=== PATIENT | female | born 1975 | race Caucasian/White ===

== ENCOUNTER 2017-02-07 22:19 | Inpatient (IN) | payer MEDICAID ==
[2017-02-07] MEDS ORDERED: Ketorolac 30 MG/ML SDV IVPUSH ONE (22:39)
[2017-02-07] MEDS ORDERED: Tamsulosin 0.4 MG Cap.ER PO ONE (22:39)
[2017-02-07] MEDS ORDERED: Ondansetron 4 MG/2 ML SDV IVPUSH ONE (22:39)
[2017-02-07] MEDS ORDERED: HYDROmorphone 1 MG/ML Syringe IVPUSH ONE (22:39)
--- NOTE | 2017-02-07 22:44 | EDM.PDOC ---
ED HPI GENERAL MEDICAL PROBLEM - General Chief Complaint: Abdominal Pain Stated Complaint: ABDOMINAL PAIN/KIDNEY STONES Time Seen by Provider: 02/07/17 22:42 - History of Present Illness INITIAL COMMENTS - FREE TEXT/NARRATIVE: HISTORY AND PHYSICAL: History of present illness: Patient 41-year-old female with history of urolithiasis within many episodes prior ingestants or acute right flank pain worse over the last one week with associated nausea she denies fever chills or other concern and no trauma Review of systems: As per history of present illness and below otherwise all systems reviewed and negative. Past medical history: As per history of present illness and as reviewed below otherwise noncontributory. Surgical history: As per history of present illness and as reviewed below otherwise noncontributory. Social history: No reported history of drug or alcohol abuse. Family history: As per history of present illness and as reviewed below otherwise noncontributory. Physical exam: HEENT: Atraumatic, normocephalic, pupils reactive, negative for conjunctival pallor or scleral icterus, mucous membranes moist, throat clear, neck supple, nontender, trachea midline. Lungs: Clear to auscultation, breath sounds equal bilaterally, chest nontender. Heart: S1S2, regular, negative for clicks, rubs, or JVD. Abdomen: Soft, nondistended, nontender. Negative for masses or hepatosplenomegaly. Right-sided costovertebral tenderness. Pelvis: Stable nontender. Genitourinary: Deferred. Rectal: Deferred. Extremities: Atraumatic, negative for cords or calf pain. Neurovascular unremarkable. Neuro: Awake, alert, oriented. Cranial nerves II through XII unremarkable. Cerebellum unremarkable. Motor and sensory unremarkable throughout. Exam nonfocal. Diagnostics: CBC CMP UA hCG CT abdomen and pelvis Therapeutics: Normal saline 1 L bolus Zofran 4 mg IV Toradol 30 mg IV Flomax 0.4 mg by mouth Dilaudid 1 mg IV Impression: #1 acute right flank tenderness #2 history of urolithiasis Definitive disposition and diagnosis as appropriate pending reevaluation and review of above. Right Lower Back Pain Score (Numeric/FACES): 9 - Related Data Allergies Allergy/AdvReac Type Severity Reaction Status Date / Time lorazepam [From Ativan] Allergy Agitation Verified 02/07/17 22:29 Penicillins Allergy Anaphylactic Verified 02/07/17 22:29 Shock sumatriptan [From Imitrex] Allergy Anaphylactic Verified 02/07/17 22:29 Shock sumatriptan succinate Allergy Anaphylactic Verified 02/07/17 22:29 [From Imitrex] Shock venom-honey bee Allergy Anaphylactic Verified 02/07/17 22:29 [bee venom (honey bee)] Shock gnat - bug Allergy Anaphylactic Uncoded 02/07/17 22:29 Shock Home Meds: Home Meds Insulin Aspart [NovoLOG] 32 - 35 unit SQ TIDAC MDD 160 11/03/15 [History] Insulin Glarg,Human.Rec.Analog [LantUS] 64 units SQ BID 11/03/15 [History] Valsartan 320 mg PO DAILY 01/15/16 [History] Spironolactone [Aldactone] 1 tab PO DAILY 07/16/16 [History] Insulin Aspart [NovoLOG] 20 unit SQ WITHSNACKS 07/29/16 [History] cloNIDine [Catapres] 1 tab PO DAILY 07/29/16 [History] Chlorthalidone 25 mg PO DAILY 07/30/16 [History] Past Medical History HEENT History: Reports: Allergic rhinitis Cardiovascular History: Reports: Hypertension Respiratory History: Reports: None Gastrointestinal History: Reports: 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) Genitourinary History: Reports: Renal calculus 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: Musculoskeletal History: Reports: None Other Musculoskeletal History: knee pain Neurological History: Reports: Migraines, Seizure Other Neuro History: had a seizure on 11-01-15 and one 2 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, unknown cause Psychiatric History: Reports: None Endocrine/Metabolic History: Reports: Diabetes, type II, Obesity/BMI 30+ Hematologic History: Reports: None Immunologic History: Reports: None Oncologic (Cancer) History: Reports: None Dermatologic History: Reports: None - Infectious Disease History Infectious Disease History: Reports: Chicken pox, Measles - Past Surgical History Head Surgeries/Procedures: Reports: None HEENT Surgical History: Reports: Oral surgery, Tonsillectomy Cardiovascular Surgical History: Reports: None Respiratory Surgical History: Reports: None GI Surgical History: Reports: Appendectomy, Cholecystectomy Female Surgical History: Reports: section, Hysterectomy, Lithotripsy /ESWL, Tubal ligation - History Comment History Comment: ETOH " 1X A MONTH" Social & Family History - Family History Family Medical History: Noncontributory HEENT: Reports: None Cardiac: Reports: CAD, Hypertension Respiratory: Reports: None GI: Reports: None Psychiatric: Reports: None Endocrine/Metabolic: Reports: None Hematologic: Reports: None Immunologic: Reports: None Dermatologic: Reports: None Oncologic: Reports: Lung - Tobacco Use Smoking Status *Q: Former Smoker Used Tobacco, but Quit: Yes Month Tobacco Last Used: `0 Second Hand Smoke Exposure: Yes - Caffeine Use Caffeine Use: Reports: Tea - Alcohol Use Days Per Week of Alcohol Use: 0 - Recreational Drug Use Recreational Drug Use: No Drug Use in Last 12 Months: No ED ROS GENERAL - Review of Systems Review Of Systems: ROS reveals no pertinent complaints other than HPI. ED EXAM, GENERAL - Physical Exam Exam: See Below (See dictation) Course - Vital Signs Last Recorded V/S: Last Vital Signs Temp 37.2 C 02/07/17 23:33 Pulse 94 02/07/17 23:33 Resp 18 02/07/17 23:33 BP 168/97 H 02/07/17 23:33 Pulse Ox 98 02/07/17 23:33 - Orders/Labs/Meds Orders: Active Orders 24 hr Category Date Time Status EKG 12 Lead [EKG Documentation Completion] [RC] STAT Care 02/08/17 00:27 Active Abdomen Pelvis wo Cont [CT] Stat Exams 02/07/17 22:41 Taken Sodium Chloride 0.9% [Normal Saline] 1,000 ml Med 02/07/17 22:45 Active IV ASDIRECTED Medication Orders Sodium Chloride (Normal Saline) 1,000 mls @ 999 mls/hr IV ASDIRECTED CASSANDRA Last Admin: 02/07/17 22:51 Dose: 999 mls/hr Labs: Laboratory Tests 02/07/17 02/07/17 02/07/17 Range/Units 00:07 22:30 22:45 WBC 9.61 (4.0-11.0) K/uL RBC 4.38 (4.30-5.90) M/uL Hgb 14.0 (12.0-16.0) g/dL Hct 38.7 (36.0-46.0) % MCV 88.4 (80.0-98.0) fL MCH 32.0 (27.0-32.0) pg MCHC 36.2 (31.0-37.0) g/dL RDW Std Deviation 41.2 (28.0-62.0) fl RDW Coeff of Abdirizak 13 (11.0-15.0) % Plt Count 202 (150-400) K/uL MPV 10.20 (7.40-12.00) fL Nucleated RBC % 0.0 /100WBC Nucleated RBCs # 0 K/uL ABG pH 7.399 (7.35-7.45) ABG pCO2 32 L (35-45) mmHG ABG pO2 107 H (75-100) mmHG ABG HCO3 20 L (22-26) mEq/L ABG Total CO2 17.6 ABG Base Excess -4.4 L (-2.0-2.0) Sodium (136-146) mmol/L Potassium (3.5-5.1) mmol/L Chloride (98-110) mmol/L Carbon Dioxide (21-31) mmol/L BUN (6.0-23.0) mg/dL Creatinine (0.6-1.5) mg/dL Est Cr Clr Drug Dosing mL/min Estimated GFR (MDRD) ml/min Glucose (60-110) mg/dL Calcium (8.8-10.8) mg/dL Total Bilirubin (0.1-1.5) mg/dL AST (5-40) IU/L ALT (8-54) IU/L Alkaline Phosphatase (40-150) Total Protein (6.0-8.0) g/dL Albumin (3.5-5.0) g/dL Globulin (2.0-3.5) g/dL Albumin/Globulin Ratio (1.3-2.8) Urine Color YELLOW Urine Appearance CLEAR Urine pH 5.5 (5.0-8.0) Ur Specific Canones 1.010 (1.001-1.035) Urine Protein NEGATIVE (NEGATIVE) mg/dL Urine Glucose (UA) >=1000 (NEGATIVE) mg/dL Urine Ketones NEGATIVE (NEGATIVE) mg/dL Urine Occult Blood NEGATIVE (NEGATIVE) Urine Nitrite NEGATIVE (NEGATIVE) Urine Bilirubin NEGATIVE (NEGATIVE) Urine Urobilinogen 0.2 (<2.0) EU/dL Ur Leukocyte Esterase NEGATIVE (NEGATIVE) Urine RBC 0-1 (0-2/HPF) Urine WBC 1-4 (0-5/HPF) Ur Epithelial Cells FEW (NONE-FEW) Urine Bacteria FEW (NEGATIVE) Urine Opiates Screen (NEGATIVE) Ur Oxycodone Screen (NEGATIVE) Urine Methadone Screen (NEGATIVE) Ur Barbiturates Screen (NEGATIVE) Ur Phencyclidine Scrn (NEGATIVE) Ur Amphetamine Screen (NEGATIVE) U Methamphetamines Scrn (NEGATIVE) U Benzodiazepines Scrn (NEGATIVE) U Cocaine Metab Screen (NEGATIVE) U Marijuana (THC) Screen (NEGATIVE) 02/07/17 02/07/17 Range/Units 22:45 23:30 WBC (4.0-11.0) K/uL RBC (4.30-5.90) M/uL Hgb (12.0-16.0) g/dL Hct (36.0-46.0) % MCV (80.0-98.0) fL MCH (27.0-32.0) pg MCHC (31.0-37.0) g/dL RDW Std Deviation (28.0-62.0) fl RDW Coeff of Abdirizak (11.0-15.0) % Plt Count (150-400) K/uL MPV (7.40-12.00) fL Nucleated RBC % /100WBC Nucleated RBCs # K/uL ABG pH (7.35-7.45) ABG pCO2 (35-45) mmHG ABG pO2 (75-100) mmHG ABG HCO3 (22-26) mEq/L ABG Total CO2 ABG Base Excess (-2.0-2.0) Sodium 134 L (136-146) mmol/L Potassium 4.2 (3.5-5.1) mmol/L Chloride 105 (98-110) mmol/L Carbon Dioxide 18 L (21-31) mmol/L BUN 13 (6.0-23.0) mg/dL Creatinine 1.0 (0.6-1.5) mg/dL Est Cr Clr Drug Dosing 56.99 mL/min Estimated GFR (MDRD) > 60.0 ml/min Glucose 438 H (60-110) mg/dL Calcium 8.8 (8.8-10.8) mg/dL Total Bilirubin 0.7 (0.1-1.5) mg/dL AST 50 H (5-40) IU/L ALT 38 (8-54) IU/L Alkaline Phosphatase 66 (40-150) Total Protein 6.6 (6.0-8.0) g/dL Albumin 3.8 (3.5-5.0) g/dL Globulin 2.8 (2.0-3.5) g/dL Albumin/Globulin Ratio 1.4 (1.3-2.8) Urine Color Urine Appearance Urine pH (5.0-8.0) Ur Specific Canones (1.001-1.035) Urine Protein (NEGATIVE) mg/dL Urine Glucose (UA) (NEGATIVE) mg/dL Urine Ketones (NEGATIVE) mg/dL Urine Occult Blood (NEGATIVE) Urine Nitrite (NEGATIVE) Urine Bilirubin (NEGATIVE) Urine Urobilinogen (<2.0) EU/dL Ur Leukocyte Esterase (NEGATIVE) Urine RBC (0-2/HPF) Urine WBC (0-5/HPF) Ur Epithelial Cells (NONE-FEW) Urine Bacteria (NEGATIVE) Urine Opiates Screen NEGATIVE (NEGATIVE) Ur Oxycodone Screen NEGATIVE (NEGATIVE) Urine Methadone Screen NEGATIVE (NEGATIVE) Ur Barbiturates Screen NEGATIVE (NEGATIVE) Ur Phencyclidine Scrn NEGATIVE (NEGATIVE) Ur Amphetamine Screen NEGATIVE (NEGATIVE) U Methamphetamines Scrn NEGATIVE (NEGATIVE) U Benzodiazepines Scrn NEGATIVE (NEGATIVE) U Cocaine Metab Screen NEGATIVE (NEGATIVE) U Marijuana (THC) Screen NEGATIVE (NEGATIVE) Meds: Medications Generic Name Dose Route Start Last Admin Trade Name Freq PRN Reason Stop Dose Admin Sodium Chloride 1,000 mls @ 999 mls/hr 02/07/17 22:45 02/07/17 22:51 Normal Saline IV 999 mls/hr ASDIRECTED CASSANDRA Administration Discontinued Medications Generic Name Dose Route Start Last Admin Trade Name Freq PRN Reason Stop Dose Admin Hydromorphone HCl 1 mg 02/07/17 22:39 02/07/17 22:54 Dilaudid IVPUSH 02/07/17 22:40 1 mg ONETIME ONE Administration Hydromorphone HCl 1 mg 02/08/17 00:08 02/08/17 00:22 Dilaudid IVPUSH 02/08/17 00:09 1 mg ONETIME ONE Administration Sodium Chloride 1,000 mls @ 999 mls/hr 02/07/17 23:19 02/08/17 00:09 Normal Saline IV 02/08/17 00:19 999 mls/hr .Bolus ONE Administration Insulin Human Regular 15 unit 02/08/17 00:38 Novolin R SUBCUT 02/08/17 00:39 NOW STA Protocol Ketorolac Tromethamine 30 mg 02/07/17 22:39 02/07/17 22:52 Toradol IVPUSH 02/07/17 22:40 30 mg ONETIME ONE Administration Ondansetron HCl 4 mg 02/07/17 22:39 02/07/17 22:52 Zofran IVPUSH 02/07/17 22:40 4 mg ONETIME ONE Administration Tamsulosin HCl 0.4 mg 02/07/17 22:39 02/07/17 22:53 Flomax PO 02/07/17 22:40 0.4 mg ONETIME ONE Administration Departure - Departure Time of Disposition: 00:45 Disposition: Refer to Observation Condition: good Clinical Impression: Uncontrolled diabetes mellitus, Flank pain Forms: ED Department Discharge - My Orders Last 24 Hours: My Active Orders 02/07/17 22:41 Abdomen Pelvis wo Cont [CT] Stat 02/07/17 22:45 Sodium Chloride 0.9% [Normal Saline] 1,000 ml IV ASDIRECTED 02/08/17 00:27 EKG 12 Lead [EKG Documentation Completion] [RC] STAT - Assessment/Plan Last 24 Hours: My Active Orders 02/07/17 22:41 Abdomen Pelvis wo Cont [CT] Stat 02/07/17 22:45 Sodium Chloride 0.9% [Normal Saline] 1,000 ml IV ASDIRECTED 02/08/17 00:27 EKG 12 Lead [EKG Documentation Completion] [RC] STAT
[2017-02-07] MEDS ORDERED: Sodium Chloride 0.9% 1,000 ML IV SCH (22:45)
[2017-02-07 23:11] LABS: CHLORIDE,CL 105 mmol/L (98-110); SODIUM,NA 134 mmol/L (136-146)
[2017-02-07] MEDS ORDERED: Sodium Chloride 0.9% 1,000 ML IV ONE (23:19)
[2017-02-08] MEDS ORDERED: HYDROmorphone 1 MG/ML Syringe IVPUSH ONE (00:08)
[2017-02-08] MEDS ORDERED: Insulin Regular, Human 100 Units/ML 10 ML Vial SUBCUT STA (00:38)
[2017-02-08] MEDS ORDERED: Ondansetron 4 MG/2 ML SDV IVPUSH PRN (02:09)
[2017-02-08] MEDS: HYDROmorphone 1 MG/ML Syringe IVPUSH SCH ×3 (02:34→10:34)
[2017-02-08] MEDS ORDERED: Insulin Aspart 100 Units/ML 3 ML Pen SUBCUT SCH (07:30)
[2017-02-08] MEDS ORDERED: Promethazine 25 MG/ML SDV IM PRN (08:12)
[2017-02-08] MEDS ORDERED: HYDROmorphone 2 MG/ML Syringe IVPUSH SCH (08:15)
--- NOTE | 2017-02-08 08:27 | PCM.HP ---
H&P History of Present Illness - General Date of Service: 02/08/17 Admit Problem/Dx: Admission Diagnosis/Problem Admission Diagnosis/Problem Flank pain Source of Information: Patient History Limitations: Reports: No limitations - History of Present Illness Onset of Symptoms: Reports: gradual Symptom Onset Date: 02/02/17 (began as dysuria and R flank pain, then fever N&V) Duration of Symptoms: Reports: Week(s): Location: Reports: abdomen Quality: Reports: Same as previous episode Severity: severe Improves with: Reports: None Worsens with: Reports: None Associated Symptoms: Reports: fever/chills, nausea/vomiting Right Lower Back Pain Score (Numeric/FACES): 7 - Related Data Allergies/Adverse Reactions: Allergies Allergy/AdvReac Type Severity Reaction Status Date / Time lorazepam [From Ativan] Allergy Agitation Verified 02/07/17 22:29 Penicillins Allergy Anaphylactic Verified 02/07/17 22:29 Shock sumatriptan [From Imitrex] Allergy Anaphylactic Verified 02/07/17 22:29 Shock sumatriptan succinate Allergy Anaphylactic Verified 02/07/17 22:29 [From Imitrex] Shock venom-honey bee Allergy Anaphylactic Verified 02/07/17 22:29 [bee venom (honey bee)] Shock gnat - bug Allergy Anaphylactic Uncoded 02/07/17 22:29 Shock Home Medications: Home Meds Insulin Aspart [NovoLOG] 32 - 35 unit SQ TIDAC MDD 160 11/03/15 [History] Insulin Glarg,Human.Rec.Analog [LantUS] 64 units SQ BID 11/03/15 [History] Valsartan 320 mg PO DAILY 01/15/16 [History] Spironolactone [Aldactone] 1 tab PO DAILY 07/16/16 [History] Insulin Aspart [NovoLOG] 20 unit SQ WITHSNACKS 07/29/16 [History] cloNIDine [Catapres] 2 tab PO DAILY 07/29/16 [History] Chlorthalidone 25 mg PO DAILY 07/30/16 [History] Magnesium Oxide 400 mg PO DAILY 02/08/17 [History] Past Medical History HEENT History: Reports: Allergic rhinitis Cardiovascular History: Reports: Hypertension Respiratory History: Reports: None Gastrointestinal History: Reports: Gastritis Genitourinary History: Reports: Renal calculus (reports started in childhood, family reyna) 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: , 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) (hysterectomy for abnormal pap smear) Musculoskeletal History: Reports: None Other Musculoskeletal History: knee pain Neurological History: Reports: Migraines, Seizure Other Neuro History: had a seizure on 11-01-15 and one 2 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, unknown cause Psychiatric History: Reports: None Endocrine/Metabolic History: Reports: Diabetes, type II, Obesity/BMI 30+ Hematologic History: Reports: None Immunologic History: Reports: None Oncologic (Cancer) History: Reports: None, Cervix Dermatologic History: Reports: None - Infectious Disease History Infectious Disease History: Reports: Chicken pox, Measles - Past Surgical History Head Surgeries/Procedures: Reports: None HEENT Surgical History: Reports: Oral surgery, Tonsillectomy Cardiovascular Surgical History: Reports: None Respiratory Surgical History: Reports: None GI Surgical History: Reports: Appendectomy, Cholecystectomy Female Surgical History: Reports: section, Hysterectomy, Lithotripsy /ESWL, Tubal ligation - History Comment History Comment: ETOH " 1X A MONTH" Social & Family History - Family History Family Medical History: Noncontributory HEENT: Reports: None Cardiac: Reports: CAD, Hypertension Respiratory: Reports: None GI: Reports: None : Reports: Renal calculus Psychiatric: Reports: None Endocrine/Metabolic: Reports: None Hematologic: Reports: None Immunologic: Reports: None Dermatologic: Reports: None Oncologic: Reports: Lung (father 60ies) - Tobacco Use Smoking Status *Q: Never Smoker Used Tobacco, but Quit: Yes Month Tobacco Last Used: `0 Second Hand Smoke Exposure: No - Caffeine Use Caffeine Use: Reports: Tea - Alcohol Use Days Per Week of Alcohol Use: 0 - Recreational Drug Use Recreational Drug Use: No Drug Use in Last 12 Months: No H&P Review of Systems - Review of Systems: Review Of Systems: See Below General: Reports: fever, decreased appetite HEENT: Reports: no symptoms Pulmonary: Reports: No Symptoms Cardiovascular: Reports: no symptoms Gastrointestinal: Reports: Nausea, Vomiting Genitourinary: Reports: dysuria, frequency, pain Musculoskeletal: Reports: no symptoms Skin: Reports: no symptoms Psychiatric: Reports: no symptoms Neurological: Reports: No Symptoms Hematologic/Lymphatic: Reports: no symptoms Immunologic: Reports: no symptoms, anaphylaxis (pcn) Exam - Exam Exam: See Below - Vital Signs Vital Signs: Last Vital Signs Temp 36.4 C 02/08/17 04:00 Pulse 92 02/08/17 04:00 Resp 18 02/08/17 04:00 BP 124/78 02/08/17 04:00 Pulse Ox 97 02/08/17 04:00 Weight: 85.02 kg - Exam General: severe distress, other (obese, mildly cushingoid appearance) HEENT: Conjunctiva clear Neck: trachea midline Lungs: Clear to auscultation Cardiovascular: regular rate Abdomen: hypoactive bowel sounds (Female) Exam: Deferred Rectal (Female) Exam: Deferred Back Exam: CVA tenderness (L), CVA tenderness (R) (more than L) Extremities: 3, normal inspection, 10 Skin: warm, dry, intact Neurological: strength equal bilateral, normal speech Neuro Extensive - Mental Status: alert, normal mood/affect Neuro Extensive - Motor, Sensory, Reflexes: normal gait Psychiatric: normal mood (for being sick as a dog) - Patient Data Lab Results last 24 hrs: Laboratory Results - last 24 hr 02/08/17 Range/Units 01:39 POC Glucose 272 H (60-110) mg/dL Result Diagrams: 02/07/17 22:45 02/07/17 22:45 *Q Meaningful Use (ADM) - VTE *Q VTE Criteria *Q: - Stroke *Q Stroke Criteria *Q: - AMI *Q AMI Criteria *Q: Problem List Initiated/Reviewed/Updated: Yes Orders Last 24hrs: Active Orders 24 hr Category Date Time Status Blood Glucose Check, Bedside [RC] QIDACANDBED Care 02/08/17 07:30 Active Communication Order [RC] PER UNIT ROUTINE Care 02/08/17 02:09 Active Strain Urine [RC] ASDIRECTED Care 02/08/17 02:15 Active [employer] Diet [DIET] Diet 02/08/17 Breakfast Active Chlorthalidone Med 02/08/17 09:00 Active 25 mg PO DAILY HYDROmorphone [Dilaudid] Med 02/08/17 02:15 Active 2 mg IVPUSH Q3H Insulin Aspart [NovoLOG] Med 02/08/17 07:30 Active See Protocol SUBCUT ACBED Insulin Glarg,Human.Rec.Analog [LantUS Solostar] Med 02/08/17 09:00 Active 50 units SUBCUT BID Magnesium Oxide Med 02/08/17 09:00 Active 400 mg PO DAILY Ondansetron [Zofran] Med 02/08/17 02:09 Active 8 mg IVPUSH Q8H PRN Spironolactone [Aldactone] Med 02/08/17 09:00 Active 25 mg PO DAILY Valsartan [Diovan] Med 02/08/17 09:00 Active 320 mg PO DAILY cloNIDine [Catapres] Med 02/08/17 09:00 Active 0.2 mg PO DAILY Resuscitation Status Routine Resus Stat 02/08/17 02:09 Ordered Medication Orders Chlorthalidone (Chlorthalidone) 25 mg PO DAILY [facility] Clonidine HCl (Catapres) 0.2 mg PO DAILY [facility] Hydromorphone HCl (Dilaudid) 2 mg IVPUSH Q3H [facility] Last Admin: 02/08/17 05:35 Dose: 2 mg Admin: 02/08/17 02:34 Dose: Not Given Sodium Chloride (Normal Saline) 1,000 mls @ 999 mls/hr IV ASDIRECTED [facility] Last Admin: 02/07/17 22:51 Dose: 999 mls/hr Insulin Aspart (Novolog) 0 unit SUBCUT ACBED [facility] PRN Reason: Protocol Insulin Glargine (Lantus Solostar) 50 units SUBCUT BID [facility] Magnesium Oxide (Magnesium Oxide) 400 mg PO DAILY [facility] Ondansetron HCl (Zofran) 8 mg IVPUSH Q8H PRN PRN Reason: Nausea/Vomiting Last Admin: 02/08/17 05:34 Dose: 8 mg Spironolactone (Aldactone) 25 mg PO DAILY [facility] Valsartan (Diovan) 320 mg PO DAILY [facility] Assessment/Plan Comment:: more likely pyelonephritis than non obstructing lucent stone. Strong family and personal history does suggest metabolic derangement, hypercalcemia etc DM out of control due to illness, Large insulin dose indicates insulin resistance, perhaps cortisol excess hypertension ok at present penicillin allergy will maintain usual medication so far as pt able to keep down, continue IV fluids and begin iv antibiotic, [id number] in view of serious allergy
[2017-02-08] MEDS ORDERED: Pantoprazole 40 MG Vial IV SCH (09:00)
[2017-02-08] MEDS: Insulin Glargine,Human Rec. Analog 100 Units/ML 3 ML Pen SUBCUT SCH ×2 (09:06→20:52)
[2017-02-08] MEDS: Pantoprazole 40 MG in Sodium Chloride 0.9% 10 ML IV SCH ×2 (10:09→20:45)
[2017-02-08] MEDS: Sulfamethoxazole/Trimethoprim 20 ML in Dextrose 5% in Water 500 ML IV SCH ×6 (10:09→23:57)
[2017-02-08] MEDS: Spironolactone 25 MG Tab PO SCH (10:13)
[2017-02-08] MEDS: Chlorthalidone 25 MG Tab PO SCH (10:14)
[2017-02-08] MEDS: cloNIDine 0.1 MG Tab PO SCH (10:14)
[2017-02-08] MEDS: Magnesium Oxide 400 MG Tab PO SCH (10:15)
[2017-02-08] MEDS ORDERED: HYDROmorphone 2 MG/ML Syringe IVPUSH PRN (10:42)
--- NOTE | 2017-02-08 11:39 | PCM.PN ---
- General Info Date of Service: 02/08/17 Functional Status: Reports: pain controlled (partially, down to 6) - Review of Systems General: Reports: No Symptoms, Appetite HEENT: Reports: no symptoms Pulmonary: Reports: no symptoms Cardiovascular: Reports: No Symptoms Gastrointestinal: Reports: Diarrhea Genitourinary: Reports: no symptoms Musculoskeletal: Reports: no symptoms Skin: Reports: no symptoms Neurological: Reports: No Symptoms Psychiatric: Reports: no symptoms - Patient Data Vitals - most recent: Last Vital Signs Temp 36.6 C 02/08/17 08:12 Pulse 92 02/08/17 08:12 Resp 14 02/08/17 08:12 BP 176/117 H 02/08/17 10:14 Pulse Ox 97 02/08/17 08:12 Weight - most recent: 85.02 kg I&O - last 24 hours: Intake & Output 02/07/17 02/08/17 02/08/17 22:59 06:59 14:59 Intake Total 510 Balance 510 Lab Results last 24 hrs: Laboratory Results - last 24 hr 02/08/17 Range/Units 11:16 POC Glucose 326 H (60-110) mg/dL Med Orders - Current: Current Medications Chlorthalidone (Chlorthalidone) 25 mg PO DAILY [facility] Last Admin: 02/08/17 10:14 Dose: 25 mg Clonidine HCl (Catapres) 0.2 mg PO DAILY [facility] Last Admin: 02/08/17 10:14 Dose: 0.2 mg Hydromorphone HCl (Dilaudid) 2 mg IVPUSH Q3H PRN PRN Reason: Pain Sodium Chloride (Normal Saline) 1,000 mls @ 150 mls/hr IV ASDIRECTED [facility] Last Admin: 02/07/17 22:51 Dose: 999 mls/hr Trimethoprim/Sulfamethoxazole (20 ml/ Dextrose/Water) 520 mls @ 260 mls/hr IV Q8H [facility] Last Admin: 02/08/17 10:09 Dose: 260 mls/hr Pantoprazole Sodium 40 mg/ (Sodium Chloride) 10 mls @ 120 mls/hr IV Q12H [facility] Last Admin: 02/08/17 10:09 Dose: 120 mls/hr Insulin Aspart (Novolog) 0 unit SUBCUT ACBED [facility] PRN Reason: Protocol Insulin Glargine (Lantus Solostar) 50 units SUBCUT BID [facility] Last Admin: 02/08/17 09:06 Dose: 50 units Magnesium Oxide (Magnesium Oxide) 400 mg PO DAILY [facility] Last Admin: 02/08/17 10:15 Dose: 400 mg Ondansetron HCl (Zofran) 8 mg IVPUSH Q8H PRN PRN Reason: Nausea/Vomiting Last Admin: 02/08/17 05:34 Dose: 8 mg Promethazine HCl (Phenergan) 25 mg IM Q6H PRN PRN Reason: Nausea Last Admin: 02/08/17 09:05 Dose: 25 mg Spironolactone (Aldactone) 25 mg PO DAILY [facility] Last Admin: 02/08/17 10:13 Dose: 25 mg Valsartan (Diovan) 320 mg PO DAILY [facility] Last Admin: 02/08/17 10:14 Dose: 320 mg Discontinued Medications Hydromorphone HCl (Dilaudid) 1 mg IVPUSH ONETIME ONE Stop: 02/07/17 22:40 Last Admin: 02/07/17 22:54 Dose: 1 mg Hydromorphone HCl (Dilaudid) 1 mg IVPUSH ONETIME ONE Stop: 02/08/17 00:09 Last Admin: 02/08/17 00:22 Dose: 1 mg Hydromorphone HCl (Dilaudid) 2 mg IVPUSH Q3H [facility] Last Admin: 02/08/17 10:34 Dose: Not Given Hydromorphone HCl (Dilaudid) 2 mg IVPUSH Q3H [facility] Last Admin: 02/08/17 10:18 Dose: Not Given Sodium Chloride (Normal Saline) 1,000 mls @ 999 mls/hr IV .Bolus ONE Stop: 02/08/17 00:19 Last Admin: 02/08/17 00:09 Dose: 999 mls/hr Insulin Aspart (Novolog) 0 unit SUBCUT ACBED [facility] PRN Reason: Protocol Last Admin: 02/08/17 09:04 Dose: 4 units Insulin Human Regular (Novolin R) 15 unit SUBCUT NOW STA PRN Reason: Protocol Stop: 02/08/17 00:39 Last Admin: 02/08/17 00:50 Dose: 15 units Ketorolac Tromethamine (Toradol) 30 mg IVPUSH ONETIME ONE Stop: 02/07/17 22:40 Last Admin: 02/07/17 22:52 Dose: 30 mg Ondansetron HCl (Zofran) 4 mg IVPUSH ONETIME ONE Stop: 02/07/17 22:40 Last Admin: 02/07/17 22:52 Dose: 4 mg Pantoprazole Sodium (Protonix Iv) 40 mg IV Q12HR [facility] Tamsulosin HCl (Flomax) 0.4 mg PO ONETIME ONE Stop: 02/07/17 22:40 Last Admin: 02/07/17 22:53 Dose: 0.4 mg - Exam General: alert HEENT: Pupils equal Neck: trachea midline Lungs: Clear to auscultation Cardiovascular: Regular Rate (Female) Exam: Deferred Back Exam: normal inspection Extremities: no edema Skin: warm Wound/Incisions: no drainage Neurological: no new focal deficit Psy/Mental Status: alert, normal affect - Problem List Review Problem List Initiated/Reviewed/Updated: Yes - My Orders Last 24 Hours: My Active Orders 02/08/17 08:30 Sulfamethoxazole/Trimethoprim [Septra IV] 20 ml Dextrose 5% in Water 500 ml IV Q8H 02/08/17 08:45 Pantoprazole [ProTONIX IV] 40 mg Sodium Chloride 0.9% [Normal Saline] 10 ml IV Q12H 02/08/17 10:42 HYDROmorphone [Dilaudid] 2 mg IVPUSH Q3H PRN 02/08/17 11:25 Insulin Aspart [NovoLOG] See Protocol SUBCUT ACBED - Assessment Assessment:: pain improving diabetes still poorly controlled - Plan Plan:: continue iv antibiotic empirically (It appears u/A and culture were not done, only toxicology) give additional iv fluids as pt having GI losses increase insulin dose more likely pyelonephritis than non obstructing lucent stone. Strong family and personal history does suggest metabolic derangement, hypercalcemia etc DM out of control due to illness, Large insulin dose indicates insulin resistance, perhaps cortisol excess hypertension ok at present penicillin allergy will maintain usual medication so far as pt able to keep down, continue IV fluids and begin iv antibiotic, [id number] in view of serious allergy
[2017-02-08] MEDS: Sodium Chloride 0.9% 1,000 ML IV SCH (11:50)
[2017-02-08] MEDS: Insulin Aspart 100 Units/ML 3 ML Pen SUBCUT SCH ×3 (12:14→20:50)
[2017-02-08 12:38] LABS: CHLORIDE,CL 107 mmol/L (98-110); SODIUM,NA 134 mmol/L (136-146)
[2017-02-09 05:14] LABS: CHLORIDE,CL 107 mmol/L (98-110); SODIUM,NA 137 mmol/L (136-146)
[2017-02-09] MEDS: Insulin Aspart 100 Units/ML 3 ML Pen SUBCUT SCH ×2 (07:26→12:05)
[2017-02-09] MEDS: Sodium Chloride 0.9% 1,000 ML IV SCH (07:28)
[2017-02-09] MEDS: Sulfamethoxazole/Trimethoprim 20 ML in Dextrose 5% in Water 500 ML IV SCH ×2 (07:47)
[2017-02-09] MEDS: Pantoprazole 40 MG in Sodium Chloride 0.9% 10 ML IV SCH (07:47)
[2017-02-09] MEDS: Magnesium Oxide 400 MG Tab PO SCH (09:03)
[2017-02-09] MEDS: Chlorthalidone 25 MG Tab PO SCH (09:04)
[2017-02-09] MEDS: Insulin Glargine,Human Rec. Analog 100 Units/ML 3 ML Pen SUBCUT SCH (09:04)
[2017-02-09] MEDS: Spironolactone 25 MG Tab PO SCH (09:04)
[2017-02-09] MEDS: cloNIDine 0.1 MG Tab PO SCH (09:05)
[2017-02-09] MEDS ORDERED: Acetaminophen/HYDROcodone 325-5 MG Tab PO PRN (10:04)
--- NOTE | 2017-02-09 10:14 | PCM.PN ---
- General Info Date of Service: 02/09/17 Admission Dx/Problem (Free Text): Admission Diagnosis/Problem Admission Diagnosis/Problem Flank pain Subjective Update: Feeling a little better today. Still having some CVA tenderness, more on R side today. Tolerating liquids better after Phenergan last evening. Denies chest pain or SOB. Functional Status: Reports: pain controlled, tolerating diet, ambulating, urinating - Review of Systems General: Reports: No Symptoms. Denies: Fever HEENT: Reports: no symptoms. Denies: sinus congestion, sore throat, rhinitis Pulmonary: Reports: no symptoms. Denies: shortness of breath Cardiovascular: Reports: No Symptoms. Denies: Chest Pain, Palpitations Gastrointestinal: Reports: Abdominal pain, Flatus. Denies: Nausea, Vomiting Genitourinary: Reports: dysuria, frequency, flank pain (R>L) Musculoskeletal: Denies: neck pain Skin: Reports: no symptoms Neurological: Reports: No Symptoms Psychiatric: Reports: no symptoms - Patient Data Vitals - most recent: Last Vital Signs Temp 97.9 F 02/09/17 07:52 Pulse 66 02/09/17 07:52 Resp 20 02/09/17 07:52 BP 136/82 02/09/17 09:05 Pulse Ox 98 02/09/17 08:12 Weight - most recent: 85.02 kg I&O - last 24 hours: Intake & Output 02/08/17 02/09/17 02/09/17 22:59 06:59 14:59 Intake Total 427 709 5950 Output Total 2300 1900 Balance -1500 -980 1000 Lab Results last 24 hrs: Laboratory Results - last 24 hr 02/08/17 02/08/17 02/08/17 Range/Units 11:16 12:03 16:49 WBC (4.0-11.0) K/uL RBC (4.30-5.90) M/uL Hgb (12.0-16.0) g/dL Hct (36.0-46.0) % MCV (80.0-98.0) fL MCH (27.0-32.0) pg MCHC (31.0-37.0) g/dL RDW Std Deviation (28.0-62.0) fl RDW Coeff of Abdirizak (11.0-15.0) % Plt Count (150-400) K/uL MPV (7.40-12.00) fL Neut % (Auto) (48.0-80.0) % Lymph % (Auto) (16.0-40.0) % [place] % (Auto) (0.0-15.0) % Eos % (Auto) (0.0-7.0) % Baso % (Auto) (0.0-1.5) % Neut # (Auto) (1.4-5.7) K/uL Lymph # (Auto) (0.6-2.4) K/uL [place] # (Auto) (0.0-0.8) K/uL Eos # (Auto) (0.0-0.7) K/uL Baso # (Auto) (0.0-0.1) K/uL Nucleated RBC % /100WBC Nucleated RBCs # K/uL Sodium 134 L (136-146) mmol/L Potassium 4.2 (3.5-5.1) mmol/L Chloride 107 (98-110) mmol/L Carbon Dioxide 17 L (21-31) mmol/L BUN 12 (6.0-23.0) mg/dL Creatinine 0.8 (0.6-1.5) mg/dL Est Cr Clr Drug Dosing 71.24 mL/min Estimated GFR (MDRD) > 60.0 ml/min Glucose 375 H (60-110) mg/dL POC Glucose 326 H 275 H (60-110) mg/dL Calcium 7.9 L (8.8-10.8) mg/dL 02/08/17 02/09/17 02/09/17 Range/Units 20:49 04:30 04:30 WBC 7.84 (4.0-11.0) K/uL RBC 3.85 L (4.30-5.90) M/uL Hgb 12.3 (12.0-16.0) g/dL Hct 34.6 L (36.0-46.0) % MCV 89.9 (80.0-98.0) fL MCH 31.9 (27.0-32.0) pg MCHC 35.5 (31.0-37.0) g/dL RDW Std Deviation 42.1 (28.0-62.0) fl RDW Coeff of Abdirizak 13 (11.0-15.0) % Plt Count 164 (150-400) K/uL MPV 10.10 (7.40-12.00) fL Neut % (Auto) 49.7 (48.0-80.0) % Lymph % (Auto) 40.3 H (16.0-40.0) % [place] % (Auto) 7.7 (0.0-15.0) % Eos % (Auto) 1.9 (0.0-7.0) % Baso % (Auto) 0.4 (0.0-1.5) % Neut # (Auto) 3.9 (1.4-5.7) K/uL Lymph # (Auto) 3.2 H (0.6-2.4) K/uL [place] # (Auto) 0.6 (0.0-0.8) K/uL Eos # (Auto) 0.2 (0.0-0.7) K/uL Baso # (Auto) 0.0 (0.0-0.1) K/uL Nucleated RBC % 0.0 /100WBC Nucleated RBCs # 0 K/uL Sodium 137 (136-146) mmol/L Potassium 3.7 (3.5-5.1) mmol/L Chloride 107 (98-110) mmol/L Carbon Dioxide 21 (21-31) mmol/L BUN 10 (6.0-23.0) mg/dL Creatinine 0.8 (0.6-1.5) mg/dL Est Cr Clr Drug Dosing 71.24 mL/min Estimated GFR (MDRD) > 60.0 ml/min Glucose 185 H (60-110) mg/dL POC Glucose 239 H (60-110) mg/dL Calcium 8.6 L (8.8-10.8) mg/dL 02/09/17 02/09/17 Range/Units 06:19 09:02 WBC (4.0-11.0) K/uL RBC (4.30-5.90) M/uL Hgb (12.0-16.0) g/dL Hct (36.0-46.0) % MCV (80.0-98.0) fL MCH (27.0-32.0) pg MCHC (31.0-37.0) g/dL RDW Std Deviation (28.0-62.0) fl RDW Coeff of Abdirizak (11.0-15.0) % Plt Count (150-400) K/uL MPV (7.40-12.00) fL Neut % (Auto) (48.0-80.0) % Lymph % (Auto) (16.0-40.0) % [place] % (Auto) (0.0-15.0) % Eos % (Auto) (0.0-7.0) % Baso % (Auto) (0.0-1.5) % Neut # (Auto) (1.4-5.7) K/uL Lymph # (Auto) (0.6-2.4) K/uL [place] # (Auto) (0.0-0.8) K/uL Eos # (Auto) (0.0-0.7) K/uL Baso # (Auto) (0.0-0.1) K/uL Nucleated RBC % /100WBC Nucleated RBCs # K/uL Sodium (136-146) mmol/L Potassium (3.5-5.1) mmol/L Chloride (98-110) mmol/L Carbon Dioxide (21-31) mmol/L BUN (6.0-23.0) mg/dL Creatinine (0.6-1.5) mg/dL Est Cr Clr Drug Dosing mL/min Estimated GFR (MDRD) ml/min Glucose (60-110) mg/dL POC Glucose 135 H 241 H (60-110) mg/dL Calcium (8.8-10.8) mg/dL Med Orders - Current: Current Medications Hydrocodone Bitart/Acetaminophen ([place] 325-5 Mg) 1 - 2 tab PO Q4H PRN PRN Reason: Pain Chlorthalidone (Chlorthalidone) 25 mg PO DAILY [facility] Last Admin: 02/09/17 09:04 Dose: 25 mg Clonidine HCl (Catapres) 0.2 mg PO DAILY [facility] Last Admin: 02/09/17 09:05 Dose: 0.2 mg Hydromorphone HCl (Dilaudid) 2 mg IVPUSH Q3H PRN PRN Reason: Pain Last Admin: 02/09/17 07:48 Dose: 2 mg Trimethoprim/Sulfamethoxazole (20 ml/ Dextrose/Water) 520 mls @ 260 mls/hr IV Q8H [facility] Last Admin: 02/09/17 07:47 Dose: 260 mls/hr Pantoprazole Sodium 40 mg/ (Sodium Chloride) 10 mls @ 120 mls/hr IV Q12H [facility] Last Admin: 02/09/17 07:47 Dose: 120 mls/hr Sodium Chloride (Normal Saline) 1,000 mls @ 75 mls/hr IV ASDIRECTED [facility] Last Admin: 02/09/17 07:28 Dose: 75 mls/hr Insulin Aspart (Novolog) 0 unit SUBCUT ACBED [facility] PRN Reason: Protocol Last Admin: 02/09/17 07:26 Dose: Not Given Insulin Glargine (Lantus Solostar) 50 units SUBCUT BID [facility] Last Admin: 02/09/17 09:04 Dose: 50 units Magnesium Oxide (Magnesium Oxide) 400 mg PO DAILY [facility] Last Admin: 02/09/17 09:03 Dose: 400 mg Ondansetron HCl (Zofran) 8 mg IVPUSH Q8H PRN PRN Reason: Nausea/Vomiting Last Admin: 02/08/17 05:34 Dose: 8 mg Promethazine HCl (Phenergan) 25 mg IM Q6H PRN PRN Reason: Nausea Last Admin: 02/08/17 09:05 Dose: 25 mg Spironolactone (Aldactone) 25 mg PO DAILY [facility] Last Admin: 02/09/17 09:04 Dose: 25 mg Valsartan (Diovan) 320 mg PO DAILY [facility] Last Admin: 02/09/17 09:05 Dose: 320 mg Discontinued Medications Hydromorphone HCl (Dilaudid) 1 mg IVPUSH ONETIME ONE Stop: 02/07/17 22:40 Last Admin: 02/07/17 22:54 Dose: 1 mg Hydromorphone HCl (Dilaudid) 1 mg IVPUSH ONETIME ONE Stop: 02/08/17 00:09 Last Admin: 02/08/17 00:22 Dose: 1 mg Hydromorphone HCl (Dilaudid) 2 mg IVPUSH Q3H [facility] Last Admin: 02/08/17 10:34 Dose: Not Given Hydromorphone HCl (Dilaudid) 2 mg IVPUSH Q3H [facility] Last Admin: 02/08/17 10:18 Dose: Not Given Sodium Chloride (Normal Saline) 1,000 mls @ 150 mls/hr IV ASDIRECTED [facility] Last Admin: 02/07/17 22:51 Dose: 999 mls/hr Sodium Chloride (Normal Saline) 1,000 mls @ 999 mls/hr IV .Bolus ONE Stop: 02/08/17 00:19 Last Admin: 02/08/17 00:09 Dose: 999 mls/hr Insulin Aspart (Novolog) 0 unit SUBCUT ACBED [facility] PRN Reason: Protocol Last Admin: 02/08/17 09:04 Dose: 4 units Insulin Human Regular (Novolin R) 15 unit SUBCUT NOW [facility] PRN Reason: Protocol Stop: 02/08/17 00:39 Last Admin: 02/08/17 00:50 Dose: 15 units Ketorolac Tromethamine (Toradol) 30 mg IVPUSH ONETIME ONE Stop: 02/07/17 22:40 Last Admin: 02/07/17 22:52 Dose: 30 mg Ondansetron HCl (Zofran) 4 mg IVPUSH ONETIME ONE Stop: 02/07/17 22:40 Last Admin: 02/07/17 22:52 Dose: 4 mg Pantoprazole Sodium (Protonix Iv) 40 mg IV Q12HR [facility] Tamsulosin HCl (Flomax) 0.4 mg PO ONETIME ONE Stop: 02/07/17 22:40 Last Admin: 02/07/17 22:53 Dose: 0.4 mg - Exam General: alert, oriented, cooperative Lungs: Clear to auscultation, Normal respiratory effort Cardiovascular: Regular Rate, Regular Rhythm Abdomen: bowel sounds present, soft, no distension, tenderness (R mid abdomen ) , CVA tenderness Extremities: no edema, normal pulses Psy/Mental Status: alert, normal affect, normal mood - Problem List & Annotations (1) Pyelonephritis SNOMED Code(s): 78859977 Code(s): N12 - TUBULO-INTERSTITIAL NEPHRITIS, NOT SPCF ACUTE OR CHRONIC Status: Acute Current Visit: Yes (2) Flank pain SNOMED Code(s): 264892665 Code(s): R10.9 - UNSPECIFIED ABDOMINAL PAIN Status: Acute Current Visit: Yes (3) Uncontrolled diabetes mellitus SNOMED Code(s): 025767032 Code(s): E11.65 - TYPE 2 DIABETES MELLITUS WITH HYPERGLYCEMIA Status: Chronic Current Visit: Yes Qualifiers: Diabetes mellitus type: type 2 Diabetes mellitus complication status: with hyperglycemia 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 insulin use: with halfway use Qualified Code(s): E11.65 - Type 2 diabetes mellitus with hyperglycemia; Z79.4 - FDC (current) use of insulin (4) 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 Strong family and personal history does suggest metabolic derangement, hypercalcemia etc DM out of control due to illness, Large insulin dose indicates insulin resistance, perhaps cortisol excess hypertension ok at present penicillin allergy will maintain usual medication so far as pt able to keep down, continue IV fluids and begin iv antibiotic, [id number] in view of serious allergy 4. 1. Pyelonephritis: Suspected clinically. No UC was obtained. Treating with Bactrim IV, No leukocytosis today. Flank pain continues, but slowly improving. Will start PO pain meds since nausea is better. Requesting discharge home today , will see how pain is managed this afternoon. Afebrile. 2. HTN: Stable. Continue home medications 3. DM type 2: Continue with home regimen, blood sugars better controlled now than on admission. Will monitor. VTE: SCDs Dispo: Possible DC later today if pain controlled. Charmaine Ortiz NP-C
[2017-02-09 11:14] VITALS: BP 98/45
--- NOTE | 2017-02-09 14:42 | PCM.DCSUM1 ---
Discharge Summary - Hospital Course Brief History: This 41 year old female with DM, renal artery stenosis, HTN, and obesity presented to the ED on 02/08/2017 with a week long complaints of R flank pain and dysuria, along with fever and nausea and vomiting. In [facility] ED no leukocytosis noted, UA negative and negative tox screen. CT of abd/pelvix obtained which was negative, no renal stones or pyelonephritis noted. She was admitted with clinical suspicion for pyelonephritis. - Discharge Data Discharge Date: 02/09/17 Discharge Disposition: Home, Self-Care 01 Condition: Good - Discharge Diagnosis/Problem(s) (1) Pyelonephritis SNOMED Code(s): 22628837 ICD Code: N12 - TUBULO-INTERSTITIAL NEPHRITIS, NOT SPCF ACUTE OR CHRONIC Status: Acute Current Visit: Yes (2) Flank pain SNOMED Code(s): 213986693 ICD Code: R10.9 - UNSPECIFIED ABDOMINAL PAIN Status: Acute Current Visit : Yes (3) Uncontrolled diabetes mellitus SNOMED Code(s): 959364336 ICD Code: E11.65 - TYPE 2 DIABETES MELLITUS WITH HYPERGLYCEMIA Status: Chronic Current Visit: Yes Qualifiers: Diabetes mellitus type: type 2 Diabetes mellitus complication status: with hyperglycemia 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 Qualified Code(s): E11.65 - Type 2 diabetes mellitus with hyperglycemia; Z79.4 - correction (current) use of insulin (4) 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 SNOMED Code(s): 828660352 ICD Code: I70.1 - ATHEROSCLEROSIS OF RENAL ARTERY Status: Chronic Current Visit: Yes - Patient Summary/Data Operative Procedure(s) Performed: L knee scope with PMM, open excision knee cyst - Patient Instructions Diet: Heart Healthy Diet, Low Sodium, Diabetic Diet Activity: As Tolerated Driving: Do Not Drive (No driving) Showering/Bathing: May Shower Notify Provider of: Fever, Increased Pain, Swelling and Redness, Drainage, Nausea and/or Vomiting - Discharge Plan Prescriptions/Med Rec: Acetaminophen/HYDROcodone [[place] 325-5 MG] 1 - 2 tab PO Q6H PRN #10 tablet PRN Reason: Pain Sulfamethoxazole/Trimethoprim [Bactrim Ds Tablet] 1 each PO BID #20 tablet Home Medications: Home Meds Insulin Aspart [NovoLOG] 32 - 35 unit SQ TIDAC MDD 160 11/03/15 [History] Insulin Glarg,Human.Rec.Analog [LantUS] 64 units SQ BID 11/03/15 [History] Valsartan 320 mg PO DAILY 01/15/16 [History] Spironolactone [Aldactone] 1 tab PO DAILY 07/16/16 [History] Insulin Aspart [NovoLOG] 20 unit SQ WITHSNACKS 07/29/16 [History] cloNIDine [Catapres] 2 tab PO DAILY 07/29/16 [History] Chlorthalidone 25 mg PO DAILY 07/30/16 [History] Magnesium Oxide 400 mg PO DAILY 02/08/17 [History] Acetaminophen/HYDROcodone [[place] 325-5 MG] 1 - 2 tab PO Q6H PRN #10 tablet 02/09 [Rx] Sulfamethoxazole/Trimethoprim [Bactrim Ds Tablet] 1 each PO BID #20 tablet 02/09 [Rx] Referrals: PCP,None [Primary Care Provider] - (follow up with PCP 1 week) - Discharge Summary/Plan Comment DC Time >30 min.: No Discharge Summary/Plan Comment: Discharge Diagnoses Pyelonephritis HTN-controlled. DM uncontrolled renal artery stenosis Ursula was admitted and treated with Bactrim IV, she remained afebrile, with no leukocytosis. UC was not obtained. Her flank pain improved and is well controlled with [place]. She is requesting discharge today. She is no longer nauseated and is tolerating oral intake. She will be discharged home with bactrim DS 1 tab BID for 10 more days for pyelonephritis. I will also give her [place] 5/325 mg 1-2 tabs Q6hrs PO PRN pain #10 0 RF. She is to see her PCP in 1 week for follow up. - Patient Data Vitals - Most Recent: Last Vital Signs Temp 97.8 F 02/09/17 11:00 Pulse 81 02/09/17 11:00 Resp 20 02/09/17 11:00 BP 98/45 L 02/09/17 11:00 Pulse Ox 96 02/09/17 11:00 Weight - Most Recent: 85.02 kg I&O - Last 24 hours: Intake & Output 02/08/17 02/09/17 02/09/17 22:59 06:59 14:59 Intake Total 692 510 6550 Output Total 2300 1900 Balance -1500 -980 1000 Lab Results - Last 24 hrs: Laboratory Results - last 24 hr 02/08/17 02/08/17 02/09/17 Range/Units 16:49 20:49 04:30 WBC 7.84 (4.0-11.0) K/uL RBC 3.85 L (4.30-5.90) M/uL Hgb 12.3 (12.0-16.0) g/dL Hct 34.6 L (36.0-46.0) % MCV 89.9 (80.0-98.0) fL MCH 31.9 (27.0-32.0) pg MCHC 35.5 (31.0-37.0) g/dL RDW Std Deviation 42.1 (28.0-62.0) fl RDW Coeff of Abdirizak 13 (11.0-15.0) % Plt Count 164 (150-400) K/uL MPV 10.10 (7.40-12.00) fL Neut % (Auto) 49.7 (48.0-80.0) % Lymph % (Auto) 40.3 H (16.0-40.0) % Potter % (Auto) 7.7 (0.0-15.0) % Eos % (Auto) 1.9 (0.0-7.0) % Baso % (Auto) 0.4 (0.0-1.5) % Neut # (Auto) 3.9 (1.4-5.7) K/uL Lymph # (Auto) 3.2 H (0.6-2.4) K/uL Potter # (Auto) 0.6 (0.0-0.8) K/uL Eos # (Auto) 0.2 (0.0-0.7) K/uL Baso # (Auto) 0.0 (0.0-0.1) K/uL Nucleated RBC % 0.0 /100WBC Nucleated RBCs # 0 K/uL Sodium (136-146) mmol/L Potassium (3.5-5.1) mmol/L Chloride (98-110) mmol/L Carbon Dioxide (21-31) mmol/L BUN (6.0-23.0) mg/dL Creatinine (0.6-1.5) mg/dL Est Cr Clr Drug Dosing mL/min Estimated GFR (MDRD) ml/min Glucose (60-110) mg/dL POC Glucose 275 H 239 H (60-110) mg/dL Calcium (8.8-10.8) mg/dL 02/09/17 02/09/17 02/09/17 Range/Units 04:30 06:19 09:02 WBC (4.0-11.0) K/uL RBC (4.30-5.90) M/uL Hgb (12.0-16.0) g/dL Hct (36.0-46.0) % MCV (80.0-98.0) fL MCH (27.0-32.0) pg MCHC (31.0-37.0) g/dL RDW Std Deviation (28.0-62.0) fl RDW Coeff of Abdirizak (11.0-15.0) % Plt Count (150-400) K/uL MPV (7.40-12.00) fL Neut % (Auto) (48.0-80.0) % Lymph % (Auto) (16.0-40.0) % Potter % (Auto) (0.0-15.0) % Eos % (Auto) (0.0-7.0) % Baso % (Auto) (0.0-1.5) % Neut # (Auto) (1.4-5.7) K/uL Lymph # (Auto) (0.6-2.4) K/uL Potter # (Auto) (0.0-0.8) K/uL Eos # (Auto) (0.0-0.7) K/uL Baso # (Auto) (0.0-0.1) K/uL Nucleated RBC % /100WBC Nucleated RBCs # K/uL Sodium 137 (136-146) mmol/L Potassium 3.7 (3.5-5.1) mmol/L Chloride 107 (98-110) mmol/L Carbon Dioxide 21 (21-31) mmol/L BUN 10 (6.0-23.0) mg/dL Creatinine 0.8 (0.6-1.5) mg/dL Est Cr Clr Drug Dosing 71.24 mL/min Estimated GFR (MDRD) > 60.0 ml/min Glucose 185 H (60-110) mg/dL POC Glucose 135 H 241 H (60-110) mg/dL Calcium 8.6 L (8.8-10.8) mg/dL 02/09/17 Range/Units 11:28 WBC (4.0-11.0) K/uL RBC (4.30-5.90) M/uL Hgb (12.0-16.0) g/dL Hct (36.0-46.0) % MCV (80.0-98.0) fL MCH (27.0-32.0) pg MCHC (31.0-37.0) g/dL RDW Std Deviation (28.0-62.0) fl RDW Coeff of Abdirizak (11.0-15.0) % Plt Count (150-400) K/uL MPV (7.40-12.00) fL Neut % (Auto) (48.0-80.0) % Lymph % (Auto) (16.0-40.0) % Potter % (Auto) (0.0-15.0) % Eos % (Auto) (0.0-7.0) % Baso % (Auto) (0.0-1.5) % Neut # (Auto) (1.4-5.7) K/uL Lymph # (Auto) (0.6-2.4) K/uL Potter # (Auto) (0.0-0.8) K/uL Eos # (Auto) (0.0-0.7) K/uL Baso # (Auto) (0.0-0.1) K/uL Nucleated RBC % /100WBC Nucleated RBCs # K/uL Sodium (136-146) mmol/L Potassium (3.5-5.1) mmol/L Chloride (98-110) mmol/L Carbon Dioxide (21-31) mmol/L BUN (6.0-23.0) mg/dL Creatinine (0.6-1.5) mg/dL Est Cr Clr Drug Dosing mL/min Estimated GFR (MDRD) ml/min Glucose (60-110) mg/dL POC Glucose 256 H (60-110) mg/dL Calcium (8.8-10.8) mg/dL Med Orders - Current: Current Medications Hydrocodone Bitart/Acetaminophen ([place] 325-5 Mg) 1 - 2 tab PO Q4H PRN PRN Reason: Pain Last Admin: 02/09/17 13:30 Dose: 2 tab Chlorthalidone (Chlorthalidone) 25 mg PO DAILY [facility] Last Admin: 02/09/17 09:04 Dose: 25 mg Clonidine HCl (Catapres) 0.2 mg PO DAILY [facility] Last Admin: 02/09/17 09:05 Dose: 0.2 mg Hydromorphone HCl (Dilaudid) 2 mg IVPUSH Q3H PRN PRN Reason: Pain Last Admin: 02/09/17 07:48 Dose: 2 mg Trimethoprim/Sulfamethoxazole (20 ml/ Dextrose/Water) 520 mls @ 260 mls/hr IV Q8H [facility] Last Admin: 02/09/17 07:47 Dose: 260 mls/hr Pantoprazole Sodium 40 mg/ (Sodium Chloride) 10 mls @ 120 mls/hr IV Q12H [facility] Last Admin: 02/09/17 07:47 Dose: 120 mls/hr Sodium Chloride (Normal Saline) 1,000 mls @ 75 mls/hr IV ASDIRECTED [facility] Last Admin: 02/09/17 07:28 Dose: 75 mls/hr Insulin Aspart (Novolog) 0 unit SUBCUT ACBED [facility] PRN Reason: Protocol Last Admin: 02/09/17 12:05 Dose: 9 units Insulin Glargine (Lantus Solostar) 50 units SUBCUT BID [facility] Last Admin: 02/09/17 09:04 Dose: 50 units Magnesium Oxide (Magnesium Oxide) 400 mg PO DAILY [facility] Last Admin: 02/09/17 09:03 Dose: 400 mg Ondansetron HCl (Zofran) 8 mg IVPUSH Q8H PRN PRN Reason: Nausea/Vomiting Last Admin: 02/08/17 05:34 Dose: 8 mg Promethazine HCl (Phenergan) 25 mg IM Q6H PRN PRN Reason: Nausea Last Admin: 02/08/17 09:05 Dose: 25 mg Spironolactone (Aldactone) 25 mg PO DAILY [facility] Last Admin: 02/09/17 09:04 Dose: 25 mg Valsartan (Diovan) 320 mg PO DAILY [facility] Last Admin: 02/09/17 09:05 Dose: 320 mg Discontinued Medications Hydromorphone HCl (Dilaudid) 1 mg IVPUSH ONETIME ONE Stop: 02/07/17 22:40 Last Admin: 02/07/17 22:54 Dose: 1 mg Hydromorphone HCl (Dilaudid) 1 mg IVPUSH ONETIME ONE Stop: 02/08/17 00:09 Last Admin: 02/08/17 00:22 Dose: 1 mg Hydromorphone HCl (Dilaudid) 2 mg IVPUSH Q3H [facility] Last Admin: 02/08/17 10:34 Dose: Not Given Hydromorphone HCl (Dilaudid) 2 mg IVPUSH Q3H [facility] Last Admin: 02/08/17 10:18 Dose: Not Given Sodium Chloride (Normal Saline) 1,000 mls @ 150 mls/hr IV ASDIRECTED [facility] Last Admin: 02/07/17 22:51 Dose: 999 mls/hr Sodium Chloride (Normal Saline) 1,000 mls @ 999 mls/hr IV .Bolus ONE Stop: 02/08/17 00:19 Last Admin: 02/08/17 00:09 Dose: 999 mls/hr Insulin Aspart (Novolog) 0 unit SUBCUT ACBED [facility] PRN Reason: Protocol Last Admin: 02/08/17 09:04 Dose: 4 units Insulin Human Regular (Novolin R) 15 unit SUBCUT NOW [facility] PRN Reason: Protocol Stop: 02/08/17 00:39 Last Admin: 02/08/17 00:50 Dose: 15 units Ketorolac Tromethamine (Toradol) 30 mg IVPUSH ONETIME ONE Stop: 02/07/17 22:40 Last Admin: 02/07/17 22:52 Dose: 30 mg Ondansetron HCl (Zofran) 4 mg IVPUSH ONETIME ONE Stop: 02/07/17 22:40 Last Admin: 02/07/17 22:52 Dose: 4 mg Pantoprazole Sodium (Protonix Iv) 40 mg IV Q12HR [facility] Tamsulosin HCl (Flomax) 0.4 mg PO ONETIME ONE Stop: 02/07/17 22:40 Last Admin: 02/07/17 22:53 Dose: 0.4 mg *Q Meaningful Use (DIS) - VTE *Q VTE Criteria *Q: - Stroke *Q Stroke Criteria *Q: - AMI *Q AMI Criteria *Q:
--- NOTE | 2017-02-09 18:07 | CT ---
EXAM DATE: 02/08/17 PATIENT'S AGE: 41 Patient: CHETNA FONTANA Facility: [place], [place] Site . Site : 1975 Study: CT Abdomen/Pelvis wo cont [id number] 11:11:25 PM Ordering Physician: Justine De Leon Final Report: INDICATION: pt states abdominal pain/back pain on right lower for 1 week. pt states hx of kidney stones. HISTORY: Abdominal pain. Nephrolithiasis. COMPARISON: CT of the abdomen and pelvis 07/16/2016. TECHNIQUE: CT of the abdomen and pelvis. No intravenous contrast. Coronal/sagittal reconstruction images. FINDINGS: Lung bases: There is no pleural or pericardial effusion. The heart size is normal. The lung bases demonstrate no acute airspace disease. Minimal scarring or atelectasis in the right lower lobe, medial basilar segment. No basilar pneumothorax. Abdomen/pelvis: No solid hepatic mass. Hepatic morphology is normal. Spleen size is normal. No adrenal mass. No hydronephrosis. No perinephric edema. No pancreatic mass or pancreatic duct dilation. There are pelvic phleboliths present. No adnexal mass. Stable right lower quadrant calcifications. Uterus appears surgically absent. Urinary bladder is normal. There is no wall thickening within the small bowel or colon. There is no perienteric edema. No transition point to indicate a mechanical obstruction. No abdominal aortic aneurysm. No abdominal or pelvic lymphadenopathy by size criteria. Bone windows demonstrate no lytic or blastic bone lesions. The alignment is preserved. There is osteophytic spurring at the endplates of the thoracolumbar spine. IMPRESSION: 1. There is no obstructive urolith, hydronephrosis, or perinephric edema. 2. No acute findings are seen to explain the patient`s symptoms. 3. The examination is similar to a CT performed 07/16/2016. Dictated by Eduardo Cannon MD @ 02/07/2017 11:24:24 PM Dictated by: Eduardo Cannon MD @ 02/07/2017 23:25:11 (Electronic Signature) Report Signed by Proxy and Original Signed Document filed in the Medical Record. [facility]
== END 2017-02-09 14:50 | disposition home or self-care (01) | DRG 690 ==
LOC: MW.ED 22:19 → MW.MS 02-08 00:46 → OBSVTOIN 02-08 08:12 → MW.MS 02-08 20:03 → MW.OB 02-09 14:45 → UNDODISIN 02-09 14:50
PROVIDERS: ADMIT Internal Medicine; ATTEND Internal Medicine
DX: N12 Tubulo-interstitial nephritis, not specified as acute or chronic (principal); E11.65 Type 2 diabetes mellitus with hyperglycemia; R10.9 Unspecified abdominal pain; G40.909 Epilepsy, unspecified, not intractable, without status epilepticus; Z88.8 Allergy status to other drugs, medicaments and biological substances; Z88.0 Allergy status to penicillin; Z79.4 Long term (current) use of insulin; Z79.899 Other long term (current) drug therapy; Z87.891 Personal history of nicotine dependence; I10 Essential (primary) hypertension; E66.9 Obesity, unspecified; Z68.35 Body mass index [BMI] 35.0-35.9, adult; I70.1 Atherosclerosis of renal artery
CPT/HCPCS: 36415; 36600; 74176; 74176-26; 80048; 80053; 80305; 81001; 82803; 82962; 85025; 85027; 93005; 96361; 96372; 96374; 96375; 96376; 99284; 99285-25; A9270-GY; C9113; J1170; J1815-GY ×2; J1885; J2405; J2550; J7040; J7060; S0039

== ENCOUNTER → 2017-02-27 | Outpatient (CLI) | payer MEDICAID ==
[2017-02-27 10:57] LABS: CHLORIDE,CL 101 mmol/L (98-110); SODIUM,NA 135 mmol/L (136-146)
--- NOTE | 2017-02-27 12:20 | CT ---
CT of the abdomen and pelvis without contrast. HISTORY: Hematuria TECHNIQUE: Axial CT images were obtained of the abdomen and pelvis without contrast. Coronal and sag ittal reconstructions obtained. FINDINGS: The lung bases are clear, no pleural effusion. The liver, adrenal glands, and pancreas appear unremarkable for noncontrast examination. The spleen is mildly enlarged. Cholecystectomy. There is no bulky retroperitoneal lymphadenopathy. No abdomina l ascites. There are no calcifications noted within the kidneys or along the courses of the ureters bilaterally . The large and small bowel are normal in caliber without evidence of obstruction. Appendectomy. There is no bulky pelvic lymphadenopathy. No free fluid. No free air. The urinary bladder is mostly decom pressed. The visualized osseous structures appear normal. IMPRESSION: 1. No acute findings within the abdomen or pelvis. 2. Mild splenomegaly.
== END ==
LOC: MW.CHFP 10:16
PROVIDERS: ATTEND Nurse Practitioner Family
DX: R39.9 Unspecified symptoms and signs involving the genitourinary system (principal); R31.9 Hematuria, unspecified; R10.9 Unspecified abdominal pain; R16.1 Splenomegaly, not elsewhere classified
CPT/HCPCS: 36415; 74176; 74176-26; 80048; 81001; 85025; 87086

== ENCOUNTER → 2017-03-11 | Outpatient (CLI) | payer MEDICAID | LOC: MW.CHUR 13:01 | PROVIDERS: ATTEND Urology | DX: R39.9 Unspecified symptoms and signs involving the genitourinary system (principal); R31.9 Hematuria, unspecified; R10.9 Unspecified abdominal pain | CPT/HCPCS: 81001 ==

== ENCOUNTER 2017-03-13 07:27 | Day surgery (SDC) | payer MEDICAID ==
[~2017-03-13 07:27] MED LIST: Lactated Ringers 1,000 ML IV SCH
--- NOTE | 2017-03-13 08:06 | PCM.PREANE ---
Preanesthetic Assessment - Anesthesia/Transfusion/Family Hx Anesthesia History: Prior Anesthesia Without Reaction Type of Anesthesia Reaction: Excessive Nausea/Vomiting Other Type of Anesthesia Reaction Comment: pt states she has problems with nausea post anesthesia Family History of Anesthesia Reaction: No Transfusion History: No Prior Transfusion(s) Intubation History: Unknown - Review of Systems General: No Symptoms Pulmonary: No Symptoms Cardiovascular: No Symptoms Gastrointestinal: Abdominal pain Neurological: No Symptoms Other: Reports: None - Physical Assessment NPO Status Date: 03/12/17 NPO Status Time: 20:00 O2 Sat by Pulse Oximetry: 100 Respiratory Rate: 14 Vital Signs: Last Vital Signs Temp 36.7 C 03/13/17 07:45 Pulse 82 03/13/17 07:45 Resp 14 03/13/17 07:45 BP 122/93 H 03/13/17 07:45 Pulse Ox 100 03/13/17 07:45 Height: 1.55 m Weight: 85.02 kg ASA Class: 3 Mental Status: Alert & Oriented x3 Airway Class: Mallampati = 2 Dentition: Reports: Normal Dentition Thyro-Mental Finger Breadths: 3 Mouth Opening Finger Breadths: 3 ROM/Head Extension: Full Lungs: Clear to auscultation, Normal respiratory effort Cardiovascular: Regular Rate, Regular Rhythm - Allergies Allergies/Adverse Reactions: Allergies Allergy/AdvReac Type Severity Reaction Status Date / Time lorazepam [From Ativan] Allergy Agitation Verified 02/07/17 22:29 Penicillins Allergy Anaphylactic Verified 02/07/17 22:29 Shock sumatriptan [From Imitrex] Allergy Anaphylactic Verified 02/07/17 22:29 Shock sumatriptan succinate Allergy Anaphylactic Verified 02/07/17 22:29 [From Imitrex] Shock venom-honey bee Allergy Anaphylactic Verified 02/07/17 22:29 [bee venom (honey bee)] Shock gnat - bug Allergy Anaphylactic Uncoded 02/07/17 22:29 Shock - Blood Blood Available: No - Anesthesia Plan Pre-Op Medication Ordered: None - Acknowledgements Anesthesia Type Planned: MAC Pt an Appropriate Candidate for the Planned Anesthesia: Yes Alternatives and Risks of Anesthesia Discussed w Pt/Guardian: Yes Pt/Guardian Understands and Agrees with Anesthesia Plan: Yes PreAnesthesia Questionnaire HEENT History: Reports: Allergic rhinitis Other HEENT History: wears glasses Cardiovascular History: Reports: High cholesterol, Hypertension (uncontrolled) Respiratory History: Reports: None Gastrointestinal History: Reports: Gastritis, 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) (acute pancreatitis with elevated liver enzyme before this year) Genitourinary History: Reports: Renal calculus (multiple), 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) (h/ o nephrotic syndrome) 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: , 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) Musculoskeletal History: Reports: None Other Musculoskeletal History: knee pain Neurological History: Reports: Migraines, Seizure Other Neuro History: 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 2 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, unknown cause Psychiatric History: Reports: Depression Endocrine/Metabolic History: Reports: Diabetes, type II, Obesity/BMI 30+ Hematologic History: Reports: None Immunologic History: Reports: None Oncologic (Cancer) History: Reports: None, Cervix Dermatologic History: Reports: None - Infectious Disease History Infectious Disease History: Reports: Chicken pox, Measles - Past Surgical History Head Surgeries/Procedures: Reports: None HEENT Surgical History: Reports: Oral surgery, Tonsillectomy Cardiovascular Surgical History: Reports: None Respiratory Surgical History: Reports: None GI Surgical History: Reports: Appendectomy, Cholecystectomy Female Surgical History: Reports: section ( x4), Hysterectomy, Lithotripsy/ESWL, Tubal ligation Neurological Surgical History: Reports: None Musculoskeletal Surgical History: Reports: Knee replacement Oncologic Surgical History: Reports: None - History Comment History Comment: ETOH " 1X A MONTH" - SUBSTANCE USE Smoking Status *Q: Never Smoker Tobacco Use Within Last Twelve Months: No Second Hand Smoke Exposure: No Days Per Week of Alcohol Use: 0 Recreational Drug Use History: No - HOME MEDS Home Medications: Home Meds Insulin Aspart [NovoLOG] 32 - 35 unit SQ TIDAC MDD 160 11/03/15 [History] Insulin Glarg,Human.Rec.Analog [LantUS] 64 units SQ BID 11/03/15 [History] Valsartan 320 mg PO QAM 01/15/16 [History] Spironolactone [Aldactone] 25 mg PO QAM 07/16/16 [History] Insulin Aspart [NovoLOG] 20 unit SQ WITHSNACKS 07/29/16 [History] cloNIDine [Catapres] 0.1 mg PO BID 07/29/16 [History] Chlorthalidone 25 mg PO DAILY 07/30/16 [History] Magnesium Oxide 400 mg PO DAILY 02/08/17 [History] Acetaminophen with Codeine [Acetaminophen-Cod #3] 1 tab PO TID PRN 03/10/17 [ History] Dicyclomine HCl [Bentyl] 10 mg PO TID PRN 03/10/17 [History] Multivitamin [Daily Multiple Vitamin] 1 tab PO DAILY 03/10/17 [History] Ondansetron HCl [Zofran] 8 mg PO TID PRN 03/10/17 [History] - CURRENT (IN HOUSE) MEDS Current Meds: Current Medications Lactated Ringer's (Ringers, Lactated) 1,000 mls @ 125 mls/hr IV ASDIRECTED [facility] Last Admin: 03/13/17 07:47 Dose: 125 mls/hr
[2017-03-13] MEDS ORDERED: Propofol 200 MG/20 ML SDV ONE (10:11)
[2017-03-13] MEDS ORDERED: fentaNYL 100 MCG/2 ML SDV ONE (10:11)
[2017-03-13] MEDS ORDERED: Midazolam 1 MG/ML 2 ML SDV ONE (10:11)
--- NOTE | 2017-03-13 10:53 | PCM.OPNOTE ---
- General Post-Op/Procedure Note Date of Surgery/Procedure: 03/13/17 Operative Procedure(s): Colonoscopy with cecal, biopsy Pre Op Diagnosis: Abdominal pain. Change in bowel habits. Post-Op Diagnosis: Same Anesthesia Technique: MAC (ASA III) Primary Surgeon: Valentin Stanford Condition: Good Free Text/Narrative:: Dictation [id number] CPTCODE: [id number]
[2017-03-13] MEDS ORDERED: Lactated Ringers 1,000 ML IV SCH (11:00)
[2017-03-13 11:10] VITALS: BP 137/87
--- NOTE | 2017-03-13 11:11 | PCM.POSTAN ---
POST ANESTHESIA ASSESSMENT - MENTAL STATUS Mental Status: alert, oriented - RESPIRATORY Respiratory Status: respiratory rate WNL, airway patent, O2 saturation stable - CARDIOVASCULAR CV Status: pulse rate WNL, blood pressure stable - GASTROINTESTINAL GI Status: no symptoms - POST OP HYDRATION Hydration Status: adequate & stable - OBSERVATIONS Free Text/Narrative:: no anesthesia problems
--- NOTE | 2017-03-13 14:19 | OR ---
SURGEON: Valentin Stanford M.D. DATE OF PROCEDURE: 03/13/2017 OPERATION PERFORMED: Colonoscopy with cecal biopsy. ANESTHESIA: MAC. ASA CLASSIFICATION: III. PREOPERATIVE DIAGNOSIS: Abdominal pain, change in bowel habits. POSTOPERATIVE DIAGNOSIS: No evidence of inflammatory bowel disease. DESCRIPTION OF PROCEDURE: The patient was taken to the endoscopy room and positioned on the endoscopy table in the left lateral decubitus position. A time-out was called for appropriate identification of the patient and procedure. Monitored anesthesia care was provided. The colonoscope was inserted into the rectum and advanced without difficulty to the cecum. Since the patient had been complaining of some right lower quadrant pain, random biopsies of the cecum were obtained. The appendiceal orifice was visualized from the inside and external pressure was supplied confirming the presence of the colon in the cecum. The colonoscope was then retroflexed to visualize the ascending colon from below and straightened and slowly withdrawn. The cecum, ascending colon, hepatic flexure, transverse colon, splenic flexure, descending colon, sigmoid colon, and rectum showed no tumors, polyps, diverticula, or angiodysplastic changes. Once the colonoscope was withdrawn to the rectum, it was retroflexed to visualize the anal orifice from above. No tumors or polyps were seen and there were no acute hemorrhoidal changes. The colonoscope was then straightened, the rectum aspirated, and the colonoscope removed. The patient tolerated the procedure well and was taken to recovery room in stable condition. BRIDGETT BUI /[id number]
== END 2017-03-13 11:15 | disposition home or self-care (01) ==
LOC: MW.SDS 07:27
PROVIDERS: ATTEND Surgery
PROC: 0DBH8ZX Excision of Cecum, Via Natural or Artificial Opening Endoscopic, Diagnostic (ICD-10-PCS; principal; 2017-03-13)
DX: R10.31 Right lower quadrant pain (principal); R19.4 Change in bowel habit; I10 Essential (primary) hypertension; E11.9 Type 2 diabetes mellitus without complications; E66.9 Obesity, unspecified; E78.1 Pure hyperglyceridemia; G40.309 Generalized idiopathic epilepsy and epileptic syndromes, not intractable, without status epilepticus; F32.9 Major depressive disorder, single episode, unspecified; Z87.19 Personal history of other diseases of the digestive system; Z79.899 Other long term (current) drug therapy; Z79.82 Long term (current) use of aspirin; Z79.4 Long term (current) use of insulin; Z87.442 Personal history of urinary calculi
CPT/HCPCS: 45380; 88305; J3010; J7120; J2250; J2704

== ENCOUNTER 2017-04-05 20:20 | Emergency (ER) | payer MEDICAID ==
[2017-04-05] MEDS ORDERED: Ketorolac 60 MG/2 ML SDV IM ONE (20:42)
--- NOTE | 2017-04-05 20:42 | EDM.PDOC ---
ED HPI GENERAL MEDICAL PROBLEM - General Chief Complaint: Back Pain or Injury Stated Complaint: BACK PAIN Time Seen by Provider: 04/05/17 20:39 Source of Information: Reports: Patient - History of Present Illness INITIAL COMMENTS - FREE TEXT/NARRATIVE: HISTORY AND PHYSICAL: History of present illness: [] Patient presents with low back pain since Thursday, pain is 8/10 worsened by movement, she is low on and off the exam table with multiple positioning required She does describe some radiation to the level of her foot intermittently on the right Trade leg raise to 30 does reproduce radiculopathy but I can raise foot to 30 No saddle anesthesia bowel or urine symptoms no footdrop Patient does have history of previous back pain 12 years prior described as paraspinous muscle spasm by patient Surgical history of hysterectomy Review of systems: As per history of present illness and below otherwise all systems reviewed and negative. Past medical history: As per history of present illness and as reviewed below otherwise noncontributory. Surgical history: As per history of present illness and as reviewed below otherwise noncontributory. Social history: No reported history of drug or alcohol abuse. Family history: As per history of present illness and as reviewed below otherwise noncontributory. Physical exam: HEENT: Atraumatic, normocephalic, pupils reactive, negative for conjunctival pallor or scleral icterus, mucous membranes moist, throat clear, neck supple, nontender, trachea midline. Lungs: Clear to auscultation, breath sounds equal bilaterally, chest nontender. Heart: S1S2, regular, negative for clicks, rubs, or JVD. Abdomen: Soft, nondistended, nontender. Negative for masses or hepatosplenomegaly. Negative for costovertebral tenderness. Pelvis: Stable nontender. Genitourinary: Deferred. Rectal: Deferred. Extremities: Atraumatic, negative for cords or calf pain. Neurovascular unremarkable. Neuro: Awake, alert, oriented. Cranial nerves II through XII unremarkable. Cerebellum unremarkable. Motor and sensory unremarkable throughout. Exam nonfocal. No footdrop or saddle anesthesia Diagnostics: [] Lumbar spine 3 views Therapeutics: [] Toradol 60 IM [place] 7.5 mg by mouth now [place] 5 per 325 one by mouth every 6 when necessary #20 no refill for severe pain Flexeril 10 mg by mouth 3 times a day when necessary Ibuprofen 400 mg 3 times daily 7-10 days medrol dose sana Followup with primary care in 2 weeks sooner as needed Impression: [] Low back pain in the right sciatic distribution Definitive disposition and diagnosis as appropriate pending reevaluation and review of above. lower right back Pain Score (Numeric/FACES): 10 - Related Data Allergies Allergy/AdvReac Type Severity Reaction Status Date / Time lorazepam [From Ativan] Allergy Agitation Verified 02/07/17 22:29 Penicillins Allergy Anaphylactic Verified 02/07/17 22:29 Shock sumatriptan [From Imitrex] Allergy Anaphylactic Verified 02/07/17 22:29 Shock sumatriptan succinate Allergy Anaphylactic Verified 02/07/17 22:29 [From Imitrex] Shock venom-honey bee Allergy Anaphylactic Verified 02/07/17 22:29 [bee venom (honey bee)] Shock gnat - bug Allergy Anaphylactic Uncoded 02/07/17 22:29 Shock Home Meds: Home Meds Insulin Aspart [NovoLOG] 32 - 35 unit SQ TIDAC MDD 160 11/03/15 [History] Insulin Glarg,Human.Rec.Analog [LantUS] 64 units SQ ASDIRECTED 11/03/15 [History ] Valsartan 320 mg PO QAM 01/15/16 [History] Spironolactone [Aldactone] 25 mg PO QAM 07/16/16 [History] Insulin Aspart [NovoLOG] 20 unit SQ WITHSNACKS 07/29/16 [History] cloNIDine [Catapres] 0.1 mg PO BID 07/29/16 [History] Chlorthalidone 25 mg PO DAILY 07/30/16 [History] Magnesium Oxide 400 mg PO DAILY 02/08/17 [History] Dicyclomine HCl [Bentyl] 10 mg PO TID PRN 03/10/17 [History] Multivitamin [Daily Multiple Vitamin] 1 tab PO DAILY 03/10/17 [History] Ondansetron HCl [Zofran] 8 mg PO TID PRN 03/10/17 [History] Venlafaxine HCl [Venlafaxine ER] 75 mg PO DAILY 04/05/17 [History] Past Medical History HEENT History: Reports: Allergic Rhinitis Other HEENT History: wears glasses Cardiovascular History: Reports: High Cholesterol, Hypertension Respiratory History: Reports: None Gastrointestinal History: Reports: Gastritis, Other (See Below) Genitourinary History: Reports: Renal Calculus, Other (See Below) 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 History: Reports: , Other (See Below) Musculoskeletal History: Reports: None Other Musculoskeletal History: knee pain Neurological History: Reports: Migraines, Seizure Other Neuro History: 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 2 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, unknown cause Psychiatric History: Reports: Depression Endocrine/Metabolic History: Reports: Diabetes, Type II, Obesity/BMI 30+ Hematologic History: Reports: None Immunologic History: Reports: None Oncologic (Cancer) History: Reports: None, Cervix Dermatologic History: Reports: None - Infectious Disease History Infectious Disease History: Reports: Chicken Pox - Past Surgical History Head Surgeries/Procedures: Reports: None HEENT Surgical History: Reports: Oral Surgery, Tonsillectomy Respiratory Surgical History: Reports: None Female Surgical History: Reports: Section, Hysterectomy, Lithotripsy /ESWL, Tubal Ligation Neurological Surgical History: Reports: None Musculoskeletal Surgical History: Reports: Knee Replacement Oncologic Surgical History: Reports: None - History Comment History Comment: ETOH " 1X A MONTH" Social & Family History - Family History Family Medical History: Noncontributory HEENT: Reports: None Cardiac: Reports: CAD, Hypertension Respiratory: Reports: None GI: Reports: None : Reports: Renal Calculus Psychiatric: Reports: None Endocrine/Metabolic: Reports: None Hematologic: Reports: None Immunologic: Reports: None Dermatologic: Reports: None Oncologic: Reports: Lung (father 60ies) - Tobacco Use Smoking Status *Q: Never Smoker Used Tobacco, but Quit: Yes Month Tobacco Last Used: `0 Second Hand Smoke Exposure: No - Caffeine Use Caffeine Use: Reports: Tea - Alcohol Use Days Per Week of Alcohol Use: 0 - Recreational Drug Use Recreational Drug Use: No Drug Use in Last 12 Months: No ED ROS GENERAL - Review of Systems Review Of Systems: ROS reveals no pertinent complaints other than HPI. ED EXAM, GENERAL - Physical Exam Exam: See Below Course - Vital Signs Last Recorded V/S: Last Vital Signs Temp 36.7 C 04/05/17 20:33 Pulse 99 04/05/17 20:33 Resp 18 04/05/17 20:33 BP 169/110 H 04/05/17 20:33 Pulse Ox 99 04/05/17 20:33 - Orders/Labs/Meds Orders: Active Orders 24 hr Category Date Time Status Lumbar Spine 2 or 3V [CR] Stat Exams 04/05/17 20:39 Taken Meds: Medications Discontinued Medications Generic Name Dose Route Start Last Admin Trade Name Laura PRN Reason Stop Dose Admin Hydrocodone Bitart/Acetaminophen 1 tab 04/05/17 21:18 04/05/17 21:23 [place] 325-7.5 Mg PO 04/05/17 21:19 1 tab NOW STA Administration Ketorolac Tromethamine 60 mg 04/05/17 20:42 04/05/17 20:49 Toradol IM 04/05/17 20:43 60 mg ONETIME ONE Administration Departure - Departure Time of Disposition: 21:43 Disposition: Home, Self-Care 01 Condition: good Clinical Impression: Sciatica - Discharge Information Forms: ED Department Discharge Additional Instructions: Medication as prescribed Is may benefit 20 minute intervals 3 times daily however several days out from incident heat may benefit also on 20 minute intervals Return if symptoms persist or worsen Followup with primary care in 2 weeks [facility] [address] [place] [address] The following information is given to patients seen in the emergency department who are being discharged to home. This information is to outline your options for follow-up care. We provide all patients seen in our emergency department with a follow-up referral. The need for follow-up, as well as the timing and circumstances, are variable depending upon the specifics of your emergency department visit. If you don't have a primary care physician on staff, we will provide you with a referral. We always advise you to contact your personal physician following an emergency department visit to inform them of the circumstance of the visit and for follow-up with them and/or the need for any referrals to a consulting specialist. The emergency department will also refer you to a specialist when appropriate. This referral assures that you have the opportunity for follow-up care with a specialist. All of these measure are taken in an effort to provide you with optimal care, which includes your follow-up. Under all circumstances we always encourage you to contact your private physician who remains a resource for coordinating your care. When calling for follow-up care, please make the office aware that this follow-up is from your recent emergency room visit. If for any reason you are refused follow-up, please contact the [facility] emergency department at and asked to speak to the emergency department charge nurse. - My Orders Last 24 Hours: My Active Orders 04/05/17 20:39 Lumbar Spine 2 or 3V [CR] Stat - Assessment/Plan Last 24 Hours: My Active Orders 04/05/17 20:39 Lumbar Spine 2 or 3V [CR] Stat
[2017-04-05] MEDS ORDERED: Acetaminophen/HYDROcodone 325-7.5 MG Tab PO STA (21:18)
[2017-04-05 22:02] VITALS: BP 178/106
--- NOTE | 2017-04-07 13:36 | CR ---
EXAM DATE: 04/05/17 PATIENT'S AGE: 41 Patient: CHETNA FONTANA Facility: [place], [place] Site . Site : 1975 Study: XRay Spine Lumbar [id number]/28/2017 9:10:37 PM Ordering Physician: Edgardo Pantoja Final Report: 3V LUMBAR SPINE: INDICATION: BACK PAIN Injury. IMPRESSION: Anatomic alignment. No compression fracture, spondylolysis or spondylolisthesis. Vertebral bodies and disc spaces unremarkable. Sacroiliac joints are unremarkable. Surgical clips in the pelvis. Dictated by Palmer Magaña MD @ Apr 05 2017 9:28PM (Electronic Signature) Report Signed by Proxy. SK[facility]
== END 2017-04-05 21:59 | disposition home or self-care (01) ==
LOC: MW.ED 20:20
DX: M54.41 Lumbago with sciatica, right side (principal); I10 Essential (primary) hypertension; E78.00 Pure hypercholesterolemia, unspecified; F32.9 Major depressive disorder, single episode, unspecified; E11.9 Type 2 diabetes mellitus without complications; E66.9 Obesity, unspecified; Z68.35 Body mass index [BMI] 35.0-35.9, adult; Z85.41 Personal history of malignant neoplasm of cervix uteri; Z90.710 Acquired absence of both cervix and uterus; Z98.51 Tubal ligation status; Z96.659 Presence of unspecified artificial knee joint; Z98.890 Other specified postprocedural states; Z79.4 Long term (current) use of insulin; Z79.899 Other long term (current) drug therapy; Z88.0 Allergy status to penicillin; Z88.8 Allergy status to other drugs, medicaments and biological substances; Z91.030 Bee allergy status
CPT/HCPCS: 72100; 96372; 99283; A9270; J1885

== ENCOUNTER 2017-05-20 23:43 | Emergency (ER) | payer MEDICAID ==
[2017-05-21] MEDS ORDERED: diphenhydrAMINE 50 MG/ML SDV IVPUSH ONE (00:02)
[2017-05-21] MEDS ORDERED: Sodium Chloride 0.9% 10 ML Syringe FLUSH PRN (00:02)
[2017-05-21] MEDS ORDERED: hydrALAZINE 20 MG/ML SDV IVPUSH ONE ×2 (00:02→02:00)
[2017-05-21] MEDS ORDERED: Sodium Chloride 0.9% 2.5 ML Syringe FLUSH PRN (00:02)
[2017-05-21] MEDS ORDERED: Ketorolac 30 MG/ML SDV IVPUSH ONE (00:02)
[2017-05-21] MEDS ORDERED: Sodium Chloride 0.9% 1,000 ML IV ONE (00:02)
[2017-05-21] MEDS ORDERED: Metoclopramide 10 MG/2 ML SDV IV ONE (00:02)
[2017-05-21] MEDS ORDERED: Ondansetron 4 MG/2 ML SDV IVPUSH ONE (00:02)
--- NOTE | 2017-05-21 00:07 | EDM.PDOC ---
ED HPI GENERAL MEDICAL PROBLEM - General Chief Complaint: Headache Stated Complaint: HEADACHE, BLOOD PRESSURE, CHEST PAIN Time Seen by Provider: 05/20/17 23:59 - History of Present Illness INITIAL COMMENTS - FREE TEXT/NARRATIVE: HISTORY AND PHYSICAL: History of present illness: Patient 41-year-old female with history of migraine headache and hypertension who presents with a concern of chest pain headache nausea photophobia hypertension. There's no associated palpitations shortness of breath or diaphoresis Review of systems: As per history of present illness and below otherwise all systems reviewed and negative. Past medical history: As per history of present illness and as reviewed below otherwise noncontributory. Surgical history: As per history of present illness and as reviewed below otherwise noncontributory. Social history: No reported history of drug or alcohol abuse. Family history: As per history of present illness and as reviewed below otherwise noncontributory. Physical exam: HEENT: Atraumatic, normocephalic, pupils reactive, negative for conjunctival pallor or scleral icterus, mucous membranes moist, throat clear, neck supple, nontender, trachea midline. Lungs: Clear to auscultation, breath sounds equal bilaterally, chest nontender. Heart: S1S2, regular, negative for clicks, rubs, or JVD. Abdomen: Soft, nondistended, nontender. Negative for masses or hepatosplenomegaly. Negative for costovertebral tenderness. Pelvis: Stable nontender. Genitourinary: Deferred. Rectal: Deferred. Extremities: Atraumatic, negative for cords or calf pain. Neurovascular unremarkable. Neuro: Awake, alert, oriented. Cranial nerves II through XII unremarkable. Cerebellum unremarkable. Motor and sensory unremarkable throughout. Exam nonfocal. Diagnostics: CBC CMP PT/INR troponin urine drug screen HEG chest x-ray CT brain Therapeutics: Normal saline 1 L bolus Toradol 30 mg IV Zofran for millirems IV Benadryl 50 mg IV Reglan 10 mg IV hydralazine 10 mg Impression: #1 migraine headache #2 atypical chest pain #3 hypertension Definitive disposition and diagnosis as appropriate pending reevaluation and review of above. Headache Pain Score (Numeric/FACES): 8 Left Chest Pain Score (Numeric/FACES): 7 - Related Data Allergies Allergy/AdvReac Type Severity Reaction Status Date / Time lorazepam [From Ativan] Allergy Agitation Verified 05/20/17 23:47 Penicillins Allergy Anaphylactic Verified 05/20/17 23:47 Shock sumatriptan [From Imitrex] Allergy Anaphylactic Verified 05/20/17 23:47 Shock sumatriptan succinate Allergy Anaphylactic Verified 05/20/17 23:47 [From Imitrex] Shock venom-honey bee Allergy Anaphylactic Verified 05/20/17 23:47 [bee venom (honey bee)] Shock gnat - bug Allergy Anaphylactic Uncoded 05/20/17 23:47 Shock Home Meds: Home Meds Insulin Aspart [NovoLOG] 32 - 35 unit SQ TIDAC MDD 160 11/03/15 [History] Insulin Glarg,Human.Rec.Analog [LantUS] 64 units SQ ASDIRECTED 11/03/15 [History ] Valsartan 320 mg PO QAM 01/15/16 [History] Spironolactone [Aldactone] 25 mg PO QAM 07/16/16 [History] Insulin Aspart [NovoLOG] 20 unit SQ WITHSNACKS 07/29/16 [History] cloNIDine [Catapres] 0.1 mg PO BID 07/29/16 [History] Chlorthalidone 25 mg PO DAILY 07/30/16 [History] Magnesium Oxide 400 mg PO DAILY 02/08/17 [History] Dicyclomine HCl [Bentyl] 10 mg PO TID PRN 03/10/17 [History] Multivitamin [Daily Multiple Vitamin] 1 tab PO DAILY 03/10/17 [History] Ondansetron HCl [Zofran] 8 mg PO TID PRN 03/10/17 [History] Venlafaxine HCl [Venlafaxine ER] 75 mg PO DAILY 04/05/17 [History] Past Medical History HEENT History: Reports: Allergic Rhinitis Other HEENT History: wears glasses Cardiovascular History: Reports: High Cholesterol, Hypertension Respiratory History: Reports: None Gastrointestinal History: Reports: Gastritis, Other (See Below) Genitourinary History: Reports: Renal Calculus, Other (See Below) [employer] History: Reports: , Other (See Below) Musculoskeletal History: Reports: None Other Musculoskeletal History: knee pain Neurological History: Reports: Migraines, Seizure Other Neuro History: 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 2 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, unknown cause Psychiatric History: Reports: Depression Endocrine/Metabolic History: Reports: Diabetes, Type II, Obesity/BMI 30+ Hematologic History: Reports: None Immunologic History: Reports: None Oncologic (Cancer) History: Reports: None, Cervix Dermatologic History: Reports: None - Infectious Disease History Infectious Disease History: Reports: Chicken Pox - Past Surgical History Head Surgeries/Procedures: Reports: None HEENT Surgical History: Reports: Oral Surgery, Tonsillectomy Respiratory Surgical History: Reports: None Female Surgical History: Reports: Section, Hysterectomy, Lithotripsy /ESWL, Tubal Ligation Neurological Surgical History: Reports: None Musculoskeletal Surgical History: Reports: Knee Replacement Oncologic Surgical History: Reports: None - History Comment History Comment: ETOH " 1X A MONTH" Social & Family History - Family History Family Medical History: Noncontributory HEENT: Reports: None Cardiac: Reports: CAD, Hypertension Respiratory: Reports: None GI: Reports: None : Reports: Renal Calculus Psychiatric: Reports: None Endocrine/Metabolic: Reports: None Hematologic: Reports: None Immunologic: Reports: None Dermatologic: Reports: None Oncologic: Reports: Lung - Tobacco Use Smoking Status *Q: Never Smoker Used Tobacco, but Quit: Yes Month Tobacco Last Used: `0 Second Hand Smoke Exposure: No - Caffeine Use Caffeine Use: Reports: Tea - Alcohol Use Days Per Week of Alcohol Use: 0 - Recreational Drug Use Recreational Drug Use: No Drug Use in Last 12 Months: No ED ROS GENERAL - Review of Systems Review Of Systems: ROS reveals no pertinent complaints other than HPI. ED EXAM, GENERAL - Physical Exam Exam: See Below (See dictation) Course - Vital Signs Last Recorded V/S: Last Vital Signs Temp 36.4 C 05/20/17 23:47 Pulse 116 H 05/21/17 01:35 Resp 18 05/21/17 01:35 BP 176/115 H 05/21/17 01:35 Pulse Ox 99 05/21/17 01:35 - Orders/Labs/Meds Orders: Active Orders 24 hr Category Date Time Status Cardiac Monitoring [RC] . DIRECTED Care 05/21/17 00:01 Active EKG 12 Lead [EKG Documentation Completion] [RC] STAT Care 05/20/17 23:51 Active EKG Documentation Completion [RC] STAT Care 05/21/17 00:01 Inactive Oxygen Therapy, ED [RC] ASDIRECTED Care 05/21/17 00:01 Active Pulse Oximetry [RC] ASDIRECTED Care 05/21/17 00:01 Active Chest 1V Frontal [CR] Stat Exams 05/21/17 00:02 Taken Head wo Cont [CT] Stat Exams 05/21/17 00:01 Taken Sodium Chloride 0.9% [Saline Flush] Med 05/21/17 00:02 Active 10 ml FLUSH ASDIRECTED PRN Sodium Chloride 0.9% [Saline Flush] Med 05/21/17 00:02 Active 2.5 ml FLUSH ASDIRECTED PRN Saline Lock Insert [OM.PC] Stat Oth 05/21/17 00:01 Ordered Medication Orders Sodium Chloride (Saline Flush) 10 ml FLUSH ASDIRECTED PRN PRN Reason: Keep Vein Open Last Admin: 05/21/17 00:21 Dose: 10 ml Sodium Chloride (Saline Flush) 2.5 ml FLUSH ASDIRECTED PRN PRN Reason: Keep Vein Open Last Admin: 05/21/17 00:21 Dose: 2.5 ml Labs: Laboratory Tests 05/20/17 05/20/17 05/20/17 Range/Units 23:55 23:55 23:55 WBC 7.44 (4.0-11.0) K/uL RBC 4.48 (4.30-5.90) M/uL Hgb 14.4 (12.0-16.0) g/dL Hct 40.6 (36.0-46.0) % MCV 90.6 (80.0-98.0) fL MCH 32.1 H (27.0-32.0) pg MCHC 35.5 (31.0-37.0) g/dL RDW Std Deviation 42.0 (28.0-62.0) fl RDW Coeff of Abdirizak 13 (11.0-15.0) % Plt Count 197 (150-400) K/uL MPV 10.10 (7.40-12.00) fL Neut % (Auto) 50.3 (48.0-80.0) % Lymph % (Auto) 39.4 (16.0-40.0) % [place] % (Auto) 6.6 (0.0-15.0) % Eos % (Auto) 3.2 (0.0-7.0) % Baso % (Auto) 0.5 (0.0-1.5) % Neut # (Auto) 3.7 (1.4-5.7) K/uL Lymph # (Auto) 2.9 H (0.6-2.4) K/uL [place] # (Auto) 0.5 (0.0-0.8) K/uL Eos # (Auto) 0.2 (0.0-0.7) K/uL Baso # (Auto) 0.0 (0.0-0.1) K/uL Nucleated RBC % 0.0 /100WBC Nucleated RBCs # 0 K/uL INR (0.86-1.11) ABG pH (7.35-7.45) ABG pCO2 (35-45) mmHG ABG pO2 (75-100) mmHG ABG HCO3 (22-26) mEq/L ABG Total CO2 ABG Base Excess (-2.0-2.0) Sodium 131 L (136-146) mmol/L Potassium 4.2 (3.5-5.1) mmol/L Chloride 99 (98-110) mmol/L Carbon Dioxide 24 (21-31) mmol/L BUN 16 (6.0-23.0) mg/dL Creatinine 1.1 (0.6-1.5) mg/dL Est Cr Clr Drug Dosing 51.30 mL/min Estimated GFR (MDRD) 55.3 ml/min Glucose 612 H* (60-110) mg/dL POC Glucose (60-110) mg/dL Calcium 8.9 (8.8-10.8) mg/dL Total Bilirubin 1.0 (0.1-1.5) mg/dL AST 48 H (5-40) IU/L ALT 54 (8-54) IU/L Alkaline Phosphatase 79 (40-150) Troponin I < 0.10 (0.0-0.29) NG/ML Total Protein 7.2 (6.0-8.0) g/dL Albumin 4.0 (3.5-5.0) g/dL Globulin 3.2 (2.0-3.5) g/dL Albumin/Globulin Ratio 1.3 (1.3-2.8) HCG, Qual (NEG) Urine Color Urine Appearance Urine pH (5.0-8.0) Ur Specific [place] (1.001-1.035) Urine Protein (NEGATIVE) mg/dL Urine Glucose (UA) (NEGATIVE) mg/dL Urine Ketones (NEGATIVE) mg/dL Urine Occult Blood (NEGATIVE) Urine Nitrite (NEGATIVE) Urine Bilirubin (NEGATIVE) Urine Urobilinogen (<2.0) EU/dL Ur Leukocyte Esterase (NEGATIVE) Urine RBC (0-2/HPF) Urine WBC (0-5/HPF) Ur Epithelial Cells (NONE-FEW) Urine Bacteria (NEGATIVE) Urine Opiates Screen (NEGATIVE) Ur Oxycodone Screen (NEGATIVE) Urine Methadone Screen (NEGATIVE) Ur Barbiturates Screen (NEGATIVE) Ur Phencyclidine Scrn (NEGATIVE) Ur Amphetamine Screen (NEGATIVE) U Methamphetamines Scrn (NEGATIVE) U Benzodiazepines Scrn (NEGATIVE) U Cocaine Metab Screen (NEGATIVE) U Marijuana (THC) Screen (NEGATIVE) Ketones (NEG) 05/20/17 05/20/17 05/21/17 Range/Units 23:55 23:55 00:22 WBC (4.0-11.0) K/uL RBC (4.30-5.90) M/uL Hgb (12.0-16.0) g/dL Hct (36.0-46.0) % MCV (80.0-98.0) fL MCH (27.0-32.0) pg MCHC (31.0-37.0) g/dL RDW Std Deviation (28.0-62.0) fl RDW Coeff of Abdirizak (11.0-15.0) % Plt Count (150-400) K/uL MPV (7.40-12.00) fL Neut % (Auto) (48.0-80.0) % Lymph % (Auto) (16.0-40.0) % [place] % (Auto) (0.0-15.0) % Eos % (Auto) (0.0-7.0) % Baso % (Auto) (0.0-1.5) % Neut # (Auto) (1.4-5.7) K/uL Lymph # (Auto) (0.6-2.4) K/uL [place] # (Auto) (0.0-0.8) K/uL Eos # (Auto) (0.0-0.7) K/uL Baso # (Auto) (0.0-0.1) K/uL Nucleated RBC % /100WBC Nucleated RBCs # K/uL INR 0.96 (0.86-1.11) ABG pH (7.35-7.45) ABG pCO2 (35-45) mmHG ABG pO2 (75-100) mmHG ABG HCO3 (22-26) mEq/L ABG Total CO2 ABG Base Excess (-2.0-2.0) Sodium (136-146) mmol/L Potassium (3.5-5.1) mmol/L Chloride (98-110) mmol/L Carbon Dioxide (21-31) mmol/L BUN (6.0-23.0) mg/dL Creatinine (0.6-1.5) mg/dL Est Cr Clr Drug Dosing mL/min Estimated GFR (MDRD) ml/min Glucose (60-110) mg/dL POC Glucose (60-110) mg/dL Calcium (8.8-10.8) mg/dL Total Bilirubin (0.1-1.5) mg/dL AST (5-40) IU/L ALT (8-54) IU/L Alkaline Phosphatase (40-150) Troponin I (0.0-0.29) NG/ML Total Protein (6.0-8.0) g/dL Albumin (3.5-5.0) g/dL Globulin (2.0-3.5) g/dL Albumin/Globulin Ratio (1.3-2.8) HCG, Qual NEGATIVE (NEG) Urine Color Urine Appearance Urine pH (5.0-8.0) Ur Specific [place] (1.001-1.035) Urine Protein (NEGATIVE) mg/dL Urine Glucose (UA) (NEGATIVE) mg/dL Urine Ketones (NEGATIVE) mg/dL Urine Occult Blood (NEGATIVE) Urine Nitrite (NEGATIVE) Urine Bilirubin (NEGATIVE) Urine Urobilinogen (<2.0) EU/dL Ur Leukocyte Esterase (NEGATIVE) Urine RBC (0-2/HPF) Urine WBC (0-5/HPF) Ur Epithelial Cells (NONE-FEW) Urine Bacteria (NEGATIVE) Urine Opiates Screen (NEGATIVE) Ur Oxycodone Screen (NEGATIVE) Urine Methadone Screen (NEGATIVE) Ur Barbiturates Screen (NEGATIVE) Ur Phencyclidine Scrn (NEGATIVE) Ur Amphetamine Screen (NEGATIVE) U Methamphetamines Scrn (NEGATIVE) U Benzodiazepines Scrn (NEGATIVE) U Cocaine Metab Screen (NEGATIVE) U Marijuana (THC) Screen (NEGATIVE) Ketones NEGATIVE (NEG) 05/21/17 05/21/17 05/21/17 Range/Units 00:30 00:30 01:30 WBC (4.0-11.0) K/uL RBC (4.30-5.90) M/uL Hgb (12.0-16.0) g/dL Hct (36.0-46.0) % MCV (80.0-98.0) fL MCH (27.0-32.0) pg MCHC (31.0-37.0) g/dL RDW Std Deviation (28.0-62.0) fl RDW Coeff of Abdirizak (11.0-15.0) % Plt Count (150-400) K/uL MPV (7.40-12.00) fL Neut % (Auto) (48.0-80.0) % Lymph % (Auto) (16.0-40.0) % [place] % (Auto) (0.0-15.0) % Eos % (Auto) (0.0-7.0) % Baso % (Auto) (0.0-1.5) % Neut # (Auto) (1.4-5.7) K/uL Lymph # (Auto) (0.6-2.4) K/uL [place] # (Auto) (0.0-0.8) K/uL Eos # (Auto) (0.0-0.7) K/uL Baso # (Auto) (0.0-0.1) K/uL Nucleated RBC % /100WBC Nucleated RBCs # K/uL INR (0.86-1.11) ABG pH 7.432 (7.35-7.45) ABG pCO2 31 L (35-45) mmHG ABG pO2 126 H (75-100) mmHG ABG HCO3 21 L (22-26) mEq/L ABG Total CO2 18.2 ABG Base Excess -2.9 L (-2.0-2.0) Sodium (136-146) mmol/L Potassium (3.5-5.1) mmol/L Chloride (98-110) mmol/L Carbon Dioxide (21-31) mmol/L BUN (6.0-23.0) mg/dL Creatinine (0.6-1.5) mg/dL Est Cr Clr Drug Dosing mL/min Estimated GFR (MDRD) ml/min Glucose (60-110) mg/dL POC Glucose (60-110) mg/dL Calcium (8.8-10.8) mg/dL Total Bilirubin (0.1-1.5) mg/dL AST (5-40) IU/L ALT (8-54) IU/L Alkaline Phosphatase (40-150) Troponin I (0.0-0.29) NG/ML Total Protein (6.0-8.0) g/dL Albumin (3.5-5.0) g/dL Globulin (2.0-3.5) g/dL Albumin/Globulin Ratio (1.3-2.8) HCG, Qual (NEG) Urine Color YELLOW Urine Appearance CLEAR Urine pH 6.5 (5.0-8.0) Ur Specific [place] <= 1.005 (1.001-1.035) Urine Protein NEGATIVE (NEGATIVE) mg/dL Urine Glucose (UA) >=1000 (NEGATIVE) mg/dL Urine Ketones NEGATIVE (NEGATIVE) mg/dL Urine Occult Blood NEGATIVE (NEGATIVE) Urine Nitrite NEGATIVE (NEGATIVE) Urine Bilirubin NEGATIVE (NEGATIVE) Urine Urobilinogen 0.2 (<2.0) EU/dL Ur Leukocyte Esterase NEGATIVE (NEGATIVE) Urine RBC 0-1 (0-2/HPF) Urine WBC 0-2 (0-5/HPF) Ur Epithelial Cells FEW (NONE-FEW) Urine Bacteria RARE (NEGATIVE) Urine Opiates Screen NEGATIVE (NEGATIVE) Ur Oxycodone Screen NEGATIVE (NEGATIVE) Urine Methadone Screen NEGATIVE (NEGATIVE) Ur Barbiturates Screen NEGATIVE (NEGATIVE) Ur Phencyclidine Scrn NEGATIVE (NEGATIVE) Ur Amphetamine Screen NEGATIVE (NEGATIVE) U Methamphetamines Scrn NEGATIVE (NEGATIVE) U Benzodiazepines Scrn NEGATIVE (NEGATIVE) U Cocaine Metab Screen NEGATIVE (NEGATIVE) U Marijuana (THC) Screen NEGATIVE (NEGATIVE) Ketones (NEG) 05/21/17 Range/Units 01:38 WBC (4.0-11.0) K/uL RBC (4.30-5.90) M/uL Hgb (12.0-16.0) g/dL Hct (36.0-46.0) % MCV (80.0-98.0) fL MCH (27.0-32.0) pg MCHC (31.0-37.0) g/dL RDW Std Deviation (28.0-62.0) fl RDW Coeff of Abdirizak (11.0-15.0) % Plt Count (150-400) K/uL MPV (7.40-12.00) fL Neut % (Auto) (48.0-80.0) % Lymph % (Auto) (16.0-40.0) % [place] % (Auto) (0.0-15.0) % Eos % (Auto) (0.0-7.0) % Baso % (Auto) (0.0-1.5) % Neut # (Auto) (1.4-5.7) K/uL Lymph # (Auto) (0.6-2.4) K/uL [place] # (Auto) (0.0-0.8) K/uL Eos # (Auto) (0.0-0.7) K/uL Baso # (Auto) (0.0-0.1) K/uL Nucleated RBC % /100WBC Nucleated RBCs # K/uL INR (0.86-1.11) ABG pH (7.35-7.45) ABG pCO2 (35-45) mmHG ABG pO2 (75-100) mmHG ABG HCO3 (22-26) mEq/L ABG Total CO2 ABG Base Excess (-2.0-2.0) Sodium (136-146) mmol/L Potassium (3.5-5.1) mmol/L Chloride (98-110) mmol/L Carbon Dioxide (21-31) mmol/L BUN (6.0-23.0) mg/dL Creatinine (0.6-1.5) mg/dL Est Cr Clr Drug Dosing mL/min Estimated GFR (MDRD) ml/min Glucose (60-110) mg/dL POC Glucose 384 H (60-110) mg/dL Calcium (8.8-10.8) mg/dL Total Bilirubin (0.1-1.5) mg/dL AST (5-40) IU/L ALT (8-54) IU/L Alkaline Phosphatase (40-150) Troponin I (0.0-0.29) NG/ML Total Protein (6.0-8.0) g/dL Albumin (3.5-5.0) g/dL Globulin (2.0-3.5) g/dL Albumin/Globulin Ratio (1.3-2.8) HCG, Qual (NEG) Urine Color Urine Appearance Urine pH (5.0-8.0) Ur Specific [place] (1.001-1.035) Urine Protein (NEGATIVE) mg/dL Urine Glucose (UA) (NEGATIVE) mg/dL Urine Ketones (NEGATIVE) mg/dL Urine Occult Blood (NEGATIVE) Urine Nitrite (NEGATIVE) Urine Bilirubin (NEGATIVE) Urine Urobilinogen (<2.0) EU/dL Ur Leukocyte Esterase (NEGATIVE) Urine RBC (0-2/HPF) Urine WBC (0-5/HPF) Ur Epithelial Cells (NONE-FEW) Urine Bacteria (NEGATIVE) Urine Opiates Screen (NEGATIVE) Ur Oxycodone Screen (NEGATIVE) Urine Methadone Screen (NEGATIVE) Ur Barbiturates Screen (NEGATIVE) Ur Phencyclidine Scrn (NEGATIVE) Ur Amphetamine Screen (NEGATIVE) U Methamphetamines Scrn (NEGATIVE) U Benzodiazepines Scrn (NEGATIVE) U Cocaine Metab Screen (NEGATIVE) U Marijuana (THC) Screen (NEGATIVE) Ketones (NEG) Meds: Medications Generic Name Dose Route Start Last Admin Trade Name Freq PRN Reason Stop Dose Admin Sodium Chloride 10 ml 05/21/17 00:02 05/21/17 00:21 Saline Flush FLUSH 10 ml ASDIRECTED PRN Administration Keep Vein Open Sodium Chloride 2.5 ml 05/21/17 00:02 05/21/17 00:21 Saline Flush FLUSH 2.5 ml ASDIRECTED PRN Administration Keep Vein Open Discontinued Medications Generic Name Dose Route Start Last Admin Trade Name Freq PRN Reason Stop Dose Admin Diphenhydramine HCl 50 mg 05/21/17 00:02 05/21/17 00:18 Benadryl IVPUSH 05/21/17 00:03 50 mg ONETIME ONE Administration Hydralazine HCl 10 mg 05/21/17 00:02 05/21/17 00:25 Apresoline IVPUSH 05/21/17 00:03 10 mg ONETIME ONE Administration Sodium Chloride 1,000 mls @ 999 mls/hr 05/21/17 00:02 05/21/17 00:15 Normal Saline IV 05/21/17 01:02 999 mls/hr STAT ONE Administration Insulin Human Regular 10 unit 05/21/17 00:36 05/21/17 00:41 Novolin R IVPUSH 05/21/17 00:37 10 units ONETIME ONE Administration Protocol Insulin Human Regular 20 unit 05/21/17 00:38 05/21/17 00:44 Novolin R SUBCUT 05/21/17 00:39 20 units ONETIME ONE Administration Protocol Ketorolac Tromethamine 30 mg 05/21/17 00:02 05/21/17 00:13 Toradol IVPUSH 05/21/17 00:03 30 mg ONETIME ONE Administration Metoclopramide HCl 10 mg 05/21/17 00:02 05/21/17 00:21 Reglan IV 05/21/17 00:03 10 mg ONETIME ONE Administration Ondansetron HCl 4 mg 05/21/17 00:02 05/21/17 00:16 Zofran IVPUSH 05/21/17 00:03 4 mg ONETIME ONE Administration Departure - Departure Time of Disposition: 01:50 Disposition: Home, Self-Care 01 Condition: Good Clinical Impression: Chest pain, Type 2 diabetes mellitus Migraine headache Qualifiers: Migraine type: without aura Status migrainosus presence: without status migrainosus Intractability: not intractable Qualified Code(s): G43.009 - Migraine without aura, not intractable, without status migrainosus - Discharge Information Forms: ED Department Discharge Additional Instructions: The following information is given to patients seen in the emergency department who are being discharged to home. This information is to outline your options for follow-up care. We provide all patients seen in our emergency department with a follow-up referral. The need for follow-up, as well as the timing and circumstances, are variable depending upon the specifics of your emergency department visit. If you don't have a primary care physician on staff, we will provide you with a referral. We always advise you to contact your personal physician following an emergency department visit to inform them of the circumstance of the visit and for follow-up with them and/or the need for any referrals to a consulting specialist. The emergency department will also refer you to a specialist when appropriate. This referral assures that you have the opportunity for followup care with a specialist. All of these measure are taken in an effort to provide you with optimal care, which includes your followup. Under all circumstances we always encourage you to contact your private physician who remains a resource for coordinating your care. When calling for followup care, please make the office aware that this follow-up is from your recent emergency room visit. If for any reason you are refused follow-up, please contact the [facility] emergency department at and asked to speak to the emergency department charge nurse. The current medications follow-up primary medical doctor in 24 hours return as needed as discussed] - My Orders Last 24 Hours: My Active Orders 05/20/17 23:51 EKG 12 Lead [EKG Documentation Completion] [RC] STAT 05/21/17 00:01 Cardiac Monitoring [RC] . DIRECTED EKG Documentation Completion [RC] STAT Oxygen Therapy, ED [RC] ASDIRECTED Pulse Oximetry [RC] ASDIRECTED Head wo Cont [CT] Stat Saline Lock Insert [OM.PC] Stat 05/21/17 00:02 Chest 1V Frontal [CR] Stat Sodium Chloride 0.9% [Saline Flush] 10 ml FLUSH ASDIRECTED PRN Sodium Chloride 0.9% [Saline Flush] 2.5 ml FLUSH ASDIRECTED PRN - Assessment/Plan Last 24 Hours: My Active Orders 05/20/17 23:51 EKG 12 Lead [EKG Documentation Completion] [RC] STAT 05/21/17 00:01 Cardiac Monitoring [RC] . DIRECTED EKG Documentation Completion [RC] STAT Oxygen Therapy, ED [RC] ASDIRECTED Pulse Oximetry [RC] ASDIRECTED Head wo Cont [CT] Stat Saline Lock Insert [OM.PC] Stat 05/21/17 00:02 Chest 1V Frontal [CR] Stat Sodium Chloride 0.9% [Saline Flush] 10 ml FLUSH ASDIRECTED PRN Sodium Chloride 0.9% [Saline Flush] 2.5 ml FLUSH ASDIRECTED PRN
[2017-05-21] MEDS ORDERED: Insulin Regular, Human 100 Units/ML 10 ML Vial IVPUSH ONE (00:36)
[2017-05-21] MEDS ORDERED: Insulin Regular, Human 100 Units/ML 10 ML Vial SUBCUT ONE (00:38)
[2017-05-21] MEDS ORDERED: HYDROmorphone 1 MG/ML Syringe IVPUSH ONE (02:02)
[2017-05-21 02:36] VITALS: BP 143/93
--- NOTE | 2017-05-21 13:26 | CR ---
EXAM DATE: 05/20/17 PATIENT'S AGE: 41 Patient: CHETNA FONTANA Facility: [place], [place] Site . Site : 1975 Study: XRay Chest [id number]/13/2017 1:26:54 AM Ordering Physician: Justine De Leon Final Report: INDICATIONS: Hypertension. Glucose 600+. TECHNIQUE: Chest 1 view. COMPARISON: None FINDINGS: No pneumothorax, pleural effusion or airspace consolidation. Cardiac and mediastinal contours are within normal limits. Upper abdomen and osseous structures show no acute abnormality. IMPRESSION: No evidence of acute cardiopulmonary disease. Dictated by Corky Jenkins MD @ 05/21/2017 1:36:45 AM Dictated by: Corky Jenkins MD @ 05/21/2017 01:36:51 (Electronic Signature) Report Signed by Proxy. [facility]
--- NOTE | 2017-05-21 13:26 | CT ---
EXAM DATE: 05/20/17 PATIENT'S AGE: 41 Patient: CHETNA FONTANA Facility: [place], [place] Site . Site : 1975 Study: CT Head [id number]/13/2017 1:26:07 AM Ordering Physician: Justine De Leon Final Report: INDICATIONS: Migraine. Hypertension. Glucose of 600+. TECHNIQUE: CT head without contrast. COMPARISON: CT head without contrast August 26, 2016. FINDINGS: No mass effect or midline shift. No hydrocephalus. No CT evidence of acute hemorrhage or infarction. No abnormal extra-axial fluid collection. Bone windows show no acute abnormality. Visualized paranasal sinuses and orbits are unremarkable. IMPRESSION: No acute intracranial abnormality. Dictated by Corky Jenkins MD @ 05/21/2017 1:33:27 AM Dictated by: Corky Jenkins MD @ 05/21/2017 01:33:38 (Electronic Signature) Report S[facility] Proxy. [facility]
== END 2017-05-21 02:25 | disposition home or self-care (01) ==
LOC: MW.ED 23:43
DX: G43.009 Migraine without aura, not intractable, without status migrainosus (principal); R07.89 Other chest pain; E11.9 Type 2 diabetes mellitus without complications; I10 Essential (primary) hypertension; E78.00 Pure hypercholesterolemia, unspecified; E66.9 Obesity, unspecified; F32.9 Major depressive disorder, single episode, unspecified; Z85.41 Personal history of malignant neoplasm of cervix uteri; Z90.710 Acquired absence of both cervix and uterus; Z98.890 Other specified postprocedural states; Z96.659 Presence of unspecified artificial knee joint; Z79.4 Long term (current) use of insulin; Z79.899 Other long term (current) drug therapy; Z88.0 Allergy status to penicillin; Z88.8 Allergy status to other drugs, medicaments and biological substances; Z91.030 Bee allergy status
CPT/HCPCS: 36415; 36600; 70450; 71010; 80053; 80305; 81001; 82009; 82803; 82962; 84484; 84703; 85025; 85610; 93005; 96361; 96374; 96375; 96376; 99285; J0360; J1170; J1200; J1815; J1885; J2405; J2765; J7040; 99283

== ENCOUNTER 2017-06-15 06:30 | Day surgery (SDC) | payer BC, MEDICAID ==
[2017-06-15] MEDS ORDERED: Lidocaine 2% 5 ML SDV ONE (07:09)
[2017-06-15] MEDS ORDERED: Ondansetron 4 MG/2 ML SDV ONE (07:09)
[2017-06-15] MEDS ORDERED: Midazolam 1 MG/ML 2 ML SDV ONE (07:10)
[2017-06-15] MEDS ORDERED: fentaNYL 100 MCG/2 ML SDV ONE (07:10)
[2017-06-15] MEDS ORDERED: Propofol 200 MG/20 ML SDV ONE (07:10)
[2017-06-15] MEDS ORDERED: Insulin Regular, Human 100 Units/ML 10 ML Vial SUBCUT ONE (07:31)
[2017-06-15] MEDS ORDERED: Bupivacaine 0.25% 10 ML SDV ONE (07:33)
[2017-06-15] MEDS ORDERED: Lidocaine 1% 20 ML MDV ONE (07:33)
[2017-06-15] MEDS ORDERED: Clindamycin Phosphate in D5W 900 MG in Premix Bag 1 BAG IV SCH ×2 (08:00)
--- NOTE | 2017-06-15 08:09 | PCM.PREANE ---
Preanesthetic Assessment - Procedure Proposed Procedure: carpal tunnel release - left - Anesthesia/Transfusion/Family Hx Anesthesia History: Prior Anesthesia Reaction Other Type of Anesthesia Reaction Comment: pt states she has problems with nausea post anesthesia Family History of Anesthesia Reaction: No Transfusion History: No Prior Transfusion(s) Intubation History: Unknown - Review of Systems General: Other (known elevated blood sugar; hx kidney stones and interstitial cystitis) Cardiovascular: Other (hypertension) Gastrointestinal: Other (GERD) Neurological: Numbness (due to CTunnel) Other: Reports: Diabetes (uncontrolled with HgbA1C - 9.0), Anxiety - Physical Assessment NPO Status Date: 06/14/17 NPO Status Time: 22:00 O2 Sat by Pulse Oximetry: 100 Respiratory Rate: 16 Vital Signs: Last Vital Signs Temp 96.8 F 06/15/17 06:52 Pulse 116 H 06/15/17 06:52 Resp 16 06/15/17 06:52 BP 124/96 H 06/15/17 06:52 Pulse Ox 100 06/15/17 06:52 Height: 5 ft 1 in Weight: 188 lb ASA Class: 3 Mental Status: Alert & Oriented x3 Airway Class: Mallampati = 2 Dentition: Reports: Normal Dentition Thyro-Mental Finger Breadths: 3 Mouth Opening Finger Breadths: 3 ROM/Head Extension: Full Lungs: Clear to Auscultation, Normal Respiratory Effort Cardiovascular: Regular Rate, Regular Rhythm - Lab Values: Laboratory Last Values POC Glucose 312 mg/dL (60-110) H 06/15/17 07:59 - Allergies Allergies/Adverse Reactions: Allergies Allergy/AdvReac Type Severity Reaction Status Date / Time lorazepam [From Ativan] Allergy Agitation Verified 06/10/17 16:49 Penicillins Allergy Anaphylactic Verified 06/10/17 16:49 Shock sumatriptan [From Imitrex] Allergy Anaphylactic Verified 06/10/17 16:49 Shock sumatriptan succinate Allergy Anaphylactic Verified 06/10/17 16:49 [From Imitrex] Shock venom-honey bee Allergy Anaphylactic Verified 06/10/17 16:49 [bee venom (honey bee)] Shock gnat - bug Allergy Anaphylactic Uncoded 05/20/17 23:47 Shock - Blood Blood Available: No Product(s) Available: None - Anesthesia Plan Free Text/Narrative:: Glucose elevation treated with regular here in SDS, will recheck post op and before discharge. Pre-Op Medication Ordered: Other (insulin - lantus 1/2 dose this AM) - Acknowledgements Anesthesia Type Planned: General Anesthesia (probable OET) Pt an Appropriate Candidate for the Planned Anesthesia: Yes Alternatives and Risks of Anesthesia Discussed w Pt/Guardian: Yes Pt/Guardian Understands and Agrees with Anesthesia Plan: Yes PreAnesthesia Questionnaire HEENT History: Reports: Allergic Rhinitis Other HEENT History: wears glasses Cardiovascular History: Reports: Hypertension Respiratory History: Reports: None Gastrointestinal History: Reports: None Genitourinary History: Reports: Renal Calculus, UTI, Recurrent Other Genitourinary History: has interstitial cystitis [employer] History: Reports: Musculoskeletal History: Reports: Fracture Other Musculoskeletal History: hx of fx fingers and toes Neurological History: Reports: Migraines, Seizure Other Neuro History: last seizure was 1 year ago, does not take meds Psychiatric History: Reports: Depression Endocrine/Metabolic History: Reports: Diabetes, Type II, Obesity/BMI 30+ Hematologic History: Reports: None Immunologic History: Reports: None Oncologic (Cancer) History: Reports: None Dermatologic History: Reports: None - Infectious Disease History Infectious Disease History: Reports: Chicken Pox - Past Surgical History Head Surgeries/Procedures: Reports: None HEENT Surgical History: Reports: Adenoidectomy, Tonsillectomy Cardiovascular Surgical History: Reports: None Respiratory Surgical History: Reports: None GI Surgical History: Reports: Appendectomy, Cholecystectomy Female Surgical History: Reports: Section, Hysterectomy, Tubal Ligation Neurological Surgical History: Reports: None Musculoskeletal Surgical History: Reports: Arthroscopic Knee Oncologic Surgical History: Reports: None - History Comment History Comment: ETOH " 1X A MONTH" - SUBSTANCE USE Smoking Status *Q: Never Smoker Tobacco Use Within Last Twelve Months: No Second Hand Smoke Exposure: No Days Per Week of Alcohol Use: 0 Recreational Drug Use History: No - HOME MEDS Home Medications: Home Meds Insulin Aspart [NovoLOG] 35 - 42 unit SQ TIDAC MDD 160 11/03/15 [History] Insulin Glarg,Human.Rec.Analog [LantUS] 62 units SQ BID 11/03/15 [History] Valsartan 320 mg PO BEDTIME 01/15/16 [History] Spironolactone [Aldactone] 25 mg PO BEDTIME 07/16/16 [History] Insulin Aspart [NovoLOG] 20 unit SQ WITHSNACKS 07/29/16 [History] cloNIDine [Catapres] 0.1 mg PO BID 07/29/16 [History] Chlorthalidone 25 mg PO BEDTIME 07/30/16 [History] Multivitamin [Daily Multiple Vitamin] 1 tab PO DAILY 03/10/17 [History] Ondansetron HCl [Zofran] 8 mg PO TID PRN 03/10/17 [History] Venlafaxine HCl [Venlafaxine ER] 75 mg PO BEDTIME 04/05/17 [History] Amitriptyline [Elavil] 10 mg PO BEDTIME 06/10/17 [History] Aspirin [Adult Low Dose Aspirin EC] 81 mg PO BEDTIME 06/10/17 [History] Tolterodine Tartrate [Detrol LA] 4 mg PO BEDTIME 06/10/17 [History] - CURRENT (IN HOUSE) MEDS Current Meds: Current Medications Hydrocodone Bitart/Acetaminophen ([place] 325-5 Mg) 1 - 2 tab PO Q4H PRN PRN Reason: Pain Clindamycin Phosphate 900 mg/ (Premix) 50 mls @ 100 mls/hr IV ONCALL [facility] Last Admin: 06/15/17 07:21 Dose: 100 mls/hr Lactated Ringer's (Ringers, Lactated) 1,000 mls @ 100 mls/hr IV ASDIRECTED [facility] Last Admin: 06/15/17 07:20 Dose: 100 mls/hr Discontinued Medications Bupivacaine HCl (Sensorcaine-Mpf 0.25%) Confirm Administered Dose 10 ml .ROUTE .STK-MED ONE Stop: 06/15/17 07:34 Fentanyl (Sublimaze) Confirm Administered Dose 300 mcg .ROUTE .STK-MED ONE Stop: 06/15/17 07:11 Insulin Human Regular (Novolin R) 4 unit SUBCUT ONETIME ONE PRN Reason: Protocol Stop: 06/15/17 07:32 Last Admin: 06/15/17 07:41 Dose: 4 bottle Lidocaine (Xylocaine-Mpf 2%) Confirm Administered Dose 5 ml .ROUTE .STK-MED ONE Stop: 06/15/17 07:10 Lidocaine HCl (Xylocaine 1%) Confirm Administered Dose 20 ml .ROUTE .STK-MED ONE Stop: 06/15/17 07:34 Midazolam HCl (Versed 1 Mg/Ml) Confirm Administered Dose 2 mg .ROUTE .STK-MED ONE Stop: 06/15/17 07:11 Ondansetron HCl (Zofran) Confirm Administered Dose 4 mg .ROUTE .STK-MED ONE Stop: 06/15/17 07:10 Propofol (Diprivan 20 Ml) Confirm Administered Dose 200 mg .ROUTE .STK-MED ONE Stop: 06/15/17 07:11
[2017-06-15] MEDS ORDERED: Succinylcholine/Normal Saline 200 MG/10 ML Syringe ONE (08:10)
[2017-06-15] MEDS ORDERED: Rocuronium 10 MG/ML 10 ML Syringe ONE (08:10)
[2017-06-15] MEDS ORDERED: Phenylephrine/Normal Saline 100 MCG/ML 10 ML Syringe ONE (08:16)
[2017-06-15] MEDS ORDERED: fentaNYL 100 MCG/2 ML SDV IVPUSH PRN (08:34)
--- NOTE | 2017-06-15 08:42 | PCM.OPNOTE ---
- General Post-Op/Procedure Note Date of Surgery/Procedure: 06/15/17 Operative Procedure(s): Excision left wrist dorsal ganglion Post-Op Diagnosis: L wrist dorsal ganglion Anesthesia Technique: General ET Tube Primary Surgeon: Donna Huang Room Service Waiter/Waitress: Clark Aguirre in mLs: 5 Condition: Good Free Text/Narrative:: tt=8 min #[id number]
[2017-06-15] MEDS ORDERED: Insulin Regular, Human 100 Units/ML 10 ML Vial SUBCUT PRN (08:43)
--- NOTE | 2017-06-15 09:15 | PCM.POSTAN ---
POST ANESTHESIA ASSESSMENT - MENTAL STATUS Mental Status: Alert - VITAL SIGNS Pulse Rate: 103 SaO2: 99 Resp Rate: 20 Blood Pressure: 92/70 - RESPIRATORY Respiratory Status: Respiratory Rate WNL, Airway Patent, O2 Saturation Stable - CARDIOVASCULAR CV Status: Pulse Rate WNL, Blood Pressure Stable - GASTROINTESTINAL GI Status: No Symptoms Free Text/Narrative:: FBS 226 in PAR. Repeat in SDS before discharge. - PAIN Pain Score: 0 - POST OP HYDRATION Hydration Status: Adequate & Stable (see GI section note.)
--- NOTE | 2017-06-15 09:41 | OR ---
SURGEON: Donna Huang MD DATE OF PROCEDURE: 06/15/2017 PREOPERATIVE DIAGNOSIS: Left wrist dorsal ganglion. POSTOPERATIVE DIAGNOSIS: Left wrist dorsal ganglion. PROCEDURE: Excision of left wrist dorsal ganglion. AMBULATORY SERVICES REPRESENTATIVE: Clark Aguirre PA-C. ANESTHESIA: General. ESTIMATED BLOOD LOSS: 5 mL. TOURNIQUET TIME: 8 minutes. COMPLICATIONS: None. DVT PROPHYLAXIS: Not indicated. IMPLANTS USED: None. BRIEF HISTORY: Ursula is a 42-year-old female, who has had complaint of persistent mass over the dorsum of the left wrist. It continued to cause her some pain and irritation with activity. I did discuss both conservative and surgical treatment options. The patient elected to proceed with surgical treatment. The risks and goals of procedure were discussed with the patient and were documented preoperatively. She agreed to proceed. DESCRIPTION OF PROCEDURE: The patient was properly identified and brought to the operating room. She was transferred from the OR cart and placed on the operating room table in supine position. General anesthesia was administered. After adequate anesthesia was obtained, a well-padded tourniquet was applied to the left upper extremity. The left upper extremity was then prepped in standard fashion using ChloraPrep solution. It was then sterilely draped. A time-out was performed to ensure correct site and procedure. Preoperative antibiotics were given. The surgical site had been marked preoperatively. An Esmarch was used to exsanguinate the left upper extremity and the tourniquet was inflated to 200 mmHg. A transverse incision was made centered over the ganglion. The subcutaneous tissues were incised. The ganglion was easily identified. It was dissected from the surrounding tissue. There was a small portion that appeared to extend into the radiocarpal joint. The stalk was amputated. The cyst appeared consistent with a ganglion cyst. The base of the stalk was treated with electrocautery. The wound was then copiously irrigated with saline solution. The subcutaneous tissues were closed with 3-0 Vicryl. The skin was closed with a running 4-0 Monocryl suture. Steri-Strips and Benzoin were placed. The tourniquet was deflated prior to wound closure and no significant bleeding was noted. A mixture of 0.5% Marcaine, and 1% lidocaine was injected around the incision site following closure. Xeroform gauze was placed over the wound and a bulky dressing was applied. She was awakened from her anesthetic and transferred back to the operating room cart. She was brought to recovery room in stable condition. All needle and sponge counts were correct. BAN / HAO /[id number]
[2017-06-15] MEDS ORDERED: Acetaminophen/HYDROcodone 325-5 MG Tab PO PRN (10:00)
[2017-06-15 10:55] VITALS: BP 99/64
== END 2017-06-15 11:25 | disposition home or self-care (01) ==
LOC: MW.SDS 06:30
PROVIDERS: ATTEND Orthopaedic Surgery
PROC: 0JBH0ZZ Excision of Left Lower Arm Subcutaneous Tissue and Fascia, Open Approach (ICD-10-PCS; principal; 2017-06-15)
DX: M67.432 Ganglion, left wrist (principal); I10 Essential (primary) hypertension; G43.009 Migraine without aura, not intractable, without status migrainosus; G40.309 Generalized idiopathic epilepsy and epileptic syndromes, not intractable, without status epilepticus; F32.9 Major depressive disorder, single episode, unspecified; E78.1 Pure hyperglyceridemia; E11.9 Type 2 diabetes mellitus without complications; E66.9 Obesity, unspecified; N30.20 Other chronic cystitis without hematuria; Z87.441 Personal history of nephrotic syndrome; Z87.442 Personal history of urinary calculi; Z87.440 Personal history of urinary (tract) infections; Z88.0 Allergy status to penicillin; Z88.8 Allergy status to other drugs, medicaments and biological substances; Z91.030 Bee allergy status; Z91.09 Other allergy status, other than to drugs and biological substances; Z79.4 Long term (current) use of insulin; Z79.82 Long term (current) use of aspirin; Z79.899 Other long term (current) drug therapy; Z98.51 Tubal ligation status; Z90.49 Acquired absence of other specified parts of digestive tract; Z90.710 Acquired absence of both cervix and uterus; Z90.89 Acquired absence of other organs; Z98.890 Other specified postprocedural states; Z68.35 Body mass index [BMI] 35.0-35.9, adult
CPT/HCPCS: 25111; 82962; J1815; J2250; J2405; J3010; J7120; 01810; 88304; J2704

== ENCOUNTER 2017-11-09 13:36 | Emergency (ER) | payer MEDICAID, SELFPAY ==
[2017-11-09 14:29] VITALS: BP 181/129
[2017-11-09] MEDS ORDERED: Ondansetron 4 MG/2 ML SDV IVPUSH ONE ×2 (14:32→16:40)
[2017-11-09] MEDS ORDERED: Ketorolac 30 MG/ML SDV IVPUSH ONE (14:32)
[2017-11-09] MEDS ORDERED: Sodium Chloride 0.9% 1,000 ML IV ONE ×2 (14:32→16:03)
[2017-11-09] MEDS ORDERED: Morphine 2 MG/ML Syringe IVPUSH ONE (14:33)
[2017-11-09 15:58] LABS: CHLORIDE,CL 102 mmol/L (98-110); SODIUM,NA 134 mmol/L (136-146)
[2017-11-09] MEDS ORDERED: HYDROmorphone 2 MG/ML Syringe IVPUSH ONE (16:40)
[2017-11-09] MEDS ORDERED: Prochlorperazine 10 MG/2 ML SDV IVPUSH ONE (17:26)
[2017-11-09] MEDS ORDERED: diphenhydrAMINE 50 MG/ML SDV ONE (17:37)
[2017-11-09] MEDS ORDERED: diphenhydrAMINE 50 MG/ML SDV IVPUSH STA (17:37)
[2017-11-09] MEDS ORDERED: Iopamidol 755 MG/ML 200 ML Multipack Bottle IVPUSH STA (17:41)
--- NOTE | 2017-11-09 18:30 | EDM.PDOC ---
<Enio Lucas - Last Filed: 11/09/17 18:25> ED HPI GENERAL MEDICAL PROBLEM - General Chief Complaint: Headache Stated Complaint: HEADACHE, SIDE PAIN, BP HIGH Time Seen by Provider: 11/09/17 14:25 Source of Information: Reports: Patient History Limitations: Reports: No Limitations - History of Present Illness INITIAL COMMENTS - FREE TEXT/NARRATIVE: History of present illness: [42-year-old female comes in with complaints of flank pain, headache, hypertension, nausea and vomiting. Patient is a known poorly controlled diabetic that has been caring for loved ones with viral syndrome and has subsequently become overly fatigued. Per her significant other she often decompensate physically when she overdoes it.] Review of systems: As per history of present illness and below otherwise all systems reviewed and negative. Past medical history: As per history of present illness and as reviewed below otherwise noncontributory. Surgical history: As per history of present illness and as reviewed below otherwise noncontributory. Social history: No reported history of drug or alcohol abuse. Family history: As per history of present illness and as reviewed below otherwise noncontributory. Physical exam: HEENT: Atraumatic, normocephalic, pupils reactive, negative for conjunctival pallor or scleral icterus, mucous membranes moist, throat clear, neck supple, nontender, trachea midline. Lungs: Clear to auscultation, breath sounds equal bilaterally, chest nontender. Heart: S1S2, regular, negative for clicks, rubs, or JVD. Abdomen: Soft, nondistended, nontender. Negative for masses or hepatosplenomegaly. Negative for costovertebral tenderness. Pelvis: Stable nontender. Genitourinary: Deferred. Rectal: Deferred. Extremities: Atraumatic, negative for cords or calf pain. Neurovascular unremarkable. Neuro: Awake, alert, oriented. Cranial nerves II through XII unremarkable. Cerebellum unremarkable. Motor and sensory unremarkable throughout. Exam nonfocal. Global assessment is benign save the subjective complaint as noted in history of present illness patient is hypertensive on presentation and has some nausea but indicates that she has flank pain and is afraid she has a kidney stone. CT of head negative for acute findings /CT of abdomen and pelvis negative for acute findings Patient with some amount of vomiting controlled by Compazine IV Diagnostics: CBC, CMP, CT of head and abdomen and pelvis Therapeutics: [] Impression: [#1 Viral syndrome #2 hypertension #3 hyperglycemia #4 nausea with vomiting #5 flank pain] Plan: [Take medication at home follow-up with primary care] Definitive disposition and diagnosis as appropriate pending reevaluation and review of above. Bilateral Frontal Headache Pain Score (Numeric/FACES): 10 - Related Data Allergies Allergy/AdvReac Type Severity Reaction Status Date / Time lorazepam [From Ativan] Allergy Agitation Verified 06/10/17 16:49 Penicillins Allergy Anaphylactic Verified 06/10/17 16:49 Shock sumatriptan [From Imitrex] Allergy Anaphylactic Verified 06/10/17 16:49 Shock sumatriptan succinate Allergy Anaphylactic Verified 06/10/17 16:49 [From Imitrex] Shock venom-honey bee Allergy Anaphylactic Verified 06/10/17 16:49 [bee venom (honey bee)] Shock gnat - bug Allergy Anaphylactic Uncoded 05/20/17 23:47 Shock Home Meds: Home Meds Insulin Aspart [NovoLOG] 35 - 42 unit SQ TIDAC MDD 160 11/03/15 [History] Insulin Glarg,Human.Rec.Analog [LantUS] 62 units SQ BID 11/03/15 [History] Valsartan 320 mg PO BEDTIME 01/15/16 [History] Spironolactone [Aldactone] 25 mg PO BEDTIME 07/16/16 [History] Insulin Aspart [NovoLOG] 20 unit SQ WITHSNACKS 07/29/16 [History] cloNIDine [Catapres] 0.1 mg PO BID 07/29/16 [History] Chlorthalidone 25 mg PO BEDTIME 07/30/16 [History] Multivitamin [Daily Multiple Vitamin] 1 tab PO DAILY 03/10/17 [History] Ondansetron HCl [Zofran] 8 mg PO TID PRN 03/10/17 [History] Venlafaxine HCl [Venlafaxine ER] 75 mg PO BEDTIME 04/05/17 [History] Amitriptyline [Elavil] 10 mg PO BEDTIME 06/10/17 [History] Aspirin [Adult Low Dose Aspirin EC] 81 mg PO BEDTIME 06/10/17 [History] Tolterodine Tartrate [Detrol LA] 4 mg PO BEDTIME 06/10/17 [History] Acetaminophen/HYDROcodone [[place] 325-5 MG] 1 - 2 tab PO Q4H PRN #80 tablet 06/15 [Rx] Past Medical History HEENT History: Reports: Allergic Rhinitis Other HEENT History: wears glasses Cardiovascular History: Reports: High Cholesterol, Hypertension Respiratory History: Reports: None Gastrointestinal History: Reports: Gastritis, Other (See Below) Genitourinary History: Reports: Renal Calculus, Other (See Below) Other Genitourinary History: has interstitial cystitis CREDIT PROFESSIONAL History: Reports: , Other (See Below) Musculoskeletal History: Reports: None Other Musculoskeletal History: knee pain Neurological History: Reports: Migraines, Seizure Other Neuro History: 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 2 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, unknown cause Psychiatric History: Reports: Depression Endocrine/Metabolic History: Reports: Diabetes, Type II, Obesity/BMI 30+ Hematologic History: Reports: None Immunologic History: Reports: None Oncologic (Cancer) History: Reports: None, Cervix Dermatologic History: Reports: None - Infectious Disease History Infectious Disease History: Reports: Chicken Pox - Past Surgical History Head Surgeries/Procedures: Reports: None HEENT Surgical History: Reports: Oral Surgery, Tonsillectomy Respiratory Surgical History: Reports: None Female Surgical History: Reports: Section, Hysterectomy, Lithotripsy /ESWL, Tubal Ligation Musculoskeletal Surgical History: Reports: Knee Replacement - History Comment History Comment: ETOH " 1X A MONTH" Social & Family History - Family History Family Medical History: Noncontributory HEENT: Reports: None Cardiac: Reports: CAD, Hypertension Respiratory: Reports: None GI: Reports: None : Reports: Renal Calculus Psychiatric: Reports: None Endocrine/Metabolic: Reports: None Hematologic: Reports: None Immunologic: Reports: None Dermatologic: Reports: None Oncologic: Reports: Lung - Tobacco Use Smoking Status *Q: Never Smoker Used Tobacco, but Quit: Yes Month Tobacco Last Used: `0 Second Hand Smoke Exposure: No - Caffeine Use Caffeine Use: Reports: Soda, Tea - Alcohol Use Days Per Week of Alcohol Use: 0 - Recreational Drug Use Recreational Drug Use: No Drug Use in Last 12 Months: No ED ROS GENERAL - Review of Systems Review Of Systems: See Below (See history of present illness) ED EXAM, GENERAL - Physical Exam Exam: See Below (See history of present illness) Course - Vital Signs Last Recorded V/S: Last Vital Signs Temp 37.6 C 11/09/17 14:26 Pulse 136 H 11/09/17 14:26 Resp 22 H 11/09/17 14:26 BP 181/129 H 11/09/17 14:26 Pulse Ox 96 11/09/17 14:26 - Orders/Labs/Meds Orders: Active Orders 24 hr Category Date Time Status Abdomen Pelvis w Cont [CT] Stat Exams 11/09/17 16:40 Taken Head wo Cont [CT] Stat Exams 11/09/17 16:46 Taken CULTURE STREP A CONFIRMATION [RM] Stat Lab 11/09/17 15:50 Results STREP SCRN A RAPID W CULT CONF [RM] Stat Lab 11/09/17 15:50 Results Labs: Laboratory Tests 11/09/17 11/09/17 11/09/17 Range/Units 15:10 15:15 15:34 WBC 8.63 (4.0-11.0) K/uL RBC 4.78 (4.30-5.90) M/uL Hgb 15.2 (12.0-16.0) g/dL Hct 42.2 (36.0-46.0) % MCV 88.3 (80.0-98.0) fL MCH 31.8 (27.0-32.0) pg MCHC 36.0 (31.0-37.0) g/dL RDW Std Deviation 40.4 (28.0-62.0) fl RDW Coeff of Abdirizak 13 (11.0-15.0) % Plt Count 179 (150-400) K/uL MPV 9.90 (7.40-12.00) fL Neut % (Auto) 89.1 H (48.0-80.0) % Lymph % (Auto) 6.1 L (16.0-40.0) % Bonner % (Auto) 4.2 (0.0-15.0) % Eos % (Auto) 0.5 (0.0-7.0) % Baso % (Auto) 0.1 (0.0-1.5) % Neut # (Auto) 7.7 H (1.4-5.7) K/uL Lymph # (Auto) 0.5 L (0.6-2.4) K/uL Bonner # (Auto) 0.4 (0.0-0.8) K/uL Eos # (Auto) 0.0 (0.0-0.7) K/uL Baso # (Auto) 0.0 (0.0-0.1) K/uL Nucleated RBC % 0.0 /100WBC Nucleated RBCs # 0 K/uL Sodium (136-146) mmol/L Potassium (3.5-5.1) mmol/L Chloride (98-110) mmol/L Carbon Dioxide (21-31) mmol/L BUN (6.0-23.0) mg/dL Creatinine (0.6-1.5) mg/dL Est Cr Clr Drug Dosing mL/min Estimated GFR (MDRD) ml/min Glucose (60-110) mg/dL POC Glucose 322 H (60-110) mg/dL Calcium (8.8-10.8) mg/dL Total Bilirubin (0.1-1.5) mg/dL AST (5-40) IU/L ALT (8-54) IU/L Alkaline Phosphatase (40-150) Total Protein (6.0-8.0) g/dL Albumin (3.5-5.0) g/dL Globulin (2.0-3.5) g/dL Albumin/Globulin Ratio (1.3-2.8) Urine Color YELLOW Urine Appearance CLEAR Urine pH 6.0 (5.0-8.0) Ur Specific Merna 1.010 (1.001-1.035) Urine Protein 30 (NEGATIVE) mg/dL Urine Glucose (UA) 500 H (NEGATIVE) mg/dL Urine Ketones 40 H (NEGATIVE) mg/dL Urine Occult Blood NEGATIVE (NEGATIVE) Urine Nitrite NEGATIVE (NEGATIVE) Urine Bilirubin NEGATIVE (NEGATIVE) Urine Urobilinogen 0.2 (<2.0) EU/dL Ur Leukocyte Esterase NEGATIVE (NEGATIVE) Urine RBC 0-1 (0-2/HPF) Urine WBC 20-25 (0-5/HPF) Ur Epithelial Cells MANY (NONE-FEW) Urine Bacteria FEW (NEGATIVE) 11/09/17 Range/Units 15:34 WBC (4.0-11.0) K/uL RBC (4.30-5.90) M/uL Hgb (12.0-16.0) g/dL Hct (36.0-46.0) % MCV (80.0-98.0) fL MCH (27.0-32.0) pg MCHC (31.0-37.0) g/dL RDW Std Deviation (28.0-62.0) fl RDW Coeff of Abdirizak (11.0-15.0) % Plt Count (150-400) K/uL MPV (7.40-12.00) fL Neut % (Auto) (48.0-80.0) % Lymph % (Auto) (16.0-40.0) % Bonner % (Auto) (0.0-15.0) % Eos % (Auto) (0.0-7.0) % Baso % (Auto) (0.0-1.5) % Neut # (Auto) (1.4-5.7) K/uL Lymph # (Auto) (0.6-2.4) K/uL Bonner # (Auto) (0.0-0.8) K/uL Eos # (Auto) (0.0-0.7) K/uL Baso # (Auto) (0.0-0.1) K/uL Nucleated RBC % /100WBC Nucleated RBCs # K/uL Sodium 134 L (136-146) mmol/L Potassium 4.3 (3.5-5.1) mmol/L Chloride 102 (98-110) mmol/L Carbon Dioxide 20 L (21-31) mmol/L BUN 11 (6.0-23.0) mg/dL Creatinine 0.8 (0.6-1.5) mg/dL Est Cr Clr Drug Dosing 70.54 mL/min Estimated GFR (MDRD) > 60.0 ml/min Glucose 405 H (60-110) mg/dL POC Glucose (60-110) mg/dL Calcium 8.8 (8.8-10.8) mg/dL Total Bilirubin 2.0 H (0.1-1.5) mg/dL AST 63 H (5-40) IU/L ALT 48 (8-54) IU/L Alkaline Phosphatase 75 (40-150) Total Protein 6.9 (6.0-8.0) g/dL Albumin 3.9 (3.5-5.0) g/dL Globulin 3.0 (2.0-3.5) g/dL Albumin/Globulin Ratio 1.3 (1.3-2.8) Urine Color Urine Appearance Urine pH (5.0-8.0) Ur Specific Merna (1.001-1.035) Urine Protein (NEGATIVE) mg/dL Urine Glucose (UA) (NEGATIVE) mg/dL Urine Ketones (NEGATIVE) mg/dL Urine Occult Blood (NEGATIVE) Urine Nitrite (NEGATIVE) Urine Bilirubin (NEGATIVE) Urine Urobilinogen (<2.0) EU/dL Ur Leukocyte Esterase (NEGATIVE) Urine RBC (0-2/HPF) Urine WBC (0-5/HPF) Ur Epithelial Cells (NONE-FEW) Urine Bacteria (NEGATIVE) Meds: Medications Discontinued Medications Generic Name Dose Route Start Last Admin Trade Name Freq PRN Reason Stop Dose Admin Diphenhydramine HCl 50 mg 11/09/17 17:37 11/09/17 17:42 Benadryl IVPUSH 11/09/17 17:38 50 mg NOW STA Administration Diphenhydramine HCl Confirm 11/09/17 17:37 11/09/17 17:42 Benadryl Administered 11/09/17 17:38 Not Given Dose 50 mg .ROUTE .STK-MED ONE Hydromorphone HCl 2 mg 11/09/17 16:40 11/09/17 16:49 Dilaudid IVPUSH 11/09/17 16:41 2 mg ONETIME ONE Administration Sodium Chloride 1,000 mls @ 999 mls/hr 11/09/17 14:32 11/09/17 15:10 Normal Saline IV 11/09/17 15:32 999 mls/hr STAT ONE Administration Sodium Chloride 1,000 mls @ 999 mls/hr 11/09/17 16:03 11/09/17 18:36 Normal Saline IV 11/09/17 17:03 Not Given STAT ONE Iopamidol 100 ml 11/09/17 17:41 11/09/17 17:41 Isovue Multipack-370 (76%) IVPUSH 11/09/17 17:42 100 ml ONETIME STA Administration Ketorolac Tromethamine 30 mg 11/09/17 14:32 11/09/17 15:11 Toradol IVPUSH 11/09/17 14:33 30 mg ONETIME ONE Administration Morphine Sulfate 2 mg 11/09/17 14:33 11/09/17 15:11 Morphine IVPUSH 11/09/17 14:34 2 mg ONETIME ONE Administration Ondansetron HCl 4 mg 11/09/17 14:32 11/09/17 15:11 Zofran IVPUSH 11/09/17 14:33 4 mg ONETIME ONE Administration Ondansetron HCl 4 mg 11/09/17 16:40 11/09/17 16:50 Zofran IVPUSH 11/09/17 16:41 4 mg ONETIME ONE Administration Prochlorperazine Edisylate 10 mg 11/09/17 17:26 11/09/17 17:42 Compazine IVPUSH 11/09/17 17:27 10 mg ONETIME ONE Administration Departure - Departure Time of Disposition: 18:28 Disposition: Home, Self-Care 01 Condition: Good Clinical Impression: Diabetes, Tension-type headache Hypertension Qualifiers: Hypertension type: essential hypertension Qualified Code(s): I10 - Essential ( primary) hypertension - Discharge Information Instructions: Migraine Headache, [id number], Hypertension, [id number] Referrals: Meghan Nazario [employer] CHANGER [Primary Care Provider] - Forms: ED Department Discharge Additional Instructions: The following information is given to patients seen in the emergency department who are being discharged to home. This information is to outline your options for follow-up care. We provide all patients seen in our emergency department with a follow-up referral. The need for follow-up, as well as the timing and circumstances, are variable depending upon the specifics of your emergency department visit. If you don't have a primary care physician on staff, we will provide you with a referral. We always advise you to contact your personal physician following an emergency department visit to inform them of the circumstance of the visit and for follow-up with them and/or the need for any referrals to a consulting specialist. The emergency department will also refer you to a specialist when appropriate. This referral assures that you have the opportunity for follow-up care with a specialist. All of these measure are taken in an effort to provide you with optimal care, which includes your follow-up. Under all circumstances we always encourage you to contact your private physician who remains a resource for coordinating your care. When calling for follow-up care, please make the office aware that this follow-up is from your recent emergency room visit. If for any reason you are refused follow-up, please contact the [facility] at and asked to speak to the emergency department charge nurse. Go home and try to get rest take it easy the next 24-72 hours Chelle take your medicine as discussed Follow-up with primary care to address your diabetes as discussed Return to ED as needed as discussed <Damaris Weber - Last Filed: 11/10/17 07:26> ED HPI GENERAL MEDICAL PROBLEM - History of Present Illness INITIAL COMMENTS - FREE TEXT/NARRATIVE: Please add to diagnostics a rapid strep and please add to therapeutics IV fluids Benadryl Toradol Zofran Dilaudid Compazine
--- NOTE | 2017-11-10 20:40 | CT ---
EXAM DATE: 11/09/17 PATIENT'S AGE: 42 Patient: CHETNA FONTANA Facility: [place], [place] Site . Site : 1975 Study: CT Head [id number] 5:23:56 PM Ordering Physician: Doctor Weeks Final Report: INDICATION: Headache. TECHNIQUE: CT Head without contrast. COMPARISON: CT head 05/21/2017 FINDINGS: CSF spaces: Within normal limits for age. Brain parenchyma: The flores-white differentiation is normal. No sign of mass, hemorrhage, or midline shift. Skull base and calvarium: The visualized paranasal sinuses and mastoid air cells are clear. The visualized orbits are grossly unremarkable. No skull fractures. Unerupted wisdom tooth on the left. IMPRESSION: No acute intracranial abnormality. Dictated by Delfino Wallace MD @ 11/09/2017 5:58:59 PM Dictated by: Delfino Wallace MD @ 11/09/2017 17:59:06 (Electronic Signature) Report Signed by Proxy. SKY
--- NOTE | 2017-11-10 20:41 | CT ---
EXAM DATE: 11/09/17 PATIENT'S AGE: 42 Patient: CHETNA FONTANA Facility: [place], [place] Site . Site : 1975 Study: CT Abdomen/Pelvis [id number] 5:25:22 PM Ordering Physician: Doctor Weeks Final Report: INDICATION: Nausea TECHNIQUE: CT abdomen and pelvis with 100 mL Isovue 370 IV contrast. COMPARISON: CT abdomen and pelvis 27 February 2017. FINDINGS: Lower chest: Unremarkable. Liver: Splenomegaly with craniocaudal length of 27 cm. Low-attenuation steatosis diffusely. No mass or cyst. Spleen: Moderate splenomegaly 16.5 cm in greatest length. Uniform enhancement. Pancreas: Unremarkable. Gallbladder and bile ducts: Absent gallbladder, presumably surgically. No ductal dilatation. Kidneys: Small benign cortical parenchymal cyst left kidney. Adrenal glands: Unremarkable. GI tract: Unremarkable. Appendix is not apparent. No pericecal inflammation. Vascular structures: Unremarkable. Lymph nodes: Unremarkable. Miscellaneous: Unremarkable. No free air or significant free fluid. Pelvic Organs: Unremarkable. Bones: Unremarkable for age. IMPRESSION: Redemonstrated and stable nonspecific hepatosplenomegaly. Hepatic steatosis. Presumed cholecystectomy. Please note that all CT scans at this facility use dose modulation, iterative reconstruction, and/or weight-based dosing when appropriate to reduce radiation dose to as low as reasonably achievable. Dictated by Jann Trevino MD @ Nov 09 2017 5:57PM (Electronic Signature) Report Signed by Proxy. [facility]
== END 2017-11-09 18:47 | disposition home or self-care (01) ==
LOC: MW.ED 13:36
DX: G44.209 Tension-type headache, unspecified, not intractable (principal); B34.9 Viral infection, unspecified; E78.00 Pure hypercholesterolemia, unspecified; E11.9 Type 2 diabetes mellitus without complications; I10 Essential (primary) hypertension; Z88.8 Allergy status to other drugs, medicaments and biological substances; Z88.0 Allergy status to penicillin; Z91.030 Bee allergy status; Z79.4 Long term (current) use of insulin; Z79.82 Long term (current) use of aspirin; Z79.899 Other long term (current) drug therapy
CPT/HCPCS: 36415; 70450; 74177; 80053; 81001; 82962; 85025; 87081; 87804; 87880; 96361; 96374; 96375; 96376; 99284; J0780; J1170; J1200; J1885; J2270; J2405; J7040; Q9967

== ENCOUNTER 2017-11-26 14:59 | Emergency (ER) | payer MEDICAID, SELFPAY ==
--- NOTE | 2017-11-26 15:20 | EDM.PDOC ---
ED HPI GENERAL MEDICAL PROBLEM - General Chief Complaint: Headache Stated Complaint: HEADACHES Time Seen by Provider: 11/26/17 15:18 Source of Information: Reports: Patient History Limitations: Reports: No Limitations - History of Present Illness INITIAL COMMENTS - FREE TEXT/NARRATIVE: HISTORY AND PHYSICAL: History of present illness: 11/09/[address] was done at that time and was negative. Review of systems: As per history of present illness and below otherwise all systems reviewed and negative. Past medical history: As per history of present illness and as reviewed below otherwise noncontributory. Surgical history: As per history of present illness and as reviewed below otherwise noncontributory. Social history: No reported history of drug or alcohol abuse. Family history: As per history of present illness and as reviewed below otherwise noncontributory. Physical exam: HEENT: Atraumatic, normocephalic, pupils reactive, negative for conjunctival pallor or scleral icterus, mucous membranes moist, throat clear, neck supple, nontender, trachea midline. Lungs: Clear to auscultation, breath sounds equal bilaterally, chest nontender. Heart: S1S2, regular, negative for clicks, rubs, or JVD. Abdomen: Soft, nondistended, nontender. Negative for masses or hepatosplenomegaly. Negative for costovertebral tenderness. Pelvis: Stable nontender. Genitourinary: Deferred. Rectal: Deferred. Extremities: Atraumatic, negative for cords or calf pain. Neurovascular unremarkable. Neuro: Awake, alert, oriented. Cranial nerves II through XII unremarkable. Cerebellum unremarkable. Motor and sensory unremarkable throughout. Exam nonfocal. Diagnostics: [] Therapeutics: [] Impression: [] Plan: [] Definitive disposition and diagnosis as appropriate pending reevaluation and review of above. - Related Data Allergies Allergy/AdvReac Type Severity Reaction Status Date / Time lorazepam [From Ativan] Allergy Agitation Verified 06/10/17 16:49 Penicillins Allergy Anaphylactic Verified 06/10/17 16:49 Shock sumatriptan [From Imitrex] Allergy Anaphylactic Verified 06/10/17 16:49 Shock sumatriptan succinate Allergy Anaphylactic Verified 06/10/17 16:49 [From Imitrex] Shock venom-honey bee Allergy Anaphylactic Verified 06/10/17 16:49 [bee venom (honey bee)] Shock gnat - bug Allergy Anaphylactic Uncoded 05/20/17 23:47 Shock Home Meds: Home Meds Insulin Aspart [NovoLOG] 35 - 42 unit SQ TIDAC MDD 160 11/03/15 [History] Insulin Glarg,Human.Rec.Analog [LantUS] 62 units SQ BID 11/03/15 [History] Valsartan 320 mg PO BEDTIME 01/15/16 [History] Spironolactone [Aldactone] 25 mg PO BEDTIME 07/16/16 [History] Insulin Aspart [NovoLOG] 20 unit SQ WITHSNACKS 07/29/16 [History] cloNIDine [Catapres] 0.1 mg PO BID 07/29/16 [History] Chlorthalidone 25 mg PO BEDTIME 07/30/16 [History] Multivitamin [Daily Multiple Vitamin] 1 tab PO DAILY 03/10/17 [History] Ondansetron HCl [Zofran] 8 mg PO TID PRN 03/10/17 [History] Venlafaxine HCl [Venlafaxine ER] 75 mg PO BEDTIME 04/05/17 [History] Amitriptyline [Elavil] 10 mg PO BEDTIME 06/10/17 [History] Aspirin [Adult Low Dose Aspirin EC] 81 mg PO BEDTIME 06/10/17 [History] Tolterodine Tartrate [Detrol LA] 4 mg PO BEDTIME 06/10/17 [History] Acetaminophen/HYDROcodone [[place] 325-5 MG] 1 - 2 tab PO Q4H PRN #80 tablet 06/15 [Rx] Past Medical History HEENT History: Reports: Allergic Rhinitis Other HEENT History: wears glasses Cardiovascular History: Reports: High Cholesterol, Hypertension Respiratory History: Reports: None Gastrointestinal History: Reports: Gastritis, Other (See Below) Genitourinary History: Reports: Renal Calculus, Other (See Below) Other Genitourinary History: has interstitial cystitis 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 MANAGER History: Reports: , Other (See Below) Musculoskeletal History: Reports: None Other Musculoskeletal History: knee pain Neurological History: Reports: Migraines, Seizure Other Neuro History: 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 2 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, unknown cause Psychiatric History: Reports: Depression Endocrine/Metabolic History: Reports: Diabetes, Type II, Obesity/BMI 30+ Hematologic History: Reports: None Immunologic History: Reports: None Oncologic (Cancer) History: Reports: None, Cervix Dermatologic History: Reports: None - Infectious Disease History Infectious Disease History: Reports: Chicken Pox - Past Surgical History Head Surgeries/Procedures: Reports: None HEENT Surgical History: Reports: Oral Surgery, Tonsillectomy Respiratory Surgical History: Reports: None Female Surgical History: Reports: Section, Hysterectomy, Lithotripsy /ESWL, Tubal Ligation Musculoskeletal Surgical History: Reports: Knee Replacement - History Comment History Comment: ETOH " 1X A MONTH" Social & Family History - Family History Family Medical History: Noncontributory HEENT: Reports: None Cardiac: Reports: CAD, Hypertension Respiratory: Reports: None GI: Reports: None : Reports: Renal Calculus Psychiatric: Reports: None Endocrine/Metabolic: Reports: None Hematologic: Reports: None Immunologic: Reports: None Dermatologic: Reports: None Oncologic: Reports: Lung - Tobacco Use Smoking Status *Q: Never Smoker Used Tobacco, but Quit: Yes Month Tobacco Last Used: `0 Second Hand Smoke Exposure: No - Caffeine Use Caffeine Use: Reports: Soda, Tea - Alcohol Use Days Per Week of Alcohol Use: 0 - Recreational Drug Use Recreational Drug Use: No Drug Use in Last 12 Months: No Departure - Discharge Information Referrals: PCP,None [Primary Care Provider] -
[2017-11-26] MEDS ORDERED: diphenhydrAMINE 50 MG/ML SDV IVPUSH ONE (15:27)
[2017-11-26] MEDS ORDERED: Ondansetron 4 MG/2 ML SDV IVPUSH ONE (15:27)
[2017-11-26] MEDS ORDERED: Sodium Chloride 0.9% 1,000 ML IV ONE (15:27)
[2017-11-26] MEDS ORDERED: Metoclopramide 10 MG/2 ML SDV IV ONE (15:27)
[2017-11-26] MEDS ORDERED: Ketorolac 30 MG/ML SDV IVPUSH ONE (15:27)
[2017-11-26] MEDS ORDERED: Sodium Chloride 0.9% 10 ML Syringe FLUSH PRN (15:27)
[2017-11-26] MEDS ORDERED: Sodium Chloride 0.9% 2.5 ML Syringe FLUSH PRN (15:27)
--- NOTE | 2017-11-26 15:31 | EDM.PDOC ---
ED HPI GENERAL MEDICAL PROBLEM - General Chief Complaint: Headache Stated Complaint: HEADACHES Time Seen by Provider: 11/26/17 15:18 - History of Present Illness INITIAL COMMENTS - FREE TEXT/NARRATIVE: HISTORY AND PHYSICAL: History of present illness: Patient's 42-year-old female past sensory concern of migraine headache vomiting elevated blood pressure was a past medical history significant for hypertension diabetes and migraine she denies having had a flu immunization this year denies chest or abdominal pain or trauma or other concern Review of systems: As per history of present illness and below otherwise all systems reviewed and negative. Past medical history: As per history of present illness and as reviewed below otherwise noncontributory. Surgical history: As per history of present illness and as reviewed below otherwise noncontributory. Social history: No reported history of drug or alcohol abuse. Family history: As per history of present illness and as reviewed below otherwise noncontributory. Physical exam: HEENT: Atraumatic, normocephalic, pupils reactive, negative for conjunctival pallor or scleral icterus, mucous membranes dry, throat clear, neck supple, nontender, trachea midline. Lungs: Clear to auscultation, breath sounds equal bilaterally, chest nontender. Heart: S1S2, regular, negative for clicks, rubs, or JVD. Abdomen: Soft, nondistended, nontender. Negative for masses or hepatosplenomegaly. Negative for costovertebral tenderness. Pelvis: Stable nontender. Genitourinary: Deferred. Rectal: Deferred. Extremities: Atraumatic, negative for cords or calf pain. Neurovascular unremarkable. Neuro: Awake, alert, oriented. Cranial nerves II through XII unremarkable. Cerebellum unremarkable. Motor and sensory unremarkable throughout. Exam nonfocal. Diagnostics: CBC CMP troponin PT/INR chest x-ray EKG CT brain Therapeutics: Saline 1 L bolus Toradol 30 mg IV Zofran 4 mg IV Reglan 10 mg IV Benadryl 50 mg IV Impression: #1 migraine headache #2 hyperemesis #3 hypertension #4 history diabetes Definitive disposition and diagnosis as appropriate pending reevaluation and review of above. Headache Pain Score (Numeric/FACES): 10 - Related Data Allergies Allergy/AdvReac Type Severity Reaction Status Date / Time lorazepam [From Ativan] Allergy Agitation Verified 11/26/17 15:19 Penicillins Allergy Anaphylactic Verified 11/26/17 15:19 Shock sumatriptan [From Imitrex] Allergy Anaphylactic Verified 11/26/17 15:19 Shock sumatriptan succinate Allergy Anaphylactic Verified 11/26/17 15:19 [From Imitrex] Shock venom-honey bee Allergy Anaphylactic Verified 11/26/17 15:19 [bee venom (honey bee)] Shock gnat - bug Allergy Anaphylactic Uncoded 05/20/17 23:47 Shock Home Meds: Home Meds Insulin Aspart [NovoLOG] 35 - 42 unit SQ TIDAC MDD 160 11/03/15 [History] Insulin Glarg,Human.Rec.Analog [LantUS] 62 units SQ BID 11/03/15 [History] Valsartan 320 mg PO BEDTIME 01/15/16 [History] Spironolactone [Aldactone] 25 mg PO BEDTIME 07/16/16 [History] Insulin Aspart [NovoLOG] 20 unit SQ WITHSNACKS 07/29/16 [History] cloNIDine [Catapres] 0.1 mg PO BID 07/29/16 [History] Chlorthalidone 25 mg PO BEDTIME 07/30/16 [History] Multivitamin [Daily Multiple Vitamin] 1 tab PO DAILY 03/10/17 [History] Ondansetron HCl [Zofran] 8 mg PO TID PRN 03/10/17 [History] Venlafaxine HCl [Venlafaxine ER] 75 mg PO BEDTIME 04/05/17 [History] Amitriptyline [Elavil] 10 mg PO BEDTIME 06/10/17 [History] Aspirin [Adult Low Dose Aspirin EC] 81 mg PO BEDTIME 06/10/17 [History] Tolterodine Tartrate [Detrol LA] 4 mg PO BEDTIME 06/10/17 [History] Past Medical History HEENT History: Reports: Allergic Rhinitis Other HEENT History: wears glasses Cardiovascular History: Reports: High Cholesterol, Hypertension Respiratory History: Reports: None Gastrointestinal History: Reports: Gastritis Genitourinary History: Reports: Renal Calculus, Other (See Below) Other Genitourinary History: has interstitial cystitis 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: , Other (See Below) Musculoskeletal History: Reports: None Other Musculoskeletal History: knee pain Neurological History: Reports: Migraines, Seizure Other Neuro History: generalized convulsive seizure on 12-24-15 and one 2 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, unknown cause Psychiatric History: Reports: Depression Endocrine/Metabolic History: Reports: Diabetes, Type II, Obesity/BMI 30+ Hematologic History: Reports: None Immunologic History: Reports: None Oncologic (Cancer) History: Reports: None, Cervix Dermatologic History: Reports: None - Infectious Disease History Infectious Disease History: Reports: Chicken Pox - Past Surgical History Head Surgeries/Procedures: Reports: None HEENT Surgical History: Reports: Oral Surgery, Tonsillectomy Respiratory Surgical History: Reports: None Female Surgical History: Reports: Section, Hysterectomy, Lithotripsy /ESWL, Tubal Ligation Musculoskeletal Surgical History: Reports: Knee Replacement - History Comment History Comment: ETOH " 1X A MONTH" Social & Family History - Family History Family Medical History: Noncontributory HEENT: Reports: None Cardiac: Reports: CAD, Hypertension Respiratory: Reports: None GI: Reports: None : Reports: Renal Calculus Psychiatric: Reports: None Endocrine/Metabolic: Reports: None Hematologic: Reports: None Immunologic: Reports: None Dermatologic: Reports: None Oncologic: Reports: Lung - Tobacco Use Smoking Status *Q: Never Smoker Used Tobacco, but Quit: Yes Month Tobacco Last Used: `0 Second Hand Smoke Exposure: No - Caffeine Use Caffeine Use: Reports: Soda, Tea - Alcohol Use Days Per Week of Alcohol Use: 0 - Recreational Drug Use Recreational Drug Use: No Drug Use in Last 12 Months: No ED ROS GENERAL - Review of Systems Review Of Systems: ROS reveals no pertinent complaints other than HPI. ED EXAM, GENERAL - Physical Exam Exam: See Below (See dictation) Course - Vital Signs Last Recorded V/S: Last Vital Signs Temp 37.7 C 11/26/17 15:17 Pulse 127 H 11/26/17 15:17 Resp 18 11/26/17 15:17 BP 210/136 H 11/26/17 15:17 Pulse Ox 97 11/26/17 15:17 - Orders/Labs/Meds Orders: Active Orders 24 hr Category Date Time Status Cardiac Monitoring [RC] . DIRECTED Care 11/26/17 15:26 Active EKG Documentation Completion [RC] STAT Care 11/26/17 15:26 Active Pulse Oximetry [RC] ASDIRECTED Care 11/26/17 15:26 Active Sodium Chloride 0.9% [Saline Flush] Med 11/26/17 15:27 Active 10 ml FLUSH ASDIRECTED PRN Sodium Chloride 0.9% [Saline Flush] Med 11/26/17 15:27 Active 2.5 ml FLUSH ASDIRECTED PRN Saline Lock Insert [OM.PC] Stat Oth 11/26/17 15:26 Ordered Medication Orders Sodium Chloride (Saline Flush) 10 ml FLUSH ASDIRECTED PRN PRN Reason: Keep Vein Open Sodium Chloride (Saline Flush) 2.5 ml FLUSH ASDIRECTED PRN PRN Reason: Keep Vein Open Labs: Laboratory Tests 11/26/17 11/26/17 11/26/17 Range/Units 15:26 15:44 15:44 WBC 5.11 (4.0-11.0) K/uL RBC 4.67 (4.30-5.90) M/uL Hgb 15.1 (12.0-16.0) g/dL Hct 40.8 (36.0-46.0) % MCV 87.4 (80.0-98.0) fL MCH 32.3 H (27.0-32.0) pg MCHC 37.0 (31.0-37.0) g/dL RDW Std Deviation 41.7 (28.0-62.0) fl RDW Coeff of Abdirizak 13 (11.0-15.0) % Plt Count 178 (150-400) K/uL MPV 10.40 (7.40-12.00) fL Neut % (Auto) 58.9 (48.0-80.0) % Lymph % (Auto) 25.2 (16.0-40.0) % [place] % (Auto) 13.3 (0.0-15.0) % Eos % (Auto) 1.4 (0.0-7.0) % Baso % (Auto) 1.2 (0.0-1.5) % Neut # (Auto) 3.0 (1.4-5.7) K/uL Lymph # (Auto) 1.3 (0.6-2.4) K/uL [place] # (Auto) 0.7 (0.0-0.8) K/uL Eos # (Auto) 0.1 (0.0-0.7) K/uL Baso # (Auto) 0.1 (0.0-0.1) K/uL Nucleated RBC % 0.0 /100WBC Nucleated RBCs # 0 K/uL INR 1.03 (0.86-1.11) Sodium (136-146) mmol/L Potassium (3.5-5.1) mmol/L Chloride (98-110) mmol/L Carbon Dioxide (21-31) mmol/L BUN (6.0-23.0) mg/dL Creatinine (0.6-1.5) mg/dL Est Cr Clr Drug Dosing mL/min Estimated GFR (MDRD) ml/min Glucose (60-110) mg/dL POC Glucose 338 H (60-110) mg/dL Calcium (8.8-10.8) mg/dL Total Bilirubin (0.1-1.5) mg/dL AST (5-40) IU/L ALT (8-54) IU/L Alkaline Phosphatase (40-150) Troponin I (0.0-0.29) NG/ML Total Protein (6.0-8.0) g/dL Albumin (3.5-5.0) g/dL Globulin (2.0-3.5) g/dL Albumin/Globulin Ratio (1.3-2.8) Urine Color Urine Appearance Urine pH (5.0-8.0) Ur Specific [place] (1.001-1.035) Urine Protein (NEGATIVE) mg/dL Urine Glucose (UA) (NEGATIVE) mg/dL Urine Ketones (NEGATIVE) mg/dL Urine Occult Blood (NEGATIVE) Urine Nitrite (NEGATIVE) Urine Bilirubin (NEGATIVE) Urine Urobilinogen (<2.0) EU/dL Ur Leukocyte Esterase (NEGATIVE) Urine RBC (0-2/HPF) Urine WBC (0-5/HPF) Ur Epithelial Cells (NONE-FEW) Urine Bacteria (NEGATIVE) Urine Opiates Screen (NEGATIVE) Ur Oxycodone Screen (NEGATIVE) Urine Methadone Screen (NEGATIVE) Ur Barbiturates Screen (NEGATIVE) Ur Phencyclidine Scrn (NEGATIVE) Ur Amphetamine Screen (NEGATIVE) U Methamphetamines Scrn (NEGATIVE) U Benzodiazepines Scrn (NEGATIVE) U Cocaine Metab Screen (NEGATIVE) U Marijuana (THC) Screen (NEGATIVE) 11/26/17 11/26/17 11/26/17 Range/Units 15:44 17:20 17:20 WBC (4.0-11.0) K/uL RBC (4.30-5.90) M/uL Hgb (12.0-16.0) g/dL Hct (36.0-46.0) % MCV (80.0-98.0) fL MCH (27.0-32.0) pg MCHC (31.0-37.0) g/dL RDW Std Deviation (28.0-62.0) fl RDW Coeff of Abdirizak (11.0-15.0) % Plt Count (150-400) K/uL MPV (7.40-12.00) fL Neut % (Auto) (48.0-80.0) % Lymph % (Auto) (16.0-40.0) % [place] % (Auto) (0.0-15.0) % Eos % (Auto) (0.0-7.0) % Baso % (Auto) (0.0-1.5) % Neut # (Auto) (1.4-5.7) K/uL Lymph # (Auto) (0.6-2.4) K/uL [place] # (Auto) (0.0-0.8) K/uL Eos # (Auto) (0.0-0.7) K/uL Baso # (Auto) (0.0-0.1) K/uL Nucleated RBC % /100WBC Nucleated RBCs # K/uL INR (0.86-1.11) Sodium 131 L (136-146) mmol/L Potassium 4.2 (3.5-5.1) mmol/L Chloride 98 (98-110) mmol/L Carbon Dioxide 19 L (21-31) mmol/L BUN 9 (6.0-23.0) mg/dL Creatinine 0.9 (0.6-1.5) mg/dL Est Cr Clr Drug Dosing 62.70 mL/min Estimated GFR (MDRD) > 60.0 ml/min Glucose 377 H (60-110) mg/dL POC Glucose (60-110) mg/dL Calcium 9.3 (8.8-10.8) mg/dL Total Bilirubin 1.4 (0.1-1.5) mg/dL AST 375 H (5-40) IU/L ALT 166 H (8-54) IU/L Alkaline Phosphatase 77 (40-150) Troponin I < 0.10 (0.0-0.29) NG/ML Total Protein 8.1 H (6.0-8.0) g/dL Albumin 4.2 (3.5-5.0) g/dL Globulin 3.9 H (2.0-3.5) g/dL Albumin/Globulin Ratio 1.1 L (1.3-2.8) Urine Color YELLOW Urine Appearance CLEAR Urine pH 5.5 (5.0-8.0) Ur Specific [place] >= 1.030 (1.001-1.035) Urine Protein 100 (NEGATIVE) mg/dL Urine Glucose (UA) >=1000 (NEGATIVE) mg/dL Urine Ketones >=80 (NEGATIVE) mg/dL Urine Occult Blood TRACE-INTACT (NEGATIVE) Urine Nitrite NEGATIVE (NEGATIVE) Urine Bilirubin SMALL H (NEGATIVE) Urine Urobilinogen 0.2 (<2.0) EU/dL Ur Leukocyte Esterase NEGATIVE (NEGATIVE) Urine RBC 1-3 (0-2/HPF) Urine WBC 10-15 (0-5/HPF) Ur Epithelial Cells OCCASIONAL (NONE-FEW) Urine Bacteria 1+ H (NEGATIVE) Urine Opiates Screen NEGATIVE (NEGATIVE) Ur Oxycodone Screen NEGATIVE (NEGATIVE) Urine Methadone Screen NEGATIVE (NEGATIVE) Ur Barbiturates Screen NEGATIVE (NEGATIVE) Ur Phencyclidine Scrn NEGATIVE (NEGATIVE) Ur Amphetamine Screen NEGATIVE (NEGATIVE) U Methamphetamines Scrn NEGATIVE (NEGATIVE) U Benzodiazepines Scrn NEGATIVE (NEGATIVE) U Cocaine Metab Screen NEGATIVE (NEGATIVE) U Marijuana (THC) Screen NEGATIVE (NEGATIVE) Meds: Medications Generic Name Dose Route Start Last Admin Trade Name Freq PRN Reason Stop Dose Admin Sodium Chloride 10 ml 11/26/17 15:27 Saline Flush FLUSH ASDIRECTED PRN Keep Vein Open Sodium Chloride 2.5 ml 11/26/17 15:27 Saline Flush FLUSH ASDIRECTED PRN Keep Vein Open Discontinued Medications Generic Name Dose Route Start Last Admin Trade Name Freq PRN Reason Stop Dose Admin Diphenhydramine HCl 50 mg 11/26/17 15:27 11/26/17 16:20 Benadryl IVPUSH 11/26/17 15:28 50 mg ONETIME ONE Administration Sodium Chloride 1,000 mls @ 999 mls/hr 11/26/17 15:27 11/26/17 16:21 Normal Saline IV 11/26/17 16:27 999 mls/hr STAT ONE Administration Ketorolac Tromethamine 30 mg 11/26/17 15:27 11/26/17 16:17 Toradol IVPUSH 11/26/17 15:28 30 mg ONETIME ONE Administration Metoclopramide HCl 10 mg 11/26/17 15:27 11/26/17 16:15 Reglan IV 11/26/17 15:28 10 mg ONETIME ONE Administration Ondansetron HCl 4 mg 11/26/17 15:27 11/26/17 16:13 Zofran IVPUSH 11/26/17 15:28 4 mg ONETIME ONE Administration Departure - Departure Time of Disposition: 17:58 Disposition: Home, Self-Care 01 Condition: Good Clinical Impression: Influenza, Migraine Hypertension Qualifiers: Hypertension type: essential hypertension Qualified Code(s): I10 - Essential ( primary) hypertension - Discharge Information Referrals: PCP,None [Primary Care Provider] - Forms: ED Department Discharge Additional Instructions: The following information is given to patients seen in the emergency department who are being discharged to home. This information is to outline your options for follow-up care. We provide all patients seen in our emergency department with a follow-up referral. The need for follow-up, as well as the timing and circumstances, are variable depending upon the specifics of your emergency department visit. If you don't have a primary care physician on staff, we will provide you with a referral. We always advise you to contact your personal physician following an emergency department visit to inform them of the circumstance of the visit and for follow-up with them and/or the need for any referrals to a consulting specialist. The emergency department will also refer you to a specialist when appropriate. This referral assures that you have the opportunity for followup care with a specialist. All of these measure are taken in an effort to provide you with optimal care, which includes your followup. Under all circumstances we always encourage you to contact your private physician who remains a resource for coordinating your care. When calling for followup care, please make the office aware that this follow-up is from your recent emergency room visit. If for any reason you are refused follow-up, please contact the [facility] emergency department at and asked to speak to the emergency department charge nurse. Tamiflu as prescribed push fluids continue current medications follow-up private medical doctor as needed as discussed and return as needed as discussed - My Orders Last 24 Hours: My Active Orders 11/26/17 15:26 Cardiac Monitoring [RC] . DIRECTED EKG Documentation Completion [RC] STAT Pulse Oximetry [RC] ASDIRECTED Saline Lock Insert [OM.PC] Stat 11/26/17 15:27 Sodium Chloride 0.9% [Saline Flush] 10 ml FLUSH ASDIRECTED PRN Sodium Chloride 0.9% [Saline Flush] 2.5 ml FLUSH ASDIRECTED PRN - Assessment/Plan Last 24 Hours: My Active Orders 11/26/17 15:26 Cardiac Monitoring [RC] . DIRECTED EKG Documentation Completion [RC] STAT Pulse Oximetry [RC] ASDIRECTED Saline Lock Insert [OM.PC] Stat 11/26/17 15:27 Sodium Chloride 0.9% [Saline Flush] 10 ml FLUSH ASDIRECTED PRN Sodium Chloride 0.9% [Saline Flush] 2.5 ml FLUSH ASDIRECTED PRN
[2017-11-26 16:21] LABS: CHLORIDE,CL 98 mmol/L (98-110); SODIUM,NA 131 mmol/L (136-146)
--- NOTE | 2017-11-26 17:39 | CT ---
EXAM DATE: 11/26/17 PATIENT'S AGE: 42 Patient: CHETNA FONTANA Facility: [place], [place] Site . Site : 1975 Study: CT Head [id number]/18/2018 4:34:45 PM Ordering Physician: Justine De Leon Final Report: INDICATION: Migraine for 2 days. TECHNIQUE: CT head without i.v. contrast. COMPARISON: 11/09/[address] FINDINGS: CSF spaces: Within normal limits for age. Brain parenchyma: The brain parenchyma is normal in appearance with preservation of the flores-white differentiation. No sign of mass, hemorrhage, or midline shift seen. Skull base and calvarium: The visualized paranasal sinuses are well aerated. The mastoid air cells are clear. The visualized orbits are grossly unremarkable. No skull fractures are seen. IMPRESSION: 1. No acute abnormality. No mass effect or hemorrhage. Dictated by Ar Butts MD @ 11/26/2017 5:11:54 PM Dictated by: Ar Butts MD @ 11/26/2017 17:12:24 (Electronic Signature) Report Signed by Proxy. [facility]
--- NOTE | 2017-11-26 17:41 | CR ---
EXAM DATE: 11/26/17 PATIENT'S AGE: 42 Patient: CHETNA FONTANA Facility: [place], [place] Site . Site : 1975 Study: XRay Chest [id number]/18/2018 4:36:27 PM Ordering Physician: Justine De Leon Final Report: INDICATION: cough x 2 days TECHNIQUE: Chest 1 view. COMPARISON: 09/10/17 FINDINGS: Cardiovascular and mediastinum: Heart size and vasculature are normal in caliber and appearance. Mediastinum is within normal limits. Lungs and pleural space: Lungs are clear. No sign of infiltrate or mass. No sign of pleural effusion. No pneumothorax. Bones and soft tissues: No significant findings. IMPRESSION: Unremarkable chest. Dictated by: Sher Martinez MD @ 11/26/2017 17:23:18 (Electronic Signature) Report Signed by Proxy. [facility]
[2017-11-26 18:46] VITALS: BP 176/109
== END 2017-11-26 18:26 | disposition home or self-care (01) ==
LOC: MW.ED 14:59
DX: G43.909 Migraine, unspecified, not intractable, without status migrainosus (principal); J11.1 Influenza due to unidentified influenza virus with other respiratory manifestations; I10 Essential (primary) hypertension; E78.00 Pure hypercholesterolemia, unspecified; F32.9 Major depressive disorder, single episode, unspecified; E11.9 Type 2 diabetes mellitus without complications; Z79.82 Long term (current) use of aspirin; Z87.891 Personal history of nicotine dependence; Z79.899 Other long term (current) drug therapy; Z79.4 Long term (current) use of insulin; Z88.0 Allergy status to penicillin; Z88.8 Allergy status to other drugs, medicaments and biological substances; Z91.030 Bee allergy status; Z91.048 Other nonmedicinal substance allergy status
CPT/HCPCS: 36415; 70450; 71045; 80053; 80305; 81001; 82962; 84484; 85025; 85610; 87804; 93005; 96361; 96374; 96375; 99285; J1200; J1885; J2405; J2765; J7040; 99284

== ENCOUNTER 2018-05-16 20:30 | Observation (INO) | payer MEDICAID ==
[2018-05-16] MEDS ORDERED: Sodium Chloride 0.9% 10 ML Syringe FLUSH PRN (20:34)
[2018-05-16] MEDS ORDERED: Aspirin 81 MG Tab.Chew PO ONE (20:34)
[2018-05-16] MEDS ORDERED: Sodium Chloride 0.9% 2.5 ML Syringe FLUSH PRN (20:34)
--- NOTE | 2018-05-16 20:40 | EDM.PDOC ---
ED HPI GENERAL MEDICAL PROBLEM - General Chief Complaint: Chest Pain Stated Complaint: CHEST PAIN Time Seen by Provider: 05/16/18 20:35 Source of Information: Reports: Patient History Limitations: Reports: No Limitations - History of Present Illness INITIAL COMMENTS - FREE TEXT/NARRATIVE: HISTORY AND PHYSICAL: History of present illness: Patient is a 42-year-old female who presents to the emergency room today with complaints of elevated blood pressure, mild headache and chest pain which started today. Patient states she has a long-standing history of uncontrolled hypertension and has been adjusting her medications with her primary care provider provider. She states her blood pressure had been improving, so they took her off her Clonidine about 6 months ago. She states her blood pressure normally runs 150s over 90s (her "normal") but over the past 24 hours has been 210's/110's. She also reports that her blood sugars have been elevated in the 200-300 range and has had to give herself additional insulin. 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 She did have some shortness of breath, nausea and vomiting during this time and proceeded to rest which did not alleviate her symptoms. She denies any fever, chills or cough. Denies any abdominal pain, vomiting, diarrhea, constipation or dysuria. No syncope, change in vision or dizziness. Past medical history of uncontrolled HTN, DM (insulin use), migraine, depression , and medical noncompliance. Primary care provider is Meghan Nazario nurse practitioner. Review of systems: As per history of present illness and below otherwise all systems reviewed and negative. Past medical history: As per history of present illness and as reviewed below otherwise noncontributory. Surgical history: As per history of present illness and as reviewed below otherwise noncontributory. Social history: No reported history of drug or alcohol abuse. Family history: As per history of present illness and as reviewed below otherwise noncontributory. Physical exam: General: Well developed and well-nourished 42-year-old female. Alert and oriented. Nontoxic appearing and in no acute distress. HEENT: Atraumatic, normocephalic, pupils equal and reactive bilaterally, negative for conjunctival pallor or scleral icterus, mucous membranes moist, throat clear, neck supple, nontender, trachea midline. No drooling or trismus noted. No meningeal signs Lungs: Clear to auscultation, breath sounds equal bilaterally, chest nontender. Heart: S1S2, regular rate and rhythm without overt murmur Abdomen: Soft, nondistended, nontender. Negative for masses or hepatosplenomegaly. Negative for costovertebral tenderness. Pelvis: Stable nontender. Genitourinary: Deferred. Rectal: Deferred. Skin: Intact, warm, dry. No lesions or rashes noted. Extremities: Atraumatic, negative for cords or calf pain. Neurovascular unremarkable. Neuro: Awake, alert, oriented. Cranial nerves II through XII unremarkable. Cerebellum unremarkable. Motor and sensory unremarkable throughout. Exam nonfocal. Notes: Cardiac workup along with DKA workup will be done. Patient appears anxious and tearful during the physical assessment/interview. Pain 7/10. CBC is normal, sodium is low at 132, glucose is 286. PH 7.5, CO2 25, O2 125, and HCO3 21. Anion gap is 12. 2150: Blood pressure has improved although not in therapeutic range. Pain is currently a 0/10. This patient was discussed with Dr. Mac for observation admission with telemetry. Diagnostics: CBC, CMP, troponin, EKG, one view chest, ABG, UA Therapeutics: 324 mg chewable aspirin, nitroglycerin sublingual 3, normal saline, clonidine, Nitro paste Impression: Chest Pain r/o OK Hypertension History of DM II Plan: Observation admission to Med/Surg with Telemetry Definitive disposition and diagnosis as appropriate pending reevaluation and review of above. Onset: Today Duration: Hour(s): Location: Reports: Chest Left Chest Pain Score (Numeric/FACES): 9 - Related Data Allergies Allergy/AdvReac Type Severity Reaction Status Date / Time lorazepam [From Ativan] Allergy Agitation Verified 05/16/18 21:54 Penicillins Allergy Anaphylactic Verified 05/16/18 21:54 Shock sumatriptan [From Imitrex] Allergy Anaphylactic Verified 05/16/18 21:54 Shock sumatriptan succinate Allergy Anaphylactic Verified 05/16/18 21:54 [From Imitrex] Shock venom-honey bee Allergy Anaphylactic Verified 05/16/18 21:54 [bee venom (honey bee)] Shock gnat - bug Allergy Anaphylactic Uncoded 05/16/18 21:54 Shock Home Meds: Home Meds Insulin Aspart [NovoLOG] 35 - 42 unit SQ TIDAC MDD 160 11/03/15 [History] Insulin Glarg,Human.Rec.Analog [LantUS] 62 units SQ BID 11/03/15 [History] Valsartan 320 mg PO BEDTIME 01/15/16 [History] Insulin Aspart [NovoLOG] 20 unit SQ WITHSNACKS 07/29/16 [History] Chlorthalidone 25 mg PO BEDTIME 07/30/16 [History] Venlafaxine HCl [Venlafaxine ER] 75 mg PO BEDTIME 04/05/17 [History] Amitriptyline [Elavil] 10 mg PO BEDTIME 06/10/17 [History] Past Medical History HEENT History: Reports: Allergic Rhinitis Other HEENT History: wears glasses Cardiovascular History: Reports: High Cholesterol, Hypertension Respiratory History: Reports: None Gastrointestinal History: Reports: Gastritis Genitourinary History: Reports: Renal Calculus, Other (See Below) Other Genitourinary History: has interstitial cystitis 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: Reports: , Other (See Below) Musculoskeletal History: Reports: None Other Musculoskeletal History: knee pain Neurological History: Reports: Migraines, Seizure Other Neuro History: 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 2 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, unknown cause Psychiatric History: Reports: Depression Endocrine/Metabolic History: Reports: Diabetes, Type II, Obesity/BMI 30+ Hematologic History: Reports: None Immunologic History: Reports: None Oncologic (Cancer) History: Reports: None, Cervix Dermatologic History: Reports: None - Infectious Disease History Infectious Disease History: Reports: Chicken Pox - Past Surgical History Head Surgeries/Procedures: Reports: None HEENT Surgical History: Reports: Oral Surgery, Tonsillectomy Respiratory Surgical History: Reports: None Female Surgical History: Reports: Section, Hysterectomy, Lithotripsy /ESWL, Tubal Ligation Musculoskeletal Surgical History: Reports: Knee Replacement - History Comment History Comment: ETOH " 1X A MONTH" Social & Family History - Family History Family Medical History: Noncontributory HEENT: Reports: None Cardiac: Reports: CAD, Hypertension Respiratory: Reports: None GI: Reports: None : Reports: Renal Calculus Psychiatric: Reports: None Endocrine/Metabolic: Reports: None Hematologic: Reports: None Immunologic: Reports: None Dermatologic: Reports: None Oncologic: Reports: Lung - Caffeine Use Caffeine Use: Reports: Soda, Tea ED ROS GENERAL - Review of Systems Review Of Systems: ROS reveals no pertinent complaints other than HPI. ED EXAM, GENERAL - Physical Exam Exam: See Below (See dictation) Course - Vital Signs Last Recorded V/S: Last Vital Signs Temp 98.2 F 05/16/18 21:57 Pulse 93 05/16/18 21:57 Resp 18 05/16/18 21:57 BP 175/117 H 05/16/18 21:57 Pulse Ox 100 05/16/18 21:57 - Orders/Labs/Meds Orders: Active Orders 24 hr Category Date Time Status Patient Status [ADT] Stat ADT 05/16/18 22:01 Active EKG Documentation Completion [RC] STAT Care 05/16/18 20:34 Active Chest 1V Frontal [CR] Stat Exams 05/16/18 20:34 Taken UA W/MICROSCOPIC [URIN] Stat Lab 05/16/18 20:51 Ordered Sodium Chloride 0.9% [Saline Flush] Med 05/16/18 20:34 Active 10 ml FLUSH ASDIRECTED PRN Sodium Chloride 0.9% [Saline Flush] Med 05/16/18 20:34 Active 2.5 ml FLUSH ASDIRECTED PRN Saline Lock Insert [OM.PC] Stat Oth 05/16/18 20:34 Ordered Medication Orders Sodium Chloride (Saline Flush) 10 ml FLUSH ASDIRECTED PRN PRN Reason: Keep Vein Open Sodium Chloride (Saline Flush) 2.5 ml FLUSH ASDIRECTED PRN PRN Reason: Keep Vein Open Labs: Laboratory Tests 05/16/18 05/16/18 05/16/18 Range/Units 20:44 20:44 21:05 WBC 9.46 (4.0-11.0) K/uL RBC 4.66 (4.30-5.90) M/uL Hgb 15.1 (12.0-16.0) g/dL Hct 41.2 (36.0-46.0) % MCV 88.4 (80.0-98.0) fL MCH 32.4 H (27.0-32.0) pg MCHC 36.7 (31.0-37.0) g/dL RDW Std Deviation 39.4 (28.0-62.0) fl RDW Coeff of Abdirizak 12 (11.0-15.0) % Plt Count 203 (150-400) K/uL MPV 10.00 (7.40-12.00) fL Neut % (Auto) 50.3 (48.0-80.0) % Lymph % (Auto) 40.7 H (16.0-40.0) % [place] % (Auto) 5.7 (0.0-15.0) % Eos % (Auto) 2.7 (0.0-7.0) % Baso % (Auto) 0.6 (0.0-1.5) % Neut # (Auto) 4.8 (1.4-5.7) K/uL Lymph # (Auto) 3.9 H (0.6-2.4) K/uL [place] # (Auto) 0.5 (0.0-0.8) K/uL Eos # (Auto) 0.3 (0.0-0.7) K/uL Baso # (Auto) 0.1 (0.0-0.1) K/uL Nucleated RBC % 0.0 /100WBC Nucleated RBCs # 0 K/uL ABG pH 7.528 H (7.35-7.45) ABG pCO2 25 L (35-45) mmHG ABG pO2 125 H (75-100) mmHG ABG HCO3 21 L (22-26) mEq/L ABG Total CO2 17.9 ABG Base Excess -0.5 (-2.0-2.0) Sodium 132 L (136-145) mmol/L Potassium 3.7 (3.5-5.1) mmol/L Chloride 99 (98-107) mmol/L Carbon Dioxide 24.3 (21.0-32.0) mmol/L BUN 13 (7.0-18.0) mg/dL Creatinine 1.0 (0.6-1.0) mg/dL Est Cr Clr Drug Dosing 56.43 mL/min Estimated GFR (MDRD) > 60.0 ml/min Glucose 286 H (74-106) mg/dL Calcium 8.7 (8.5-10.1) mg/dL Total Bilirubin 0.9 (0.2-1.0) mg/dL AST 49 H (15-37) IU/L ALT 47 (14-63) IU/L Alkaline Phosphatase 69 (46-116) U/L Troponin I < 0.050 (0.000-0.056) ng/mL Total Protein 7.2 (6.4-8.2) g/dL Albumin 3.8 (3.4-5.0) g/dL Globulin 3.4 (2.0-3.5) g/dL Albumin/Globulin Ratio 1.1 L (1.3-2.8) Meds: Medications Generic Name Dose Route Start Last Admin Trade Name Laura PRN Reason Stop Dose Admin Sodium Chloride 10 ml 05/16/18 20:34 Saline Flush FLUSH ASDIRECTED PRN Keep Vein Open Sodium Chloride 2.5 ml 05/16/18 20:34 Saline Flush FLUSH ASDIRECTED PRN Keep Vein Open Discontinued Medications Generic Name Dose Route Start Last Admin Trade Name Laura PRN Reason Stop Dose Admin Aspirin 324 mg 05/16/18 20:34 05/16/18 20:46 Aspirin PO 05/16/18 20:35 324 mg ONETIME ONE Administration Clonidine HCl 0.1 mg 05/16/18 21:14 05/16/18 21:20 Catapres PO 05/16/18 21:15 0.1 mg ONETIME ONE Administration Nitroglycerin 0.4 mg 05/16/18 20:34 05/16/18 21:03 Nitrostat SL 0.4 mg Q5M PRN Administration Chest Pain Nitroglycerin 1 gm 05/16/18 22:01 Nitro-Bid 2% TOP 05/16/18 22:02 ONETIME ONE Departure - Departure Time of Disposition: 22:03 Disposition: Refer to Observation Clinical Impression: Chest pain, rule out acute myocardial infarction, History of diabetes mellitus , type II Hypertension Qualifiers: Hypertension type: essential hypertension Qualified Code(s): I10 - Essential ( primary) hypertension Referrals: PCP,None [Primary Care Provider] - Forms: ED Department Discharge - My Orders Last 24 Hours: My Active Orders 05/16/18 20:34 EKG Documentation Completion [RC] STAT Chest 1V Frontal [CR] Stat Sodium Chloride 0.9% [Saline Flush] 10 ml FLUSH ASDIRECTED PRN Sodium Chloride 0.9% [Saline Flush] 2.5 ml FLUSH ASDIRECTED PRN Saline Lock Insert [OM.PC] Stat 05/16/18 20:51 UA W/MICROSCOPIC [URIN] Stat 05/16/18 22:01 Patient Status [ADT] Stat - Assessment/Plan Last 24 Hours: My Active Orders 05/16/18 20:34 EKG Documentation Completion [RC] STAT Chest 1V Frontal [CR] Stat Sodium Chloride 0.9% [Saline Flush] 10 ml FLUSH ASDIRECTED PRN Sodium Chloride 0.9% [Saline Flush] 2.5 ml FLUSH ASDIRECTED PRN Saline Lock Insert [OM.PC] Stat 05/16/18 20:51 UA W/MICROSCOPIC [URIN] Stat 05/16/18 22:01 Patient Status [ADT] Stat
[2018-05-16] MEDS: Nitroglycerin 0.4 MG Tab.SL SL PRN ×3 (20:48→21:03)
[2018-05-16 21:14] LABS: CHLORIDE,CL 99 mmol/L (98-107); SODIUM,NA 132 mmol/L (136-145)
[2018-05-16] MEDS ORDERED: cloNIDine 0.1 MG Tab PO ONE (21:14)
[2018-05-16] MEDS ORDERED: Nitroglycerin 2% Oint 1 GM UD Packet TOP ONE (22:01)
[2018-05-16] MEDS ORDERED: Insulin Aspart 100 Units/ML 3 ML Pen SUBCUT SCH (23:30)
[2018-05-16] MEDS ORDERED: Chlorthalidone 25 MG Tab PO SCH (23:50)
[2018-05-16] MEDS ORDERED: Amitriptyline 10 MG Tab PO SCH (23:50)
--- NOTE | 2018-05-17 00:06 | PCM.HP ---
H&P History of Present Illness - General Date of Service: 05/17/18 Admit Problem/Dx: Admission Diagnosis/Problem Admission Diagnosis/Problem Chest pain, rule out acute myocardial infarction - History of Present Illness Initial Comments - Free Text/Narative: 42 yo female with pmh of DM, hypertension and migraines who presented with three hour history of chest pain. She desribes as a dull ache that radiates to both arms. IN the ED she was noted to have blood pressure in the 221/126. She was given nitro and clonidine with improvement of her blood pressure and chest pain. Left Chest Pain Score (Numeric/FACES): 9 - Related Data Allergies/Adverse Reactions: Allergies Allergy/AdvReac Type Severity Reaction Status Date / Time lorazepam [From Ativan] Allergy Agitation Verified 05/16/18 21:54 Penicillins Allergy Anaphylactic Verified 05/16/18 21:54 Shock sumatriptan [From Imitrex] Allergy Anaphylactic Verified 05/16/18 21:54 Shock sumatriptan succinate Allergy Anaphylactic Verified 05/16/18 21:54 [From Imitrex] Shock venom-honey bee Allergy Anaphylactic Verified 05/16/18 21:54 [bee venom (honey bee)] Shock gnat - bug Allergy Anaphylactic Uncoded 05/16/18 21:54 Shock Home Medications: Home Meds Insulin Glarg,Human.Rec.Analog [LantUS] 62 units SQ BID 11/03/15 [History] Valsartan 320 mg PO BEDTIME 01/15/16 [History] Insulin Aspart [NovoLOG] 0 unit SQ ASDIRECTED 07/29/16 [History] Chlorthalidone 25 mg PO BEDTIME 07/30/16 [History] Venlafaxine HCl [Venlafaxine ER] 75 mg PO BEDTIME 04/05/17 [History] Amitriptyline [Elavil] 10 mg PO BEDTIME 06/10/17 [History] Insulin Aspart [NovoLOG] 35 - 42 unit SUBCUT TIDAC vial 05/17/18 [Rx] Past Medical History HEENT History: Reports: Allergic Rhinitis Other HEENT History: wears glasses Cardiovascular History: Reports: High Cholesterol, Hypertension Respiratory History: Reports: None Gastrointestinal History: Reports: Gastritis Genitourinary History: Reports: Renal Calculus, Other (See Below) Other Genitourinary History: has interstitial 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: , Other (See Below) Musculoskeletal History: Reports: None Other Musculoskeletal History: knee pain Neurological History: Reports: Migraines, Seizure Other Neuro History: 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 2 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, unknown cause Psychiatric History: Reports: Depression Endocrine/Metabolic History: Reports: Diabetes, Type II, Obesity/BMI 30+ Hematologic History: Reports: None Immunologic History: Reports: None Oncologic (Cancer) History: Reports: None, Cervix Dermatologic History: Reports: None - Infectious Disease History Infectious Disease History: Reports: Chicken Pox - Past Surgical History Head Surgeries/Procedures: Reports: None HEENT Surgical History: Reports: Oral Surgery, Tonsillectomy Respiratory Surgical History: Reports: None Female Surgical History: Reports: Section, Hysterectomy, Lithotripsy /ESWL, Tubal Ligation Musculoskeletal Surgical History: Reports: Knee Replacement - History Comment History Comment: ETOH " 1X A MONTH" Social & Family History - Family History Family Medical History: Noncontributory HEENT: Reports: None Cardiac: Reports: CAD, Hypertension Respiratory: Reports: None GI: Reports: None : Reports: Renal Calculus Psychiatric: Reports: None Endocrine/Metabolic: Reports: None Hematologic: Reports: None Immunologic: Reports: None Dermatologic: Reports: None Oncologic: Reports: Lung - Tobacco Use Smoking Status *Q: Never Smoker - Caffeine Use Caffeine Use: Reports: Soda, Tea - Recreational Drug Use Recreational Drug Use: No H&P Review of Systems - Review of Systems: Review Of Systems: ROS reveals no pertinent complaints other than HPI. Exam - Exam Exam: See Below - Vital Signs Vital Signs: Last Vital Signs Temp 36.8 C 05/16/18 21:57 Pulse 93 05/16/18 21:57 Resp 18 05/16/18 21:57 BP 175/117 H 05/16/18 21:57 Pulse Ox 100 05/16/18 21:57 Weight: 78.5 kg - Exam General: Alert, Oriented HEENT: Mucosa Moist & [place] Lungs: Clear to Auscultation, Normal Respiratory Effort Cardiovascular: Regular Rate, Regular Rhythm GI/Abdominal Exam: Normal Bowel Sounds, Soft, Non-Tender Extremities: Normal Range of Motion, Non-Tender Skin: Warm, Dry, Intact - Patient Data Lab Results Last 24 hrs: Laboratory Results - last 24 hr 05/16/18 05/16/18 05/16/18 Range/Units 20:44 20:44 21:05 WBC 9.46 (4.0-11.0) K/uL RBC 4.66 (4.30-5.90) M/uL Hgb 15.1 (12.0-16.0) g/dL Hct 41.2 (36.0-46.0) % MCV 88.4 (80.0-98.0) fL MCH 32.4 H (27.0-32.0) pg MCHC 36.7 (31.0-37.0) g/dL RDW Std Deviation 39.4 (28.0-62.0) fl RDW Coeff of Abdirizak 12 (11.0-15.0) % Plt Count 203 (150-400) K/uL MPV 10.00 (7.40-12.00) fL Neut % (Auto) 50.3 (48.0-80.0) % Lymph % (Auto) 40.7 H (16.0-40.0) % [place] % (Auto) 5.7 (0.0-15.0) % Eos % (Auto) 2.7 (0.0-7.0) % Baso % (Auto) 0.6 (0.0-1.5) % Neut # (Auto) 4.8 (1.4-5.7) K/uL Lymph # (Auto) 3.9 H (0.6-2.4) K/uL [place] # (Auto) 0.5 (0.0-0.8) K/uL Eos # (Auto) 0.3 (0.0-0.7) K/uL Baso # (Auto) 0.1 (0.0-0.1) K/uL Nucleated RBC % 0.0 /100WBC Nucleated RBCs # 0 K/uL ABG pH 7.528 H (7.35-7.45) ABG pCO2 25 L (35-45) mmHG ABG pO2 125 H (75-100) mmHG ABG HCO3 21 L (22-26) mEq/L ABG Total CO2 17.9 ABG Base Excess -0.5 (-2.0-2.0) Sodium 132 L (136-145) mmol/L Potassium 3.7 (3.5-5.1) mmol/L Chloride 99 (98-107) mmol/L Carbon Dioxide 24.3 (21.0-32.0) mmol/L BUN 13 (7.0-18.0) mg/dL Creatinine 1.0 (0.6-1.0) mg/dL Est Cr Clr Drug Dosing 56.43 mL/min Estimated GFR (MDRD) > 60.0 ml/min Glucose 286 H (74-106) mg/dL POC Glucose (60-110) mg/dL Calcium 8.7 (8.5-10.1) mg/dL Total Bilirubin 0.9 (0.2-1.0) mg/dL AST 49 H (15-37) IU/L ALT 47 (14-63) IU/L Alkaline Phosphatase 69 (46-116) U/L Troponin I < 0.050 (0.000-0.056) ng/mL Total Protein 7.2 (6.4-8.2) g/dL Albumin 3.8 (3.4-5.0) g/dL Globulin 3.4 (2.0-3.5) g/dL Albumin/Globulin Ratio 1.1 L (1.3-2.8) 05/16/18 Range/Units 23:04 WBC (4.0-11.0) K/uL RBC (4.30-5.90) M/uL Hgb (12.0-16.0) g/dL Hct (36.0-46.0) % MCV (80.0-98.0) fL MCH (27.0-32.0) pg MCHC (31.0-37.0) g/dL RDW Std Deviation (28.0-62.0) fl RDW Coeff of Abdirizak (11.0-15.0) % Plt Count (150-400) K/uL MPV (7.40-12.00) fL Neut % (Auto) (48.0-80.0) % Lymph % (Auto) (16.0-40.0) % [place] % (Auto) (0.0-15.0) % Eos % (Auto) (0.0-7.0) % Baso % (Auto) (0.0-1.5) % Neut # (Auto) (1.4-5.7) K/uL Lymph # (Auto) (0.6-2.4) K/uL [place] # (Auto) (0.0-0.8) K/uL Eos # (Auto) (0.0-0.7) K/uL Baso # (Auto) (0.0-0.1) K/uL Nucleated RBC % /100WBC Nucleated RBCs # K/uL ABG pH (7.35-7.45) ABG pCO2 (35-45) mmHG ABG pO2 (75-100) mmHG ABG HCO3 (22-26) mEq/L ABG Total CO2 ABG Base Excess (-2.0-2.0) Sodium (136-145) mmol/L Potassium (3.5-5.1) mmol/L Chloride (98-107) mmol/L Carbon Dioxide (21.0-32.0) mmol/L BUN (7.0-18.0) mg/dL Creatinine (0.6-1.0) mg/dL Est Cr Clr Drug Dosing mL/min Estimated GFR (MDRD) ml/min Glucose (74-106) mg/dL POC Glucose 352 H (60-110) mg/dL Calcium (8.5-10.1) mg/dL Total Bilirubin (0.2-1.0) mg/dL AST (15-37) IU/L ALT (14-63) IU/L Alkaline Phosphatase (46-116) U/L Troponin I (0.000-0.056) ng/mL Total Protein (6.4-8.2) g/dL Albumin (3.4-5.0) g/dL Globulin (2.0-3.5) g/dL Albumin/Globulin Ratio (1.3-2.8) Result Diagrams: 05/16/18 20:44 05/16/18 20:44 Problem List Initiated/Reviewed/Updated: Yes Orders Last 24hrs: Active Orders 24 hr Category Date Time Status Patient Status [ADT] Stat ADT 05/16/18 22:01 Active EKG Documentation Completion [RC] STAT Care 05/16/18 20:34 Active Telemetry Monitoring [Cardiac Monitoring] [RC] Q8H Care 05/16/18 22:34 Active Chest 1V Frontal [CR] Stat Exams 05/16/18 20:34 Taken TROPONIN I [CHEM] Q6H Lab 05/17/18 03:00 Ordered TROPONIN I [CHEM] Q6H Lab 05/17/18 09:00 Ordered UA W/MICROSCOPIC [URIN] Stat Lab 05/16/18 20:51 Ordered Acetaminophen [Tylenol] Med 05/16/18 23:54 Active 650 mg PO Q4H PRN Amitriptyline [Elavil] Med 05/16/18 23:50 Active 10 mg PO BEDTIME Chlorthalidone Med 05/16/18 23:50 Active 25 mg PO BEDTIME Insulin Aspart [NovoLOG] Med 05/16/18 23:30 Active 0 unit SUBCUT WITHSNACKS Insulin Aspart [NovoLOG] Med 05/17/18 07:30 Ordered 35 - 42 unit SUBCUT TIDAC Insulin Glarg,Human.Rec.Analog [LantUS Solostar] Med 05/16/18 23:45 Active 62 units SUBCUT BID Sodium Chloride 0.9% [Saline Flush] Med 05/16/18 20:34 Active 10 ml FLUSH ASDIRECTED PRN Sodium Chloride 0.9% [Saline Flush] Med 05/16/18 20:34 Active 2.5 ml FLUSH ASDIRECTED PRN Valsartan [Diovan] Med 05/16/18 23:51 Active 320 mg PO BEDTIME Saline Lock Insert [OM.PC] Stat Oth 05/16/18 20:34 Ordered Medication Orders Acetaminophen (Tylenol) 650 mg PO Q4H PRN PRN Reason: Pain Amitriptyline HCl (Elavil) 10 mg PO BEDTIME CASSANDRA Chlorthalidone (Chlorthalidone) 25 mg PO BEDTIME CASSANDRA Insulin Aspart (Novolog) 0 unit SUBCUT WITHSNACKS CASSANDRA Insulin Aspart (Novolog) 35 - 42 unit SUBCUT TIDAC CASSANDRA Insulin Glargine (Lantus Solostar) 62 units SUBCUT BID CASSANDRA Sodium Chloride (Saline Flush) 10 ml FLUSH ASDIRECTED PRN PRN Reason: Keep Vein Open Sodium Chloride (Saline Flush) 2.5 ml FLUSH ASDIRECTED PRN PRN Reason: Keep Vein Open Valsartan (Diovan) 320 mg PO BEDTIME [facility] Assessment/Plan Comment:: 42 yo female who presents with chest pain with poorly controlled hypertension.
[2018-05-17] MEDS: Acetaminophen 325 MG Tab PO PRN ×2 (00:20→08:16)
[2018-05-17] MEDS: Insulin Glargine,Human Rec. Analog 100 Units/ML 3 ML Pen SUBCUT SCH ×2 (00:21→08:10)
[2018-05-17] MEDS ORDERED: Insulin Aspart 100 Units/ML 3 ML Pen SUBCUT SCH (07:30)
[2018-05-17] MEDS ORDERED: Insulin Glargine,Human Rec. Analog 100 Units/ML 3 ML Pen SUBCUT SCH (09:00)
--- NOTE | 2018-05-17 10:16 | PCM.DCSUM1 ---
Discharge Summary - Hospital Course Brief History: 42 yo female with pmh of DM, hypertension and migraines who presented with three hour history of chest pain. She desribes as a dull ache that radiates to both arms. In the ED she was noted to have blood pressure in the 221/126. She was given nitro and clonidine with improvement of her blood pressure and chest pain. - Discharge Data Discharge Date: 05/17/18 Discharge Disposition: Home, Self-Care 01 Condition: Stable - Discharge Diagnosis/Problem(s) (1) Chest pain, rule out acute myocardial infarction SNOMED Code(s): 73493275 ICD Code: R07.9 - CHEST PAIN, UNSPECIFIED Status: Acute Current Visit: Yes (2) History of diabetes mellitus, type II SNOMED Code(s): 005294210 ICD Code: Z86.39 - PERSONAL HISTORY OF ENDO, NUTRITIONAL AND METABOLIC DISEASE Status: Acute Current Visit: Yes (3) Hypertension SNOMED Code(s): 76180747 ICD Code: I10 - ESSENTIAL (PRIMARY) HYPERTENSION Status: Chronic Current Visit: Yes Qualifiers: Hypertension type: essential hypertension Qualified Code(s): I10 - Essential (primary) hypertension - Patient Instructions Diet: Heart Healthy Diet, Diabetic Diet Activity: No Strenuous Activities Showering/Bathing: May Shower Notify Provider of: Increased Pain, Nausea and/or Vomiting - Discharge Plan Home Medications: Home Meds Insulin Glarg,Human.Rec.Analog [LantUS] 62 units SQ BID 11/03/15 [History] Valsartan 320 mg PO BEDTIME 01/15/16 [History] Insulin Aspart [NovoLOG] 0 unit SQ ASDIRECTED 07/29/16 [History] Chlorthalidone 25 mg PO BEDTIME 07/30/16 [History] Venlafaxine HCl [Venlafaxine ER] 75 mg PO BEDTIME 04/05/17 [History] Amitriptyline [Elavil] 10 mg PO BEDTIME 06/10/17 [History] Insulin Aspart [NovoLOG] 35 - 42 unit SUBCUT TIDAC vial 05/17/18 [Rx] Patient Handouts: Chest Wall Pain, [id number] Referrals: Yuriy Jimenes MD [Physician] - Meghan Nazario NP [Nurse Practitioner] - - Discharge Summary/Plan Comment DC Time >30 min.: No Discharge Summary/Plan Comment: Discharge Diagnoses: Chest pain- ACS ruled out Uncontrolled hypertension Dm type 2 Ursula was admitted and monitored overnight on telemetry and troponins trended. No ischemic changes noted on telemetry and troponins returned negative. BP remained controlled with home medications. Chest pain resolved once blood pressure was controlled. She will be discharged home today. Continue home medications and to have follow up with PCP in [address] Jimenes and to be set up with a stress test as an outpatient. She is to return to the ED or clinic if concerns should arise. Continue heart healthy, low sodium diet along with ADA diet. - General Info Date of Service: 05/17/18 Admission Dx/Problem (Free Text: Admission Diagnosis/Problem Admission Diagnosis/Problem Chest pain, rule out acute myocardial infarction Subjective Update: Feeling tired this morning, didn't sleep well. No further chest pain. No shortness of breath. No concerns this morning. Does not recall if she has ever had a stress test in the past. Functional Status: Reports: Pain Controlled, Tolerating Diet, Ambulating, Urinating - Review of Systems General: Reports: No Symptoms. Denies: Fever, Weakness HEENT: Reports: No Symptoms. Denies: Ear Pain, Headaches, Sore Throat Pulmonary: Reports: No Symptoms. Denies: Shortness of Breath, Cough, Sputum Cardiovascular: Reports: No Symptoms. Denies: Chest Pain, Dyspnea on Exertion, Edema Gastrointestinal: Reports: No Symptoms. Denies: Abdominal Pain, Decreased Appetite Neurological: Reports: No Symptoms Psychiatric: Reports: No Symptoms - Patient Data Vitals - Most Recent: Last Vital Signs Temp 97.8 F 05/17/18 03:54 Pulse 87 05/17/18 03:54 Resp 18 05/17/18 03:54 BP 129/77 05/17/18 03:54 Pulse Ox 99 05/17/18 03:54 Weight - Most Recent: 78.5 kg Lab Results - Last 24 hrs: Laboratory Results - last 24 hr 05/16/18 05/16/18 05/16/18 Range/Units 20:44 20:44 21:05 WBC 9.46 (4.0-11.0) K/uL RBC 4.66 (4.30-5.90) M/uL Hgb 15.1 (12.0-16.0) g/dL Hct 41.2 (36.0-46.0) % MCV 88.4 (80.0-98.0) fL MCH 32.4 H (27.0-32.0) pg MCHC 36.7 (31.0-37.0) g/dL RDW Std Deviation 39.4 (28.0-62.0) fl RDW Coeff of Abdirizak 12 (11.0-15.0) % Plt Count 203 (150-400) K/uL MPV 10.00 (7.40-12.00) fL Neut % (Auto) 50.3 (48.0-80.0) % Lymph % (Auto) 40.7 H (16.0-40.0) % Johnson % (Auto) 5.7 (0.0-15.0) % Eos % (Auto) 2.7 (0.0-7.0) % Baso % (Auto) 0.6 (0.0-1.5) % Neut # (Auto) 4.8 (1.4-5.7) K/uL Lymph # (Auto) 3.9 H (0.6-2.4) K/uL Johnson # (Auto) 0.5 (0.0-0.8) K/uL Eos # (Auto) 0.3 (0.0-0.7) K/uL Baso # (Auto) 0.1 (0.0-0.1) K/uL Nucleated RBC % 0.0 /100WBC Nucleated RBCs # 0 K/uL ABG pH 7.528 H (7.35-7.45) ABG pCO2 25 L (35-45) mmHG ABG pO2 125 H (75-100) mmHG ABG HCO3 21 L (22-26) mEq/L ABG Total CO2 17.9 ABG Base Excess -0.5 (-2.0-2.0) Sodium 132 L (136-145) mmol/L Potassium 3.7 (3.5-5.1) mmol/L Chloride 99 (98-107) mmol/L Carbon Dioxide 24.3 (21.0-32.0) mmol/L BUN 13 (7.0-18.0) mg/dL Creatinine 1.0 (0.6-1.0) mg/dL Est Cr Clr Drug Dosing 56.43 mL/min Estimated GFR (MDRD) > 60.0 ml/min Glucose 286 H (74-106) mg/dL POC Glucose (60-110) mg/dL Calcium 8.7 (8.5-10.1) mg/dL Total Bilirubin 0.9 (0.2-1.0) mg/dL AST 49 H (15-37) IU/L ALT 47 (14-63) IU/L Alkaline Phosphatase 69 (46-116) U/L Troponin I < 0.050 (0.000-0.056) ng/mL Total Protein 7.2 (6.4-8.2) g/dL Albumin 3.8 (3.4-5.0) g/dL Globulin 3.4 (2.0-3.5) g/dL Albumin/Globulin Ratio 1.1 L (1.3-2.8) Urine Color Urine Appearance Urine pH (5.0-8.0) Ur Specific [place] (1.001-1.035) Urine Protein (NEGATIVE) mg/dL Urine Glucose (UA) (NEGATIVE) mg/dL Urine Ketones (NEGATIVE) mg/dL Urine Occult Blood (NEGATIVE) Urine Nitrite (NEGATIVE) Urine Bilirubin (NEGATIVE) Urine Urobilinogen (<2.0) EU/dL Ur Leukocyte Esterase (NEGATIVE) Urine RBC (0-2/HPF) Urine WBC (0-5/HPF) Ur Epithelial Cells (NONE-FEW) Urine Bacteria (NEGATIVE) 05/16/18 05/16/18 05/17/18 Range/Units 23:04 23:55 03:00 WBC (4.0-11.0) K/uL RBC (4.30-5.90) M/uL Hgb (12.0-16.0) g/dL Hct (36.0-46.0) % MCV (80.0-98.0) fL MCH (27.0-32.0) pg MCHC (31.0-37.0) g/dL RDW Std Deviation (28.0-62.0) fl RDW Coeff of Abdirizak (11.0-15.0) % Plt Count (150-400) K/uL MPV (7.40-12.00) fL Neut % (Auto) (48.0-80.0) % Lymph % (Auto) (16.0-40.0) % Johnson % (Auto) (0.0-15.0) % Eos % (Auto) (0.0-7.0) % Baso % (Auto) (0.0-1.5) % Neut # (Auto) (1.4-5.7) K/uL Lymph # (Auto) (0.6-2.4) K/uL Johnson # (Auto) (0.0-0.8) K/uL Eos # (Auto) (0.0-0.7) K/uL Baso # (Auto) (0.0-0.1) K/uL Nucleated RBC % /100WBC Nucleated RBCs # K/uL ABG pH (7.35-7.45) ABG pCO2 (35-45) mmHG ABG pO2 (75-100) mmHG ABG HCO3 (22-26) mEq/L ABG Total CO2 ABG Base Excess (-2.0-2.0) Sodium (136-145) mmol/L Potassium (3.5-5.1) mmol/L Chloride (98-107) mmol/L Carbon Dioxide (21.0-32.0) mmol/L BUN (7.0-18.0) mg/dL Creatinine (0.6-1.0) mg/dL Est Cr Clr Drug Dosing mL/min Estimated GFR (MDRD) ml/min Glucose (74-106) mg/dL POC Glucose 352 H (60-110) mg/dL Calcium (8.5-10.1) mg/dL Total Bilirubin (0.2-1.0) mg/dL AST (15-37) IU/L ALT (14-63) IU/L Alkaline Phosphatase (46-116) U/L Troponin I < 0.050 (0.000-0.056) ng/mL Total Protein (6.4-8.2) g/dL Albumin (3.4-5.0) g/dL Globulin (2.0-3.5) g/dL Albumin/Globulin Ratio (1.3-2.8) Urine Color YELLOW Urine Appearance HAZY Urine pH 6.0 (5.0-8.0) Ur Specific [place] 1.020 (1.001-1.035) Urine Protein NEGATIVE (NEGATIVE) mg/dL Urine Glucose (UA) >=1000 (NEGATIVE) mg/dL Urine Ketones NEGATIVE (NEGATIVE) mg/dL Urine Occult Blood NEGATIVE (NEGATIVE) Urine Nitrite NEGATIVE (NEGATIVE) Urine Bilirubin NEGATIVE (NEGATIVE) Urine Urobilinogen 0.2 (<2.0) EU/dL Ur Leukocyte Esterase NEGATIVE (NEGATIVE) Urine RBC 0-1 (0-2/HPF) Urine WBC 0-4 (0-5/HPF) Ur Epithelial Cells OCCASIONAL (NONE-FEW) Urine Bacteria FEW (NEGATIVE) 05/17/18 Range/Units 08:54 WBC (4.0-11.0) K/uL RBC (4.30-5.90) M/uL Hgb (12.0-16.0) g/dL Hct (36.0-46.0) % MCV (80.0-98.0) fL MCH (27.0-32.0) pg MCHC (31.0-37.0) g/dL RDW Std Deviation (28.0-62.0) fl RDW Coeff of Abdirizak (11.0-15.0) % Plt Count (150-400) K/uL MPV (7.40-12.00) fL Neut % (Auto) (48.0-80.0) % Lymph % (Auto) (16.0-40.0) % Johnson % (Auto) (0.0-15.0) % Eos % (Auto) (0.0-7.0) % Baso % (Auto) (0.0-1.5) % Neut # (Auto) (1.4-5.7) K/uL Lymph # (Auto) (0.6-2.4) K/uL Johnson # (Auto) (0.0-0.8) K/uL Eos # (Auto) (0.0-0.7) K/uL Baso # (Auto) (0.0-0.1) K/uL Nucleated RBC % /100WBC Nucleated RBCs # K/uL ABG pH (7.35-7.45) ABG pCO2 (35-45) mmHG ABG pO2 (75-100) mmHG ABG HCO3 (22-26) mEq/L ABG Total CO2 ABG Base Excess (-2.0-2.0) Sodium (136-145) mmol/L Potassium (3.5-5.1) mmol/L Chloride (98-107) mmol/L Carbon Dioxide (21.0-32.0) mmol/L BUN (7.0-18.0) mg/dL Creatinine (0.6-1.0) mg/dL Est Cr Clr Drug Dosing mL/min Estimated GFR (MDRD) ml/min Glucose (74-106) mg/dL POC Glucose (60-110) mg/dL Calcium (8.5-10.1) mg/dL Total Bilirubin (0.2-1.0) mg/dL AST (15-37) IU/L ALT (14-63) IU/L Alkaline Phosphatase (46-116) U/L Troponin I < 0.050 (0.000-0.056) ng/mL Total Protein (6.4-8.2) g/dL Albumin (3.4-5.0) g/dL Globulin (2.0-3.5) g/dL Albumin/Globulin Ratio (1.3-2.8) Urine Color Urine Appearance Urine pH (5.0-8.0) Ur Specific [place] (1.001-1.035) Urine Protein (NEGATIVE) mg/dL Urine Glucose (UA) (NEGATIVE) mg/dL Urine Ketones (NEGATIVE) mg/dL Urine Occult Blood (NEGATIVE) Urine Nitrite (NEGATIVE) Urine Bilirubin (NEGATIVE) Urine Urobilinogen (<2.0) EU/dL Ur Leukocyte Esterase (NEGATIVE) Urine RBC (0-2/HPF) Urine WBC (0-5/HPF) Ur Epithelial Cells (NONE-FEW) Urine Bacteria (NEGATIVE) Med Orders - Current: Current Medications Acetaminophen (Tylenol) 650 mg PO Q4H PRN PRN Reason: Pain Last Admin: 05/17/18 08:16 Dose: 650 mg Amitriptyline HCl (Elavil) 10 mg PO BEDTIME [facility] Last Admin: 05/17/18 00:18 Dose: 10 mg Chlorthalidone (Chlorthalidone) 25 mg PO BEDTIME [facility] Last Admin: 05/17/18 00:20 Dose: 25 mg Insulin Aspart (Novolog) 0 unit SUBCUT WITHSNACKS [facility] Insulin Aspart (Novolog) 35 - 42 unit SUBCUT TIDAC [facility] Insulin Aspart (Novolog) 0 unit SUBCUT TIDAC [facility]; Protocol Last Admin: 05/17/18 07:42 Dose: 12 units Insulin Glargine (Lantus Solostar) 62 units SUBCUT BID [facility] Last Admin: 05/17/18 08:10 Dose: 62 units Sodium Chloride (Saline Flush) 10 ml FLUSH ASDIRECTED PRN PRN Reason: Keep Vein Open Sodium Chloride (Saline Flush) 2.5 ml FLUSH ASDIRECTED PRN PRN Reason: Keep Vein Open Valsartan (Diovan) 320 mg PO BEDTIME [facility] Last Admin: 05/17/18 00:18 Dose: 320 mg Discontinued Medications Amitriptyline HCl (Elavil) 10 mg PO BEDTIME [facility] Aspirin (Aspirin) 324 mg PO ONETIME ONE Stop: 05/16/18 20:35 Last Admin: 05/16/18 20:46 Dose: 324 mg Chlorthalidone (Chlorthalidone) 25 mg PO BEDTIME CASSANDRA Clonidine HCl (Catapres) 0.1 mg PO ONETIME ONE Stop: 05/16/18 21:15 Last Admin: 05/16/18 21:20 Dose: 0.1 mg Insulin Glargine (Lantus Solostar) 0 units SUBCUT BID [facility] Nitroglycerin (Nitrostat) 0.4 mg SL Q5M PRN PRN Reason: Chest Pain Last Admin: 05/16/18 21:03 Dose: 0.4 mg Nitroglycerin (Nitro-Bid 2%) 1 gm TOP ONETIME ONE Stop: 05/16/18 22:02 Last Admin: 05/16/18 22:33 Dose: 1 gm Valsartan (Diovan) 320 mg PO BEDTIME CASSANDRA - Exam General: Reports: Alert, Oriented, Cooperative, No Acute Distress Neck: Reports: Supple Lungs: Reports: Clear to Auscultation, Normal Respiratory Effort Cardiovascular: Reports: Regular Rate, Regular Rhythm GI/Abdominal Exam: Normal Bowel Sounds, Soft, Non-Tender Extremities: Normal Inspection Skin: Reports: Warm, Dry Neurological: Reports: No New Focal Deficit Psy/Mental Status: Reports: Alert, Normal Affect, Normal Mood
[2018-05-17 10:19] VITALS: BP 138/93
[2018-05-17] MEDS ORDERED: Amitriptyline 10 MG Tab PO SCH (21:00)
[2018-05-17] MEDS ORDERED: Chlorthalidone 25 MG Tab PO SCH (21:00)
--- NOTE | 2018-05-17 21:07 | CR ---
EXAM DATE: 05/16/18 PATIENT'S AGE: 42 Patient: CHETNA FONTANA Facility: [place], [place] Site . Site : [id number] Study: XRay Chest [id number]/8/2018 9:20:46 PM Ordering Physician: Doctor Weeks Final Report: INDICATION: pain/sob INDICATION: Shortness of breath. TECHNIQUE: Chest 1 view. COMPARISON: None FINDINGS: Cardiovascular and mediastinum: Heart size and vasculature are normal in caliber and appearance. Mediastinum is within normal limits. Lungs and pleural space: Lungs are clear. No sign of infiltrate or mass. No sign of pleural effusion. No pneumothorax. Bones and soft tissues: No significant findings. IMPRESSION: Lungs are clear. Dictated by Eduardo Cannon MD @ 05/16/2018 9:37:36 PM Dictated by: Eduardo Cannon MD @ 05/16/2018 21:37:42 (Electronic Signature) Report Signed by Proxy. [facility]
== END 2018-05-17 11:15 | disposition home or self-care (01) ==
LOC: MW.ED 20:30 → MW.MS 22:01
PROVIDERS: ADMIT Internal Medicine; ATTEND Internal Medicine
DX: R07.9 Chest pain, unspecified (principal); I10 Essential (primary) hypertension; E11.9 Type 2 diabetes mellitus without complications; E66.9 Obesity, unspecified; E78.00 Pure hypercholesterolemia, unspecified; F32.9 Major depressive disorder, single episode, unspecified; Z79.4 Long term (current) use of insulin; Z79.899 Other long term (current) drug therapy; Z88.8 Allergy status to other drugs, medicaments and biological substances; Z88.0 Allergy status to penicillin; Z91.030 Bee allergy status; Z91.048 Other nonmedicinal substance allergy status
CPT/HCPCS: 36415; 36600; 71045; 80053; 81001; 82803; 82962; 84484; 85025; 99285; A9270; J1815; 99283

== ENCOUNTER 2019-02-05 09:07 | Emergency (ER) | payer MEDICAID ==
[2019-02-05] MEDS ORDERED: Acetaminophen/HYDROcodone 325-7.5 MG Tab PO STA (09:44)
--- NOTE | 2019-02-05 09:46 | EDM.PDOC ---
ED HPI GENERAL MEDICAL PROBLEM - General Chief Complaint: Lower Extremity Injury/Pain Stated Complaint: LT KNEE PAIN Time Seen by Provider: 02/05/19 09:45 Source of Information: Reports: Patient - History of Present Illness INITIAL COMMENTS - FREE TEXT/NARRATIVE: HISTORY AND PHYSICAL: History of present illness: []Patient presents with left knee pain she's had previous knee arthroscopically as well as meniscus repair she is having increased pain over the last week denies injury or trauma no fever nausea vomiting chills sweats Review of systems: As per history of present illness and below otherwise all systems reviewed and negative. Past medical history: As per history of present illness and as reviewed below otherwise noncontributory. Surgical history: As per history of present illness and as reviewed below otherwise noncontributory. Social history: No reported history of drug or alcohol abuse. Family history: As per history of present illness and as reviewed below otherwise noncontributory. Physical exam: HEENT: Atraumatic, normocephalic, pupils reactive, negative for conjunctival pallor or scleral icterus, mucous membranes moist, throat clear, neck supple, nontender, trachea midline. Lungs: Clear to auscultation, breath sounds equal bilaterally, chest nontender. Heart: S1S2, regular, negative for clicks, rubs, or JVD. Abdomen: Soft, nondistended, nontender. Negative for masses or hepatosplenomegaly. Negative for costovertebral tenderness. Pelvis: Stable nontender. Genitourinary: Deferred. Rectal: Deferred. Extremities: Atraumatic, negative for cords or calf pain. Neurovascular unremarkable. Left knee hip and ankle and affected knee is tender along medial joint line no redness warmth or ballooning of the patella no bruising or open lesion entirely limb is neurovascularly intact Neuro: Awake, alert, oriented. Cranial nerves II through XII unremarkable. Cerebellum unremarkable. Motor and sensory unremarkable throughout. Exam nonfocal. Diagnostics: [X-ray ] Therapeutics: [Berino ] Berino No. 30 no refill Impression: [Left knee pain Chronic knee pain ] Definitive disposition and diagnosis as appropriate pending reevaluation and review of above. left knee Pain Score (Numeric/FACES): 10 - Related Data Allergies Allergy/AdvReac Type Severity Reaction Status Date / Time lorazepam [From Ativan] Allergy Agitation Verified 02/05/19 09:17 Penicillins Allergy Anaphylactic Verified 02/05/19 09:17 Shock sumatriptan [From Imitrex] Allergy Anaphylactic Verified 02/05/19 09:17 Shock sumatriptan succinate Allergy Anaphylactic Verified 02/05/19 09:17 [From Imitrex] Shock venom-honey bee Allergy Anaphylactic Verified 02/05/19 09:17 [bee venom (honey bee)] Shock gnat - bug Allergy Anaphylactic Uncoded 05/16/18 21:54 Shock Home Meds: Home Meds Insulin Glarg,Human.Rec.Analog [LantUS] 62 units SQ BID 11/03/15 [History] Valsartan 320 mg PO BEDTIME 01/15/16 [History] Insulin Aspart [NovoLOG] 0 unit SQ ASDIRECTED 07/29/16 [History] Chlorthalidone 25 mg PO BEDTIME 07/30/16 [History] Venlafaxine HCl [Venlafaxine ER] 75 mg PO BEDTIME 04/05/17 [History] Amitriptyline [Elavil] 10 mg PO BEDTIME 06/10/17 [History] Insulin Aspart [NovoLOG] 35 - 42 unit SUBCUT TIDAC vial 05/17/18 [Rx] Past Medical History HEENT History: Reports: Allergic Rhinitis Other HEENT History: wears glasses Cardiovascular History: Reports: High Cholesterol, Hypertension Respiratory History: Reports: None Gastrointestinal History: Reports: Gastritis Genitourinary History: Reports: Renal Calculus, Other (See Below) Other Genitourinary History: has interstitial cystitis [employer]IE[employer] History: Reports: , Other (See Below) Musculoskeletal History: Reports: None Other Musculoskeletal History: knee pain Neurological History: Reports: Migraines, Seizure Other Neuro History: 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 2 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, unknown cause Psychiatric History: Reports: Depression Endocrine/Metabolic History: Reports: Diabetes, Type II, Obesity/BMI 30+ Hematologic History: Reports: None Immunologic History: Reports: None Oncologic (Cancer) History: Reports: None, Cervix Dermatologic History: Reports: None - Infectious Disease History Infectious Disease History: Reports: Chicken Pox - Past Surgical History Head Surgeries/Procedures: Reports: None HEENT Surgical History: Reports: Oral Surgery, Tonsillectomy Cardiovascular Surgical History: Reports: None Respiratory Surgical History: Reports: None GI Surgical History: Reports: None Female Surgical History: Reports: Section, Hysterectomy, Lithotripsy /ESWL, Tubal Ligation Musculoskeletal Surgical History: Reports: Knee Replacement - History Comment History Comment: ETOH " 1X A MONTH" Social & Family History - Family History Family Medical History: Noncontributory HEENT: Reports: None Cardiac: Reports: CAD, Hypertension Respiratory: Reports: None GI: Reports: None : Reports: Renal Calculus Psychiatric: Reports: None Endocrine/Metabolic: Reports: None Hematologic: Reports: None Immunologic: Reports: None Dermatologic: Reports: None Oncologic: Reports: Lung - Tobacco Use Smoking Status *Q: Never Smoker Second Hand Smoke Exposure: No - Caffeine Use Caffeine Use: Reports: None - Recreational Drug Use Recreational Drug Use: No Review of Systems - Review of Systems Review Of Systems: See Below ED EXAM, GENERAL - Physical Exam Exam: See Below Course - Vital Signs Last Recorded V/S: Last Vital Signs Temp 97.6 F 02/05/19 09:16 Pulse 103 H 02/05/19 09:16 Resp 18 02/05/19 09:16 BP 133/105 H 02/05/19 09:16 Pulse Ox 95 02/05/19 09:16 - Orders/Labs/Meds Meds: Medications Discontinued Medications Generic Name Dose Route Start Last Admin Trade Name Freq PRN Reason Stop Dose Admin Hydrocodone Bitart/Acetaminophen 1 tab 02/05/19 09:44 Berino 325-7.5 Mg PO 02/05/19 09:45 NOW STA Departure - Departure Time of Disposition: 10:01 Disposition: Home, Self-Care 01 Condition: Good Clinical Impression: Left knee pain - Discharge Information Referrals: Levy Singh MD [Primary Care Provider] - Forms: ED Department Discharge Additional Instructions: The following information is given to patients seen in the emergency department who are being discharged to home. This information is to outline your options for follow-up care. We provide all patients seen in our emergency department with a follow-up referral. The need for follow-up, as well as the timing and circumstances, are variable depending upon the specifics of your emergency department visit. If you don't have a primary care physician on staff, we will provide you with a referral. We always advise you to contact your personal physician following an emergency department visit to inform them of the circumstance of the visit and for follow-up with them and/or the need for any referrals to a consulting specialist. The emergency department will also refer you to a specialist when appropriate. This referral assures that you have the opportunity for follow-up care with a specialist. All of these measure are taken in an effort to provide you with optimal care, which includes your follow-up. Under all circumstances we always encourage you to contact your private physician who remains a resource for coordinating your care. When calling for follow-up care, please make the office aware that this follow-up is from your recent emergency room visit. If for any reason you are refused follow-up, please contact the emergency department at and asked to speak to the emergency department charge nurse.
--- NOTE | 2019-02-05 09:55 | CR ---
Indication: Knee pain Technique: Left knee 3 views Comparison: None Findings: Bones: Alignment is normal. No fractures or bone lesions. Joint spaces: Joint spaces are well maintained. No degenerative changes. No sign of joint effusion. Soft tissues: Unremarkable. Impression: No findings to explain pain. Dictated by Tulio Casey MD @ Feb 05 2019 9:51AM Signed by Dr. Tulio Casey @ Feb 05 2019 9:53AM
[2019-02-05 13:57] VITALS: BP 137/95
== END 2019-02-05 10:12 | disposition home or self-care (01) ==
LOC: MW.ED 09:07
DX: M25.562 Pain in left knee (principal); G89.29 Other chronic pain; I10 Essential (primary) hypertension; E78.00 Pure hypercholesterolemia, unspecified; E11.9 Type 2 diabetes mellitus without complications; Z79.4 Long term (current) use of insulin; Z79.899 Other long term (current) drug therapy; Z88.0 Allergy status to penicillin; Z88.8 Allergy status to other drugs, medicaments and biological substances; Z91.030 Bee allergy status; Z91.09 Other allergy status, other than to drugs and biological substances
CPT/HCPCS: 73562; 99283; A9270

== ENCOUNTER 2019-05-23 15:59 | Emergency (ER) | payer MEDICAID ==
--- NOTE | 2019-05-23 16:25 | EDM.PDOC ---
ED HPI GENERAL MEDICAL PROBLEM - General Chief Complaint: Genitourinary Problem Stated Complaint: VOMITING Time Seen by Provider: 05/23/19 16:21 Source of Information: Reports: Patient History Limitations: Reports: No Limitations - History of Present Illness INITIAL COMMENTS - FREE TEXT/NARRATIVE: History of present illness: []Patient's had 4 days of fevers, vomiting, pain with urination she is a diabetic and frequently has elevated glucose. Kidney stones in the past and she states it feels the same. Review of systems: As per history of present illness and below otherwise all systems reviewed and negative. Past medical history: As per history of present illness and as reviewed below otherwise noncontributory. Surgical history: As per history of present illness and as reviewed below otherwise noncontributory. Social history: No reported history of drug or alcohol abuse. Family history: As per history of present illness and as reviewed below otherwise noncontributory. Physical exam: General: Well developed, well nourished in NAD HEENT: Atraumatic, normocephalic, pupils reactive, negative for conjunctival pallor or scleral icterus, mucous membranes moist, throat clear, neck supple, nontender, trachea midline. Lungs: Clear to auscultation, breath sounds equal bilaterally, chest nontender. Heart: S1S2, regular, negative for clicks, rubs, or JVD. Abdomen: NABS, Soft, nondistended, nontender. Negative for masses or hepatosplenomegaly. Negative for costovertebral tenderness. Pelvis: Stable nontender. Genitourinary: Deferred. Rectal: Deferred. Extremities: Atraumatic, negative for cords or calf pain. Neurovascular unremarkable. Neuro: Awake, alert, oriented. Cranial nerves II through XII unremarkable. Cerebellum unremarkable. Motor and sensory unremarkable throughout. Exam nonfocal. Skin:warm and dry Diagnostics: CBC-normal, chemistry-elevated bilirubin lights LFTs normal, UA-normal Therapeutics: IV hydration, morphine, Toradol ED Course: Improved Impression: Acute anemia, uncontrolled diabetes, Abdominal pain Prescriptions: Potassium, Zofran Plan: Follow-up with Dr. Singh this week. Definitive disposition and diagnosis as appropriate pending reevaluation and review of above. Bilateral Back Pain Score (Numeric/FACES): 10 - Related Data Allergies Allergy/AdvReac Type Severity Reaction Status Date / Time lorazepam [From Ativan] Allergy Agitation Verified 05/23/19 16:19 metoclopramide [From Reglan] Allergy Irritabilit Verified 05/23/19 16:19 y Penicillins Allergy Anaphylactic Verified 05/23/19 16:19 Shock sumatriptan [From Imitrex] Allergy Anaphylactic Verified 05/23/19 16:19 Shock sumatriptan succinate Allergy Anaphylactic Verified 05/23/19 16:19 [From Imitrex] Shock venom-honey bee Allergy Anaphylactic Verified 05/23/19 16:19 [bee venom (honey bee)] Shock gnat - bug Allergy Anaphylactic Uncoded 05/23/19 16:19 Shock Home Meds: Home Meds Insulin Glarg,Human.Rec.Analog [LantUS] 62 units SQ BID 11/03/15 [History] Valsartan 320 mg PO BEDTIME 01/15/16 [History] Insulin Aspart [NovoLOG] 0 unit SQ ASDIRECTED 07/29/16 [History] Chlorthalidone 25 mg PO BEDTIME 07/30/16 [History] Venlafaxine HCl [Venlafaxine ER] 75 mg PO BEDTIME 04/05/17 [History] Amitriptyline [Elavil] 10 mg PO BEDTIME 06/10/17 [History] Insulin Aspart [NovoLOG] 35 - 42 unit SUBCUT TIDAC vial 05/17/18 [Rx] Potassium Chloride 10 meq PO DAILY #5 capsule.er 05/23/19 [Rx] Past Medical History HEENT History: Reports: Allergic Rhinitis Other HEENT History: wears glasses Cardiovascular History: Reports: High Cholesterol, Hypertension Respiratory History: Reports: None Gastrointestinal History: Reports: Gastritis Genitourinary History: Reports: Renal Calculus, Other (See Below) Other Genitourinary History: has interstitial cystitis 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: , Other (See Below) Musculoskeletal History: Reports: None Other Musculoskeletal History: knee pain Neurological History: Reports: Migraines, Seizure Other Neuro History: 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 2 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, unknown cause Psychiatric History: Reports: Depression Endocrine/Metabolic History: Reports: Diabetes, Type II, Obesity/BMI 30+ Hematologic History: Reports: None Immunologic History: Reports: None Oncologic (Cancer) History: Reports: None, Cervix Dermatologic History: Reports: None - Infectious Disease History Infectious Disease History: Reports: Chicken Pox - Past Surgical History Head Surgeries/Procedures: Reports: None HEENT Surgical History: Reports: Oral Surgery, Tonsillectomy Cardiovascular Surgical History: Reports: None Respiratory Surgical History: Reports: None GI Surgical History: Reports: None Female Surgical History: Reports: Section, Hysterectomy, Lithotripsy /ESWL, Tubal Ligation Musculoskeletal Surgical History: Reports: Knee Replacement - History Comment History Comment: ETOH " 1X A MONTH" Social & Family History - Family History Family Medical History: Noncontributory HEENT: Reports: None Cardiac: Reports: CAD, Hypertension Respiratory: Reports: None GI: Reports: None : Reports: Renal Calculus Psychiatric: Reports: None Endocrine/Metabolic: Reports: None Hematologic: Reports: None Immunologic: Reports: None Dermatologic: Reports: None Oncologic: Reports: Lung - Caffeine Use Caffeine Use: Reports: None ED ROS GENERAL - Review of Systems Review Of Systems: See Below ED EXAM, RENAL/ - Physical Exam Exam: See Below Course - Vital Signs Last Recorded V/S: Last Vital Signs Temp 98.9 F 05/23/19 16:20 Pulse 95 05/23/19 17:34 Resp 20 05/23/19 17:34 BP 129/83 05/23/19 17:34 Pulse Ox 95 05/23/19 17:34 - Orders/Labs/Meds Orders: Active Orders 24 hr Category Date Time Status Blood Glucose Check, Bedside [RC] ONETIME Care 05/23/19 17:31 Active Sodium Chloride 0.9% [Saline Flush] Med 05/23/19 16:43 Active 10 ml FLUSH ASDIRECTED PRN Sodium Chloride 0.9% [Saline Flush] Med 05/23/19 16:43 Active 2.5 ml FLUSH ASDIRECTED PRN Saline Lock Insert [OM.PC] Stat Oth 05/23/19 16:43 Ordered Medication Orders Sodium Chloride (Saline Flush) 10 ml FLUSH ASDIRECTED PRN PRN Reason: Keep Vein Open Last Admin: 05/23/19 17:07 Dose: 10 ml Sodium Chloride (Saline Flush) 2.5 ml FLUSH ASDIRECTED PRN PRN Reason: Keep Vein Open Last Admin: 05/23/19 17:07 Dose: 2.5 ml Labs: Laboratory Tests 05/23/19 05/23/19 05/23/19 Range/Units 16:58 16:58 16:58 WBC 6.31 (4.0-11.0) K/uL RBC 4.73 (4.30-5.90) M/uL Hgb 15.3 (12.0-16.0) g/dL Hct 42.1 (36.0-46.0) % MCV 89.0 (80.0-98.0) fL MCH 32.3 H (27.0-32.0) pg MCHC 36.3 (31.0-37.0) g/dL RDW Std Deviation 40.7 (28.0-62.0) fl RDW Coeff of Abdirizak 13 (11.0-15.0) % Plt Count 169 (150-400) K/uL MPV 10.20 (7.40-12.00) fL Neut % (Auto) 65.1 (48.0-80.0) % Lymph % (Auto) 23.8 (16.0-40.0) % [place] % (Auto) 10.0 (0.0-15.0) % Eos % (Auto) 0.5 (0.0-7.0) % Baso % (Auto) 0.6 (0.0-1.5) % Neut # (Auto) 4.1 (1.4-5.7) K/uL Lymph # (Auto) 1.5 (0.6-2.4) K/uL Tyler # (Auto) 0.6 (0.0-0.8) K/uL Eos # (Auto) 0.0 (0.0-0.7) K/uL Baso # (Auto) 0.0 (0.0-0.1) K/uL Nucleated RBC % 0.0 /100WBC Nucleated RBCs # 0 K/uL Sodium 134 L (136-145) mmol/L Potassium 3.0 L (3.5-5.1) mmol/L Chloride 95 L (98-107) mmol/L Carbon Dioxide 28.6 (21.0-32.0) mmol/L BUN 15 (7.0-18.0) mg/dL Creatinine 1.0 (0.6-1.0) mg/dL Est Cr Clr Drug Dosing 55.30 mL/min Estimated GFR (MDRD) > 60.0 ml/min Glucose 307 H (74-106) mg/dL POC Glucose (60-110) mg/dL Calcium 8.9 (8.5-10.1) mg/dL Total Bilirubin 2.0 H (0.2-1.0) mg/dL AST 72 H (15-37) IU/L ALT 58 (14-63) IU/L Alkaline Phosphatase 89 (46-116) U/L Total Protein 8.1 (6.4-8.2) g/dL Albumin 3.8 (3.4-5.0) g/dL Globulin 4.3 H (2.6-4.0) g/dL Albumin/Globulin Ratio 0.9 (0.9-1.6) Urine Color YELLOW Urine Appearance SLT CLOUDY Urine pH 6.0 (5.0-8.0) Ur Specific [place] 1.025 (1.001-1.035) Urine Protein TRACE H (NEGATIVE) mg/dL Urine Glucose (UA) >=1000 (NEGATIVE) mg/dL Urine Ketones NEGATIVE (NEGATIVE) mg/dL Urine Occult Blood NEGATIVE (NEGATIVE) Urine Nitrite NEGATIVE (NEGATIVE) Urine Bilirubin NEGATIVE (NEGATIVE) Urine Urobilinogen 0.2 (<2.0) EU/dL Ur Leukocyte Esterase NEGATIVE (NEGATIVE) Urine RBC NONE SEEN (0-2/HPF) Urine WBC NONE SEEN (0-5/HPF) Ur Epithelial Cells OCCASIONAL (NONE-FEW) Urine Bacteria RARE (NEGATIVE) Hyaline Casts 0-1 (0-2/LPF) 05/23/19 Range/Units 17:34 WBC (4.0-11.0) K/uL RBC (4.30-5.90) M/uL Hgb (12.0-16.0) g/dL Hct (36.0-46.0) % MCV (80.0-98.0) fL MCH (27.0-32.0) pg MCHC (31.0-37.0) g/dL RDW Std Deviation (28.0-62.0) fl RDW Coeff of Abdirizak (11.0-15.0) % Plt Count (150-400) K/uL MPV (7.40-12.00) fL Neut % (Auto) (48.0-80.0) % Lymph % (Auto) (16.0-40.0) % Tyler % (Auto) (0.0-15.0) % Eos % (Auto) (0.0-7.0) % Baso % (Auto) (0.0-1.5) % Neut # (Auto) (1.4-5.7) K/uL Lymph # (Auto) (0.6-2.4) K/uL Tyler # (Auto) (0.0-0.8) K/uL Eos # (Auto) (0.0-0.7) K/uL Baso # (Auto) (0.0-0.1) K/uL Nucleated RBC % /100WBC Nucleated RBCs # K/uL Sodium (136-145) mmol/L Potassium (3.5-5.1) mmol/L Chloride (98-107) mmol/L Carbon Dioxide (21.0-32.0) mmol/L BUN (7.0-18.0) mg/dL Creatinine (0.6-1.0) mg/dL Est Cr Clr Drug Dosing mL/min Estimated GFR (MDRD) ml/min Glucose (74-106) mg/dL POC Glucose 273 H (60-110) mg/dL Calcium (8.5-10.1) mg/dL Total Bilirubin (0.2-1.0) mg/dL AST (15-37) IU/L ALT (14-63) IU/L Alkaline Phosphatase (46-116) U/L Total Protein (6.4-8.2) g/dL Albumin (3.4-5.0) g/dL Globulin (2.6-4.0) g/dL Albumin/Globulin Ratio (0.9-1.6) Urine Color Urine Appearance Urine pH (5.0-8.0) Ur Specific [place] (1.001-1.035) Urine Protein (NEGATIVE) mg/dL Urine Glucose (UA) (NEGATIVE) mg/dL Urine Ketones (NEGATIVE) mg/dL Urine Occult Blood (NEGATIVE) Urine Nitrite (NEGATIVE) Urine Bilirubin (NEGATIVE) Urine Urobilinogen (<2.0) EU/dL Ur Leukocyte Esterase (NEGATIVE) Urine RBC (0-2/HPF) Urine WBC (0-5/HPF) Ur Epithelial Cells (NONE-FEW) Urine Bacteria (NEGATIVE) Hyaline Casts (0-2/LPF) Meds: Medications Generic Name Dose Route Start Last Admin Trade Name Laura PRN Reason Stop Dose Admin Sodium Chloride 10 ml 05/23/19 16:43 05/23/19 17:07 Saline Flush FLUSH 10 ml ASDIRECTED PRN Administration Keep Vein Open Sodium Chloride 2.5 ml 05/23/19 16:43 05/23/19 17:07 Saline Flush FLUSH 2.5 ml ASDIRECTED PRN Administration Keep Vein Open Discontinued Medications Generic Name Dose Route Start Last Admin Trade Name Laura PRN Reason Stop Dose Admin Sodium Chloride 1,000 mls @ 999 mls/hr 05/23/19 16:43 05/23/19 17:02 Normal Saline IV 05/23/19 17:43 999 mls/hr .Bolus ONE Administration Ketorolac Tromethamine 30 mg 05/23/19 16:43 05/23/19 17:04 Toradol IVPUSH 05/23/19 16:44 30 mg ONETIME ONE Administration Morphine Sulfate 2 mg 05/23/19 16:43 05/23/19 17:05 Morphine IVPUSH 05/23/19 16:44 2 mg ONETIME ONE Administration Ondansetron HCl 4 mg 05/23/19 16:43 05/23/19 17:03 Zofran IVPUSH 05/23/19 16:44 4 mg ONETIME ONE Administration Potassium Chloride 40 meq 05/23/19 17:48 Klor-Con M20 PO 05/23/19 17:49 ONETIME ONE Departure - Departure Time of Disposition: 17:54 Disposition: Home, Self-Care 01 Condition: Good Clinical Impression: Hypokalemia Abdominal pain Qualifiers: Abdominal location: right upper quadrant Qualified Code(s): R10.11 - Right upper quadrant pain - Discharge Information *PRESCRIPTION DRUG MONITORING PROGRAM REVIEWED*: No *COPY OF PRESCRIPTION DRUG MONITORING REPORT IN PATIENT ANA MARÍA: No Prescriptions: Potassium Chloride 10 meq PO DAILY #5 capsule.er Referrals: PCP,Unknown [Primary Care Provider] - Forms: ED Department Discharge Additional Instructions: The following information is given to patients seen in the emergency department who are being discharged to home. This information is to outline your options for follow-up care. We provide all patients seen in our emergency department with a follow-up referral. The need for follow-up, as well as the timing and circumstances, are variable depending upon the specifics of your emergency department visit. If you don't have a primary care physician on staff, we will provide you with a referral. We always advise you to contact your personal physician following an emergency department visit to inform them of the circumstance of the visit and for follow-up with them and/or the need for any referrals to a consulting specialist. The emergency department will also refer you to a specialist when appropriate. This referral assures that you have the opportunity for follow-up care with a specialist. All of these measure are taken in an effort to provide you with optimal care, which includes your follow-up. Under all circumstances we always encourage you to contact your private physician who remains a resource for coordinating your care. When calling for follow-up care, please make the office aware that this follow-up is from your recent emergency room visit. If for any reason you are refused follow-up, please contact the [facility] Emergency Department at and asked to speak to the emergency department charge nurse. Take meds as directed, follow up with your primary care physician, return to ER if symptoms worsen or change. Follow up with Francisco this week. Return if symptoms worsen or change. - My Orders Last 24 Hours: My Active Orders 05/23/19 16:43 Sodium Chloride 0.9% [Saline Flush] 10 ml FLUSH ASDIRECTED PRN Sodium Chloride 0.9% [Saline Flush] 2.5 ml FLUSH ASDIRECTED PRN Saline Lock Insert [OM.PC] Stat 05/23/19 17:31 Blood Glucose Check, Bedside [RC] ONETIME - Assessment/Plan Last 24 Hours: My Active Orders 05/23/19 16:43 Sodium Chloride 0.9% [Saline Flush] 10 ml FLUSH ASDIRECTED PRN Sodium Chloride 0.9% [Saline Flush] 2.5 ml FLUSH ASDIRECTED PRN Saline Lock Insert [OM.PC] Stat 05/23/19 17:31 Blood Glucose Check, Bedside [RC] ONETIME
[2019-05-23] MEDS ORDERED: Sodium Chloride 0.9% 1,000 ML IV ONE (16:43)
[2019-05-23] MEDS ORDERED: Sodium Chloride 0.9% 2.5 ML Syringe FLUSH PRN (16:43)
[2019-05-23] MEDS ORDERED: Ketorolac 30 MG/ML SDV IVPUSH ONE (16:43)
[2019-05-23] MEDS ORDERED: Sodium Chloride 0.9% 10 ML Syringe FLUSH PRN (16:43)
[2019-05-23] MEDS ORDERED: Morphine 2 MG/ML Syringe IVPUSH ONE (16:43)
[2019-05-23] MEDS ORDERED: Ondansetron 4 MG/2 ML SDV IVPUSH ONE (16:43)
[2019-05-23 17:36] LABS: CHLORIDE,CL 95 mmol/L (98-107); SODIUM,NA 134 mmol/L (136-145)
[2019-05-23] MEDS ORDERED: Potassium Chloride 20 MEQ Tab.ER PO ONE (17:48)
[2019-05-23 17:58] VITALS: BP 138/88
== END 2019-05-23 18:12 | disposition home or self-care (01) ==
LOC: MW.ED 15:59
DX: E87.6 Hypokalemia (principal); R10.11 Right upper quadrant pain; D64.9 Anemia, unspecified; E11.65 Type 2 diabetes mellitus with hyperglycemia; E78.00 Pure hypercholesterolemia, unspecified; I10 Essential (primary) hypertension; F32.9 Major depressive disorder, single episode, unspecified; E66.9 Obesity, unspecified; Z88.8 Allergy status to other drugs, medicaments and biological substances; Z91.030 Bee allergy status; Z79.4 Long term (current) use of insulin; Z79.899 Other long term (current) drug therapy; Z68.32 Body mass index [BMI] 32.0-32.9, adult
CPT/HCPCS: 36415; 80053; 81001; 82962; 85025; 87086; 96361; 96374; 96375; 99283; A9270; J1885; J2270; J2405; J7040; 87088; 87186

== ENCOUNTER 2019-09-28 16:22 | Emergency (ER) | payer MEDICAID, OTHER ==
--- NOTE | 2019-09-28 18:02 | CR ---
Indication: Hyperextended knee Technique: Three views of the left knee Comparison: February 07, 2019 Findings: Mild narrowing of the medial compartment is identified. No joint effusion is identified. No fracture or subluxation is identified. Impression: Mild degenerative change. Dictated by Bryanna Smith MD @ Sep 28 2019 6:00PM Signed by Dr. Bryanna Smith @ Sep 28 2019 6:01PM
[2019-09-28] MEDS ORDERED: Acetaminophen/HYDROcodone 325-5 MG Tab PO ONE (18:08)
--- NOTE | 2019-09-28 18:12 | EDM.PDOC ---
ED HPI GENERAL MEDICAL PROBLEM - General Chief Complaint: Lower Extremity Injury/Pain Stated Complaint: RT LEG PAIN Time Seen by Provider: 09/28/19 17:43 Source of Information: Reports: Patient History Limitations: Reports: No Limitations - History of Present Illness INITIAL COMMENTS - FREE TEXT/NARRATIVE: HISTORY AND PHYSICAL: History of present illness: Patient is a 44-year-old female who presents to the emergency room today with complaints of right knee pain. She states she was walking when she slipped on ice and fell like she hyperextended her knee. She is able to bear weight although states it's extremely painful. Denies any numbness, tingling or saddle paresthesias. She denies hitting her head or having any loss of consciousness. No other extremity involvement. Offers no systemic complaints. Review of systems: As per history of present illness and below otherwise all systems reviewed and negative. Past medical history: As per history of present illness and as reviewed below otherwise noncontributory. Surgical history: As per history of present illness and as reviewed below otherwise noncontributory. Social history: See social history for further information Family history: As per history of present illness and as reviewed below otherwise noncontributory. Physical exam: General: Alert and oriented. Nontoxic appearing and in no acute distress. HEENT: Atraumatic, normocephalic, pupils equal and reactive bilaterally, negative for conjunctival pallor or scleral icterus, mucous membranes moist, trachea midline. No drooling or trismus noted. No meningeal signs. No hot potato voice noted. Lungs: Clear to auscultation, breath sounds equal bilaterally, chest nontender. Heart: S1S2, regular rate and rhythm without overt murmur Abdomen: Soft, nondistended, nontender. Skin: Intact, warm, dry. No lesions or rashes noted. Extremities: Pain with palpation of the right medial knee. Negative drawer test. No knee instability. She bears weight and moves all extremities per self without difficulty or deficits, negative for cords or calf pain. Strong pedal pulses. Neurovascular unremarkable. Neuro: Awake, alert, oriented. Cranial nerves II through XII unremarkable. Cerebellum unremarkable. Motor and sensory unremarkable throughout. Exam nonfocal. Notes: Patient is requesting for pain medication at this time. Knee immobilizer and crutches were given with thorough education on the need for follow-up. Patient's blood pressure is elevated. She states she typically takes her medications at night. She does not want this further evaluated were assessed at this time. Supportive care measures were reviewed and discussed. Voices understanding and is agreeable to plan of care. Denies any further questions or concerns at this time. Diagnostics: X-ray Therapeutics: Crutch/immobilizer, [place] Prescription: None Impression: Right knee injury Plan: 1. Rest, ice, elevate the affected extremity. Please wear the splint as directed. 2. Tylenol and/or Ibuprofen as needed for pain management. 3. Follow up with the Orthopedic provider as we discussed. Return to the ED as needed and as discussed. Definitive disposition and diagnosis as appropriate pending reevaluation and review of above. leftknee Pain Score (Numeric/FACES): 10 - Related Data Allergies Allergy/AdvReac Type Severity Reaction Status Date / Time lorazepam [From Ativan] Allergy Agitation Verified 05/23/19 16:19 metoclopramide [From Reglan] Allergy Irritabilit Verified 05/23/19 16:19 y Penicillins Allergy Anaphylactic Verified 05/23/19 16:19 Shock sumatriptan [From Imitrex] Allergy Anaphylactic Verified 05/23/19 16:19 Shock sumatriptan succinate Allergy Anaphylactic Verified 05/23/19 16:19 [From Imitrex] Shock venom-honey bee Allergy Anaphylactic Verified 05/23/19 16:19 [bee venom (honey bee)] Shock gnat - bug Allergy Anaphylactic Uncoded 05/23/19 16:19 Shock Home Meds: Home Meds Insulin Glarg,Human.Rec.Analog [LantUS] 62 units SQ BID 11/03/15 [History] Valsartan 320 mg PO BEDTIME 01/15/16 [History] Insulin Aspart [NovoLOG] 0 unit SQ ASDIRECTED 07/29/16 [History] Chlorthalidone 25 mg PO BEDTIME 07/30/16 [History] Venlafaxine HCl [Venlafaxine ER] 75 mg PO BEDTIME 04/05/17 [History] Amitriptyline [Elavil] 10 mg PO BEDTIME 06/10/17 [History] Insulin Aspart [NovoLOG] 35 - 42 unit SUBCUT TIDAC vial 05/17/18 [Rx] Potassium Chloride 10 meq PO DAILY #5 capsule.er 05/23/19 [Rx] Past Medical History HEENT History: Reports: Allergic Rhinitis Other HEENT History: wears glasses Cardiovascular History: Reports: High Cholesterol, Hypertension Respiratory History: Reports: None Gastrointestinal History: Reports: Gastritis Genitourinary History: Reports: Renal Calculus, Other (See Below) Other Genitourinary History: has interstitial cystitis [employer]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: , 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 (See Below) Musculoskeletal History: Reports: None Other Musculoskeletal History: knee pain Neurological History: Reports: Migraines, Seizure Other Neuro History: 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 2 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, unknown cause Psychiatric History: Reports: Depression Endocrine/Metabolic History: Reports: Diabetes, Type II, Obesity/BMI 30+ Hematologic History: Reports: None Immunologic History: Reports: None Oncologic (Cancer) History: Reports: None, Cervix Dermatologic History: Reports: None - Infectious Disease History Infectious Disease History: Reports: Chicken Pox - Past Surgical History Head Surgeries/Procedures: Reports: None HEENT Surgical History: Reports: Oral Surgery, Tonsillectomy Cardiovascular Surgical History: Reports: None Respiratory Surgical History: Reports: None GI Surgical History: Reports: None Female Surgical History: Reports: Section, Hysterectomy, Lithotripsy /ESWL, Tubal Ligation Musculoskeletal Surgical History: Reports: Knee Replacement - History Comment History Comment: ETOH " 1X A MONTH" Social & Family History - Family History Family Medical History: Noncontributory HEENT: Reports: None Cardiac: Reports: CAD, Hypertension Respiratory: Reports: None GI: Reports: None : Reports: Renal Calculus Psychiatric: Reports: None Endocrine/Metabolic: Reports: None Hematologic: Reports: None Immunologic: Reports: None Dermatologic: Reports: None Oncologic: Reports: Lung - Tobacco Use Smoking Status *Q: Never Smoker - Caffeine Use Caffeine Use: Reports: None - Recreational Drug Use Recreational Drug Use: No Review of Systems - Review of Systems Review Of Systems: Comprehensive ROS is negative, except as noted in HPI. ED EXAM, GENERAL - Physical Exam Exam: See Below (See dictation) Course - Vital Signs Last Recorded V/S: Last Vital Signs Temp 97.1 F 09/28/19 17:23 Pulse 102 H 09/28/19 17:23 Resp 20 09/28/19 17:23 BP 172/125 H 09/28/19 18:15 Pulse Ox 98 09/28/19 17:23 - Orders/Labs/Meds Orders: Active Orders 24 hr Category Date Time Status DME for Discharge [COMM] Stat Oth 09/28/19 17:42 Ordered Meds: Medications Discontinued Medications Generic Name Dose Route Start Last Admin Trade Name Laura PRN Reason Stop Dose Admin Hydrocodone Bitart/Acetaminophen 1 tab 09/28/19 18:08 09/28/19 18:17 [place] 325-5 Mg PO 09/28/19 18:09 1 tab ONETIME ONE Administration Departure - Departure Time of Disposition: 18:11 Disposition: Home, Self-Care 01 Clinical Impression: Right knee injury Qualifiers: Encounter type: initial encounter Qualified Code(s): S89.91XA - Unspecified injury of right lower leg, initial encounter - Discharge Information Instructions: Knee Sprain, Adult, [id number] Referrals: Levy Singh MD [Primary Care Provider] - Forms: ED Department Discharge Additional Instructions: The following information is given to patients seen in the emergency department who are being discharged to home. This information is to outline your options for follow-up care. We provide all patients seen in our emergency department with a follow-up referral. The need for follow-up, as well as the timing and circumstances, are variable depending upon the specifics of your emergency department visit. If you don't have a primary care physician on staff, we will provide you with a referral. We always advise you to contact your personal physician following an emergency department visit to inform them of the circumstance of the visit and for follow-up with them and/or the need for any referrals to a consulting specialist. The emergency department will also refer you to a specialist when appropriate. This referral assures that you have the opportunity for follow-up care with a specialist. All of these measure are taken in an effort to provide you with optimal care, which includes your follow-up. Under all circumstances we always encourage you to contact your private physician who remains a resource for coordinating your care. When calling for follow-up care, please make the office aware that this follow-up is from your recent emergency room visit. If for any reason you are refused follow-up, please contact the [facility] Emergency Department at and asked to speak to the emergency department charge nurse. [facility] [address] [place] [address] [facility] [address] [place] [id number] 1. Rest, ice, elevate the affected extremity. Please wear the splint as directed. 2. Tylenol and/or Ibuprofen as needed for pain management. 3. Follow up with the Orthopedic provider as we discussed. Return to the ED as needed and as discussed. - My Orders Last 24 Hours: My Active Orders 09/28/19 17:42 DME for Discharge [COMM] Stat - Assessment/Plan Last 24 Hours: My Active Orders 09/28/19 17:42 DME for Discharge [COMM] Stat
[2019-09-28 19:22] VITALS: BP 165/126; PULSE 78
== END 2019-09-28 18:45 | disposition home or self-care (01) ==
LOC: MW.ED 16:22
DX: S89.91XA Unspecified injury of right lower leg, initial encounter (principal); I10 Essential (primary) hypertension; E11.9 Type 2 diabetes mellitus without complications; F32.9 Major depressive disorder, single episode, unspecified; E66.9 Obesity, unspecified; Z68.30 Body mass index [BMI] 30.0-30.9, adult; Z88.0 Allergy status to penicillin; Z88.8 Allergy status to other drugs, medicaments and biological substances; Z91.030 Bee allergy status; Z91.048 Other nonmedicinal substance allergy status; Z79.4 Long term (current) use of insulin; Z79.899 Other long term (current) drug therapy; W00.0XXA Fall on same level due to ice and snow, initial encounter
CPT/HCPCS: 73562; 99283; A9270

== ENCOUNTER 2019-12-20 13:46 | Emergency (ER) | payer OTHER ==
--- NOTE | 2019-12-20 14:10 | EDM.PDOC ---
ED HPI GENERAL MEDICAL PROBLEM - General Chief Complaint: Genitourinary Problem Stated Complaint: KIDNEY STONE Time Seen by Provider: 12/20/19 14:10 Source of Information: Reports: Patient History Limitations: Reports: No Limitations - History of Present Illness INITIAL COMMENTS - FREE TEXT/NARRATIVE: Patient is a 44-year-old female is complaining of having right flank pain and dysuria for the past several days which is worse since this morning. She rates the pain is currently 10 out of 10. Patient does have a history of both kidney stones and kidney infections previously. She denies any vaginal discharge. She denies any hematuria . She is not having any fever or chills. Patient is feeling nauseous though has had no vomiting or diarrhea. She has taken nothing for current pain symptoms and feels pain is worse when she moves. Duration: Day(s): (4), Getting Worse Location: Reports: Abdomen, Back Quality: Reports: Ache, Pressure Severity: Severe Improves with: Reports: None Worsens with: Reports: Movement Associated Symptoms: Reports: No Other Symptoms R lower back, lower abdomen Pain Score (Numeric/FACES): 10 - Related Data Allergies Allergy/AdvReac Type Severity Reaction Status Date / Time lorazepam [From Ativan] Allergy Agitation Verified 12/20/19 14:05 metoclopramide [From Reglan] Allergy Irritabilit Verified 12/20/19 14:05 y Penicillins Allergy Anaphylactic Verified 12/20/19 14:05 Shock sumatriptan [From Imitrex] Allergy Anaphylactic Verified 12/20/19 14:05 Shock sumatriptan succinate Allergy Anaphylactic Verified 12/20/19 14:05 [From Imitrex] Shock venom-honey bee Allergy Anaphylactic Verified 12/20/19 14:05 [bee venom (honey bee)] Shock gnat - bug Allergy Anaphylactic Uncoded 12/20/19 14:05 Shock Home Meds: Home Meds Insulin Glarg,Human.Rec.Analog [LantUS] 62 units SQ BID 11/03/15 [History] Valsartan 320 mg PO BEDTIME 01/15/16 [History] Insulin Aspart [NovoLOG] 0 unit SQ ASDIRECTED 07/29/16 [History] Chlorthalidone 25 mg PO BEDTIME 07/30/16 [History] Venlafaxine HCl [Venlafaxine ER] 75 mg PO BEDTIME 04/05/17 [History] Amitriptyline [Elavil] 10 mg PO BEDTIME 06/10/17 [History] Insulin Aspart [NovoLOG] 35 - 42 unit SUBCUT TIDAC vial 05/17/18 [Rx] Past Medical History HEENT History: Reports: Allergic Rhinitis Other HEENT History: wears glasses Cardiovascular History: Reports: High Cholesterol, Hypertension Respiratory History: Reports: None Gastrointestinal History: Reports: Gastritis Genitourinary History: Reports: Renal Calculus, Other (See Below) Other Genitourinary History: has interstitial cystitis [employer] History: Reports: , Other (See Below) Musculoskeletal History: Reports: None Other Musculoskeletal History: knee pain Neurological History: Reports: Migraines, Seizure Other Neuro History: 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 2 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, unknown cause Psychiatric History: Reports: Depression Endocrine/Metabolic History: Reports: Diabetes, Type II, Obesity/BMI 30+ Hematologic History: Reports: None Immunologic History: Reports: None Oncologic (Cancer) History: Reports: None, Cervix Dermatologic History: Reports: None - Infectious Disease History Infectious Disease History: Reports: Chicken Pox, Measles - Past Surgical History Head Surgeries/Procedures: Reports: None HEENT Surgical History: Reports: Oral Surgery, Tonsillectomy Cardiovascular Surgical History: Reports: None Respiratory Surgical History: Reports: None GI Surgical History: Reports: Appendectomy, Cholecystectomy Female Surgical History: Reports: Section, Hysterectomy, Lithotripsy /ESWL, Tubal Ligation Musculoskeletal Surgical History: Reports: Knee Replacement - History Comment History Comment: ETOH " 1X A MONTH" Social & Family History - Family History Family Medical History: Noncontributory HEENT: Reports: None Cardiac: Reports: CAD, Hypertension Respiratory: Reports: None GI: Reports: None : Reports: Renal Calculus Psychiatric: Reports: None Endocrine/Metabolic: Reports: None Hematologic: Reports: None Immunologic: Reports: None Dermatologic: Reports: None Oncologic: Reports: Lung - Tobacco Use Smoking Status *Q: Never Smoker - Caffeine Use Caffeine Use: Reports: None - Recreational Drug Use Recreational Drug Use: No ED ROS GENERAL - Review of Systems Review Of Systems: Comprehensive ROS is negative, except as noted in HPI. ED EXAM, GI/ABD - Physical Exam Exam: See Below Exam Limited By: No Limitations General Appearance: Alert, Mild Distress Head: Atraumatic, Normocephalic Neck: Normal Inspection, Supple, Non-Tender Respiratory/Chest: No Respiratory Distress, Lungs Clear, Normal Breath Sounds Cardiovascular: Regular Rate, Rhythm, No Edema, No JVD GI/Abdominal Exam: Normal Bowel Sounds, Soft, No Organomegaly, Tender. No: Distended, Guarding, Hepatomegaly, Splenomegaly Back Exam: CVA Tenderness (R) Extremities: Normal Inspection Neurological: Alert Psychiatric: Normal Affect Skin Exam: Warm, Dry Course - Vital Signs Last Recorded V/S: Last Vital Signs Temp 36.8 C 12/20/19 16:52 Pulse 92 12/20/19 19:09 Resp 20 12/20/19 19:09 BP 209/119 H 12/20/19 19:09 Pulse Ox 98 12/20/19 19:09 Patient's lab work including urine showed no abnormalities. Patient's CAT scan shows no acute disease either. I am uncertain what is causing her abdominal pain. - Orders/Labs/Meds Labs: Laboratory Tests 12/20/19 12/20/19 12/20/19 Range/Units 14:43 15:08 15:08 WBC 7.65 (4.0-11.0) K/uL RBC 4.18 L (4.30-5.90) M/uL Hgb 13.7 (12.0-16.0) g/dL Hct 37.9 (36.0-46.0) % MCV 90.7 (80.0-98.0) fL MCH 32.8 H (27.0-32.0) pg MCHC 36.1 (31.0-37.0) g/dL RDW Std Deviation 43.4 (28.0-62.0) fl RDW Coeff of Abdirizak 13 (11.0-15.0) % Plt Count 167 (150-400) K/uL MPV 10.10 (7.40-12.00) fL Add Manual Diff YES Neutrophils % (Manual) 68 (48.0-80.0) % Band Neutrophils % 2 % Lymphocytes % (Manual) 21 (16.0-40.0) % Monocytes % (Manual) 9 (0.0-15.0) % Nucleated RBC % 0.0 /100WBC Absolute Seg Neuts 5.2 (1.4-5.7) Band Neutrophils # 0.2 Lymphocytes # (Manual) 1.6 (0.6-2.4) Monocytes # (Manual) 0.7 (0.0-0.8) Nucleated RBCs # 0 K/uL Lactate 1.5 (0.20-2.00) mmol/L Sodium 138 (136-145) mmol/L Potassium 3.9 (3.5-5.1) mmol/L Chloride 104 (98-107) mmol/L Carbon Dioxide 23.2 (21.0-32.0) mmol/L BUN 15 (7.0-18.0) mg/dL Creatinine 0.8 (0.6-1.0) mg/dL Est Cr Clr Drug Dosing 69.13 mL/min Estimated GFR (MDRD) > 60.0 ml/min Glucose 275 H (74-106) mg/dL Calcium 8.3 L (8.5-10.1) mg/dL Total Bilirubin 1.2 H (0.2-1.0) mg/dL AST 31 (15-37) IU/L ALT 24 (14-63) IU/L Alkaline Phosphatase 66 (46-116) U/L Total Protein 6.3 L (6.4-8.2) g/dL Albumin 3.2 L (3.4-5.0) g/dL Globulin 3.1 (2.6-4.0) g/dL Albumin/Globulin Ratio 1.0 (0.9-1.6) Urine Color Urine Appearance Urine pH (5.0-8.0) Ur Specific [place] (1.001-1.035) Urine Protein (NEGATIVE) mg/dL Urine Glucose (UA) (NEGATIVE) mg/dL Urine Ketones (NEGATIVE) mg/dL Urine Occult Blood (NEGATIVE) Urine Nitrite (NEGATIVE) Urine Bilirubin (NEGATIVE) Urine Ictotest Urine Urobilinogen (<2.0) EU/dL Ur Leukocyte Esterase (NEGATIVE) Urine RBC (0-2/HPF) Urine WBC (0-5/HPF) Ur Epithelial Cells (NONE-FEW) Urine Bacteria (NEGATIVE) Urine HCG, Qual (NEGATIVE) 12/20/19 12/20/19 Range/Units 16:15 16:15 WBC (4.0-11.0) K/uL RBC (4.30-5.90) M/uL Hgb (12.0-16.0) g/dL Hct (36.0-46.0) % MCV (80.0-98.0) fL MCH (27.0-32.0) pg MCHC (31.0-37.0) g/dL RDW Std Deviation (28.0-62.0) fl RDW Coeff of Abdirizak (11.0-15.0) % Plt Count (150-400) K/uL MPV (7.40-12.00) fL Add Manual Diff Neutrophils % (Manual) (48.0-80.0) % Band Neutrophils % % Lymphocytes % (Manual) (16.0-40.0) % Monocytes % (Manual) (0.0-15.0) % Nucleated RBC % /100WBC Absolute Seg Neuts (1.4-5.7) Band Neutrophils # Lymphocytes # (Manual) (0.6-2.4) Monocytes # (Manual) (0.0-0.8) Nucleated RBCs # K/uL Lactate (0.20-2.00) mmol/L Sodium (136-145) mmol/L Potassium (3.5-5.1) mmol/L Chloride (98-107) mmol/L Carbon Dioxide (21.0-32.0) mmol/L BUN (7.0-18.0) mg/dL Creatinine (0.6-1.0) mg/dL Est Cr Clr Drug Dosing mL/min Estimated GFR (MDRD) ml/min Glucose (74-106) mg/dL Calcium (8.5-10.1) mg/dL Total Bilirubin (0.2-1.0) mg/dL AST (15-37) IU/L ALT (14-63) IU/L Alkaline Phosphatase (46-116) U/L Total Protein (6.4-8.2) g/dL Albumin (3.4-5.0) g/dL Globulin (2.6-4.0) g/dL Albumin/Globulin Ratio (0.9-1.6) Urine Color DARK YELLOW Urine Appearance SLT CLOUDY Urine pH 5.5 (5.0-8.0) Ur Specific [place] >= 1.030 (1.001-1.035) Urine Protein 100 H (NEGATIVE) mg/dL Urine Glucose (UA) 500 H (NEGATIVE) mg/dL Urine Ketones 15 H (NEGATIVE) mg/dL Urine Occult Blood NEGATIVE (NEGATIVE) Urine Nitrite NEGATIVE (NEGATIVE) Urine Bilirubin SMALL H (NEGATIVE) Urine Ictotest NEGATIVE Urine Urobilinogen 1.0 (<2.0) EU/dL Ur Leukocyte Esterase NEGATIVE (NEGATIVE) Urine RBC 0-3 (0-2/HPF) Urine WBC 2-5 (0-5/HPF) Ur Epithelial Cells MANY (NONE-FEW) Urine Bacteria FEW (NEGATIVE) Urine HCG, Qual NEGATIVE (NEGATIVE) Meds: Medications Discontinued Medications Generic Name Dose Route Start Last Admin Trade Name Freq PRN Reason Stop Dose Admin Fentanyl 50 mcg 12/20/19 14:16 12/20/19 14:41 Fentanyl IVPUSH 12/20/19 14:17 Not Given ONETIME ONE Fentanyl 50 mcg 12/20/19 14:30 12/20/19 14:37 Fentanyl IVPUSH 12/20/19 14:31 Not Given ONETIME ONE Fentanyl 50 mcg 12/20/19 14:45 12/20/19 14:37 Sublimaze IVPUSH 12/20/19 14:46 50 mcg ONETIME ONE Administration Hydromorphone HCl 1 mg 12/20/19 16:13 12/20/19 16:48 Dilaudid IVPUSH 12/20/19 16:14 1 mg ONETIME ONE Administration Sodium Chloride 1,000 mls @ 999 mls/hr 12/20/19 14:15 12/20/19 14:38 Normal Saline IV 12/20/19 15:15 999 mls/hr .BOLUS ONE Administration Sodium Chloride 1,000 mls @ 999 mls/hr 12/20/19 16:13 12/20/19 16:49 Normal Saline IV 12/20/19 17:13 999 mls/hr .BOLUS ONE Administration Iopamidol 100 ml 12/20/19 18:17 12/20/19 18:18 Isovue Multipack-370 (76%) IVPUSH 12/20/19 18:18 100 ml ONETIME ONE Administration Ketorolac Tromethamine 30 mg 12/20/19 14:16 12/20/19 14:37 Toradol IVPUSH 12/20/19 14:17 30 mg ONETIME ONE Administration Metoclopramide HCl 10 mg 12/20/19 18:56 12/20/19 19:14 Reglan IVPUSH 12/20/19 18:57 Not Given ONETIME ONE Ondansetron HCl 4 mg 12/20/19 17:52 12/20/19 17:57 Zofran IVPUSH 12/20/19 17:53 4 mg ONETIME ONE Administration Departure - Departure Time of Disposition: 19:53 Disposition: Home, Self-Care 01 Condition: Good Clinical Impression: Vomiting Abdominal pain Qualifiers: Abdominal location: right upper quadrant Qualified Code(s): R10.11 - Right upper quadrant pain - Discharge Information Instructions: Abdominal Pain, Adult Referrals: Levy Singh MD [Primary Care Provider] - Forms: ED Department Discharge Additional Instructions: Clear liquid diet advance as tolerated. Phenergan as needed. Return to ER if worse or not improving. Follow-up with PCP this Thursday as scheduled. Care Plan Goals: The following information is given to patients seen in the emergency department who are being discharged to home. This information is to outline your options for follow-up care. We provide all patients seen in our emergency department with a follow-up referral. The need for follow-up, as well as the timing and circumstances, are variable depending upon the specifics of your emergency department visit. If you don't have a primary care physician on staff, we will provide you with a referral. We always advise you to contact your personal physician following an emergency department visit to inform them of the circumstance of the visit and for follow-up with them and/or the need for any referrals to a consulting specialist. The emergency department will also refer you to a specialist when appropriate. This referral assures that you have the opportunity for follow-up care with a specialist. All of these measure are taken in an effort to provide you with optimal care, which includes your follow-up. Under all circumstances we always encourage you to contact your private physician who remains a resource for coordinating your care. When calling for follow-up care, please make the office aware that this follow-up is from your recent emergency room visit. If for any reason you are refused follow-up, please contact the [facility] Emergency Department at and asked to speak to the emergency department charge nurse. Sepsis Event Note - Evaluation Sepsis Screening Result: No Definite Risk - Focused Exam Vital Signs: Vital Signs Temp Pulse Resp BP Pulse Ox 12/20/19 19:09 92 20 209/119 H 98 12/20/19 16:52 36.8 C 90 16 172/109 H 98 12/20/19 14:02 36.3 C 108 H 18 153/112 H 99 12/20/19 14:00 103 H 16 153/112 H 100 Date Exam was Performed: 12/20/19 Time Exam was Performed: 19:20
[2019-12-20] MEDS ORDERED: Sodium Chloride 0.9% 1,000 ML IV ONE ×2 (14:15→16:13)
[2019-12-20] MEDS ORDERED: Ketorolac 30 MG/ML SDV IVPUSH ONE (14:16)
[2019-12-20] MEDS ORDERED: fentaNYL 50 MCG/ML SDV IVPUSH ONE ×2 (14:16→14:30)
[2019-12-20] MEDS ORDERED: fentaNYL 100 MCG/2 ML SDV IVPUSH ONE (14:45)
[2019-12-20 15:43] LABS: BLOOD UREA NITROGEN,BUN 15 mg/dL (7.0-18.0); CARBON DIOXIDE,CO2 23.2 mmol/L (21.0-32.0); CHLORIDE,CL 104 mmol/L (98-107); GLUCOSE RANDOM 275 mg/dL (74-106); POTASSIUM,K 3.9 mmol/L (3.5-5.1); SODIUM,NA 138 mmol/L (136-145)
[2019-12-20] MEDS ORDERED: HYDROmorphone 2 MG/ML Syringe IVPUSH ONE (16:13)
[2019-12-20] MEDS ORDERED: Ondansetron 4 MG/2 ML SDV IVPUSH ONE (17:52)
[2019-12-20] MEDS ORDERED: Iopamidol 755 MG/ML 200 ML Multipack Bottle IVPUSH ONE (18:17)
--- NOTE | 2019-12-20 18:44 | CT ---
CT abdomen and pelvis Technique: Multiple axial sections were obtained from above the dome of the diaphragm inferiorly through the pubic symphysis. Intravenous contrast was utilized. No oral contrast has been given. Comparison: Prior CT abdomen and pelvis exam of 03/31/19. Findings: Visualized lung bases show nothing acute. Liver contains no focal parenchymal abnormality. Spleen appears mildly enlarged with length of around 14-15 cm which is a stable finding from previous exam. Adrenal glands show no nodule. Pancreas is within normal limits. Kidneys show symmetric contrast enhancement. No hydronephrosis is seen. Several minimal cortical lesions are seen within the left kidney measuring less than 5 mm. No abnormality is seen within the right kidney. Left kidney lesions are likely incidental. Aorta shows no aneurysm. No retroperitoneal adenopathy or mesenteric abnormalities are seen. No pelvic mass or adenopathy is identified. No free fluid or inflammatory change is appreciated. Appendix is not visualized with certainty. Bone window settings were reviewed which shows mild endplate spurring within the spine. No acute osseous finding is appreciated. Impression: 1. Mild splenomegaly. Findings are felt to be fairly stable from previous exam. 2. Other findings as noted above believed to be nonacute and incidental. 3. Nothing acute is appreciated on CT study of the abdomen and pelvis. No abnormality is seen to explain and etiology for the patient's right lower quadrant symptoms. Diagnostic code #3 Study was dictated in [place] Standard Time
[2019-12-20] MEDS ORDERED: Metoclopramide 10 MG/2 ML SDV IVPUSH ONE (18:56)
[2019-12-20 19:10] VITALS: PULSE 92
[2019-12-20] MEDS ORDERED: Promethazine 25 MG/ML SDV IM ONE (19:22)
[2019-12-20 21:56] VITALS: BP 190/100
== END 2019-12-20 20:00 | disposition home or self-care (01) ==
LOC: MW.ED 13:46
DX: R10.11 Right upper quadrant pain (principal); R11.10 Vomiting, unspecified; I10 Essential (primary) hypertension; E11.9 Type 2 diabetes mellitus without complications; F32.9 Major depressive disorder, single episode, unspecified; E66.9 Obesity, unspecified; Z68.30 Body mass index [BMI] 30.0-30.9, adult; Z90.49 Acquired absence of other specified parts of digestive tract; Z88.8 Allergy status to other drugs, medicaments and biological substances; Z88.0 Allergy status to penicillin; Z91.030 Bee allergy status; Z91.048 Other nonmedicinal substance allergy status; Z79.4 Long term (current) use of insulin; Z79.899 Other long term (current) drug therapy
CPT/HCPCS: 36415; 74177; 80053; 81001; 81025; 83605; 85025; 96361; 96372; 96374; 96375; 99284; J1170; J1885; J2405; J2550; J3010; J7030; Q9967

== ENCOUNTER 2019-12-22 03:44 | Inpatient (IN) | payer OTHER ==
[2019-12-22] MEDS ORDERED: Sodium Chloride 0.9% 1,000 ML IV ONE (04:06)
[2019-12-22] MEDS ORDERED: Ondansetron 4 MG/2 ML SDV IVPUSH ONE (04:23)
[2019-12-22] MEDS ORDERED: HYDROmorphone 1 MG/ML Syringe IVPUSH ONE (04:24)
[2019-12-22] MEDS ORDERED: valACYclovir 500 MG Tab PO SCH (04:30)
[2019-12-22 04:36] LABS: BLOOD UREA NITROGEN,BUN 11 mg/dL (7.0-18.0); CARBON DIOXIDE,CO2 23.4 mmol/L (21.0-32.0); CHLORIDE,CL 101 mmol/L (98-107); GLUCOSE RANDOM 345 mg/dL (74-106); LIPASE 123 U/L (73-393); SODIUM,NA 136 mmol/L (136-145)
--- NOTE | 2019-12-22 04:51 | EDM.PDOC ---
ED HPI GENERAL MEDICAL PROBLEM - General Chief Complaint: Genitourinary Problem Stated Complaint: PER PT. SHE HAS SORES IN PRIVATE AREA Time Seen by Provider: 12/22/19 03:48 Source of Information: Reports: Patient - History of Present Illness INITIAL COMMENTS - FREE TEXT/NARRATIVE: CC vaginal pain HPI: This is a 44-year-old female who last had sex with her about 10 days ago presents with body aches fever vomiting and painful ulcerations on her vaginal area. Patient was seen here 2 days ago for right flank pain and had a negative CBC comprehensive metabolic profile CT scan of the abdomen and urine. Etiology for flank pain was unclear at this time. Since then she is noticed that she is developed painful lesions in her vaginal area. PMHX/PSHX: Negative Social History: Negative for tobacco, negative for alcohol, negative for street drugs or marijuana Family history: Hypertension ROS: see chart PE: VS afebrile vital signs stable General: No apparent distress Head: Atraumatic normocephalic no lumps bumps or bruises Eyes: EOMI PERRLA Ears: TMs intact no hemotympanum no signs of infection no mastoid tenderness Nose: No epistaxis nares patent no septal wall hematoma Throat: No pharyngeal erythema or exudate no tonsillar enlargement Neck: Supple, no cervical lymphadenopathy Chest wall: No point tenderness Heart: Regular rate and rhythm without murmur gallop or rub Lungs: Clear to auscultation and percussion without rales rhonchi or wheeze Abdomen: Soft nontender nondistended without guarding rigidity or rebound Neck: No spinal point tenderness full range of motion in all 6 directions Back: No spinal paraspinal or CVA tenderness Extremities: full rom through out. no effusions skin: Warm dry intact no rashes neurologic: cranial nerves II through XII intact. No focal motor or sensory deficits noted ANIMAL COP: Patient has tender yellow and crusted ulcerations throughout her vulva. MDM: Differential diagnosis: Herpes vaginalis dehydration intractable vomiting ED course: Patient given pain medications and IV fluids and antiemetics. She is failed a outpatient trial of antiemetics and is vomited 9 times since she was here 2 days ago. Patient has severe pain. Her case was discussed with the button spindler on-call who will follow her as an inpatient patient will be admitted to the hospitalist service for IV fluid pain medications. We have started her on Valtrex here. Diagnosis: Herpes vaginalis dehydration intractable vomiting Disposition: Admitted vaginal Pain Score (Numeric/FACES): 10 - Related Data Allergies Allergy/AdvReac Type Severity Reaction Status Date / Time lorazepam [From Ativan] Allergy Agitation Verified 12/22/19 03:49 metoclopramide [From Reglan] Allergy Irritabilit Verified 12/22/19 03:49 y Penicillins Allergy Anaphylactic Verified 12/22/19 03:49 Shock sumatriptan [From Imitrex] Allergy Anaphylactic Verified 12/22/19 03:49 Shock sumatriptan succinate Allergy Anaphylactic Verified 12/22/19 03:49 [From Imitrex] Shock venom-honey bee Allergy Anaphylactic Verified 12/22/19 03:49 [bee venom (honey bee)] Shock gnat - bug Allergy Anaphylactic Uncoded 12/22/19 03:49 Shock Home Meds: Home Meds Insulin Glarg,Human.Rec.Analog [LantUS] 62 units SQ BID 11/03/15 [History] Valsartan 320 mg PO BEDTIME 01/15/16 [History] Insulin Aspart [NovoLOG] 0 unit SQ ASDIRECTED 07/29/16 [History] Chlorthalidone 25 mg PO BEDTIME 07/30/16 [History] Venlafaxine HCl [Venlafaxine ER] 75 mg PO BEDTIME 04/05/17 [History] Amitriptyline [Elavil] 10 mg PO BEDTIME 06/10/17 [History] Insulin Aspart [NovoLOG] 35 - 42 unit SUBCUT TIDAC vial 05/17/18 [Rx] Dicyclomine [Bentyl] 20 mg PO TID PRN #20 tab 12/20/19 [Rx] Promethazine [Phenergan] 25 mg PO Q6H PRN #14 tab 12/20/19 [Rx] Ondansetron [Zofran ODT] 4 mg PO Q6H PRN 12/22/19 [History] Past Medical History HEENT History: Reports: Allergic Rhinitis Other HEENT History: wears glasses Cardiovascular History: Reports: High Cholesterol, Hypertension Respiratory History: Reports: None Gastrointestinal History: Reports: Gastritis Genitourinary History: Reports: Renal Calculus, Other (See Below) Other Genitourinary History: has interstitial cystitis 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: , Other (See Below) Musculoskeletal History: Reports: None Other Musculoskeletal History: knee pain Neurological History: Reports: Migraines, Seizure Other Neuro History: 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 2 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, unknown cause Psychiatric History: Reports: Depression Endocrine/Metabolic History: Reports: Diabetes, Type II, Obesity/BMI 30+ Hematologic History: Reports: None Immunologic History: Reports: None Oncologic (Cancer) History: Reports: None, Cervix Dermatologic History: Reports: None - Infectious Disease History Infectious Disease History: Reports: Chicken Pox - Past Surgical History Head Surgeries/Procedures: Reports: None HEENT Surgical History: Reports: Oral Surgery, Tonsillectomy Cardiovascular Surgical History: Reports: None Respiratory Surgical History: Reports: None GI Surgical History: Reports: Appendectomy, Cholecystectomy Female Surgical History: Reports: Section, Hysterectomy, Lithotripsy /ESWL, Tubal Ligation Musculoskeletal Surgical History: Reports: Knee Replacement - History Comment History Comment: ETOH " 1X A MONTH" Social & Family History - Family History Family Medical History: Noncontributory HEENT: Reports: None Cardiac: Reports: CAD, Hypertension Respiratory: Reports: None GI: Reports: None : Reports: Renal Calculus Psychiatric: Reports: None Endocrine/Metabolic: Reports: None Hematologic: Reports: None Immunologic: Reports: None Dermatologic: Reports: None Oncologic: Reports: Lung - Tobacco Use Smoking Status *Q: Never Smoker - Caffeine Use Caffeine Use: Reports: None - Recreational Drug Use Recreational Drug Use: No ED ROS GENERAL - Review of Systems Review Of Systems: Comprehensive ROS is negative, except as noted in HPI. ED EXAM, GI/ABD - Physical Exam Exam: See Below Text/Narrative:: See my dictation Course - Vital Signs Last Recorded V/S: Last Vital Signs Temp 35.9 C L 12/22/19 03:53 Pulse 117 H 12/22/19 03:53 Resp 18 12/22/19 03:53 BP 193/133 H 12/22/19 03:53 Pulse Ox 100 12/22/19 03:53 - Orders/Labs/Meds Orders: Active Orders 24 hr Category Date Time Status Sodium Chloride 0.9% [Normal Saline] 1,000 ml Med 12/22/19 04:06 Active IV .Bolus valACYclovir [Valtrex] Med 12/22/19 04:30 Active 500 mg PO BID Medication Orders Sodium Chloride (Normal Saline) 1,000 mls @ 1,000 mls/hr IV .Bolus ONE Stop: 12/22/19 05:05 Last Admin: 12/22/19 04:15 Dose: 1,000 mls/hr Valacyclovir HCl (Valtrex) 500 mg PO BID [facility] Labs: Laboratory Tests 12/22/19 12/22/19 12/22/19 Range/Units 04:10 04:10 04:15 WBC 8.53 (4.0-11.0) K/uL RBC 4.52 (4.30-5.90) M/uL Hgb 14.6 (12.0-16.0) g/dL Hct 40.9 (36.0-46.0) % MCV 90.5 (80.0-98.0) fL MCH 32.3 H (27.0-32.0) pg MCHC 35.7 (31.0-37.0) g/dL RDW Std Deviation 43.0 (28.0-62.0) fl RDW Coeff of Abdirizak 13 (11.0-15.0) % Plt Count 172 (150-400) K/uL MPV 10.10 (7.40-12.00) fL Neut % (Auto) 67.5 (48.0-80.0) % Lymph % (Auto) 19.5 (16.0-40.0) % [place] % (Auto) 12.4 (0.0-15.0) % Eos % (Auto) 0.2 (0.0-7.0) % Baso % (Auto) 0.4 (0.0-1.5) % Neut # (Auto) 5.8 H (1.4-5.7) K/uL Lymph # (Auto) 1.7 (0.6-2.4) K/uL [place] # (Auto) 1.1 H (0.0-0.8) K/uL Eos # (Auto) 0.0 (0.0-0.7) K/uL Baso # (Auto) 0.0 (0.0-0.1) K/uL Nucleated RBC % 0.0 /100WBC Nucleated RBCs # 0 K/uL Sodium 136 (136-145) mmol/L Potassium 4.0 (3.5-5.1) mmol/L Chloride 101 (98-107) mmol/L Carbon Dioxide 23.4 (21.0-32.0) mmol/L BUN 11 (7.0-18.0) mg/dL Creatinine 0.9 (0.6-1.0) mg/dL Est Cr Clr Drug Dosing 61.45 mL/min Estimated GFR (MDRD) > 60.0 ml/min Glucose 345 H (74-106) mg/dL Calcium 8.5 (8.5-10.1) mg/dL Total Bilirubin 1.0 (0.2-1.0) mg/dL AST 18 (15-37) IU/L ALT 23 (14-63) IU/L Alkaline Phosphatase 72 (46-116) U/L Total Protein 7.3 (6.4-8.2) g/dL Albumin 3.4 (3.4-5.0) g/dL Globulin 3.9 (2.6-4.0) g/dL Albumin/Globulin Ratio 0.9 (0.9-1.6) Lipase 123 (73-393) U/L Urine Color YELLOW Urine Appearance CLEAR Urine pH 6.0 (5.0-8.0) Ur Specific [place] 1.020 (1.001-1.035) Urine Protein 30 H (NEGATIVE) mg/dL Urine Glucose (UA) >=1000 (NEGATIVE) mg/dL Urine Ketones TRACE H (NEGATIVE) mg/dL Urine Occult Blood SMALL H (NEGATIVE) Urine Nitrite NEGATIVE (NEGATIVE) Urine Bilirubin NEGATIVE (NEGATIVE) Urine Urobilinogen 0.2 (<2.0) EU/dL Ur Leukocyte Esterase TRACE H (NEGATIVE) Urine RBC 2-3 (0-2/HPF) Urine WBC 0-2 (0-5/HPF) Ur Epithelial Cells OCCASIONAL (NONE-FEW) Urine Bacteria RARE (NEGATIVE) Meds: Medications Generic Name Dose Route Start Last Admin Trade Name Freq PRN Reason Stop Dose Admin Sodium Chloride 1,000 mls @ 1,000 mls/hr 12/22/19 04:06 12/22/19 04:15 Normal Saline IV 12/22/19 05:05 1,000 mls/hr .Bolus ONE Administration Valacyclovir HCl 500 mg 12/22/19 04:30 Valtrex PO BID CASSANDRA Discontinued Medications Generic Name Dose Route Start Last Admin Trade Name Freq PRN Reason Stop Dose Admin Hydromorphone HCl 1 mg 12/22/19 04:24 Dilaudid IVPUSH 12/22/19 04:25 ONETIME ONE Ondansetron HCl 4 mg 12/22/19 04:23 Zofran IVPUSH 12/22/19 04:24 ONETIME ONE Departure - Departure Time of Disposition: 04:47 Disposition: Admitted As Inpatient 68 Condition: Serious Clinical Impression: Dehydration, Intractable vomiting with nausea Herpes genitalia Qualifiers: Herpes simplex infection site: vulvovaginitis Qualified Code(s): A60.04 - Herpesviral vulvovaginitis - Discharge Information Referrals: Levy Signh MD [Primary Care Provider] - Sepsis Event Note - Evaluation Sepsis Screening Result: No Definite Risk - Focused Exam Vital Signs: Vital Signs Temp Pulse Resp BP Pulse Ox 12/22/19 03:53 35.9 C L 117 H 18 193/133 H 100 Date Exam was Performed: 12/22/19 Time Exam was Performed: 04:44 - My Orders Last 24 Hours: My Active Orders 12/22/19 04:06 Sodium Chloride 0.9% [Normal Saline] 1,000 ml IV .Bolus 12/22/19 04:30 valACYclovir [Valtrex] 500 mg PO BID - Assessment/Plan Last 24 Hours: My Active Orders 12/22/19 04:06 Sodium Chloride 0.9% [Normal Saline] 1,000 ml IV .Bolus 12/22/19 04:30 valACYclovir [Valtrex] 500 mg PO BID
[2019-12-22] MEDS ORDERED: Lidocaine 5% Oint 35.44 GM Tube TOP PRN (08:31)
[2019-12-22] MEDS ORDERED: Morphine 2 MG/ML Syringe IVPUSH PRN (08:34)
[2019-12-22] MEDS ORDERED: Ondansetron 4 MG Tab.DIS PO PRN (08:34)
[2019-12-22] MEDS ORDERED: Polyethylene Glycol 3350 Powder 17 GM Packet PO PRN (08:34)
[2019-12-22] MEDS ORDERED: Acetaminophen 325 MG Tab PO PRN (08:34)
--- NOTE | 2019-12-22 08:41 | PCM.CONS ---
H&P History of Present Illness - General Date of Service: 12/22/19 Admit Problem/Dx: Admission Diagnosis/Problem Admission Diagnosis/Problem Herpes labialis Source of Information: Patient History Limitations: Reports: No Limitations - History of Present Illness Initial Comments - Free Text/Narative: Patient presented to ER 2 days ago with right flank pain, dysuria, and nausea. CT scan was negative at the time and she was discharged home with antiemetics. The patient presented overnight with new development of bilateral vulvar ulcerations, which have ruptured and are extremely painful. Continues to have dysuria and flank pain. Fevers at home. Improves with: Reports: None Worsens with: Reports: None Associated Symptoms: Reports: Fever/Chills, Nausea/Vomiting vaginal Pain Score (Numeric/FACES): 10 - Related Data Allergies/Adverse Reactions: Allergies Allergy/AdvReac Type Severity Reaction Status Date / Time lorazepam [From Ativan] Allergy Agitation Verified 12/22/19 03:49 metoclopramide [From Reglan] Allergy Irritabilit Verified 12/22/19 03:49 y Penicillins Allergy Anaphylactic Verified 12/22/19 03:49 Shock sumatriptan [From Imitrex] Allergy Anaphylactic Verified 12/22/19 03:49 Shock sumatriptan succinate Allergy Anaphylactic Verified 12/22/19 03:49 [From Imitrex] Shock venom-honey bee Allergy Anaphylactic Verified 12/22/19 03:49 [bee venom (honey bee)] Shock gnat - bug Allergy Anaphylactic Uncoded 12/22/19 03:49 Shock Home Medications: Home Meds Insulin Glarg,Human.Rec.Analog [LantUS] 62 units SQ BID 11/03/15 [History] Valsartan 320 mg PO BEDTIME 01/15/16 [History] Insulin Aspart [NovoLOG] 0 unit SQ ASDIRECTED 07/29/16 [History] Chlorthalidone 25 mg PO BEDTIME 07/30/16 [History] Venlafaxine HCl [Venlafaxine ER] 75 mg PO BEDTIME 04/05/17 [History] Amitriptyline [Elavil] 10 mg PO BEDTIME 06/10/17 [History] Insulin Aspart [NovoLOG] 35 - 42 unit SUBCUT TIDAC vial 05/17/18 [Rx] Dicyclomine [Bentyl] 20 mg PO TID PRN #20 tab 12/20/19 [Rx] Promethazine [Phenergan] 25 mg PO Q6H PRN #14 tab 12/20/19 [Rx] Ondansetron [Zofran ODT] 4 mg PO Q6H PRN 12/22/19 [History] Past Medical History HEENT History: Reports: Allergic Rhinitis Other HEENT History: wears glasses Cardiovascular History: Reports: High Cholesterol, Hypertension Respiratory History: Reports: None Gastrointestinal History: Reports: Gastritis Genitourinary History: Reports: Renal Calculus, Other (See Below) Other Genitourinary History: has interstitial cystitis 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: , Other (See Below) (History of abnormal Pap smear; denies history of STD) : 4 Para: 4 Musculoskeletal History: Reports: None Other Musculoskeletal History: knee pain Neurological History: Reports: Migraines, Seizure Other Neuro History: 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 2 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, unknown cause Psychiatric History: Reports: Depression Endocrine/Metabolic History: Reports: Diabetes, Type II, Obesity/BMI 30+ Hematologic History: Reports: None Immunologic History: Reports: None Oncologic (Cancer) History: Reports: None, Cervix Dermatologic History: Reports: None - Infectious Disease History Infectious Disease History: Reports: Chicken Pox - Past Surgical History Head Surgeries/Procedures: Reports: None HEENT Surgical History: Reports: Oral Surgery, Tonsillectomy Cardiovascular Surgical History: Reports: None Respiratory Surgical History: Reports: None GI Surgical History: Reports: Appendectomy, Cholecystectomy Female Surgical History: Reports: Section, Hysterectomy, Lithotripsy /ESWL, Tubal Ligation Musculoskeletal Surgical History: Reports: Knee Replacement - History Comment History Comment: ETOH " 1X A MONTH" Social & Family History - Family History Family Medical History: Noncontributory HEENT: Reports: None Cardiac: Reports: CAD, Hypertension Respiratory: Reports: None GI: Reports: None : Reports: Renal Calculus Psychiatric: Reports: None Endocrine/Metabolic: Reports: None Hematologic: Reports: None Immunologic: Reports: None Dermatologic: Reports: None Oncologic: Reports: Lung - Tobacco Use Smoking Status *Q: Never Smoker - Caffeine Use Caffeine Use: Reports: None - Recreational Drug Use Recreational Drug Use: No H&P Review of Systems - Review of Systems: Review Of Systems: See Below General: Reports: Fever HEENT: Reports: No Symptoms Pulmonary: Reports: No Symptoms Cardiovascular: Reports: No Symptoms Gastrointestinal: Reports: Nausea, Vomiting Genitourinary: Reports: Dysuria, Flank Pain Musculoskeletal: Reports: No Symptoms Skin: Reports: No Symptoms Psychiatric: Reports: No Symptoms Neurological: Reports: No Symptoms Hematologic/Lymphatic: Reports: No Symptoms Immunologic: Reports: No Symptoms Exam - Exam Exam: See Below - Vital Signs Vital Signs: Last Vital Signs Temp 35.9 C L 12/22/19 03:53 Pulse 94 12/22/19 05:45 Resp 20 12/22/19 05:45 BP 171/94 H 12/22/19 05:45 Pulse Ox 96 12/22/19 05:45 Weight: 73.482 kg - Exam General: Alert, Oriented, 4 Neck: Supple Lungs: Clear to Auscultation, Normal Respiratory Effort Cardiovascular: Regular Rate, Regular Rhythm GI/Abdominal Exam: Soft, Non-Tender (Female) Exam: Other (Bilateral vulvar ulcerations with purulent discharge, inflammation of bilateral labia majora, no palpable inguinal lymph nodes) Extremities: Normal Inspection, No Pedal Edema Skin: Warm, Dry, Intact Neuro Extensive - Mental Status: Alert, Oriented x3 Psychiatric: Alert, Normal Affect - Patient Data Lab Results Last 24 hrs: Laboratory Results - last 24 hr 12/22/19 12/22/19 12/22/19 Range/Units 04:10 04:10 04:15 WBC 8.53 (4.0-11.0) K/uL RBC 4.52 (4.30-5.90) M/uL Hgb 14.6 (12.0-16.0) g/dL Hct 40.9 (36.0-46.0) % MCV 90.5 (80.0-98.0) fL MCH 32.3 H (27.0-32.0) pg MCHC 35.7 (31.0-37.0) g/dL RDW Std Deviation 43.0 (28.0-62.0) fl RDW Coeff of Abdirizak 13 (11.0-15.0) % Plt Count 172 (150-400) K/uL MPV 10.10 (7.40-12.00) fL Neut % (Auto) 67.5 (48.0-80.0) % Lymph % (Auto) 19.5 (16.0-40.0) % [place] % (Auto) 12.4 (0.0-15.0) % Eos % (Auto) 0.2 (0.0-7.0) % Baso % (Auto) 0.4 (0.0-1.5) % Neut # (Auto) 5.8 H (1.4-5.7) K/uL Lymph # (Auto) 1.7 (0.6-2.4) K/uL [place] # (Auto) 1.1 H (0.0-0.8) K/uL Eos # (Auto) 0.0 (0.0-0.7) K/uL Baso # (Auto) 0.0 (0.0-0.1) K/uL Nucleated RBC % 0.0 /100WBC Nucleated RBCs # 0 K/uL Sodium 136 (136-145) mmol/L Potassium 4.0 (3.5-5.1) mmol/L Chloride 101 (98-107) mmol/L Carbon Dioxide 23.4 (21.0-32.0) mmol/L BUN 11 (7.0-18.0) mg/dL Creatinine 0.9 (0.6-1.0) mg/dL Est Cr Clr Drug Dosing 61.45 mL/min Estimated GFR (MDRD) > 60.0 ml/min Glucose 345 H (74-106) mg/dL Calcium 8.5 (8.5-10.1) mg/dL Total Bilirubin 1.0 (0.2-1.0) mg/dL AST 18 (15-37) IU/L ALT 23 (14-63) IU/L Alkaline Phosphatase 72 (46-116) U/L Total Protein 7.3 (6.4-8.2) g/dL Albumin 3.4 (3.4-5.0) g/dL Globulin 3.9 (2.6-4.0) g/dL Albumin/Globulin Ratio 0.9 (0.9-1.6) Lipase 123 (73-393) U/L Urine Color YELLOW Urine Appearance CLEAR Urine pH 6.0 (5.0-8.0) Ur Specific [place] 1.020 (1.001-1.035) Urine Protein 30 H (NEGATIVE) mg/dL Urine Glucose (UA) >=1000 (NEGATIVE) mg/dL Urine Ketones TRACE H (NEGATIVE) mg/dL Urine Occult Blood SMALL H (NEGATIVE) Urine Nitrite NEGATIVE (NEGATIVE) Urine Bilirubin NEGATIVE (NEGATIVE) Urine Urobilinogen 0.2 (<2.0) EU/dL Ur Leukocyte Esterase TRACE H (NEGATIVE) Urine RBC 2-3 (0-2/HPF) Urine WBC 0-2 (0-5/HPF) Ur Epithelial Cells OCCASIONAL (NONE-FEW) Urine Bacteria RARE (NEGATIVE) Result Diagrams: 12/22/19 04:10 12/22/19 04:10 Sepsis Event Note - Evaluation Sepsis Screening Result: No Definite Risk - Focused Exam Vital Signs: Vital Signs Temp Pulse Resp BP Pulse Ox 12/22/19 05:45 94 20 171/94 H 96 12/22/19 03:53 35.9 C L 117 H 18 193/133 H 100 Date Exam was Performed: 12/22/19 Time Exam was Performed: 08:35 Consult PN Assessment/Plan Procedures: Procedures ASSAY GLUCOSE BLOOD QUANT (06/17/18) ASSAY IGA/IGD/IGG/IGM EACH (08/18/18) ASSAY OF ALDOSTERONE (01/31/16) ASSAY OF AMYLASE (08/18/18) ASSAY OF BLOOD/URIC ACID (05/16/16) ASSAY OF CALCIUM (01/31/16) ASSAY OF FREE THYROXINE (10/17/15) ASSAY OF LACTIC ACID (01/15/16) ASSAY OF LIPASE (08/18/18) ASSAY OF MAGNESIUM (01/31/16) ASSAY OF METANEPHRINES (01/31/16) ASSAY OF NATRIURETIC PEPTIDE (08/27/16) ASSAY OF PARATHORMONE (01/31/16) ASSAY OF PROLACTIN (08/27/16) ASSAY OF PROTEIN URINE (01/31/16) ASSAY OF RENIN (01/31/16) ASSAY OF TROPONIN QUANT (05/16/18) ASSAY OF URINE CREATININE (01/31/16) ASSAY THYROID STIM HORMONE (10/17/15) BLOOD CULTURE FOR BACTERIA (01/15/16) BLOOD GASES ANY COMBINATION (05/16/18) CHEST X-RAY 1 VIEW FRONTAL (05/20/17) CHEST X-RAY 2VW FRONTAL&LATL (09/10/17) CHORIONIC GONADOTROPIN ASSAY (05/20/17) COLONOSCOPY AND BIOPSY (03/13/17) COMPLETE CBC AUTOMATED (06/08/17) COMPLETE CBC W/AUTO DIFF WBC (05/23/19) COMPREHEN METABOLIC PANEL (05/23/19) CREATINE MB FRACTION (01/15/16) CT ABD & PELV 1/> REGNS (03/31/19) CT ABD & PELV W/CONTRAST (11/09/17) CT ABD & PELVIS W/O CONTRAST (08/18/18) CT HEAD/BRAIN W/O DYE (11/26/17) CULTURE SCREEN ONLY (02/25/18) DRUG TEST PRSMV DIR OPT OBS (11/26/17) EEG AWAKE AND ASLEEP (01/08/16) ELECTRICAL STIMULATION (08/25/16) ELECTROCARDIOGRAM TRACING (11/26/17) EMERGENCY DEPT VISIT (09/28/19) EMERGENCY DEPT VISIT (05/16/18) EMERGENCY DEPT VISIT (11/09/17) EMERGENCY DEPT VISIT (05/20/17) EMERGENCY DEPT VISIT (04/05/17) EMERGENCY DEPT VISIT (08/27/16) EMERGENCY DEPT VISIT (07/16/16) EMERGENCY DEPT VISIT (05/12/16) EMERGENCY DEPT VISIT (03/30/16) EMERGENCY DEPT VISIT (02/11/16) EMERGENCY DEPT VISIT (01/15/16) EMERGENCY DEPT VISIT (10/08/15) EMERGENCY DEPT VISIT (06/26/14) EMERGENCY DEPT VISIT (06/26/14) EXC TR-EXT B9+EDITH 0.5 CM< (07/30/16) EXTREMITY STUDY (05/16/16) FIBRIN DEGRADATION QUANT (05/16/16) GLUCOSE BLOOD TEST (05/23/19) GLYCOSYLATED HEMOGLOBIN TEST (06/17/18) HEPATITIS B SURFACE AG IA (10/22/15) HEPATITIS C AB TEST (10/22/15) HYDRATE IV INFUSION ADD-ON (05/23/19) HYDRATION IV INFUSION INIT (07/22/17) IMMUNOASSAY NONANTIBODY (08/18/18) INFLUENZA ASSAY W/OPTIC (11/26/17) KNEE ARTHROSCOPY/SURGERY (07/30/16) LIPID PANEL (03/23/18) METABOLIC PANEL TOTAL CA (03/31/19) MRI ABDOMEN W/O DYE (09/08/18) MRI ANGIO ABDOM W ORW/O DYE (11/29/15) MRI BRAIN STEM W/O & W/DYE (01/10/16) MRI JNT OF LWR EXTRE W/O DYE (02/17/19) PROTHROMBIN TIME (11/26/17) PT EVALUATION (08/06/16) REMOVE WRIST TENDON LESION (06/15/17) RENAL FUNCTION PANEL (07/01/16) ROUTINE VENIPUNCTURE (05/23/19) STREP A ASSAY W/OPTIC (02/25/18) TEST FOR ACETONE/KETONES (05/20/17) THER/PROPH/DIAG INJ IV PUSH (05/23/19) THER/PROPH/DIAG INJ SC/IM (04/05/17) THERAPEUTIC EXERCISES (10/01/16) TISSUE EXAM BY PATHOLOGIST (03/13/17) TX/PRO/DX INJ NEW DRUG ADDON (05/23/19) TX/PRO/DX INJ SAME DRUG UNPAID INTERN (11/09/17) UR ALBUMIN SEMIQUANTITATIVE (12/25/17) URINALYSIS AUTO W/SCOPE (05/23/19) URINE CULTURE/COLONY COUNT (05/23/19) URINE TEST (08/27/16) US EXAM ABDOM COMPLETE (10/23/15) VASOPNEUMATIC DEVICE THERAPY (10/01/16) WITHDRAWAL OF ARTERIAL BLOOD (05/16/18) X-RAY EXAM CHEST 1 VIEW (05/16/18) X-RAY EXAM KNEE 4 OR MORE (02/07/19) X-RAY EXAM L-S SPINE 2/3 VWS (04/05/17) X-RAY EXAM OF KNEE 1 OR 2 (09/30/19) X-RAY EXAM OF KNEE 3 (09/28/19) X-RAY EXAM OF WRIST (05/28/17) (1) Herpes genitalia SNOMED Code(s): 09875262 Code(s): A60.00 - HERPESVIRAL INFECTION OF UROGENITAL SYSTEM, UNSPECIFIED Current Visit: Yes Qualifiers: Herpes simplex infection site: vulvovaginitis Qualified Code(s): A60.04 - Herpesviral vulvovaginitis Problem List Initiated/Reviewed/Updated: Yes My Orders Last 24 Hours: My Active Orders 12/22/19 08:31 Lidocaine 5% 1 gm TOP Q2HR PRN 12/22/19 08:35 Sitz Bath [OM.PC] Routine 12/22/19 09:00 Sulfamethoxazole/Trimethoprim [Septra DS] 1 tab PO BID 12/22/19 21:00 valACYclovir [Valtrex] 1,000 mg PO BID Plan: Reviewed natural history of HSV with patient. Valacyclovir 1000mg BID for 7-10 days for suspected primary HSV outbreak. Bactrim DS BID for suspected bacterial superinfection. Sitz baths and topical lidocaine for pain control. Recommend optimal control of diabetes to decrease risk of healing complications and further bacterial infection. All questions answered. Will sign off, but remain available for assistance if needed.
[2019-12-22] MEDS: Ibuprofen 800 MG Tab PO PRN (09:16)
[2019-12-22] MEDS: Enoxaparin 40 MG/0.4 ML Syringe SUBCUT SCH (09:18)
[2019-12-22] MEDS: Ondansetron 4 MG/2 ML SDV IVPUSH PRN ×3 (09:27→22:27)
[2019-12-22 09:39] LABS: HEMOGLOBIN A1C 7.5 % (4.5-6.2)
[2019-12-22] MEDS: Sulfamethoxazole/Trimethoprim 800-160 MG Tab PO SCH ×2 (10:49→20:01)
[2019-12-22] MEDS: HYDROmorphone 1 MG/ML Syringe IVPUSH PRN ×3 (11:51→22:22)
[2019-12-22] MEDS: Sodium Chloride 0.9% 1,000 ML IV SCH ×2 (11:58→19:56)
[2019-12-22] MEDS: Insulin Aspart 100 Units/ML 3 ML Pen SUBCUT SCH ×2 (12:08→17:25)
--- NOTE | 2019-12-22 12:25 | PCM.HP.2 ---
<Louis Isaka Garcia - Last Filed: 12/22/19 21:33> H&P History of Present Illness - General Date of Service: 12/22/19 Admit Problem/Dx: Admission Diagnosis/Problem Admission Diagnosis/Problem Herpes labialis - History of Present Illness Initial Comments - Free Text/Narative: 44 y/o female with history of DM2 who presented to the ER complaining of severe pelvic, genital pain. Patient was found to have herpetic lesions around her vulva. She was admitted for pain control. Patient states that she noticed the lesions about 1 day ago. Has not had lesions before. No history of STI's. She is and monogamous. Rates the pain 9/10. Has been endorsing some subjective fever, nausea, vomiting. No diarrhea. No lesions anywhere else on body. vaginal Pain Score (Numeric/FACES): 10 Right Lower Abdomen Pain Score (Numeric/FACES): 9 - Related Data Allergies/Adverse Reactions: Allergies Allergy/AdvReac Type Severity Reaction Status Date / Time lorazepam [From Ativan] Allergy Agitation Verified 12/22/19 03:49 metoclopramide [From Reglan] Allergy Irritabilit Verified 12/22/19 03:49 y Penicillins Allergy Anaphylactic Verified 12/22/19 03:49 Shock sumatriptan [From Imitrex] Allergy Anaphylactic Verified 12/22/19 03:49 Shock sumatriptan succinate Allergy Anaphylactic Verified 12/22/19 03:49 [From Imitrex] Shock venom-honey bee Allergy Anaphylactic Verified 12/22/19 03:49 [bee venom (honey bee)] Shock gnat - bug Allergy Anaphylactic Uncoded 12/22/19 03:49 Shock Home Medications: Home Meds Chlorthalidone 25 mg PO DAILY 07/30/16 [History] Insulin Aspart [NovoLOG] 35 - 42 unit SUBCUT TIDAC vial 05/17/18 [Rx] Insulin Glarg,Human.Rec.Analog [Lantus] 62 unit SQ .AMBEDTIME 12/22/19 [History] Losartan [Cozaar] 100 mg PO DAILY 12/22/19 [History] Mirtazapine 30 mg PO BEDTIME 12/22/19 [History] Ondansetron [Zofran ODT] 4 mg PO Q6H PRN 12/22/19 [History] atorvaSTATin [Lipitor] 20 mg PO DAILY 12/22/19 [History] HYDROmorphone [Dilaudid] 2 mg PO Q8H PRN #10 tab 12/23/19 [Rx] Lidocaine 5% 1 gm TOP Q2H PRN #1 tube 12/23/19 [Rx] Sulfamethoxazole/Trimethoprim [Septra DS] 1 tab PO BID 5 Days #10 tablet [Rx] valACYclovir [Valtrex] 1,000 mg PO BID 14 Days #28 tab 12/23/19 [Rx] Past Medical History HEENT History: Reports: Allergic Rhinitis Other HEENT History: wears glasses Cardiovascular History: Reports: High Cholesterol, Hypertension Respiratory History: Reports: None Gastrointestinal History: Reports: Gastritis, Pancreatitis Genitourinary History: Reports: Renal Calculus, UTI, Recurrent Other Genitourinary History: has interstitial cystitis BUFFER CHROME History: Reports: , Other (See Below) Musculoskeletal History: Reports: None Other Musculoskeletal History: knee pain Neurological History: Reports: Migraines, Seizure Other Neuro History: 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 2 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, unknown cause Psychiatric History: Reports: Depression Endocrine/Metabolic History: Reports: Diabetes, Type II, Obesity/BMI 30+ Do You Give Correction Boluses or Sliding Scale: Yes Patient/Family Able to Supply Written Copy of Sliding Scale: No Hematologic History: Reports: None Immunologic History: Reports: None Oncologic (Cancer) History: Reports: None Dermatologic History: Reports: None - Infectious Disease History Infectious Disease History: Reports: Chicken Pox - Past Surgical History Head Surgeries/Procedures: Reports: None HEENT Surgical History: Reports: Tonsillectomy Cardiovascular Surgical History: Reports: None Respiratory Surgical History: Reports: None GI Surgical History: Reports: Appendectomy, Cholecystectomy Female Surgical History: Reports: Section, Hysterectomy, Lithotripsy /ESWL, Tubal Ligation Neurological Surgical History: Reports: None Musculoskeletal Surgical History: Reports: Other (See Below) Other Musculoskeletal Surgeries/Procedures:: cyst removed and cartilage fixed in left knee - History Comment History Comment: ETOH " 1X A MONTH" Social & Family History - Family History Family Medical History: Noncontributory HEENT: Reports: None Cardiac: Reports: CAD, Hypertension Respiratory: Reports: None GI: Reports: None : Reports: Renal Calculus Psychiatric: Reports: None Endocrine/Metabolic: Reports: None Hematologic: Reports: None Immunologic: Reports: None Dermatologic: Reports: None Oncologic: Reports: Lung - Tobacco Use Smoking Status *Q: Never Smoker - Caffeine Use Caffeine Use: Reports: Soda, Tea - Recreational Drug Use Recreational Drug Use: No H&P Review of Systems - Review of Systems: Review Of Systems: Comprehensive ROS is negative, except as noted in HPI. Exam - Exam Exam: See Below - Vital Signs Vital Signs: Last Vital Signs Temp 35.9 C L 12/22/19 03:53 Pulse 94 12/22/19 05:45 Resp 20 12/22/19 05:45 BP 171/94 H 12/22/19 05:45 Pulse Ox 96 12/22/19 05:45 Weight: 73.482 kg - Exam General: Alert, Oriented, Cooperative HEENT: Other (dry oral mucosa) Lungs: Clear to Auscultation, Wheezing. No: Crackles Cardiovascular: Regular Rate, Regular Rhythm GI/Abdominal Exam: Normal Bowel Sounds, Soft, Non-Tender, No Distention (Female) Exam: Other (multiple herpetic lesions in vulva) Extremities: Normal Inspection, No Pedal Edema Skin: Warm - Patient Data Lab Results Last 24 hrs: Laboratory Results - last 24 hr 12/22/19 12/22/19 12/22/19 Range/Units 04:10 04:10 04:10 WBC 8.53 (4.0-11.0) K/uL RBC 4.52 (4.30-5.90) M/uL Hgb 14.6 (12.0-16.0) g/dL Hct 40.9 (36.0-46.0) % MCV 90.5 (80.0-98.0) fL MCH 32.3 H (27.0-32.0) pg MCHC 35.7 (31.0-37.0) g/dL RDW Std Deviation 43.0 (28.0-62.0) fl RDW Coeff of Abdirizak 13 (11.0-15.0) % Plt Count 172 (150-400) K/uL MPV 10.10 (7.40-12.00) fL Neut % (Auto) 67.5 (48.0-80.0) % Lymph % (Auto) 19.5 (16.0-40.0) % [place] % (Auto) 12.4 (0.0-15.0) % Eos % (Auto) 0.2 (0.0-7.0) % Baso % (Auto) 0.4 (0.0-1.5) % Neut # (Auto) 5.8 H (1.4-5.7) K/uL Lymph # (Auto) 1.7 (0.6-2.4) K/uL [place] # (Auto) 1.1 H (0.0-0.8) K/uL Eos # (Auto) 0.0 (0.0-0.7) K/uL Baso # (Auto) 0.0 (0.0-0.1) K/uL Nucleated RBC % 0.0 /100WBC Nucleated RBCs # 0 K/uL Sodium 136 (136-145) mmol/L Potassium 4.0 (3.5-5.1) mmol/L Chloride 101 (98-107) mmol/L Carbon Dioxide 23.4 (21.0-32.0) mmol/L BUN 11 (7.0-18.0) mg/dL Creatinine 0.9 (0.6-1.0) mg/dL Est Cr Clr Drug Dosing 61.45 mL/min Estimated GFR (MDRD) > 60.0 ml/min Glucose 345 H (74-106) mg/dL POC Glucose (60-110) mg/dL Hemoglobin A1c (4.5-6.2) % Calcium 8.5 (8.5-10.1) mg/dL Total Bilirubin 1.0 (0.2-1.0) mg/dL AST 18 (15-37) IU/L ALT 23 (14-63) IU/L Alkaline Phosphatase 72 (46-116) U/L Total Protein 7.3 (6.4-8.2) g/dL Albumin 3.4 (3.4-5.0) g/dL Globulin 3.9 (2.6-4.0) g/dL Albumin/Globulin Ratio 0.9 (0.9-1.6) Triglycerides 347 H (0-200) mg/dL Cholesterol 211 H (50-200) mg/dL LDL Cholesterol, Calc 115 (60-180) mg/dL VLDL Cholesterol 69 H (5-55) mg/dL HDL Cholesterol 27 L (40-60) mg/dL Cholesterol/HDL Ratio 7.8 H (3.3-6.0) Lipase 123 (73-393) U/L Urine Color Urine Appearance Urine pH (5.0-8.0) Ur Specific [place] (1.001-1.035) Urine Protein (NEGATIVE) mg/dL Urine Glucose (UA) (NEGATIVE) mg/dL Urine Ketones (NEGATIVE) mg/dL Urine Occult Blood (NEGATIVE) Urine Nitrite (NEGATIVE) Urine Bilirubin (NEGATIVE) Urine Urobilinogen (<2.0) EU/dL Ur Leukocyte Esterase (NEGATIVE) Urine RBC (0-2/HPF) Urine WBC (0-5/HPF) Ur Epithelial Cells (NONE-FEW) Urine Bacteria (NEGATIVE) Cherie species DNA (NEGATIVE) Gardnerella DNA Probe (NEGATIVE) Hep Bs Antigen Index (<1.0) INDEX Hep C Ab Index (RAMBO) (<0.8) INDEX HIV 1&2 Ag/Ab, 4th Gen (<1.0) INDEX Trichomonas DNA Probe (NEGATIVE) 12/22/19 12/22/19 12/22/19 Range/Units 04:10 04:10 04:10 WBC (4.0-11.0) K/uL RBC (4.30-5.90) M/uL Hgb (12.0-16.0) g/dL Hct (36.0-46.0) % MCV (80.0-98.0) fL MCH (27.0-32.0) pg MCHC (31.0-37.0) g/dL RDW Std Deviation (28.0-62.0) fl RDW Coeff of Abdirizak (11.0-15.0) % Plt Count (150-400) K/uL MPV (7.40-12.00) fL Neut % (Auto) (48.0-80.0) % Lymph % (Auto) (16.0-40.0) % [place] % (Auto) (0.0-15.0) % Eos % (Auto) (0.0-7.0) % Baso % (Auto) (0.0-1.5) % Neut # (Auto) (1.4-5.7) K/uL Lymph # (Auto) (0.6-2.4) K/uL [place] # (Auto) (0.0-0.8) K/uL Eos # (Auto) (0.0-0.7) K/uL Baso # (Auto) (0.0-0.1) K/uL Nucleated RBC % /100WBC Nucleated RBCs # K/uL Sodium (136-145) mmol/L Potassium (3.5-5.1) mmol/L Chloride (98-107) mmol/L Carbon Dioxide (21.0-32.0) mmol/L BUN (7.0-18.0) mg/dL Creatinine (0.6-1.0) mg/dL Est Cr Clr Drug Dosing mL/min Estimated GFR (MDRD) ml/min Glucose (74-106) mg/dL POC Glucose (60-110) mg/dL Hemoglobin A1c 7.5 H (4.5-6.2) % Calcium (8.5-10.1) mg/dL Total Bilirubin (0.2-1.0) mg/dL AST (15-37) IU/L ALT (14-63) IU/L Alkaline Phosphatase (46-116) U/L Total Protein (6.4-8.2) g/dL Albumin (3.4-5.0) g/dL Globulin (2.6-4.0) g/dL Albumin/Globulin Ratio (0.9-1.6) Triglycerides (0-200) mg/dL Cholesterol (50-200) mg/dL LDL Cholesterol, Calc (60-180) mg/dL VLDL Cholesterol (5-55) mg/dL HDL Cholesterol (40-60) mg/dL Cholesterol/HDL Ratio (3.3-6.0) Lipase (73-393) U/L Urine Color Urine Appearance Urine pH (5.0-8.0) Ur Specific [place] (1.001-1.035) Urine Protein (NEGATIVE) mg/dL Urine Glucose (UA) (NEGATIVE) mg/dL Urine Ketones (NEGATIVE) mg/dL Urine Occult Blood (NEGATIVE) Urine Nitrite (NEGATIVE) Urine Bilirubin (NEGATIVE) Urine Urobilinogen (<2.0) EU/dL Ur Leukocyte Esterase (NEGATIVE) Urine RBC (0-2/HPF) Urine WBC (0-5/HPF) Ur Epithelial Cells (NONE-FEW) Urine Bacteria (NEGATIVE) Cherie species DNA (NEGATIVE) Gardnerella DNA Probe (NEGATIVE) Hep Bs Antigen Index < 0.1 (<1.0) INDEX Hep C Ab Index (RAMBO) 0.10 (<0.8) INDEX HIV 1&2 Ag/Ab, 4th Gen < 0.1 (<1.0) INDEX Trichomonas DNA Probe (NEGATIVE) 12/22/19 12/22/19 12/22/19 Range/Units 04:15 10:15 11:40 WBC (4.0-11.0) K/uL RBC (4.30-5.90) M/uL Hgb (12.0-16.0) g/dL Hct (36.0-46.0) % MCV (80.0-98.0) fL MCH (27.0-32.0) pg MCHC (31.0-37.0) g/dL RDW Std Deviation (28.0-62.0) fl RDW Coeff of Abdirizak (11.0-15.0) % Plt Count (150-400) K/uL MPV (7.40-12.00) fL Neut % (Auto) (48.0-80.0) % Lymph % (Auto) (16.0-40.0) % [place] % (Auto) (0.0-15.0) % Eos % (Auto) (0.0-7.0) % Baso % (Auto) (0.0-1.5) % Neut # (Auto) (1.4-5.7) K/uL Lymph # (Auto) (0.6-2.4) K/uL [place] # (Auto) (0.0-0.8) K/uL Eos # (Auto) (0.0-0.7) K/uL Baso # (Auto) (0.0-0.1) K/uL Nucleated RBC % /100WBC Nucleated RBCs # K/uL Sodium (136-145) mmol/L Potassium (3.5-5.1) mmol/L Chloride (98-107) mmol/L Carbon Dioxide (21.0-32.0) mmol/L BUN (7.0-18.0) mg/dL Creatinine (0.6-1.0) mg/dL Est Cr Clr Drug Dosing mL/min Estimated GFR (MDRD) ml/min Glucose (74-106) mg/dL POC Glucose 230 H (60-110) mg/dL Hemoglobin A1c (4.5-6.2) % Calcium (8.5-10.1) mg/dL Total Bilirubin (0.2-1.0) mg/dL AST (15-37) IU/L ALT (14-63) IU/L Alkaline Phosphatase (46-116) U/L Total Protein (6.4-8.2) g/dL Albumin (3.4-5.0) g/dL Globulin (2.6-4.0) g/dL Albumin/Globulin Ratio (0.9-1.6) Triglycerides (0-200) mg/dL Cholesterol (50-200) mg/dL LDL Cholesterol, Calc (60-180) mg/dL VLDL Cholesterol (5-55) mg/dL HDL Cholesterol (40-60) mg/dL Cholesterol/HDL Ratio (3.3-6.0) Lipase (73-393) U/L Urine Color YELLOW Urine Appearance CLEAR Urine pH 6.0 (5.0-8.0) Ur Specific [place] 1.020 (1.001-1.035) Urine Protein 30 H (NEGATIVE) mg/dL Urine Glucose (UA) >=1000 (NEGATIVE) mg/dL Urine Ketones TRACE H (NEGATIVE) mg/dL Urine Occult Blood SMALL H (NEGATIVE) Urine Nitrite NEGATIVE (NEGATIVE) Urine Bilirubin NEGATIVE (NEGATIVE) Urine Urobilinogen 0.2 (<2.0) EU/dL Ur Leukocyte Esterase TRACE H (NEGATIVE) Urine RBC 2-3 (0-2/HPF) Urine WBC 0-2 (0-5/HPF) Ur Epithelial Cells OCCASIONAL (NONE-FEW) Urine Bacteria RARE (NEGATIVE) Cherie species DNA POSITIVE H (NEGATIVE) Gardnerella DNA Probe NEGATIVE (NEGATIVE) Hep Bs Antigen Index (<1.0) INDEX Hep C Ab Index (RAMBO) (<0.8) INDEX HIV 1&2 Ag/Ab, 4th Gen (<1.0) INDEX Trichomonas DNA Probe NEGATIVE (NEGATIVE) Result Diagrams: 12/22/19 04:10 12/22/19 04:10 Sepsis Event Note - Evaluation Sepsis Screening Result: No Definite Risk - Focused Exam Vital Signs: Vital Signs Temp Pulse Resp BP Pulse Ox 12/22/19 05:45 94 20 171/94 H 96 12/22/19 03:53 35.9 C L 117 H 18 193/133 H 100 Date Exam was Performed: 12/22/19 Time Exam was Performed: 21:33 Problem List Initiated/Reviewed/Updated: Yes Orders Last 24hrs: Active Orders 24 hr Category Date Time Status Admission Status [Patient Status] [ADT] Stat ADT 12/22/19 04:54 Active Blood Glucose Check, Bedside [RC] QIDACANDBED Care 12/22/19 08:34 Active Intake and Output [RC] QSHIFT Care 12/22/19 08:34 Active Oxygen Therapy [RC] PRN Care 12/22/19 08:34 Active Up ad Jumana [RC] ASDIRECTED Care 12/22/19 08:34 Active VTE/DVT Education [RC] PER UNIT ROUTINE Care 12/22/19 08:34 Active Vital Signs [RC] Q4H Care 12/22/19 08:34 Active [employer] Diet [DIET] Diet 12/22/19 Breakfast Active BASIC METABOLIC PANEL,BMP [CHEM] AM Lab 12/23/19 05:11 Ordered BASIC METABOLIC PANEL,BMP [CHEM] AM Lab 12/24/19 05:11 Ordered CBC WITH AUTO DIFF [HEME] AM Lab 12/23/19 05:11 Ordered CBC WITH AUTO DIFF [HEME] AM Lab 12/24/19 05:11 Ordered CHLAMYDIA AND GONORRHEA BY TMA Routine Lab 12/22/19 10:15 Received CULTURE WOUND [RM] Routine Lab 12/22/19 09:57 Ordered HSV AMPLIFIED MOLECULAR [MREF] Routine Lab 12/22/19 10:15 Received RPR (SYPHILIS SERO) W/ RFLX [REF] Routine Lab 12/22/19 04:10 Received Acetaminophen [Tylenol] Med 12/22/19 08:34 Active 650 mg PO Q4H PRN Enoxaparin [Lovenox] Med 12/22/19 08:45 Active 40 mg SUBCUT Q24H HYDROmorphone [Dilaudid] Med 12/22/19 11:09 Active 1 mg IVPUSH Q4H PRN Ibuprofen [Motrin] Med 12/22/19 08:34 Active 800 mg PO Q6H PRN Insulin Aspart [NovoLOG] Med 12/22/19 11:30 Active See Protocol SUBCUT TIDAC Ketorolac [Toradol] Med 12/22/19 08:34 Active 30 mg IV Q6H PRN Lidocaine 5% Med 12/22/19 08:31 Active 1 gm TOP Q2H PRN Ondansetron [Zofran ODT] Med 12/22/19 08:34 Active 4 mg PO Q4H PRN Ondansetron [Zofran] Med 12/22/19 08:34 Active 4 mg IVPUSH Q4H PRN Sodium Chloride 0.9% [Normal Saline] 1,000 ml Med 12/22/19 11:30 Active IV ASDIRECTED Sulfamethoxazole/Trimethoprim [Septra DS] Med 12/22/19 09:00 Active 1 tab PO BID polyethylene glycoL 3350 [MiraLAX] Med 12/22/19 08:34 Active 17 gm PO DAILY PRN valACYclovir [Valtrex] Med 12/22/19 21:00 Active 1,000 mg PO BID Sitz Bath [OM.PC] Routine Oth 12/22/19 08:35 Ordered Resuscitation Status Routine Resus Stat 12/22/19 08:34 Ordered Medication Orders Acetaminophen (Tylenol) 650 mg PO Q4H PRN PRN Reason: Pain (Mild 1-3)/fever Enoxaparin Sodium (Lovenox) 40 mg SUBCUT Q24H [facility] Last Admin: 12/22/19 09:18 Dose: 40 mg Hydromorphone HCl (Dilaudid) 1 mg IVPUSH Q4H PRN PRN Reason: Pain Last Admin: 12/22/19 11:51 Dose: 1 mg Sodium Chloride (Normal Saline) 1,000 mls @ 125 mls/hr IV ASDIRECTED [facility] Last Admin: 12/22/19 11:58 Dose: 125 mls/hr Ibuprofen (Motrin) 800 mg PO Q6H PRN PRN Reason: Pain (mild 1-3) Last Admin: 12/22/19 09:16 Dose: 800 mg Insulin Aspart (Novolog) 0 unit SUBCUT TIDAC [facility]; Protocol Last Admin: 12/22/19 12:08 Dose: 4 units Ketorolac Tromethamine (Toradol) 30 mg IV Q6H PRN PRN Reason: Pain (moderate 4-6) Lidocaine HCl (Lidocaine 5%) 1 gm TOP Q2H PRN PRN Reason: Perineal Comfort Measure Last Admin: 12/22/19 09:37 Dose: 1 gm Ondansetron HCl (Zofran Odt) 4 mg PO Q4H PRN PRN Reason: nausea, able to take PO Ondansetron HCl (Zofran) 4 mg IVPUSH Q4H PRN PRN Reason: Nausea Last Admin: 12/22/19 09:27 Dose: 4 mg Polyethylene Glycol (Miralax) 17 gm PO DAILY PRN PRN Reason: Constipation Trimethoprim/Sulfamethoxazole (Septra Ds) 1 tab PO BID [facility] Last Admin: 12/22/19 10:49 Dose: 1 tab Valacyclovir HCl (Valtrex) 1,000 mg PO BID [facility] Assessment/Plan Comment:: A: 1. Genital herpes 2. Hypertension 3. Diabetes type 2 4. Dyslipidemia P: 1. Will continue with current medical treatment. Appreciate [employer] recs. Continue to monitor BP. Will resume home meds. DC IV fluids. Control pain with dilaudid, toradol. Check BG and ISS. Dispo- likely tomorrow. <Rai Hernández - Last Filed: 12/30/19 12:34> H&P History of Present Illness - General Admit Problem/Dx: Admission Diagnosis/Problem Admission Diagnosis/Problem Herpes labialis Exam - Vital Signs Vital Signs: Last Vital Signs Temp 36.2 C 12/23/19 11:25 Pulse 78 12/23/19 11:25 Resp 22 H 12/23/19 11:25 BP 106/64 12/23/19 11:25 Pulse Ox 97 12/23/19 11:25 - Patient Data Result Diagrams: 12/23/19 06:06 12/23/19 06:06 Assessment/Plan Comment:: I performed a history and physical exam of the patient and discussed management with resident. I have reviewed the residents note and agree with documented findings and plan unless otherwise specified in my note.
[2019-12-22] MEDS: Chlorthalidone 25 MG Tab PO SCH (18:35)
[2019-12-22] MEDS: Fluconazole 100 MG Tab PO SCH (18:36)
[2019-12-22] MEDS: Ketorolac 30 MG/ML SDV IV PRN (19:56)
[2019-12-22] MEDS: valACYclovir 500 MG Tab PO SCH (20:01)
[2019-12-22] MEDS ORDERED: Losartan 50 MG Tab PO ONE (20:25)
[2019-12-22] MEDS ORDERED: Insulin Detemir 100 Units/ML 3 ML Pen SUBCUT ONE (22:33)
[2019-12-23] MEDS ORDERED: Mirtazapine 15 MG Tab PO SCH (00:15)
[2019-12-23] MEDS: Ibuprofen 800 MG Tab PO PRN (04:07)
[2019-12-23] MEDS: Ondansetron 4 MG/2 ML SDV IVPUSH PRN ×2 (05:02→09:21)
[2019-12-23] MEDS: HYDROmorphone 1 MG/ML Syringe IVPUSH PRN ×2 (05:02→09:21)
[2019-12-23 06:35] LABS: BLOOD UREA NITROGEN,BUN 11 mg/dL (7.0-18.0); CARBON DIOXIDE,CO2 23.6 mmol/L (21.0-32.0); CHLORIDE,CL 103 mmol/L (98-107); GLUCOSE RANDOM 183 mg/dL (74-106); POTASSIUM,K 3.7 mmol/L (3.5-5.1); SODIUM,NA 136 mmol/L (136-145)
[2019-12-23] MEDS: Ketorolac 30 MG/ML SDV IV PRN (06:55)
[2019-12-23] MEDS ORDERED: atorvaSTATin 20 MG Tab PO SCH (09:00)
[2019-12-23] MEDS ORDERED: Losartan 50 MG Tab PO SCH (09:00)
[2019-12-23] MEDS: Fluconazole 100 MG Tab PO SCH (09:01)
[2019-12-23] MEDS: valACYclovir 500 MG Tab PO SCH (09:03)
[2019-12-23] MEDS: Sulfamethoxazole/Trimethoprim 800-160 MG Tab PO SCH (09:05)
[2019-12-23] MEDS: Chlorthalidone 25 MG Tab PO SCH (09:05)
[2019-12-23] MEDS: Insulin Aspart 100 Units/ML 3 ML Pen SUBCUT SCH ×2 (09:08→12:13)
[2019-12-23] MEDS: Enoxaparin 40 MG/0.4 ML Syringe SUBCUT SCH (09:10)
--- NOTE | 2019-12-23 09:20 | PCM.DCSUM1 ---
<Isaak Magallanes - Last Filed: 12/23/19 18:51> Discharge Summary - Hospital Course Free Text/Narrative:: 44 y/o female presented to the ER complaining of genital lesions and pain. She was admitted for pain control due to genital herpes. Her pain was controlled with Dilaudid and lidocaine cream. She was started on Valacyclovir, Bactrim, Fluconazole. In addition, she was tested for STIs. Positive for HSV type 1 and horacio. She did fairly well during this hospitalization. Her pain was more controlled and was tolerating PO intake. She was instructed to follow-up with her transitional care liaison. - Discharge Data Discharge Date: 12/23/19 Discharge Disposition: Home, Self-Care 01 Condition: Stable - Referral to Home Health Primary Care Physician: Levy Singh MD - Patient Instructions Diet: Regular Diet as Tolerated Activity: As Tolerated Notify Provider of: Fever, Increased Pain, Drainage, Nausea and/or Vomiting - Discharge Plan Prescriptions/Med Rec: HYDROmorphone [Dilaudid] 2 mg PO Q8H PRN #10 tab PRN Reason: Pain Lidocaine 5% 1 gm TOP Q2H PRN #1 tube PRN Reason: Perineal Comfort Measure Sulfamethoxazole/Trimethoprim [Septra DS] 1 tab PO BID 5 Days #10 tablet valACYclovir [Valtrex] 1,000 mg PO BID 14 Days #28 tab Home Medications: Home Meds Chlorthalidone 25 mg PO DAILY 07/30/16 [History] Insulin Aspart [NovoLOG] 35 - 42 unit SUBCUT TIDAC vial 05/17/18 [Rx] Insulin Glarg,Human.Rec.Analog [Lantus] 62 unit SQ .AMBEDTIME 12/22/19 [History] Losartan [Cozaar] 100 mg PO DAILY 12/22/19 [History] Mirtazapine 30 mg PO BEDTIME 12/22/19 [History] Ondansetron [Zofran ODT] 4 mg PO Q6H PRN 12/22/19 [History] atorvaSTATin [Lipitor] 20 mg PO DAILY 12/22/19 [History] HYDROmorphone [Dilaudid] 2 mg PO Q8H PRN #10 tab 12/23/19 [Rx] Lidocaine 5% 1 gm TOP Q2H PRN #1 tube 12/23/19 [Rx] Sulfamethoxazole/Trimethoprim [Septra DS] 1 tab PO BID 5 Days #10 tablet [Rx] valACYclovir [Valtrex] 1,000 mg PO BID 14 Days #28 tab 12/23/19 [Rx] Patient Handouts: Valacyclovir caplets, Lidocaine; Tetracaine dermal patches, Genital Herpes, Hydromorphone tablets, Sulfamethoxazole; Trimethoprim, SMX-TMP tablets Referrals: Mel Burnett MD [Physician] - 01/09/20 1:00 pm - Discharge Summary/Plan Comment DC Time >30 min.: No - Patient Data Vitals - Most Recent: Last Vital Signs Temp 38.0 C 12/23/19 06:38 Pulse 108 H 12/23/19 04:03 Resp 18 12/23/19 04:03 BP 157/94 H 12/23/19 09:06 Pulse Ox 98 12/23/19 04:03 Weight - Most Recent: 73.482 kg I&O - Last 24 hours: Intake & Output 12/22/19 12/23/19 12/23/19 22:59 06:59 14:59 Intake Total 270 1010 Output Total 500 400 Balance -230 610 Lab Results - Last 24 hrs: Laboratory Results - last 24 hr 12/22/19 12/22/19 12/22/19 Range/Units 04:10 04:10 04:10 WBC (4.0-11.0) K/uL RBC (4.30-5.90) M/uL Hgb (12.0-16.0) g/dL Hct (36.0-46.0) % MCV (80.0-98.0) fL MCH (27.0-32.0) pg MCHC (31.0-37.0) g/dL RDW Std Deviation (28.0-62.0) fl RDW Coeff of Abdirizak (11.0-15.0) % Plt Count (150-400) K/uL MPV (7.40-12.00) fL Neut % (Auto) (48.0-80.0) % Lymph % (Auto) (16.0-40.0) % [place] % (Auto) (0.0-15.0) % Eos % (Auto) (0.0-7.0) % Baso % (Auto) (0.0-1.5) % Neut # (Auto) (1.4-5.7) K/uL Lymph # (Auto) (0.6-2.4) K/uL [place] # (Auto) (0.0-0.8) K/uL Eos # (Auto) (0.0-0.7) K/uL Baso # (Auto) (0.0-0.1) K/uL Nucleated RBC % /100WBC Nucleated RBCs # K/uL Sodium (136-145) mmol/L Potassium (3.5-5.1) mmol/L Chloride (98-107) mmol/L Carbon Dioxide (21.0-32.0) mmol/L BUN (7.0-18.0) mg/dL Creatinine (0.6-1.0) mg/dL Est Cr Clr Drug Dosing mL/min Estimated GFR (MDRD) ml/min Glucose (74-106) mg/dL POC Glucose (60-110) mg/dL Hemoglobin A1c 7.5 H (4.5-6.2) % Calcium (8.5-10.1) mg/dL Horacio species DNA (NEGATIVE) Gardnerella DNA Probe (NEGATIVE) Hep Bs Antigen Index < 0.1 (<1.0) INDEX Hep C Ab Index (RAMBO) 0.10 (<0.8) INDEX HIV 1&2 Ag/Ab, 4th Gen < 0.1 (<1.0) INDEX Trichomonas DNA Probe (NEGATIVE) 12/22/19 12/22/19 12/22/19 Range/Units 10:15 11:40 16:41 WBC (4.0-11.0) K/uL RBC (4.30-5.90) M/uL Hgb (12.0-16.0) g/dL Hct (36.0-46.0) % MCV (80.0-98.0) fL MCH (27.0-32.0) pg MCHC (31.0-37.0) g/dL RDW Std Deviation (28.0-62.0) fl RDW Coeff of Abdirizak (11.0-15.0) % Plt Count (150-400) K/uL MPV (7.40-12.00) fL Neut % (Auto) (48.0-80.0) % Lymph % (Auto) (16.0-40.0) % [place] % (Auto) (0.0-15.0) % Eos % (Auto) (0.0-7.0) % Baso % (Auto) (0.0-1.5) % Neut # (Auto) (1.4-5.7) K/uL Lymph # (Auto) (0.6-2.4) K/uL [place] # (Auto) (0.0-0.8) K/uL Eos # (Auto) (0.0-0.7) K/uL Baso # (Auto) (0.0-0.1) K/uL Nucleated RBC % /100WBC Nucleated RBCs # K/uL Sodium (136-145) mmol/L Potassium (3.5-5.1) mmol/L Chloride (98-107) mmol/L Carbon Dioxide (21.0-32.0) mmol/L BUN (7.0-18.0) mg/dL Creatinine (0.6-1.0) mg/dL Est Cr Clr Drug Dosing mL/min Estimated GFR (MDRD) ml/min Glucose (74-106) mg/dL POC Glucose 230 H 124 H (60-110) mg/dL Hemoglobin A1c (4.5-6.2) % Calcium (8.5-10.1) mg/dL Horacio species DNA POSITIVE H (NEGATIVE) Gardnerella DNA Probe NEGATIVE (NEGATIVE) Hep Bs Antigen Index (<1.0) INDEX Hep C Ab Index (RAMBO) (<0.8) INDEX HIV 1&2 Ag/Ab, 4th Gen (<1.0) INDEX Trichomonas DNA Probe NEGATIVE (NEGATIVE) 12/22/19 12/22/19 12/23/19 Range/Units 20:49 23:09 06:06 WBC 8.24 (4.0-11.0) K/uL RBC 3.87 L (4.30-5.90) M/uL Hgb 12.5 (12.0-16.0) g/dL Hct 35.4 L (36.0-46.0) % MCV 91.5 (80.0-98.0) fL MCH 32.3 H (27.0-32.0) pg MCHC 35.3 (31.0-37.0) g/dL RDW Std Deviation 43.7 (28.0-62.0) fl RDW Coeff of Abdirizak 13 (11.0-15.0) % Plt Count 154 (150-400) K/uL MPV 10.10 (7.40-12.00) fL Neut % (Auto) 69.9 (48.0-80.0) % Lymph % (Auto) 17.4 (16.0-40.0) % [place] % (Auto) 12.1 (0.0-15.0) % Eos % (Auto) 0.4 (0.0-7.0) % Baso % (Auto) 0.2 (0.0-1.5) % Neut # (Auto) 5.8 H (1.4-5.7) K/uL Lymph # (Auto) 1.4 (0.6-2.4) K/uL [place] # (Auto) 1.0 H (0.0-0.8) K/uL Eos # (Auto) 0.0 (0.0-0.7) K/uL Baso # (Auto) 0.0 (0.0-0.1) K/uL Nucleated RBC % 0.0 /100WBC Nucleated RBCs # 0 K/uL Sodium (136-145) mmol/L Potassium (3.5-5.1) mmol/L Chloride (98-107) mmol/L Carbon Dioxide (21.0-32.0) mmol/L BUN (7.0-18.0) mg/dL Creatinine (0.6-1.0) mg/dL Est Cr Clr Drug Dosing mL/min Estimated GFR (MDRD) ml/min Glucose (74-106) mg/dL POC Glucose 213 H 183 H (60-110) mg/dL Hemoglobin A1c (4.5-6.2) % Calcium (8.5-10.1) mg/dL Horacio species DNA (NEGATIVE) Gardnerella DNA Probe (NEGATIVE) Hep Bs Antigen Index (<1.0) INDEX Hep C Ab Index (RAMBO) (<0.8) INDEX HIV 1&2 Ag/Ab, 4th Gen (<1.0) INDEX Trichomonas DNA Probe (NEGATIVE) 12/23/19 12/23/19 Range/Units 06:06 06:36 WBC (4.0-11.0) K/uL RBC (4.30-5.90) M/uL Hgb (12.0-16.0) g/dL Hct (36.0-46.0) % MCV (80.0-98.0) fL MCH (27.0-32.0) pg MCHC (31.0-37.0) g/dL RDW Std Deviation (28.0-62.0) fl RDW Coeff of Abdirizak (11.0-15.0) % Plt Count (150-400) K/uL MPV (7.40-12.00) fL Neut % (Auto) (48.0-80.0) % Lymph % (Auto) (16.0-40.0) % [place] % (Auto) (0.0-15.0) % Eos % (Auto) (0.0-7.0) % Baso % (Auto) (0.0-1.5) % Neut # (Auto) (1.4-5.7) K/uL Lymph # (Auto) (0.6-2.4) K/uL [place] # (Auto) (0.0-0.8) K/uL Eos # (Auto) (0.0-0.7) K/uL Baso # (Auto) (0.0-0.1) K/uL Nucleated RBC % /100WBC Nucleated RBCs # K/uL Sodium 136 (136-145) mmol/L Potassium 3.7 (3.5-5.1) mmol/L Chloride 103 (98-107) mmol/L Carbon Dioxide 23.6 (21.0-32.0) mmol/L BUN 11 (7.0-18.0) mg/dL Creatinine 0.9 (0.6-1.0) mg/dL Est Cr Clr Drug Dosing 58.49 mL/min Estimated GFR (MDRD) > 60.0 ml/min Glucose 183 H (74-106) mg/dL POC Glucose 159 H (60-110) mg/dL Hemoglobin A1c (4.5-6.2) % Calcium 8.0 L (8.5-10.1) mg/dL Horacio species DNA (NEGATIVE) Gardnerella DNA Probe (NEGATIVE) Hep Bs Antigen Index (<1.0) INDEX Hep C Ab Index (RAMBO) (<0.8) INDEX HIV 1&2 Ag/Ab, 4th Gen (<1.0) INDEX Trichomonas DNA Probe (NEGATIVE) Med Orders - Current: Current Medications Acetaminophen (Tylenol) 650 mg PO Q4H PRN PRN Reason: Pain (Mild 1-3)/fever Atorvastatin Calcium (Lipitor) 20 mg PO DAILY [facility] Last Admin: 12/23/19 09:04 Dose: 20 mg Chlorthalidone (Chlorthalidone) 25 mg PO DAILY [facility] Last Admin: 12/23/19 09:05 Dose: 25 mg Enoxaparin Sodium (Lovenox) 40 mg SUBCUT Q24H [facility] Last Admin: 12/23/19 09:10 Dose: 40 mg Fluconazole (Diflucan) 150 mg PO DAILY [facility] Stop: 12/24/19 09:01 Last Admin: 12/23/19 09:01 Dose: 150 mg Hydromorphone HCl (Dilaudid) 1 mg IVPUSH Q4H PRN PRN Reason: Pain Last Admin: 12/23/19 05:02 Dose: 1 mg Ibuprofen (Motrin) 800 mg PO Q6H PRN PRN Reason: Pain (mild 1-3) Last Admin: 12/23/19 04:07 Dose: 800 mg Insulin Aspart (Novolog) 0 unit SUBCUT TIDAC [facility]; Protocol Last Admin: 12/23/19 09:08 Dose: 2 units Ketorolac Tromethamine (Toradol) 30 mg IV Q6H PRN PRN Reason: Pain (moderate 4-6) Last Admin: 12/23/19 06:55 Dose: 30 mg Lidocaine HCl (Lidocaine 5%) 1 gm TOP Q2H PRN PRN Reason: Perineal Comfort Measure Last Admin: 12/22/19 09:37 Dose: 1 gm Losartan Potassium (Cozaar) 100 mg PO DAILY [facility] Last Admin: 12/23/19 09:06 Dose: 100 mg Mirtazapine (Remeron) 30 mg PO BEDTIME [facility] Last Admin: 12/23/19 01:08 Dose: 30 mg Ondansetron HCl (Zofran Odt) 4 mg PO Q4H PRN PRN Reason: nausea, able to take PO Ondansetron HCl (Zofran) 4 mg IVPUSH Q4H PRN PRN Reason: Nausea Last Admin: 12/23/19 05:02 Dose: 4 mg Polyethylene Glycol (Miralax) 17 gm PO DAILY PRN PRN Reason: Constipation Trimethoprim/Sulfamethoxazole (Septra Ds) 1 tab PO BID [facility] Last Admin: 12/23/19 09:05 Dose: 1 tab Valacyclovir HCl (Valtrex) 1,000 mg PO BID [facility] Last Admin: 12/23/19 09:03 Dose: 1,000 mg Discontinued Medications Hydromorphone HCl (Dilaudid) 1 mg IVPUSH ONETIME ONE Stop: 12/22/19 04:25 Last Admin: 12/22/19 05:28 Dose: 1 mg Sodium Chloride (Normal Saline) 1,000 mls @ 1,000 mls/hr IV .Bolus ONE Stop: 12/22/19 05:05 Last Admin: 12/22/19 04:15 Dose: 1,000 mls/hr Sodium Chloride (Normal Saline) 1,000 mls @ 125 mls/hr IV ASDIRECTED [facility] Last Admin: 12/22/19 19:56 Dose: 125 mls/hr Insulin Detemir (Levemir) 30 unit SUBCUT ONETIME ONE Stop: 12/22/19 22:34 Last Admin: 12/22/19 23:17 Dose: 30 units Losartan Potassium (Cozaar) 50 mg PO ONETIME ONE Stop: 12/22/19 20:26 Last Admin: 12/22/19 20:50 Dose: 50 mg Morphine Sulfate (Morphine) 2 mg IVPUSH Q2H PRN PRN Reason: Pain (severe 7-10) Stop: 12/23/19 08:35 Last Admin: 12/22/19 09:11 Dose: 2 mg Ondansetron HCl (Zofran) 4 mg IVPUSH ONETIME ONE Stop: 12/22/19 04:24 Last Admin: 12/22/19 05:28 Dose: 4 mg Valacyclovir HCl (Valtrex) 500 mg PO BID [facility] Last Admin: 12/22/19 05:28 Dose: 500 mg <Rai Hernández - Last Filed: 12/30/19 12:34> Discharge Summary - Hospital Course Free Text/Narrative:: I have seen and evaluated the patient and agree with the residents note unless specified in my note - Referral to Home Health Primary Care Physician: Levy Singh MD - Patient Data Vitals - Most Recent: Last Vital Signs Temp 36.2 C 02/14/20 11:25 Pulse 78 12/23/19 11:25 Resp 22 H 12/23/19 11:25 BP 106/64 12/23/19 11:25 Pulse Ox 97 12/23/19 11:25 Med Orders - Current: Current Medications Discontinued Medications Acetaminophen (Tylenol) 650 mg PO Q4H PRN PRN Reason: Pain (Mild 1-3)/fever Atorvastatin Calcium (Lipitor) 20 mg PO DAILY [facility] Last Admin: 12/23/19 09:04 Dose: 20 mg Chlorthalidone (Chlorthalidone) 25 mg PO DAILY [facility] Last Admin: 12/23/19 09:05 Dose: 25 mg Enoxaparin Sodium (Lovenox) 40 mg SUBCUT Q24H [facility] Last Admin: 12/23/19 09:10 Dose: 40 mg Fluconazole (Diflucan) 150 mg PO DAILY [facility] Stop: 12/24/19 09:01 Last Admin: 12/23/19 09:01 Dose: 150 mg Hydromorphone HCl (Dilaudid) 1 mg IVPUSH ONETIME ONE Stop: 12/22/19 04:25 Last Admin: 12/22/19 05:28 Dose: 1 mg Hydromorphone HCl (Dilaudid) 1 mg IVPUSH Q4H PRN PRN Reason: Pain Last Admin: 12/23/19 09:21 Dose: 1 mg Sodium Chloride (Normal Saline) 1,000 mls @ 1,000 mls/hr IV .Bolus ONE Stop: 12/22/19 05:05 Last Admin: 12/22/19 04:15 Dose: 1,000 mls/hr Sodium Chloride (Normal Saline) 1,000 mls @ 125 mls/hr IV ASDIRECTED [facility] Last Admin: 12/22/19 19:56 Dose: 125 mls/hr Ibuprofen (Motrin) 800 mg PO Q6H PRN PRN Reason: Pain (mild 1-3) Last Admin: 12/23/19 04:07 Dose: 800 mg Insulin Aspart (Novolog) 0 unit SUBCUT TIDAC [facility]; Protocol Last Admin: 12/23/19 12:13 Dose: Not Given Insulin Detemir (Levemir) 30 unit SUBCUT ONETIME ONE Stop: 12/22/19 22:34 Last Admin: 02/13/20 23:17 Dose: 30 units Ketorolac Tromethamine (Toradol) 30 mg IV Q6H PRN PRN Reason: Pain (moderate 4-6) Last Admin: 12/23/19 06:55 Dose: 30 mg Lidocaine HCl (Lidocaine 5%) 1 gm TOP Q2H PRN PRN Reason: Perineal Comfort Measure Last Admin: 12/22/19 09:37 Dose: 1 gm Losartan Potassium (Cozaar) 100 mg PO DAILY [facility] Last Admin: 12/23/19 09:06 Dose: 100 mg Losartan Potassium (Cozaar) 50 mg PO ONETIME ONE Stop: 12/22/19 20:26 Last Admin: 12/22/19 20:50 Dose: 50 mg Mirtazapine (Remeron) 30 mg PO BEDTIME [facility] Last Admin: 12/23/19 01:08 Dose: 30 mg Morphine Sulfate (Morphine) 2 mg IVPUSH Q2H PRN PRN Reason: Pain (severe 7-10) Stop: 12/23/19 08:35 Last Admin: 12/22/19 09:11 Dose: 2 mg Ondansetron HCl (Zofran) 4 mg IVPUSH ONETIME ONE Stop: 12/22/19 04:24 Last Admin: 12/22/19 05:28 Dose: 4 mg Ondansetron HCl (Zofran Odt) 4 mg PO Q4H PRN PRN Reason: nausea, able to take PO Ondansetron HCl (Zofran) 4 mg IVPUSH Q4H PRN PRN Reason: Nausea Last Admin: 12/23/19 09:21 Dose: 4 mg Polyethylene Glycol (Miralax) 17 gm PO DAILY PRN PRN Reason: Constipation Trimethoprim/Sulfamethoxazole (Septra Ds) 1 tab PO BID [facility] Last Admin: 12/23/19 09:05 Dose: 1 tab Valacyclovir HCl (Valtrex) 500 mg PO BID [facility] Last Admin: 12/22/19 05:28 Dose: 500 mg Valacyclovir HCl (Valtrex) 1,000 mg PO BID [facility] Last Admin: 12/23/19 09:03 Dose: 1,000 mg
[2019-12-23 11:27] VITALS: BP 106/64; PULSE 78
== END 2019-12-23 13:23 | disposition home or self-care (01) | DRG 759 ==
LOC: MW.ED 03:44 → MW.MS 04:54
PROVIDERS: ADMIT Student in an Organized Health Care Education/Training Program; ATTEND Student in an Organized Health Care Education/Training Program
DX: A60.04 Herpesviral vulvovaginitis (principal); B37.3 Candidiasis of vulva and vagina; I10 Essential (primary) hypertension; E11.9 Type 2 diabetes mellitus without complications; E78.5 Hyperlipidemia, unspecified; E78.00 Pure hypercholesterolemia, unspecified; E66.9 Obesity, unspecified; F32.9 Major depressive disorder, single episode, unspecified; E86.0 Dehydration; Z88.0 Allergy status to penicillin; Z91.030 Bee allergy status; Z88.8 Allergy status to other drugs, medicaments and biological substances; Z79.4 Long term (current) use of insulin; Z79.899 Other long term (current) drug therapy; Z87.442 Personal history of urinary calculi; Z90.49 Acquired absence of other specified parts of digestive tract; Z90.710 Acquired absence of both cervix and uterus; Z68.31 Body mass index [BMI] 31.0-31.9, adult
CPT/HCPCS: 36415; 80048; 80053; 80061; 81001; 82962; 83036; 83690; 85025; 86592; 86803; 87070; 87077; 87186; 87340; 87389; 87480; 87491; 87510; 87529; 87591; 87660; 96360; 99283; 99284-25; A9270-GY; J1170; J1650; J1815-GY; J1885; J2270; J2405; J7030

== ENCOUNTER 2021-02-03 18:15 | Inpatient (IN) | payer BC, OTHER ==
--- NOTE | 2021-02-03 18:29 | EDM.PDOC ---
ED HPI GENERAL MEDICAL PROBLEM - General Chief Complaint: Genitourinary Problem Stated Complaint: POSSIBLE KIDNEY INFECTION / STONE Time Seen by Provider: 02/03/21 18:17 Source of Information: Reports: Patient History Limitations: Reports: No Limitations - History of Present Illness INITIAL COMMENTS - FREE TEXT/NARRATIVE: HISTORY AND PHYSICAL: History of present illness: Patient is a 45-year-old female who presents to the ED today with concern of right flank pain, burning with urination/urinary frequency that has been ongoing for the past 2 to 3 days. Patient states she has had a prior history of frequent kidney infections and stones and states that she has had to have a stent placed 3 times due to this. Patient states her symptoms today feel similar to her past when she has needed stents in the past. Patient states she has had this done with Dr. Roman. Patient states the last time she had to have this done was approximately 1 year ago. Patient states over the past 2 to 3 days she began noticing right flank pain which is worsened today. Patient states that she has been nauseous and vomiting today. Patient states she was able to take a dose of ibuprofen earlier this morning but has not been able to keep anything down since. She has a history of hysterectomy. Patient denies fever, chills, chest pain, shortness of breath, or cough. Denies headache, neck stiff ness, change in vision, syncope, or near syncope. Denies diarrhea, constipation. Has not noted any blood in urine or stool. Review of systems: As per history of present illness and below otherwise all systems reviewed and negative. Past medical history: As per history of present illness and as reviewed below otherwise noncontributory. Surgical history: As per history of present illness and as reviewed below otherwise noncontributory. Social history: See social history for further information Family history: As per history of present illness and as reviewed below otherwise noncontributory. Physical exam: General: Patient is alert, oriented, and in no acute distress. Patient sitting on exam table, rocking back and forth appearing uncomfortable, she does have 2 episodes of dry heaving on my exam. HEENT: Atraumatic, normocephalic, pupils equal and reactive bilaterally, negative for conjunctival pallor or scleral icterus, mucous membranes dry, TMs normal bilaterally, throat clear, neck supple, nontender, trachea midline. No drooling or trismus noted. No meningeal signs. No hot potato voice noted. Lungs: Clear to auscultation, breath sounds equal bilaterally, chest nontender. Heart: S1S2, regular rate and rhythm without overt murmur Abdomen: Soft, nondistended, nontender. Negative for masses or hepatosplenomegaly. Positive for costovertebral tenderness of the right. Pelvis: Stable nontender. Genitourinary: Deferred. Rectal: Deferred. Skin: Intact, warm, dry. No lesions or rashes noted. Extremities: Atraumatic, negative for cords or calf pain. Neurovascular unremarkable. Neuro: Awake, alert, oriented. Cranial nerves II through XII unremarkable. Cerebellum unremarkable. Motor and sensory unremarkable throughout. Exam nonfocal. Notes: On arrival to the ED, patient is vitally stable but is uncomfortable appearing with positive CVA tenderness of the right. We will get lab work and scan of the abdomen and pelvis. Urinalysis shows source of infection with 30-40 white blood cells, positive leukocyte esterase, and positive nitrite. Patient does have a few episodes of vomiting throughout stay in ED. Scan of the abdomen and pelvis shows mild chronic stable hepatosplenomegaly without source of flank pain. I did call and speak to the hospitalist on-call, Dr. Hernández, and thoroughly discussed patient's case. Will admit to observation. Voices understanding and is agreeable to plan of care. Denies any further questions or concerns at this time. Diagnostics: UA, uhcg, CBC, CMP, lipase Abd/Pelvis w/o cont Therapeutics: NS, Zofran, Toradol, Dilaudid, Levofloxacin Impression: Acute pyelonephritis Plan: Admit to observation to Dr. Hernández Definitive disposition and diagnosis as appropriate pending reevaluation and review of above. right flank Pain Score (Numeric/FACES): 10 - Related Data Allergies Allergy/AdvReac Type Severity Reaction Status Date / Time lorazepam [From Ativan] Allergy Agitation Verified 02/03/21 18:28 metoclopramide [From Reglan] Allergy Irritabilit Verified 02/03/21 18:28 y Penicillins Allergy Anaphylactic Verified 02/03/21 18:28 Shock sumatriptan [From Imitrex] Allergy Anaphylactic Verified 02/03/21 18:28 Shock sumatriptan succinate Allergy Anaphylactic Verified 02/03/21 18:28 [From Imitrex] Shock venom-honey bee Allergy Anaphylactic Verified 02/03/21 18:28 [bee venom (honey bee)] Shock gnat - bug Allergy Anaphylactic Uncoded 02/03/21 18:28 Shock Home Meds: Home Meds Chlorthalidone 25 mg PO DAILY 07/30/16 [History] Insulin Aspart [NovoLOG] 35 - 42 unit SUBCUT TIDAC vial 05/17/18 [Rx] Insulin Glarg,Human.Rec.Analog [Lantus] 62 unit SQ .AMBEDTIME 12/22/19 [History] Losartan [Cozaar] 100 mg PO DAILY 12/22/19 [History] Mirtazapine 30 mg PO BEDTIME 12/22/19 [History] Ondansetron [Zofran ODT] 4 mg PO Q6H PRN 12/22/19 [History] atorvaSTATin [Lipitor] 20 mg PO DAILY 12/22/19 [History] HYDROmorphone [Dilaudid] 2 mg PO Q8H PRN #10 tab 12/23/19 [Rx] Lidocaine 5% 1 gm TOP Q2H PRN #1 tube 12/23/19 [Rx] Sulfamethoxazole/Trimethoprim [Septra DS] 1 tab PO BID 5 Days #10 tablet 12/23/19 [Rx] valACYclovir [Valtrex] 1,000 mg PO BID 14 Days #28 tab 12/23/19 [Rx] Past Medical History HEENT History: Reports: Allergic Rhinitis Other HEENT History: wears glasses Cardiovascular History: Reports: High Cholesterol, Hypertension Respiratory History: Reports: None Gastrointestinal History: Reports: Gastritis, Pancreatitis Genitourinary History: Reports: Renal Calculus, UTI, Recurrent Other Genitourinary History: has interstitial cystitis 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: , Other (See Below) Musculoskeletal History: Reports: None Other Musculoskeletal History: knee pain Neurological History: Reports: Migraines, Seizure Other Neuro History: 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 2 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, unknown cause Psychiatric History: Reports: Depression Endocrine/Metabolic History: Reports: Diabetes, Type II, Obesity/BMI 30+ Hematologic History: Reports: None Immunologic History: Reports: None Oncologic (Cancer) History: Reports: None Dermatologic History: Reports: None - Infectious Disease History Infectious Disease History: Reports: Chicken Pox - Past Surgical History Head Surgeries/Procedures: Reports: None HEENT Surgical History: Reports: Tonsillectomy Cardiovascular Surgical History: Reports: None Respiratory Surgical History: Reports: None GI Surgical History: Reports: Appendectomy, Cholecystectomy Female Surgical History: Reports: Section, Hysterectomy, Lithotripsy/ESWL, Tubal Ligation Neurological Surgical History: Reports: None Musculoskeletal Surgical History: Reports: Other (See Below) Other Musculoskeletal Surgeries/Procedures:: cyst removed and cartilage fixed in left knee - History Comment History Comment: ETOH " 1X A MONTH" Social & Family History - Family History Family Medical History: No Pertinent Family History HEENT: Reports: None Cardiac: Reports: CAD, Hypertension Respiratory: Reports: None GI: Reports: None : Reports: Renal Calculus Psychiatric: Reports: None Endocrine/Metabolic: Reports: None Hematologic: Reports: None Immunologic: Reports: None Dermatologic: Reports: None Oncologic: Reports: Lung - Caffeine Use Caffeine Use: Reports: Soda, Tea ED ROS GENERAL - Review of Systems Review Of Systems: Comprehensive ROS is negative, except as noted in HPI. ED EXAM, GENERAL - Physical Exam Exam: See Below (see dictation) Course - Vital Signs Last Recorded V/S: Last Vital Signs Temp 97.8 F 02/03/21 18:26 Pulse 104 H 02/03/21 18:26 Resp 16 02/03/21 18:26 BP 147/114 H 02/03/21 18:26 Pulse Ox 98 02/03/21 18:26 - Orders/Labs/Meds Orders: Active Orders 24 hr Category Date Time Status Admission Status [Patient Status] [ADT] Stat ADT 02/03/21 20:52 Active COVID-19/FLU A+B [MOLEC] Stat Lab 02/03/21 20:50 Received CULTURE URINE [RM] Stat Lab 02/03/21 18:31 Received Labs: Laboratory Tests 02/03/21 02/03/21 02/03/21 Range/Units 18:31 18:31 18:51 WBC 9.88 (4.0-11.0) K/uL RBC 4.46 (4.30-5.90) M/uL Hgb 14.4 (12.0-16.0) g/dL Hct 40.5 (36.0-46.0) % MCV 90.8 (80.0-98.0) fL MCH 32.3 H (27.0-32.0) pg MCHC 35.6 (31.0-37.0) g/dL RDW Std Deviation 43.4 (28.0-62.0) fl RDW Coeff of Abdirizak 13 (11.0-15.0) % Plt Count 248 (150-400) K/uL MPV 9.90 (7.40-12.00) fL Neut % (Auto) 61.3 (48.0-80.0) % Lymph % (Auto) 29.5 (16.0-40.0) % [place] % (Auto) 6.8 (0.0-15.0) % Eos % (Auto) 1.9 (0.0-7.0) % Baso % (Auto) 0.5 (0.0-1.5) % Neut # (Auto) 6.1 H (1.4-5.7) K/uL Lymph # (Auto) 2.9 H (0.6-2.4) K/uL [place] # (Auto) 0.7 (0.0-0.8) K/uL Eos # (Auto) 0.2 (0.0-0.7) K/uL Baso # (Auto) 0.1 (0.0-0.1) K/uL Nucleated RBC % 0.0 /100WBC Nucleated RBCs # 0 K/uL Sodium (136-145) mmol/L Potassium (3.5-5.1) mmol/L Chloride (98-107) mmol/L Carbon Dioxide (21.0-32.0) mmol/L BUN (7.0-18.0) mg/dL Creatinine (0.6-1.0) mg/dL Est Cr Clr Drug Dosing mL/min Estimated GFR (MDRD) ml/min Glucose (74-106) mg/dL Calcium (8.5-10.1) mg/dL Total Bilirubin (0.2-1.0) mg/dL AST (15-37) IU/L ALT (14-63) IU/L Alkaline Phosphatase (46-116) U/L Total Protein (6.4-8.2) g/dL Albumin (3.4-5.0) g/dL Globulin (2.6-4.0) g/dL Albumin/Globulin Ratio (0.9-1.6) Lipase (73-393) U/L Urine Color YELLOW Urine Appearance HAZY Urine pH 6.0 (5.0-8.0) Ur Specific [place] >= 1.030 (1.001-1.035) Urine Protein 30 H (NEGATIVE) mg/dL Urine Glucose (UA) >=1000 (NEGATIVE) mg/dL Urine Ketones NEGATIVE (NEGATIVE) mg/dL Urine Occult Blood NEGATIVE (NEGATIVE) Urine Nitrite POSITIVE H (NEGATIVE) Urine Bilirubin NEGATIVE (NEGATIVE) Urine Urobilinogen 0.2 (<2.0) EU/dL Ur Leukocyte Esterase SMALL H (NEGATIVE) Urine RBC 1-3 (0-2/HPF) Urine WBC 30-40 (0-5/HPF) Ur Epithelial Cells FEW (NONE-FEW) Urine Bacteria 3+ H (NEGATIVE) Urine HCG, Qual NEGATIVE (NEGATIVE) 02/03/21 Range/Units 18:51 WBC (4.0-11.0) K/uL RBC (4.30-5.90) M/uL Hgb (12.0-16.0) g/dL Hct (36.0-46.0) % MCV (80.0-98.0) fL MCH (27.0-32.0) pg MCHC (31.0-37.0) g/dL RDW Std Deviation (28.0-62.0) fl RDW Coeff of Abdirizak (11.0-15.0) % Plt Count (150-400) K/uL MPV (7.40-12.00) fL Neut % (Auto) (48.0-80.0) % Lymph % (Auto) (16.0-40.0) % [place] % (Auto) (0.0-15.0) % Eos % (Auto) (0.0-7.0) % Baso % (Auto) (0.0-1.5) % Neut # (Auto) (1.4-5.7) K/uL Lymph # (Auto) (0.6-2.4) K/uL [place] # (Auto) (0.0-0.8) K/uL Eos # (Auto) (0.0-0.7) K/uL Baso # (Auto) (0.0-0.1) K/uL Nucleated RBC % /100WBC Nucleated RBCs # K/uL Sodium 138 (136-145) mmol/L Potassium 3.7 (3.5-5.1) mmol/L Chloride 101 (98-107) mmol/L Carbon Dioxide 25.4 (21.0-32.0) mmol/L BUN 16 (7.0-18.0) mg/dL Creatinine 1.1 H (0.6-1.0) mg/dL Est Cr Clr Drug Dosing 49.76 mL/min Estimated GFR (MDRD) 54.2 ml/min Glucose 256 H (74-106) mg/dL Calcium 9.1 (8.5-10.1) mg/dL Total Bilirubin 0.9 (0.2-1.0) mg/dL AST 27 (15-37) IU/L ALT 33 (14-63) IU/L Alkaline Phosphatase 81 (46-116) U/L Total Protein 7.5 (6.4-8.2) g/dL Albumin 3.6 (3.4-5.0) g/dL Globulin 3.9 (2.6-4.0) g/dL Albumin/Globulin Ratio 0.9 (0.9-1.6) Lipase 293 (73-393) U/L Urine Color Urine Appearance Urine pH (5.0-8.0) Ur Specific [place] (1.001-1.035) Urine Protein (NEGATIVE) mg/dL Urine Glucose (UA) (NEGATIVE) mg/dL Urine Ketones (NEGATIVE) mg/dL Urine Occult Blood (NEGATIVE) Urine Nitrite (NEGATIVE) Urine Bilirubin (NEGATIVE) Urine Urobilinogen (<2.0) EU/dL Ur Leukocyte Esterase (NEGATIVE) Urine RBC (0-2/HPF) Urine WBC (0-5/HPF) Ur Epithelial Cells (NONE-FEW) Urine Bacteria (NEGATIVE) Urine HCG, Qual (NEGATIVE) Meds: Medications Discontinued Medications Generic Name Dose Route Start Last Admin Trade Name Freq PRN Reason Stop Dose Admin Hydromorphone HCl 1 mg 02/03/21 18:40 02/03/21 19:10 Hydromorphone 1 Mg/Ml Syringe IVPUSH 02/03/21 18:41 1 mg ONETIME ONE Administration Hydromorphone HCl 0.5 mg 02/03/21 19:42 02/03/21 19:50 Hydromorphone 2 Mg/Ml Syringe IVPUSH 02/03/21 19:43 0.5 mg ONETIME ONE Administration Sodium Chloride 1,000 mls @ 999 mls/hr 02/03/21 18:40 02/03/21 19:10 Normal Saline IV 02/03/21 19:40 999 mls/hr BOLUS ONE Administration Levofloxacin/Dextrose 750 mg/ 150 mls @ 100 mls/hr 02/03/21 19:13 02/03/21 19:38 Premix IV 02/03/21 20:42 100 mls/hr ONETIME ONE Administration Ketorolac Tromethamine 30 mg 02/03/21 18:40 02/03/21 19:09 Ketorolac 30 Mg/Ml Sdv IVPUSH 02/03/21 18:41 30 mg ONETIME ONE Administration Ondansetron HCl 4 mg 02/03/21 18:40 02/03/21 19:09 Ondansetron 4 Mg/2 Ml Sdv IVPUSH 02/03/21 18:41 4 mg ONETIME ONE Administration Ondansetron HCl 4 mg 02/03/21 19:41 02/03/21 19:50 Ondansetron 4 Mg/2 Ml Sdv IVPUSH 02/03/21 19:42 4 mg ONETIME ONE Administration Departure - Departure Time of Disposition: 21:36 Disposition: Refer to Observation Clinical Impression: Acute pyelonephritis - Discharge Information Referrals: Levy Singh MD [Primary Care Provider] - Forms: ED Department Discharge Sepsis Event Note (ED) - Evaluation Sepsis Screening Result: No Definite Risk - Focused Exam Vital Signs: Vital Signs Temp Pulse Resp BP Pulse Ox 02/03/21 18:26 97.8 F 104 H 16 147/114 H 98 - My Orders Last 24 Hours: My Active Orders 02/03/21 18:31 CULTURE URINE [RM] Stat 02/03/21 20:50 COVID-19/FLU A+B [MOLEC] Stat 02/03/21 20:52 Admission Status [Patient Status] [ADT] Stat - Assessment/Plan Last 24 Hours: My Active Orders 02/03/21 18:31 CULTURE URINE [RM] Stat 02/03/21 20:50 COVID-19/FLU A+B [MOLEC] Stat 02/03/21 20:52 Admission Status [Patient Status] [ADT] Stat
[2021-02-03] MEDS ORDERED: HYDROmorphone 1 MG/ML Syringe IVPUSH ONE (18:40)
[2021-02-03] MEDS ORDERED: Sodium Chloride 0.9% 1,000 ML IV ONE (18:40)
[2021-02-03] MEDS ORDERED: Ondansetron 4 MG/2 ML SDV IVPUSH ONE ×2 (18:40→19:41)
[2021-02-03] MEDS ORDERED: Ketorolac 30 MG/ML SDV IVPUSH ONE (18:40)
[2021-02-03] MEDS ORDERED: Levofloxacin/Dextrose 5%-Water 750 MG in Premix Bag 1 BAG IV ONE (19:13)
[2021-02-03 19:18] LABS: CARBON DIOXIDE,CO2 25.4 mmol/L (21.0-32.0); POTASSIUM,K 3.7 mmol/L (3.5-5.1)
[2021-02-03] MEDS ORDERED: HYDROmorphone 2 MG/ML Syringe IVPUSH ONE (19:42)
--- NOTE | 2021-02-03 19:59 | CT ---
INDICATION: Right flank pain. TECHNIQUE: CT abdomen and pelvis without contrast. COMPARISON: [address] FINDINGS: Lower chest: Unremarkable. Liver: Mild craniocaudal enlargement 22 cm. Spleen: Mildly enlarged 15 cm. Pancreas: Subtle chronic calcifications in the uncinate process and head likely prior inflammation related. A few in the body as well. No acute inflammation appreciated. Gallbladder and bile ducts: Not apparent and presumably surgically absent although no clips are apparent. Kidneys: Unremarkable. No kidney or ureteral stones and no hydronephrosis. Adrenal glands: Unremarkable. GI tract: Moderate dense formed stool diffusely. Appendix is normal. Vascular structures: Unremarkable. Lymph nodes: Unremarkable. Miscellaneous: Unremarkable. No free air or significant free fluid. Pelvic Organs: Hysterectomy. Bones: Unremarkable for age. IMPRESSION: Mild chronic stable hepatosplenomegaly. No definite source for flank pain. Please note that all CT scans at this facility use dose modulation, iterative reconstruction, and/or weight-based dosing when appropriate to reduce radiation dose to as low as reasonably achievable. Dictated by Jann Trevino MD @ Feb 03 2021 7:54PM Signed by Dr. Jann Trevino @ Feb 03 2021 7:58PM
[2021-02-03 21:38] LABS: CORONAVIRUS COVID-19 NAA NEGATIVE (NEGATIVE); INFLUENZA A NAA NEGATIVE (NEGATIVE); INFLUENZA B NAA NEGATIVE (NEGATIVE)
[2021-02-03] MEDS ORDERED: Albuterol/Ipratropium 3.0-0.5 MG/3 ML Neb Soln NEB PRN (21:45)
--- NOTE | 2021-02-03 21:52 | PCM.HP.2 ---
H&P History of Present Illness - General Date of Service: 02/03/21 Admit Problem/Dx: Admission Diagnosis/Problem Admission Diagnosis/Problem Acute pyelonephritis - History of Present Illness Initial Comments - Free Text/Narative: Patient is a 45-year-old female with PMH of DM, kidney stones who presents to the ED today with concern of right flank pain, burning with urination/urinary frequency, N/V, symptoms that has been ongoing for the past 2 to 3 days. Patient states she has had a prior history of frequent kidney infections and stones and states that she has had to have a stent placed 3 times due to this. Patient states her symptoms today feel similar to her past when she has needed stents in the past. Patient states she has had this done with Dr. Roman. Patient states the last time she had to have this done was approximately 1 year ago. Patient states over the past 2 to 3 days she began noticing right flank pain which is worsened today. Patient states she was able to take a dose of ibuprofen earlier this morning but has not been able to keep anything down since. She has a history of hysterectomy. 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 UA was possible fro UTI, Patient was admitted for further care for acute pyelonephritis. right flank Pain Score (Numeric/FACES): 10 - Related Data Allergies/Adverse Reactions: Allergies Allergy/AdvReac Type Severity Reaction Status Date / Time lorazepam [From Ativan] Allergy Severe Agitation Verified 02/03/21 22:50 Penicillins Allergy Severe Anaphylactic Verified 02/03/21 22:50 Shock sumatriptan [From Imitrex] Allergy Severe Anaphylactic Verified 02/03/21 22:50 Shock sumatriptan succinate Allergy Severe Anaphylactic Verified 02/03/21 22:50 [From Imitrex] Shock venom-honey bee Allergy Severe Anaphylactic Verified 02/03/21 22:50 [bee venom (honey bee)] Shock metoclopramide [From Reglan] Allergy Mild Irritabilit Verified 02/03/21 22:50 y gnat - bug Allergy Severe Anaphylactic Uncoded 02/03/21 22:50 Shock Home Medications: Home Meds Chlorthalidone 25 mg PO DAILY 07/30/16 [History] Insulin Aspart [NovoLOG] 35 - 42 unit SUBCUT TIDAC vial 05/17/18 [Rx] Insulin Glarg,Human.Rec.Analog [Lantus] 62 unit SQ .AMBEDTIME 12/22/19 [History] Losartan [Cozaar] 100 mg PO DAILY 12/22/19 [History] Mirtazapine 30 mg PO BEDTIME 12/22/19 [History] Ondansetron [Zofran ODT] 4 mg PO Q6H PRN 12/22/19 [History] atorvaSTATin [Lipitor] 20 mg PO DAILY 12/22/19 [History] HYDROmorphone [Dilaudid] 2 mg PO Q8H PRN #10 tab 12/23/19 [Rx] Lidocaine 5% 1 gm TOP Q2H PRN #1 tube 12/23/19 [Rx] Sulfamethoxazole/Trimethoprim [Septra DS] 1 tab PO BID 5 Days #10 tablet 12/23/19 [Rx] valACYclovir [Valtrex] 1,000 mg PO BID 14 Days #28 tab 12/23/19 [Rx] Past Medical History HEENT History: Reports: Allergic Rhinitis Other HEENT History: wears glasses Cardiovascular History: Reports: High Cholesterol, Hypertension Respiratory History: Reports: None Gastrointestinal History: Reports: Gastritis, Pancreatitis Genitourinary History: Reports: Renal Calculus, UTI, Recurrent Other Genitourinary History: has interstitial cystitis RN DIGESTIVE History: Reports: , Other (See Below) Musculoskeletal History: Reports: None Other Musculoskeletal History: knee pain Neurological History: Reports: Migraines, Seizure Other Neuro History: 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 2 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, unknown cause Psychiatric History: Reports: Depression Endocrine/Metabolic History: Reports: Diabetes, Type II, Obesity/BMI 30+ Hematologic History: Reports: None Immunologic History: Reports: None Oncologic (Cancer) History: Reports: None Dermatologic History: Reports: None - Infectious Disease History Infectious Disease History: Reports: Chicken Pox, Measles - Past Surgical History Head Surgeries/Procedures: Reports: None HEENT Surgical History: Reports: Tonsillectomy Cardiovascular Surgical History: Reports: None Respiratory Surgical History: Reports: None GI Surgical History: Reports: Appendectomy, Cholecystectomy Female Surgical History: Reports: Section, Hysterectomy, Lithotripsy/ESWL, Tubal Ligation Neurological Surgical History: Reports: None Musculoskeletal Surgical History: Reports: Other (See Below) Other Musculoskeletal Surgeries/Procedures:: cyst removed and cartilage fixed in left knee - History Comment History Comment: ETOH " 1X A MONTH" Social & Family History - Family History Family Medical History: No Pertinent Family History HEENT: Reports: None Cardiac: Reports: CAD, Hypertension Respiratory: Reports: None GI: Reports: None : Reports: Renal Calculus Psychiatric: Reports: None Endocrine/Metabolic: Reports: None Hematologic: Reports: None Immunologic: Reports: None Dermatologic: Reports: None Oncologic: Reports: Lung - Tobacco Use Tobacco Use Status *Q: Never Tobacco User - Caffeine Use Caffeine Use: Reports: Soda, Tea - Recreational Drug Use Recreational Drug Use: Yes Drug Use in Last 12 Months: Yes Recreational Drug Type: Reports: Marijuana/Hashish H&P Review of Systems - Review of Systems: Review Of Systems: See Below General: Reports: Fever, Chills, Malaise, Weakness Pulmonary: Denies: Shortness of Breath, Wheezing Cardiovascular: Denies: Chest Pain, Palpitations, Dyspnea on Exertion Gastrointestinal: Reports: Abdominal Pain, Nausea, Vomiting. Denies: Anorexia, Black Stool Genitourinary: Reports: Dysuria, Frequency, Burning, Pain, Urgency. Denies: Hematuria, Retention, Discharge Musculoskeletal: Denies: Neck Pain, Shoulder Pain, Arm Pain Exam - Exam Exam: See Below - Vital Signs Vital Signs: Last Vital Signs Temp 36.6 C 02/03/21 18:26 Pulse 104 H 02/03/21 18:26 Resp 16 02/03/21 18:26 BP 147/114 H 02/03/21 18:26 Pulse Ox 98 02/03/21 18:26 Weight: 72.575 kg - Exam General: Alert, Oriented, Mild Distress Neck: Supple, Trachea Midline Lungs: Clear to Auscultation, Normal Respiratory Effort Cardiovascular: Regular Rate, Regular Rhythm GI/Abdominal Exam: Normal Bowel Sounds, No Distention, Tender. No: Hepatomegaly, Splenomegaly - Patient Data Lab Results Last 24 hrs: Laboratory Results - last 24 hr 02/03/21 02/03/21 02/03/21 Range/Units 18:31 18:31 18:51 WBC 9.88 (4.0-11.0) K/uL RBC 4.46 (4.30-5.90) M/uL Hgb 14.4 (12.0-16.0) g/dL Hct 40.5 (36.0-46.0) % MCV 90.8 (80.0-98.0) fL MCH 32.3 H (27.0-32.0) pg MCHC 35.6 (31.0-37.0) g/dL RDW Std Deviation 43.4 (28.0-62.0) fl RDW Coeff of Abdirizak 13 (11.0-15.0) % Plt Count 248 (150-400) K/uL MPV 9.90 (7.40-12.00) fL Neut % (Auto) 61.3 (48.0-80.0) % Lymph % (Auto) 29.5 (16.0-40.0) % [place] % (Auto) 6.8 (0.0-15.0) % Eos % (Auto) 1.9 (0.0-7.0) % Baso % (Auto) 0.5 (0.0-1.5) % Neut # (Auto) 6.1 H (1.4-5.7) K/uL Lymph # (Auto) 2.9 H (0.6-2.4) K/uL [place] # (Auto) 0.7 (0.0-0.8) K/uL Eos # (Auto) 0.2 (0.0-0.7) K/uL Baso # (Auto) 0.1 (0.0-0.1) K/uL Nucleated RBC % 0.0 /100WBC Nucleated RBCs # 0 K/uL Sodium (136-145) mmol/L Potassium (3.5-5.1) mmol/L Chloride (98-107) mmol/L Carbon Dioxide (21.0-32.0) mmol/L BUN (7.0-18.0) mg/dL Creatinine (0.6-1.0) mg/dL Est Cr Clr Drug Dosing mL/min Estimated GFR (MDRD) ml/min Glucose (74-106) mg/dL Calcium (8.5-10.1) mg/dL Total Bilirubin (0.2-1.0) mg/dL AST (15-37) IU/L ALT (14-63) IU/L Alkaline Phosphatase (46-116) U/L Total Protein (6.4-8.2) g/dL Albumin (3.4-5.0) g/dL Globulin (2.6-4.0) g/dL Albumin/Globulin Ratio (0.9-1.6) Lipase (73-393) U/L Urine Color YELLOW Urine Appearance HAZY Urine pH 6.0 (5.0-8.0) Ur Specific [place] >= 1.030 (1.001-1.035) Urine Protein 30 H (NEGATIVE) mg/dL Urine Glucose (UA) >=1000 (NEGATIVE) mg/dL Urine Ketones NEGATIVE (NEGATIVE) mg/dL Urine Occult Blood NEGATIVE (NEGATIVE) Urine Nitrite POSITIVE H (NEGATIVE) Urine Bilirubin NEGATIVE (NEGATIVE) Urine Urobilinogen 0.2 (<2.0) EU/dL Ur Leukocyte Esterase SMALL H (NEGATIVE) Urine RBC 1-3 (0-2/HPF) Urine WBC 30-40 (0-5/HPF) Ur Epithelial Cells FEW (NONE-FEW) Urine Bacteria 3+ H (NEGATIVE) Urine HCG, Qual NEGATIVE (NEGATIVE) Influenza Type A RNA (NEGATIVE) Influenza Type B RNA (NEGATIVE) SARS-CoV-2 RNA (HUONG) (NEGATIVE) 02/03/21 02/03/21 Range/Units 18:51 20:50 WBC (4.0-11.0) K/uL RBC (4.30-5.90) M/uL Hgb (12.0-16.0) g/dL Hct (36.0-46.0) % MCV (80.0-98.0) fL MCH (27.0-32.0) pg MCHC (31.0-37.0) g/dL RDW Std Deviation (28.0-62.0) fl RDW Coeff of Abdirizak (11.0-15.0) % Plt Count (150-400) K/uL MPV (7.40-12.00) fL Neut % (Auto) (48.0-80.0) % Lymph % (Auto) (16.0-40.0) % [place] % (Auto) (0.0-15.0) % Eos % (Auto) (0.0-7.0) % Baso % (Auto) (0.0-1.5) % Neut # (Auto) (1.4-5.7) K/uL Lymph # (Auto) (0.6-2.4) K/uL [place] # (Auto) (0.0-0.8) K/uL Eos # (Auto) (0.0-0.7) K/uL Baso # (Auto) (0.0-0.1) K/uL Nucleated RBC % /100WBC Nucleated RBCs # K/uL Sodium 138 (136-145) mmol/L Potassium 3.7 (3.5-5.1) mmol/L Chloride 101 (98-107) mmol/L Carbon Dioxide 25.4 (21.0-32.0) mmol/L BUN 16 (7.0-18.0) mg/dL Creatinine 1.1 H (0.6-1.0) mg/dL Est Cr Clr Drug Dosing 49.76 mL/min Estimated GFR (MDRD) 54.2 ml/min Glucose 256 H (74-106) mg/dL Calcium 9.1 (8.5-10.1) mg/dL Total Bilirubin 0.9 (0.2-1.0) mg/dL AST 27 (15-37) IU/L ALT 33 (14-63) IU/L Alkaline Phosphatase 81 (46-116) U/L Total Protein 7.5 (6.4-8.2) g/dL Albumin 3.6 (3.4-5.0) g/dL Globulin 3.9 (2.6-4.0) g/dL Albumin/Globulin Ratio 0.9 (0.9-1.6) Lipase 293 (73-393) U/L Urine Color Urine Appearance Urine pH (5.0-8.0) Ur Specific [place] (1.001-1.035) Urine Protein (NEGATIVE) mg/dL Urine Glucose (UA) (NEGATIVE) mg/dL Urine Ketones (NEGATIVE) mg/dL Urine Occult Blood (NEGATIVE) Urine Nitrite (NEGATIVE) Urine Bilirubin (NEGATIVE) Urine Urobilinogen (<2.0) EU/dL Ur Leukocyte Esterase (NEGATIVE) Urine RBC (0-2/HPF) Urine WBC (0-5/HPF) Ur Epithelial Cells (NONE-FEW) Urine Bacteria (NEGATIVE) Urine HCG, Qual (NEGATIVE) Influenza Type A RNA NEGATIVE (NEGATIVE) Influenza Type B RNA NEGATIVE (NEGATIVE) SARS-CoV-2 RNA (HUONG) NEGATIVE (NEGATIVE) Result Diagrams: 02/03/21 18:51 02/03/21 18:51 Sepsis Event Note - Evaluation Sepsis Screening Result: No Definite Risk - Focused Exam Vital Signs: Vital Signs Temp Pulse Resp BP Pulse Ox 02/03/21 18:26 36.6 C 104 H 16 147/114 H 98 - Problem List (1) Acute pyelonephritis SNOMED Code(s): 35669257 ICD Code: N10 - ACUTE PYELONEPHRITIS Status: Acute Current Visit: Yes (2) Diabetes mellitus SNOMED Code(s): 56127214 ICD Code: E11.9 - TYPE 2 DIABETES MELLITUS WITHOUT COMPLICATIONS Status: Acute Current Visit: No Problem List Initiated/Reviewed/Updated: Yes Orders Last 24hrs: Active Orders 24 hr Category Date Time Status Admission Status [Patient Status] [ADT] Stat ADT 02/03/21 20:52 Active Ambulate [RC] ASDIRECTED Care 02/03/21 21:45 Ordered Antiembolic Devices [RC] PER UNIT ROUTINE Care 02/03/21 21:47 Ordered Oxygen Therapy [RC] PRN Care 02/03/21 21:45 Ordered RT Aerosol Therapy [RC] ASDIRECTED Care 02/03/21 21:49 Ordered VTE/DVT Education [RC] PER UNIT ROUTINE Care 02/03/21 21:45 Ordered Vital Signs [RC] Q4H Care 02/03/21 21:45 Ordered Clear Liquid Diet [DIET] Diet 02/03/21 Dinner Ordered CULTURE URINE [RM] Stat Lab 02/03/21 18:31 Received Acetaminophen [TylenoL] Med 02/03/21 21:45 Ordered 650 mg PO Q4H PRN Albuterol/Ipratropium [DuoNeb 3.0-0.5 MG/3 ML] Med 02/03/21 21:45 Ordered 3 ml NEB Q4HRRT PRN Enoxaparin [Lovenox] Med 02/03/21 21:45 Ordered 40 mg SUBCUT Q24H HYDROmorphone [Dilaudid] Med 02/03/21 21:45 Ordered 0.5 mg IVPUSH Q3H PRN Lactated Ringers @ 125 MLS/HR(1000ml) Med 02/03/21 21:45 Ordered Lactated Ringers [Ringers, Lactated] 1,000 ml IV ASDIRECTED Levofloxacin/Dextrose 5%-Water [Levaquin in D5W 750 MG/ Med 02/04/21 09:00 Ordered 150 ML] 750 mg Premix Bag 1 bag IV Q24H Ondansetron [Zofran] Med 02/03/21 23:50 Ordered 4 mg IVPUSH Q4H PRN Sequential Compression Device [OM.PC] Per Unit Routine Oth 02/03/21 21:46 Ordered Resuscitation Status Routine Resus Stat 02/03/21 21:45 Ordered Medication Orders Acetaminophen (Acetaminophen 325 Mg Tab) 650 mg PO Q4H PRN PRN Reason: Pain (Mild 1-3)/fever Albuterol/Ipratropium (Albuterol/Ipratropium 3.0-0.5 Mg/3 Ml Neb Soln) 3 ml NEB Q4HRRT PRN PRN Reason: Shortness Of Breath/wheezing Enoxaparin Sodium (Enoxaparin 40 Mg/0.4 Ml Syringe) 40 mg SUBCUT Q24H CASSANDRA Hydromorphone HCl (Hydromorphone 2 Mg/Ml Syringe) 0.5 mg IVPUSH Q3H PRN PRN Reason: Pain (severe 7-10) Lactated Ringer's (Ringers, Lactated) 1,000 mls @ 125 mls/hr IV ASDIRECTED CASSANDRA Levofloxacin/Dextrose 750 mg/ (Premix) 150 mls @ 100 mls/hr IV Q24H CASSANDRA Ondansetron HCl (Ondansetron 4 Mg/2 Ml Sdv) 4 mg IVPUSH Q4H PRN PRN Reason: Nausea/Vomiting Assessment/Plan Comment:: Patient is a 45 y/o F admitted for acute pyelonephritis Start IV Levaquin IV fluids f/u on urine cultures Dilaudid fr pain control Zofran for n/v IV PPI daily clear diet Lovenox for dvt ppx SSI for DM
[2021-02-03] MEDS ORDERED: Promethazine 25 MG/ML SDV IM ONE (22:03)
[2021-02-03] MEDS: HYDROmorphone 2 MG/ML Syringe IVPUSH PRN (22:10)
[2021-02-03] MEDS: Enoxaparin 40 MG/0.4 ML Syringe SUBCUT SCH (22:10)
[2021-02-03] MEDS: Lactated Ringers 1,000 ML IV SCH (22:52)
[2021-02-03] MEDS ORDERED: Glucagon,Human Recombinant 1 MG Vial IM PRN ×2 (23:28→23:29)
[2021-02-03] MEDS ORDERED: 50% Dextrose in Water 50 ML Syringe IV PRN ×2 (23:28→23:29)
[2021-02-04] MEDS: Insulin Glargine,Human Rec. Analog 100 Units/ML 3 ML Pen SUBCUT SCH ×3 (00:18→21:24)
[2021-02-04] MEDS: Aspirin 81 MG Tab.Chew PO SCH ×2 (00:20→21:18)
[2021-02-04] MEDS: atorvaSTATin 20 MG Tab PO SCH ×2 (00:20→21:19)
[2021-02-04] MEDS: Losartan 50 MG Tab PO SCH ×2 (00:20→21:19)
[2021-02-04] MEDS: HYDROmorphone 2 MG/ML Syringe IVPUSH PRN (02:00)
[2021-02-04 06:17] LABS: BLOOD UREA NITROGEN,BUN 19 mg/dL (7.0-18.0); CARBON DIOXIDE,CO2 24.9 mmol/L (21.0-32.0); CHLORIDE,CL 104 mmol/L (98-107); GLUCOSE RANDOM 164 mg/dL (74-106); POTASSIUM,K 3.8 mmol/L (3.5-5.1); SODIUM,NA 139 mmol/L (136-145)
[2021-02-04] MEDS: Lactated Ringers 1,000 ML IV SCH ×2 (06:52→17:08)
[2021-02-04] MEDS ORDERED: Magnesium Sulfate/Water 2 GM/50 ML BAG IV ONE (08:05)
[2021-02-04] MEDS: Ondansetron 4 MG/2 ML SDV IVPUSH PRN (08:33)
[2021-02-04] MEDS: HYDROmorphone 1 MG/ML Syringe IVPUSH PRN ×2 (08:36→19:59)
[2021-02-04] MEDS: Insulin Aspart 100 Units/ML 3 ML Pen SUBCUT SCH ×3 (08:39→17:07)
[2021-02-04] MEDS ORDERED: Chlorthalidone 25 MG Tab PO SCH (09:00)
[2021-02-04] MEDS ORDERED: Haloperidol Lactate 5 MG/ML SDV IM ONE (09:55)
[2021-02-04] MEDS ORDERED: diphenhydrAMINE 50 MG/ML SDV IVPUSH ONE (09:56)
[2021-02-04] MEDS ORDERED: LORazepam 2 MG/ML SDV IVPUSH ONE ×2 (09:57→10:00)
[2021-02-04] MEDS: Levofloxacin/Dextrose 5%-Water 750 MG in Premix Bag 1 BAG IV SCH (10:37)
--- NOTE | 2021-02-04 18:41 | PCM.PN ---
<Prabhu Guadalupe - Last Filed: 02/04/21 18:42> - General Info Date of Service: 02/04/21 Subjective Update: Patient states intermittent nausea vomiting. Patient also states some right- sided flank pain. Patient denies chest pain, shortness of breath, epigastric pain. - Review of Systems General: Denies: Fever, Chills Pulmonary: Denies: Shortness of Breath Cardiovascular: Denies: Chest Pain Gastrointestinal: Reports: Nausea, Vomiting. Denies: Abdominal Pain Neurological: Denies: Confusion, Dizziness Psychiatric: Denies: Confusion - Patient Data Vitals - Most Recent: Last Vital Signs Temp 97.4 F 02/04/21 17:09 Pulse 78 02/04/21 17:09 Resp 15 02/04/21 17:09 BP 156/90 H 02/04/21 17:09 Pulse Ox 97 02/04/21 17:09 Weight - Most Recent: 78.517 kg I&O - Last 24 Hours: Intake & Output 02/04/21 02/04/21 02/04/21 06:59 14:59 22:59 Intake Total 1017 200 240 Output Total 250 910 Balance 767 200 -670 Lab Results Last 24 Hours: Laboratory Results - last 24 hr 02/03/21 02/03/21 02/03/21 Range/Units 18:31 18:31 18:51 WBC 9.88 (4.0-11.0) K/uL RBC 4.46 (4.30-5.90) M/uL Hgb 14.4 (12.0-16.0) g/dL Hct 40.5 (36.0-46.0) % MCV 90.8 (80.0-98.0) fL MCH 32.3 H (27.0-32.0) pg MCHC 35.6 (31.0-37.0) g/dL RDW Std Deviation 43.4 (28.0-62.0) fl RDW Coeff of Abdirizak 13 (11.0-15.0) % Plt Count 248 (150-400) K/uL MPV 9.90 (7.40-12.00) fL Neut % (Auto) 61.3 (48.0-80.0) % Lymph % (Auto) 29.5 (16.0-40.0) % [place] % (Auto) 6.8 (0.0-15.0) % Eos % (Auto) 1.9 (0.0-7.0) % Baso % (Auto) 0.5 (0.0-1.5) % Neut # (Auto) 6.1 H (1.4-5.7) K/uL Lymph # (Auto) 2.9 H (0.6-2.4) K/uL [place] # (Auto) 0.7 (0.0-0.8) K/uL Eos # (Auto) 0.2 (0.0-0.7) K/uL Baso # (Auto) 0.1 (0.0-0.1) K/uL Nucleated RBC % 0.0 /100WBC Nucleated RBCs # 0 K/uL Sodium (136-145) mmol/L Potassium (3.5-5.1) mmol/L Chloride (98-107) mmol/L Carbon Dioxide (21.0-32.0) mmol/L BUN (7.0-18.0) mg/dL Creatinine (0.6-1.0) mg/dL Est Cr Clr Drug Dosing mL/min Estimated GFR (MDRD) ml/min Glucose (74-106) mg/dL POC Glucose (60-110) mg/dL Calcium (8.5-10.1) mg/dL Phosphorus (2.6-4.7) mg/dL Magnesium (1.8-2.4) mg/dL Total Bilirubin (0.2-1.0) mg/dL AST (15-37) IU/L ALT (14-63) IU/L Alkaline Phosphatase (46-116) U/L Total Protein (6.4-8.2) g/dL Albumin (3.4-5.0) g/dL Globulin (2.6-4.0) g/dL Albumin/Globulin Ratio (0.9-1.6) Lipase (73-393) U/L Urine Color YELLOW Urine Appearance HAZY Urine pH 6.0 (5.0-8.0) Ur Specific [place] >= 1.030 (1.001-1.035) Urine Protein 30 H (NEGATIVE) mg/dL Urine Glucose (UA) >=1000 (NEGATIVE) mg/dL Urine Ketones NEGATIVE (NEGATIVE) mg/dL Urine Occult Blood NEGATIVE (NEGATIVE) Urine Nitrite POSITIVE H (NEGATIVE) Urine Bilirubin NEGATIVE (NEGATIVE) Urine Urobilinogen 0.2 (<2.0) EU/dL Ur Leukocyte Esterase SMALL H (NEGATIVE) Urine RBC 1-3 (0-2/HPF) Urine WBC 30-40 (0-5/HPF) Ur Epithelial Cells FEW (NONE-FEW) Urine Bacteria 3+ H (NEGATIVE) Urine HCG, Qual NEGATIVE (NEGATIVE) Influenza Type A RNA (NEGATIVE) Influenza Type B RNA (NEGATIVE) SARS-CoV-2 RNA (HUONG) (NEGATIVE) 02/03/21 02/03/21 02/03/21 Range/Units 18:51 20:50 23:41 WBC (4.0-11.0) K/uL RBC (4.30-5.90) M/uL Hgb (12.0-16.0) g/dL Hct (36.0-46.0) % MCV (80.0-98.0) fL MCH (27.0-32.0) pg MCHC (31.0-37.0) g/dL RDW Std Deviation (28.0-62.0) fl RDW Coeff of Abdirizak (11.0-15.0) % Plt Count (150-400) K/uL MPV (7.40-12.00) fL Neut % (Auto) (48.0-80.0) % Lymph % (Auto) (16.0-40.0) % [place] % (Auto) (0.0-15.0) % Eos % (Auto) (0.0-7.0) % Baso % (Auto) (0.0-1.5) % Neut # (Auto) (1.4-5.7) K/uL Lymph # (Auto) (0.6-2.4) K/uL [place] # (Auto) (0.0-0.8) K/uL Eos # (Auto) (0.0-0.7) K/uL Baso # (Auto) (0.0-0.1) K/uL Nucleated RBC % /100WBC Nucleated RBCs # K/uL Sodium 138 (136-145) mmol/L Potassium 3.7 (3.5-5.1) mmol/L Chloride 101 (98-107) mmol/L Carbon Dioxide 25.4 (21.0-32.0) mmol/L BUN 16 (7.0-18.0) mg/dL Creatinine 1.1 H (0.6-1.0) mg/dL Est Cr Clr Drug Dosing 49.76 mL/min Estimated GFR (MDRD) 54.2 ml/min Glucose 256 H (74-106) mg/dL POC Glucose 221 H (60-110) mg/dL Calcium 9.1 (8.5-10.1) mg/dL Phosphorus (2.6-4.7) mg/dL Magnesium (1.8-2.4) mg/dL Total Bilirubin 0.9 (0.2-1.0) mg/dL AST 27 (15-37) IU/L ALT 33 (14-63) IU/L Alkaline Phosphatase 81 (46-116) U/L Total Protein 7.5 (6.4-8.2) g/dL Albumin 3.6 (3.4-5.0) g/dL Globulin 3.9 (2.6-4.0) g/dL Albumin/Globulin Ratio 0.9 (0.9-1.6) Lipase 293 (73-393) U/L Urine Color Urine Appearance Urine pH (5.0-8.0) Ur Specific [place] (1.001-1.035) Urine Protein (NEGATIVE) mg/dL Urine Glucose (UA) (NEGATIVE) mg/dL Urine Ketones (NEGATIVE) mg/dL Urine Occult Blood (NEGATIVE) Urine Nitrite (NEGATIVE) Urine Bilirubin (NEGATIVE) Urine Urobilinogen (<2.0) EU/dL Ur Leukocyte Esterase (NEGATIVE) Urine RBC (0-2/HPF) Urine WBC (0-5/HPF) Ur Epithelial Cells (NONE-FEW) Urine Bacteria (NEGATIVE) Urine HCG, Qual (NEGATIVE) Influenza Type A RNA NEGATIVE (NEGATIVE) Influenza Type B RNA NEGATIVE (NEGATIVE) SARS-CoV-2 RNA (HUONG) NEGATIVE (NEGATIVE) 02/04/21 02/04/21 02/04/21 Range/Units 02:07 05:15 05:15 WBC 8.56 (4.0-11.0) K/uL RBC 3.93 L (4.30-5.90) M/uL Hgb 12.6 (12.0-16.0) g/dL Hct 36.3 (36.0-46.0) % MCV 92.4 (80.0-98.0) fL MCH 32.1 H (27.0-32.0) pg MCHC 34.7 (31.0-37.0) g/dL RDW Std Deviation 44.5 (28.0-62.0) fl RDW Coeff of Abdirizak 13 (11.0-15.0) % Plt Count 178 (150-400) K/uL MPV 10.30 (7.40-12.00) fL Neut % (Auto) 54.5 (48.0-80.0) % Lymph % (Auto) 34.3 (16.0-40.0) % [place] % (Auto) 8.2 (0.0-15.0) % Eos % (Auto) 2.8 (0.0-7.0) % Baso % (Auto) 0.2 (0.0-1.5) % Neut # (Auto) 4.7 (1.4-5.7) K/uL Lymph # (Auto) 2.9 H (0.6-2.4) K/uL [place] # (Auto) 0.7 (0.0-0.8) K/uL Eos # (Auto) 0.2 (0.0-0.7) K/uL Baso # (Auto) 0.0 (0.0-0.1) K/uL Nucleated RBC % 0.0 /100WBC Nucleated RBCs # 0 K/uL Sodium 139 (136-145) mmol/L Potassium 3.8 (3.5-5.1) mmol/L Chloride 104 (98-107) mmol/L Carbon Dioxide 24.9 (21.0-32.0) mmol/L BUN 19 H (7.0-18.0) mg/dL Creatinine 1.0 (0.6-1.0) mg/dL Est Cr Clr Drug Dosing 54.74 mL/min Estimated GFR (MDRD) > 60.0 ml/min Glucose 164 H (74-106) mg/dL POC Glucose 224 H (60-110) mg/dL Calcium 7.9 L (8.5-10.1) mg/dL Phosphorus 3.1 (2.6-4.7) mg/dL Magnesium 1.5 L (1.8-2.4) mg/dL Total Bilirubin (0.2-1.0) mg/dL AST (15-37) IU/L ALT (14-63) IU/L Alkaline Phosphatase (46-116) U/L Total Protein (6.4-8.2) g/dL Albumin (3.4-5.0) g/dL Globulin (2.6-4.0) g/dL Albumin/Globulin Ratio (0.9-1.6) Lipase (73-393) U/L Urine Color Urine Appearance Urine pH (5.0-8.0) Ur Specific [place] (1.001-1.035) Urine Protein (NEGATIVE) mg/dL Urine Glucose (UA) (NEGATIVE) mg/dL Urine Ketones (NEGATIVE) mg/dL Urine Occult Blood (NEGATIVE) Urine Nitrite (NEGATIVE) Urine Bilirubin (NEGATIVE) Urine Urobilinogen (<2.0) EU/dL Ur Leukocyte Esterase (NEGATIVE) Urine RBC (0-2/HPF) Urine WBC (0-5/HPF) Ur Epithelial Cells (NONE-FEW) Urine Bacteria (NEGATIVE) Urine HCG, Qual (NEGATIVE) Influenza Type A RNA (NEGATIVE) Influenza Type B RNA (NEGATIVE) SARS-CoV-2 RNA (HUONG) (NEGATIVE) 02/04/21 02/04/21 02/04/21 Range/Units 08:38 12:08 17:01 WBC (4.0-11.0) K/uL RBC (4.30-5.90) M/uL Hgb (12.0-16.0) g/dL Hct (36.0-46.0) % MCV (80.0-98.0) fL MCH (27.0-32.0) pg MCHC (31.0-37.0) g/dL RDW Std Deviation (28.0-62.0) fl RDW Coeff of Abdirizak (11.0-15.0) % Plt Count (150-400) K/uL MPV (7.40-12.00) fL Neut % (Auto) (48.0-80.0) % Lymph % (Auto) (16.0-40.0) % [place] % (Auto) (0.0-15.0) % Eos % (Auto) (0.0-7.0) % Baso % (Auto) (0.0-1.5) % Neut # (Auto) (1.4-5.7) K/uL Lymph # (Auto) (0.6-2.4) K/uL [place] # (Auto) (0.0-0.8) K/uL Eos # (Auto) (0.0-0.7) K/uL Baso # (Auto) (0.0-0.1) K/uL Nucleated RBC % /100WBC Nucleated RBCs # K/uL Sodium (136-145) mmol/L Potassium (3.5-5.1) mmol/L Chloride (98-107) mmol/L Carbon Dioxide (21.0-32.0) mmol/L BUN (7.0-18.0) mg/dL Creatinine (0.6-1.0) mg/dL Est Cr Clr Drug Dosing mL/min Estimated GFR (MDRD) ml/min Glucose (74-106) mg/dL POC Glucose 145 H 215 H 107 (60-110) mg/dL Calcium (8.5-10.1) mg/dL Phosphorus (2.6-4.7) mg/dL Magnesium (1.8-2.4) mg/dL Total Bilirubin (0.2-1.0) mg/dL AST (15-37) IU/L ALT (14-63) IU/L Alkaline Phosphatase (46-116) U/L Total Protein (6.4-8.2) g/dL Albumin (3.4-5.0) g/dL Globulin (2.6-4.0) g/dL Albumin/Globulin Ratio (0.9-1.6) Lipase (73-393) U/L Urine Color Urine Appearance Urine pH (5.0-8.0) Ur Specific [place] (1.001-1.035) Urine Protein (NEGATIVE) mg/dL Urine Glucose (UA) (NEGATIVE) mg/dL Urine Ketones (NEGATIVE) mg/dL Urine Occult Blood (NEGATIVE) Urine Nitrite (NEGATIVE) Urine Bilirubin (NEGATIVE) Urine Urobilinogen (<2.0) EU/dL Ur Leukocyte Esterase (NEGATIVE) Urine RBC (0-2/HPF) Urine WBC (0-5/HPF) Ur Epithelial Cells (NONE-FEW) Urine Bacteria (NEGATIVE) Urine HCG, Qual (NEGATIVE) Influenza Type A RNA (NEGATIVE) Influenza Type B RNA (NEGATIVE) SARS-CoV-2 RNA (HUONG) (NEGATIVE) Med Orders - Current: Current Medications Acetaminophen (Acetaminophen 325 Mg Tab) 650 mg PO Q4H PRN PRN Reason: Pain (Mild 1-3)/fever Albuterol/Ipratropium (Albuterol/Ipratropium 3.0-0.5 Mg/3 Ml Neb Soln) 3 ml NEB Q4HRRT PRN PRN Reason: Shortness Of Breath/wheezing Aspirin (Aspirin 81 Mg Tab.Chew) 81 mg PO BEDTIME [facility] Last Admin: 02/04/21 00:20 Dose: 81 mg Documented by: Atorvastatin Calcium (Atorvastatin 20 Mg Tab) 20 mg PO BEDTIME [facility] Last Admin: 02/04/21 00:20 Dose: 20 mg Documented by: Dextrose/Water (50% Dextrose In Water 50 Ml Syringe) 50 ml IV ASDIRECTED PRN PRN Reason: Hypoglycemia Dextrose/Water (50% Dextrose In Water 50 Ml Syringe) 50 ml IV ASDIRECTED PRN PRN Reason: Hypoglycemia Enoxaparin Sodium (Enoxaparin 40 Mg/0.4 Ml Syringe) 40 mg SUBCUT Q24H [facility] Last Admin: 02/03/21 22:10 Dose: Not Given Documented by: Glucagon (Glucagon,Human Recombinant 1 Mg Vial) 1 mg IM ASDIRECTED PRN PRN Reason: Hypoglycemia Glucagon (Glucagon,Human Recombinant 1 Mg Vial) 1 mg IM ASDIRECTED PRN PRN Reason: Hypoglycemia Hydromorphone HCl (Hydromorphone 1 Mg/Ml Syringe) 0.5 mg IVPUSH Q3H PRN PRN Reason: Pain (severe 7-10) Last Admin: 02/04/21 08:36 Dose: 0.5 mg Documented by: Lactated Ringer's (Ringers, Lactated) 1,000 mls @ 125 mls/hr IV ASDIRECTED [facility] Last Admin: 02/04/21 17:08 Dose: 125 mls/hr Documented by: Levofloxacin/Dextrose 750 mg/ (Premix) 150 mls @ 100 mls/hr IV Q24H [facility] Last Admin: 02/04/21 10:37 Dose: 100 mls/hr Documented by: Insulin Aspart (Insulin Aspart 100 Units/Ml 3 Ml Pen) 0 unit SUBCUT TIDAC [facility]; Protocol Last Admin: 02/04/21 17:07 Dose: Not Given Documented by: Insulin Glargine (Insulin Glargine,Human Rec. Analog 100 Units/Ml 3 Ml Pen) 64 units SUBCUT BID [facility] Last Admin: 02/04/21 08:52 Dose: 64 units Documented by: Losartan Potassium (Losartan 50 Mg Tab) 100 mg PO BEDTIME [facility] Last Admin: 02/04/21 00:20 Dose: 100 mg Documented by: Ondansetron HCl (Ondansetron 4 Mg/2 Ml Sdv) 4 mg IVPUSH Q4H PRN PRN Reason: Nausea/Vomiting Last Admin: 02/04/21 08:33 Dose: 4 mg Documented by: Discontinued Medications Chlorthalidone (Chlorthalidone 25 Mg Tab) 25 mg PO DAILY [facility] Diphenhydramine HCl (Diphenhydramine 50 Mg/Ml Sdv) 25 mg IVPUSH ONETIME ONE Stop: 02/04/21 09:57 Last Admin: 02/04/21 10:29 Dose: 25 mg Documented by: Haloperidol Lactate (Haloperidol Lactate 5 Mg/Ml Sdv) 1 mg IM ONETIME ONE Stop: 02/04/21 09:56 Last Admin: 02/04/21 10:30 Dose: 1 mg Documented by: Hydromorphone HCl (Hydromorphone 1 Mg/Ml Syringe) 1 mg IVPUSH ONETIME ONE Stop: 02/03/21 18:41 Last Admin: 02/03/21 19:10 Dose: 1 mg Documented by: Hydromorphone HCl (Hydromorphone 2 Mg/Ml Syringe) 0.5 mg IVPUSH ONETIME ONE Stop: 02/03/21 19:43 Last Admin: 02/03/21 19:50 Dose: 0.5 mg Documented by: Hydromorphone HCl (Hydromorphone 2 Mg/Ml Syringe) 0.5 mg IVPUSH Q3H PRN PRN Reason: Pain (severe 7-10) Last Admin: 02/04/21 02:00 Dose: 0.5 mg Documented by: Sodium Chloride (Normal Saline) 1,000 mls @ 999 mls/hr IV BOLUS ONE Stop: 02/03/21 19:40 Last Admin: 02/03/21 19:10 Dose: 999 mls/hr Documented by: Levofloxacin/Dextrose 750 mg/ (Premix) 150 mls @ 100 mls/hr IV ONETIME ONE Stop: 02/03/21 20:42 Last Admin: 02/03/21 19:38 Dose: 100 mls/hr Documented by: Magnesium Sulfate (Magnesium Sulfate In Water 2 Gm/50 Ml) 2 gm in 50 mls @ 50 mls/hr IV ONETIME ONE Stop: 02/04/21 09:04 Last Admin: 02/04/21 08:39 Dose: 50 mls/hr Documented by: Insulin Detemir (Insulin Detemir 100 Units/Ml 10 Ml Vial) 20 unit SUBCUT ONETIME ONE Stop: 02/03/21 23:30 Last Admin: 02/03/21 23:47 Dose: Not Given Documented by: Ketorolac Tromethamine (Ketorolac 30 Mg/Ml Sdv) 30 mg IVPUSH ONETIME ONE Stop: 02/03/21 18:41 Last Admin: 02/03/21 19:09 Dose: 30 mg Documented by: Lorazepam (Lorazepam 2 Mg/Ml Sdv) 0.5 mg IVPUSH ONETIME ONE Stop: 02/04/21 09:58 Last Admin: 02/04/21 10:41 Dose: Not Given Documented by: Lorazepam (Lorazepam 2 Mg/Ml Sdv) 0.5 mg IVPUSH ONETIME ONE Stop: 02/04/21 10:01 Last Admin: 02/04/21 10:30 Dose: 0.5 mg Documented by: Ondansetron HCl (Ondansetron 4 Mg/2 Ml Sdv) 4 mg IVPUSH ONETIME ONE Stop: 02/03/21 18:41 Last Admin: 02/03/21 19:09 Dose: 4 mg Documented by: Ondansetron HCl (Ondansetron 4 Mg/2 Ml Sdv) 4 mg IVPUSH ONETIME ONE Stop: 02/03/21 19:42 Last Admin: 02/03/21 19:50 Dose: 4 mg Documented by: Promethazine HCl (Promethazine 25 Mg/Ml Sdv) 25 mg IM ONETIME ONE Stop: 02/03/21 22:04 Last Admin: 02/03/21 22:10 Dose: 25 mg Documented by: - Exam General: Alert, Oriented Cardiovascular: Regular Rate, Regular Rhythm GI/Abdominal Exam: Normal Bowel Sounds, Soft, Non-Tender Back Exam: CVA Tenderness (R) - Patient Data Lab Results Last 24 hrs: Laboratory Results - last 24 hr 02/03/21 02/03/21 02/03/21 Range/Units 18:31 18:31 18:51 WBC 9.88 (4.0-11.0) K/uL RBC 4.46 (4.30-5.90) M/uL Hgb 14.4 (12.0-16.0) g/dL Hct 40.5 (36.0-46.0) % MCV 90.8 (80.0-98.0) fL MCH 32.3 H (27.0-32.0) pg MCHC 35.6 (31.0-37.0) g/dL RDW Std Deviation 43.4 (28.0-62.0) fl RDW Coeff of Abdirizak 13 (11.0-15.0) % Plt Count 248 (150-400) K/uL MPV 9.90 (7.40-12.00) fL Neut % (Auto) 61.3 (48.0-80.0) % Lymph % (Auto) 29.5 (16.0-40.0) % [place] % (Auto) 6.8 (0.0-15.0) % Eos % (Auto) 1.9 (0.0-7.0) % Baso % (Auto) 0.5 (0.0-1.5) % Neut # (Auto) 6.1 H (1.4-5.7) K/uL Lymph # (Auto) 2.9 H (0.6-2.4) K/uL [place] # (Auto) 0.7 (0.0-0.8) K/uL Eos # (Auto) 0.2 (0.0-0.7) K/uL Baso # (Auto) 0.1 (0.0-0.1) K/uL Nucleated RBC % 0.0 /100WBC Nucleated RBCs # 0 K/uL Sodium (136-145) mmol/L Potassium (3.5-5.1) mmol/L Chloride (98-107) mmol/L Carbon Dioxide (21.0-32.0) mmol/L BUN (7.0-18.0) mg/dL Creatinine (0.6-1.0) mg/dL Est Cr Clr Drug Dosing mL/min Estimated GFR (MDRD) ml/min Glucose (74-106) mg/dL POC Glucose (60-110) mg/dL Calcium (8.5-10.1) mg/dL Phosphorus (2.6-4.7) mg/dL Magnesium (1.8-2.4) mg/dL Total Bilirubin (0.2-1.0) mg/dL AST (15-37) IU/L ALT (14-63) IU/L Alkaline Phosphatase (46-116) U/L Total Protein (6.4-8.2) g/dL Albumin (3.4-5.0) g/dL Globulin (2.6-4.0) g/dL Albumin/Globulin Ratio (0.9-1.6) Lipase (73-393) U/L Urine Color YELLOW Urine Appearance HAZY Urine pH 6.0 (5.0-8.0) Ur Specific [place] >= 1.030 (1.001-1.035) Urine Protein 30 H (NEGATIVE) mg/dL Urine Glucose (UA) >=1000 (NEGATIVE) mg/dL Urine Ketones NEGATIVE (NEGATIVE) mg/dL Urine Occult Blood NEGATIVE (NEGATIVE) Urine Nitrite POSITIVE H (NEGATIVE) Urine Bilirubin NEGATIVE (NEGATIVE) Urine Urobilinogen 0.2 (<2.0) EU/dL Ur Leukocyte Esterase SMALL H (NEGATIVE) Urine RBC 1-3 (0-2/HPF) Urine WBC 30-40 (0-5/HPF) Ur Epithelial Cells FEW (NONE-FEW) Urine Bacteria 3+ H (NEGATIVE) Urine HCG, Qual NEGATIVE (NEGATIVE) Influenza Type A RNA (NEGATIVE) Influenza Type B RNA (NEGATIVE) SARS-CoV-2 RNA (HUONG) (NEGATIVE) 02/03/21 02/03/21 02/03/21 Range/Units 18:51 20:50 23:41 WBC (4.0-11.0) K/uL RBC (4.30-5.90) M/uL Hgb (12.0-16.0) g/dL Hct (36.0-46.0) % MCV (80.0-98.0) fL MCH (27.0-32.0) pg MCHC (31.0-37.0) g/dL RDW Std Deviation (28.0-62.0) fl RDW Coeff of Abdirizak (11.0-15.0) % Plt Count (150-400) K/uL MPV (7.40-12.00) fL Neut % (Auto) (48.0-80.0) % Lymph % (Auto) (16.0-40.0) % [place] % (Auto) (0.0-15.0) % Eos % (Auto) (0.0-7.0) % Baso % (Auto) (0.0-1.5) % Neut # (Auto) (1.4-5.7) K/uL Lymph # (Auto) (0.6-2.4) K/uL [place] # (Auto) (0.0-0.8) K/uL Eos # (Auto) (0.0-0.7) K/uL Baso # (Auto) (0.0-0.1) K/uL Nucleated RBC % /100WBC Nucleated RBCs # K/uL Sodium 138 (136-145) mmol/L Potassium 3.7 (3.5-5.1) mmol/L Chloride 101 (98-107) mmol/L Carbon Dioxide 25.4 (21.0-32.0) mmol/L BUN 16 (7.0-18.0) mg/dL Creatinine 1.1 H (0.6-1.0) mg/dL Est Cr Clr Drug Dosing 49.76 mL/min Estimated GFR (MDRD) 54.2 ml/min Glucose 256 H (74-106) mg/dL POC Glucose 221 H (60-110) mg/dL Calcium 9.1 (8.5-10.1) mg/dL Phosphorus (2.6-4.7) mg/dL Magnesium (1.8-2.4) mg/dL Total Bilirubin 0.9 (0.2-1.0) mg/dL AST 27 (15-37) IU/L ALT 33 (14-63) IU/L Alkaline Phosphatase 81 (46-116) U/L Total Protein 7.5 (6.4-8.2) g/dL Albumin 3.6 (3.4-5.0) g/dL Globulin 3.9 (2.6-4.0) g/dL Albumin/Globulin Ratio 0.9 (0.9-1.6) Lipase 293 (73-393) U/L Urine Color Urine Appearance Urine pH (5.0-8.0) Ur Specific [place] (1.001-1.035) Urine Protein (NEGATIVE) mg/dL Urine Glucose (UA) (NEGATIVE) mg/dL Urine Ketones (NEGATIVE) mg/dL Urine Occult Blood (NEGATIVE) Urine Nitrite (NEGATIVE) Urine Bilirubin (NEGATIVE) Urine Urobilinogen (<2.0) EU/dL Ur Leukocyte Esterase (NEGATIVE) Urine RBC (0-2/HPF) Urine WBC (0-5/HPF) Ur Epithelial Cells (NONE-FEW) Urine Bacteria (NEGATIVE) Urine HCG, Qual (NEGATIVE) Influenza Type A RNA NEGATIVE (NEGATIVE) Influenza Type B RNA NEGATIVE (NEGATIVE) SARS-CoV-2 RNA (HUONG) NEGATIVE (NEGATIVE) 02/04/21 02/04/21 02/04/21 Range/Units 02:07 05:15 05:15 WBC 8.56 (4.0-11.0) K/uL RBC 3.93 L (4.30-5.90) M/uL Hgb 12.6 (12.0-16.0) g/dL Hct 36.3 (36.0-46.0) % MCV 92.4 (80.0-98.0) fL MCH 32.1 H (27.0-32.0) pg MCHC 34.7 (31.0-37.0) g/dL RDW Std Deviation 44.5 (28.0-62.0) fl RDW Coeff of Abdirizak 13 (11.0-15.0) % Plt Count 178 (150-400) K/uL MPV 10.30 (7.40-12.00) fL Neut % (Auto) 54.5 (48.0-80.0) % Lymph % (Auto) 34.3 (16.0-40.0) % [place] % (Auto) 8.2 (0.0-15.0) % Eos % (Auto) 2.8 (0.0-7.0) % Baso % (Auto) 0.2 (0.0-1.5) % Neut # (Auto) 4.7 (1.4-5.7) K/uL Lymph # (Auto) 2.9 H (0.6-2.4) K/uL [place] # (Auto) 0.7 (0.0-0.8) K/uL Eos # (Auto) 0.2 (0.0-0.7) K/uL Baso # (Auto) 0.0 (0.0-0.1) K/uL Nucleated RBC % 0.0 /100WBC Nucleated RBCs # 0 K/uL Sodium 139 (136-145) mmol/L Potassium 3.8 (3.5-5.1) mmol/L Chloride 104 (98-107) mmol/L Carbon Dioxide 24.9 (21.0-32.0) mmol/L BUN 19 H (7.0-18.0) mg/dL Creatinine 1.0 (0.6-1.0) mg/dL Est Cr Clr Drug Dosing 54.74 mL/min Estimated GFR (MDRD) > 60.0 ml/min Glucose 164 H (74-106) mg/dL POC Glucose 224 H (60-110) mg/dL Calcium 7.9 L (8.5-10.1) mg/dL Phosphorus 3.1 (2.6-4.7) mg/dL Magnesium 1.5 L (1.8-2.4) mg/dL Total Bilirubin (0.2-1.0) mg/dL AST (15-37) IU/L ALT (14-63) IU/L Alkaline Phosphatase (46-116) U/L Total Protein (6.4-8.2) g/dL Albumin (3.4-5.0) g/dL Globulin (2.6-4.0) g/dL Albumin/Globulin Ratio (0.9-1.6) Lipase (73-393) U/L Urine Color Urine Appearance Urine pH (5.0-8.0) Ur Specific [place] (1.001-1.035) Urine Protein (NEGATIVE) mg/dL Urine Glucose (UA) (NEGATIVE) mg/dL Urine Ketones (NEGATIVE) mg/dL Urine Occult Blood (NEGATIVE) Urine Nitrite (NEGATIVE) Urine Bilirubin (NEGATIVE) Urine Urobilinogen (<2.0) EU/dL Ur Leukocyte Esterase (NEGATIVE) Urine RBC (0-2/HPF) Urine WBC (0-5/HPF) Ur Epithelial Cells (NONE-FEW) Urine Bacteria (NEGATIVE) Urine HCG, Qual (NEGATIVE) Influenza Type A RNA (NEGATIVE) Influenza Type B RNA (NEGATIVE) SARS-CoV-2 RNA (HUONG) (NEGATIVE) 02/04/21 02/04/21 02/04/21 Range/Units 08:38 12:08 17:01 WBC (4.0-11.0) K/uL RBC (4.30-5.90) M/uL Hgb (12.0-16.0) g/dL Hct (36.0-46.0) % MCV (80.0-98.0) fL MCH (27.0-32.0) pg MCHC (31.0-37.0) g/dL RDW Std Deviation (28.0-62.0) fl RDW Coeff of Abdirizak (11.0-15.0) % Plt Count (150-400) K/uL MPV (7.40-12.00) fL Neut % (Auto) (48.0-80.0) % Lymph % (Auto) (16.0-40.0) % [place] % (Auto) (0.0-15.0) % Eos % (Auto) (0.0-7.0) % Baso % (Auto) (0.0-1.5) % Neut # (Auto) (1.4-5.7) K/uL Lymph # (Auto) (0.6-2.4) K/uL [place] # (Auto) (0.0-0.8) K/uL Eos # (Auto) (0.0-0.7) K/uL Baso # (Auto) (0.0-0.1) K/uL Nucleated RBC % /100WBC Nucleated RBCs # K/uL Sodium (136-145) mmol/L Potassium (3.5-5.1) mmol/L Chloride (98-107) mmol/L Carbon Dioxide (21.0-32.0) mmol/L BUN (7.0-18.0) mg/dL Creatinine (0.6-1.0) mg/dL Est Cr Clr Drug Dosing mL/min Estimated GFR (MDRD) ml/min Glucose (74-106) mg/dL POC Glucose 145 H 215 H 107 (60-110) mg/dL Calcium (8.5-10.1) mg/dL Phosphorus (2.6-4.7) mg/dL Magnesium (1.8-2.4) mg/dL Total Bilirubin (0.2-1.0) mg/dL AST (15-37) IU/L ALT (14-63) IU/L Alkaline Phosphatase (46-116) U/L Total Protein (6.4-8.2) g/dL Albumin (3.4-5.0) g/dL Globulin (2.6-4.0) g/dL Albumin/Globulin Ratio (0.9-1.6) Lipase (73-393) U/L Urine Color Urine Appearance Urine pH (5.0-8.0) Ur Specific [place] (1.001-1.035) Urine Protein (NEGATIVE) mg/dL Urine Glucose (UA) (NEGATIVE) mg/dL Urine Ketones (NEGATIVE) mg/dL Urine Occult Blood (NEGATIVE) Urine Nitrite (NEGATIVE) Urine Bilirubin (NEGATIVE) Urine Urobilinogen (<2.0) EU/dL Ur Leukocyte Esterase (NEGATIVE) Urine RBC (0-2/HPF) Urine WBC (0-5/HPF) Ur Epithelial Cells (NONE-FEW) Urine Bacteria (NEGATIVE) Urine HCG, Qual (NEGATIVE) Influenza Type A RNA (NEGATIVE) Influenza Type B RNA (NEGATIVE) SARS-CoV-2 RNA (HUONG) (NEGATIVE) Result Diagrams: 02/04/21 05:15 02/04/21 05:15 Sepsis Event Note - Evaluation Sepsis Screening Result: No Definite Risk - Focused Exam Vital Signs: Vital Signs Temp Pulse Resp BP Pulse Ox 02/04/21 17:09 97.4 F 78 15 156/90 H 97 02/04/21 12:00 99.1 F 80 16 146/82 H 98 02/04/21 08:40 97.7 F 88 16 170/97 H 97 - Problem List & Annotations (1) Acute pyelonephritis SNOMED Code(s): 67221894 Code(s): N10 - ACUTE PYELONEPHRITIS Status: Acute Current Visit: Yes (2) Diabetes mellitus SNOMED Code(s): 93838491 Code(s): E11.9 - TYPE 2 DIABETES MELLITUS WITHOUT COMPLICATIONS Status: Acute Current Visit: No (3) Flank pain SNOMED Code(s): 684677042 Code(s): R10.9 - UNSPECIFIED ABDOMINAL PAIN Status: Acute Current Visit: No - Problem List Review Problem List Initiated/Reviewed/Updated: Yes - My Orders Last 24 Hours: My Active Orders 02/05/21 05:11 BASIC METABOLIC PANEL,BMP [CHEM] AM CBC WITH AUTO DIFF [HEME] AM - Plan Plan:: Acute pyelonephritis IV Levaquin, IV fluids, urine culture pending, Dilaudid for pain control, Zofran for nausea, Protonix, clear diet advanced tolerated Diabetes mellitussliding scale insulin lovenox <Rai Hernández - Last Filed: 02/05/21 22:45> - General Info Subjective Update: I have seen and evaluated the patient and agree with the residents note unless specified in my note - Patient Data Vitals - Most Recent: Last Vital Signs Temp 37.2 C 02/05/21 19:25 Pulse 98 02/05/21 19:25 Resp 16 02/05/21 19:25 BP 170/99 H 02/05/21 21:40 Pulse Ox 98 02/05/21 21:00 I&O - Last 24 Hours: Intake & Output 02/05/21 02/05/21 02/05/21 06:59 14:59 22:59 Intake Total 430 1000 930 Output Total 800 2000 Balance -370 1000 -1070 Lab Results Last 24 Hours: Laboratory Results - last 24 hr 02/05/21 02/05/21 02/05/21 Range/Units 05:38 06:03 06:03 WBC 8.59 (4.0-11.0) K/uL RBC 3.77 L (4.30-5.90) M/uL Hgb 12.0 (12.0-16.0) g/dL Hct 35.1 L (36.0-46.0) % MCV 93.1 (80.0-98.0) fL MCH 31.8 (27.0-32.0) pg MCHC 34.2 (31.0-37.0) g/dL RDW Std Deviation 44.9 (28.0-62.0) fl RDW Coeff of Abdirizak 13 (11.0-15.0) % Plt Count 159 (150-400) K/uL MPV 9.80 (7.40-12.00) fL Neut % (Auto) 73.2 (48.0-80.0) % Lymph % (Auto) 16.8 (16.0-40.0) % [place] % (Auto) 9.1 (0.0-15.0) % Eos % (Auto) 0.7 (0.0-7.0) % Baso % (Auto) 0.2 (0.0-1.5) % Neut # (Auto) 6.3 H (1.4-5.7) K/uL Lymph # (Auto) 1.4 (0.6-2.4) K/uL [place] # (Auto) 0.8 (0.0-0.8) K/uL Eos # (Auto) 0.1 (0.0-0.7) K/uL Baso # (Auto) 0.0 (0.0-0.1) K/uL Nucleated RBC % 0.0 /100WBC Nucleated RBCs # 0 K/uL Sodium 139 (136-145) mmol/L Potassium 3.4 L (3.5-5.1) mmol/L Chloride 105 (98-107) mmol/L Carbon Dioxide 27.4 (21.0-32.0) mmol/L BUN 11 (7.0-18.0) mg/dL Creatinine 0.9 (0.6-1.0) mg/dL Est Cr Clr Drug Dosing 60.82 mL/min Estimated GFR (MDRD) > 60.0 ml/min Glucose 109 H (74-106) mg/dL POC Glucose 119 H (60-110) mg/dL Calcium 8.3 L (8.5-10.1) mg/dL 02/05/21 02/05/21 02/05/21 Range/Units 11:22 17:30 20:35 WBC (4.0-11.0) K/uL RBC (4.30-5.90) M/uL Hgb (12.0-16.0) g/dL Hct (36.0-46.0) % MCV (80.0-98.0) fL MCH (27.0-32.0) pg MCHC (31.0-37.0) g/dL RDW Std Deviation (28.0-62.0) fl RDW Coeff of Abdirizak (11.0-15.0) % Plt Count (150-400) K/uL MPV (7.40-12.00) fL Neut % (Auto) (48.0-80.0) % Lymph % (Auto) (16.0-40.0) % [place] % (Auto) (0.0-15.0) % Eos % (Auto) (0.0-7.0) % Baso % (Auto) (0.0-1.5) % Neut # (Auto) (1.4-5.7) K/uL Lymph # (Auto) (0.6-2.4) K/uL [place] # (Auto) (0.0-0.8) K/uL Eos # (Auto) (0.0-0.7) K/uL Baso # (Auto) (0.0-0.1) K/uL Nucleated RBC % /100WBC Nucleated RBCs # K/uL Sodium (136-145) mmol/L Potassium (3.5-5.1) mmol/L Chloride (98-107) mmol/L Carbon Dioxide (21.0-32.0) mmol/L BUN (7.0-18.0) mg/dL Creatinine (0.6-1.0) mg/dL Est Cr Clr Drug Dosing mL/min Estimated GFR (MDRD) ml/min Glucose (74-106) mg/dL POC Glucose 98 98 135 H (60-110) mg/dL Calcium (8.5-10.1) mg/dL Manuel Results Last 24 Hours: Microbiology 02/03/21 18:31 Urine Culture - Final Urine, Clean Catch Escherichia Coli Med Orders - Current: Current Medications Acetaminophen (Acetaminophen 325 Mg Tab) 650 mg PO Q4H PRN PRN Reason: Pain (Mild 1-3)/fever Last Admin: 02/05/21 10:40 Dose: 650 mg Documented by: Albuterol/Ipratropium (Albuterol/Ipratropium 3.0-0.5 Mg/3 Ml Neb Soln) 3 ml NEB Q4HRRT PRN PRN Reason: Shortness Of Breath/wheezing Amlodipine Besylate (Amlodipine 5 Mg Tab) 10 mg PO DAILY CASSANDRA Last Admin: 02/05/21 10:45 Dose: 10 mg Documented by: Aspirin (Aspirin 81 Mg Tab.Chew) 81 mg PO BEDTIME CASSANDRA Last Admin: 02/05/21 20:41 Dose: 81 mg Documented by: Atorvastatin Calcium (Atorvastatin 20 Mg Tab) 20 mg PO BEDTIME CASSANDRA Last Admin: 02/05/21 20:42 Dose: 20 mg Documented by: Dextrose/Water (50% Dextrose In Water 50 Ml Syringe) 50 ml IV ASDIRECTED PRN PRN Reason: Hypoglycemia Dextrose/Water (50% Dextrose In Water 50 Ml Syringe) 50 ml IV ASDIRECTED PRN PRN Reason: Hypoglycemia Enoxaparin Sodium (Enoxaparin 40 Mg/0.4 Ml Syringe) 40 mg SUBCUT Q24H [facility] Last Admin: 02/05/21 20:46 Dose: 40 mg Documented by: Glucagon (Glucagon,Human Recombinant 1 Mg Vial) 1 mg IM ASDIRECTED PRN PRN Reason: Hypoglycemia Glucagon (Glucagon,Human Recombinant 1 Mg Vial) 1 mg IM ASDIRECTED PRN PRN Reason: Hypoglycemia Lactated Ringer's (Ringers, Lactated) 1,000 mls @ 125 mls/hr IV ASDIRECTED [facility] Last Admin: 02/05/21 21:37 Dose: 125 mls/hr Documented by: Levofloxacin/Dextrose 750 mg/ (Premix) 150 mls @ 100 mls/hr IV Q24H [facility] Last Admin: 02/05/21 08:13 Dose: 100 mls/hr Documented by: Insulin Aspart (Insulin Aspart 100 Units/Ml 3 Ml Pen) 0 unit SUBCUT TIDAC [facility]; Protocol Last Admin: 02/05/21 17:33 Dose: Not Given Documented by: Insulin Glargine (Insulin Glargine,Human Rec. Analog 100 Units/Ml 3 Ml Pen) 64 units SUBCUT BID [facility] Last Admin: 02/05/21 20:43 Dose: 64 units Documented by: Labetalol HCl (Labetalol 100 Mg/20 Ml Mdv) 20 mg IVPUSH Q4H PRN; Protocol PRN Reason: Hypertension Last Admin: 02/05/21 19:34 Dose: 20 mg Documented by: Losartan Potassium (Losartan 50 Mg Tab) 100 mg PO BEDTIME [facility] Last Admin: 02/05/21 20:41 Dose: 100 mg Documented by: Morphine Sulfate (Morphine 2 Mg/Ml Syringe) 2 mg IVPUSH Q4H PRN PRN Reason: Pain Last Admin: 02/05/21 20:36 Dose: 2 mg Documented by: Ondansetron HCl (Ondansetron 4 Mg/2 Ml Sdv) 4 mg IVPUSH Q4H PRN PRN Reason: Nausea/Vomiting Last Admin: 02/05/21 11:32 Dose: 4 mg Documented by: Discontinued Medications Chlorthalidone (Chlorthalidone 25 Mg Tab) 25 mg PO DAILY CASSANDRA Diphenhydramine HCl (Diphenhydramine 50 Mg/Ml Sdv) 25 mg IVPUSH ONETIME ONE Stop: 02/04/21 09:57 Last Admin: 02/04/21 10:29 Dose: 25 mg Documented by: Haloperidol Lactate (Haloperidol Lactate 5 Mg/Ml Sdv) 1 mg IM ONETIME ONE Stop: 02/04/21 09:56 Last Admin: 02/04/21 10:30 Dose: 1 mg Documented by: Hydromorphone HCl (Hydromorphone 1 Mg/Ml Syringe) 1 mg IVPUSH ONETIME ONE Stop: 02/03/21 18:41 Last Admin: 02/03/21 19:10 Dose: 1 mg Documented by: Hydromorphone HCl (Hydromorphone 2 Mg/Ml Syringe) 0.5 mg IVPUSH ONETIME ONE Stop: 02/03/21 19:43 Last Admin: 02/03/21 19:50 Dose: 0.5 mg Documented by: Hydromorphone HCl (Hydromorphone 2 Mg/Ml Syringe) 0.5 mg IVPUSH Q3H PRN PRN Reason: Pain (severe 7-10) Last Admin: 02/04/21 02:00 Dose: 0.5 mg Documented by: Hydromorphone HCl (Hydromorphone 1 Mg/Ml Syringe) 0.5 mg IVPUSH Q3H PRN PRN Reason: Pain (severe 7-10) Last Admin: 02/05/21 09:05 Dose: 0.5 mg Documented by: Sodium Chloride (Normal Saline) 1,000 mls @ 999 mls/hr IV BOLUS ONE Stop: 02/03/21 19:40 Last Admin: 02/03/21 19:10 Dose: 999 mls/hr Documented by: Levofloxacin/Dextrose 750 mg/ (Premix) 150 mls @ 100 mls/hr IV ONETIME ONE Stop: 02/03/21 20:42 Last Admin: 02/03/21 19:38 Dose: 100 mls/hr Documented by: Magnesium Sulfate (Magnesium Sulfate In Water 2 Gm/50 Ml) 2 gm in 50 mls @ 50 mls/hr IV ONETIME ONE Stop: 02/04/21 09:04 Last Admin: 02/04/21 08:39 Dose: 50 mls/hr Documented by: Potassium Chloride/Sodium Chloride (Normal Saline With 20 Meq Kcl) 1,000 mls @ 500 mls/hr IV ONETIME ONE Stop: 02/05/21 13:29 Last Admin: 02/05/21 11:46 Dose: 500 mls/hr Documented by: Insulin Detemir (Insulin Detemir 100 Units/Ml 10 Ml Vial) 20 unit SUBCUT ONETIME ONE Stop: 02/03/21 23:30 Last Admin: 02/03/21 23:47 Dose: Not Given Documented by: Ketorolac Tromethamine (Ketorolac 30 Mg/Ml Sdv) 30 mg IVPUSH ONETIME ONE Stop: 02/03/21 18:41 Last Admin: 02/03/21 19:09 Dose: 30 mg Documented by: Ketorolac Tromethamine (Ketorolac 30 Mg/Ml Sdv) 15 mg IVPUSH ONETIME ONE Stop: 02/05/21 11:31 Last Admin: 02/05/21 11:31 Dose: 15 mg Documented by: Labetalol HCl (Labetalol 100 Mg/20 Ml Mdv) 20 mg IVPUSH ONETIME ONE; Protocol Stop: 02/05/21 11:31 Last Admin: 02/05/21 11:39 Dose: 20 mg Documented by: Lorazepam (Lorazepam 2 Mg/Ml Sdv) 0.5 mg IVPUSH ONETIME ONE Stop: 02/04/21 09:58 Last Admin: 02/04/21 10:41 Dose: Not Given Documented by: Lorazepam (Lorazepam 2 Mg/Ml Sdv) 0.5 mg IVPUSH ONETIME ONE Stop: 02/04/21 10:01 Last Admin: 02/04/21 10:30 Dose: 0.5 mg Documented by: Ondansetron HCl (Ondansetron 4 Mg/2 Ml Sdv) 4 mg IVPUSH ONETIME ONE Stop: 02/03/21 18:41 Last Admin: 02/03/21 19:09 Dose: 4 mg Documented by: Ondansetron HCl (Ondansetron 4 Mg/2 Ml Sdv) 4 mg IVPUSH ONETIME ONE Stop: 02/03/21 19:42 Last Admin: 02/03/21 19:50 Dose: 4 mg Documented by: Promethazine HCl (Promethazine 25 Mg/Ml Sdv) 25 mg IM ONETIME ONE Stop: 02/03/21 22:04 Last Admin: 02/03/21 22:10 Dose: 25 mg Documented by: - Patient Data Lab Results Last 24 hrs: Laboratory Results - last 24 hr 02/05/21 02/05/21 02/05/21 Range/Units 05:38 06:03 06:03 WBC 8.59 (4.0-11.0) K/uL RBC 3.77 L (4.30-5.90) M/uL Hgb 12.0 (12.0-16.0) g/dL Hct 35.1 L (36.0-46.0) % MCV 93.1 (80.0-98.0) fL MCH 31.8 (27.0-32.0) pg MCHC 34.2 (31.0-37.0) g/dL RDW Std Deviation 44.9 (28.0-62.0) fl RDW Coeff of Abdirizak 13 (11.0-15.0) % Plt Count 159 (150-400) K/uL MPV 9.80 (7.40-12.00) fL Neut % (Auto) 73.2 (48.0-80.0) % Lymph % (Auto) 16.8 (16.0-40.0) % [place] % (Auto) 9.1 (0.0-15.0) % Eos % (Auto) 0.7 (0.0-7.0) % Baso % (Auto) 0.2 (0.0-1.5) % Neut # (Auto) 6.3 H (1.4-5.7) K/uL Lymph # (Auto) 1.4 (0.6-2.4) K/uL [place] # (Auto) 0.8 (0.0-0.8) K/uL Eos # (Auto) 0.1 (0.0-0.7) K/uL Baso # (Auto) 0.0 (0.0-0.1) K/uL Nucleated RBC % 0.0 /100WBC Nucleated RBCs # 0 K/uL Sodium 139 (136-145) mmol/L Potassium 3.4 L (3.5-5.1) mmol/L Chloride 105 (98-107) mmol/L Carbon Dioxide 27.4 (21.0-32.0) mmol/L BUN 11 (7.0-18.0) mg/dL Creatinine 0.9 (0.6-1.0) mg/dL Est Cr Clr Drug Dosing 60.82 mL/min Estimated GFR (MDRD) > 60.0 ml/min Glucose 109 H (74-106) mg/dL POC Glucose 119 H (60-110) mg/dL Calcium 8.3 L (8.5-10.1) mg/dL 02/05/21 02/05/21 02/05/21 Range/Units 11:22 17:30 20:35 WBC (4.0-11.0) K/uL RBC (4.30-5.90) M/uL Hgb (12.0-16.0) g/dL Hct (36.0-46.0) % MCV (80.0-98.0) fL MCH (27.0-32.0) pg MCHC (31.0-37.0) g/dL RDW Std Deviation (28.0-62.0) fl RDW Coeff of Abdirizak (11.0-15.0) % Plt Count (150-400) K/uL MPV (7.40-12.00) fL Neut % (Auto) (48.0-80.0) % Lymph % (Auto) (16.0-40.0) % [place] % (Auto) (0.0-15.0) % Eos % (Auto) (0.0-7.0) % Baso % (Auto) (0.0-1.5) % Neut # (Auto) (1.4-5.7) K/uL Lymph # (Auto) (0.6-2.4) K/uL [place] # (Auto) (0.0-0.8) K/uL Eos # (Auto) (0.0-0.7) K/uL Baso # (Auto) (0.0-0.1) K/uL Nucleated RBC % /100WBC Nucleated RBCs # K/uL Sodium (136-145) mmol/L Potassium (3.5-5.1) mmol/L Chloride (98-107) mmol/L Carbon Dioxide (21.0-32.0) mmol/L BUN (7.0-18.0) mg/dL Creatinine (0.6-1.0) mg/dL Est Cr Clr Drug Dosing mL/min Estimated GFR (MDRD) ml/min Glucose (74-106) mg/dL POC Glucose 98 98 135 H (60-110) mg/dL Calcium (8.5-10.1) mg/dL Result Diagrams: 02/05/21 06:03 02/05/21 06:03 Manuel Results Last 24 hrs: Microbiology 02/03/21 18:31 Urine Culture - Final Urine, Clean Catch Escherichia Coli Sepsis Event Note - Focused Exam Vital Signs: Vital Signs Temp Pulse Resp BP BP BP Pulse Ox 02/05/21 21:40 170/99 H 02/05/21 21:00 02/05/21 20:41 179/105 H 02/05/21 20:40 179/105 H 02/05/21 19:28 190/108 H 02/05/21 19:25 37.2 C 98 16 200/119 H 98 02/05/21 16:25 37.1 C 100 16 158/92 H 97 02/05/21 14:06 92 155/84 H 02/05/21 13:00 86 16 180/104 H 02/05/21 11:35 36.8 C 75 16 191/105 H 97 Pulse Ox 02/05/21 21:40 02/05/21 21:00 98 02/05/21 20:41 02/05/21 20:40 02/05/21 19:28 02/05/21 19:25 02/05/21 16:25 02/05/21 14:06 02/05/21 13:00 02/05/21 11:35 - Problem List & Annotations (1) Acute pyelonephritis SNOMED Code(s): 30846508 Code(s): N10 - ACUTE PYELONEPHRITIS Status: Acute Current Visit: Yes (2) Diabetes mellitus SNOMED Code(s): 42792559 Code(s): E11.9 - TYPE 2 DIABETES MELLITUS WITHOUT COMPLICATIONS Status: Acute Current Visit: No - My Orders Last 24 Hours: My Active Orders 02/05/21 09:15 amLODIPine [Norvasc] 10 mg PO DAILY 02/05/21 Lunch Soft Diet [DIET] 02/05/21 12:54 Labetalol [Normodyne] 20 mg IVPUSH Q4H PRN 02/05/21 12:55 Admission Status [Patient Status] [ADT] Routine
[2021-02-04] MEDS: Enoxaparin 40 MG/0.4 ML Syringe SUBCUT SCH (21:19)
[2021-02-05] MEDS: Lactated Ringers 1,000 ML IV SCH ×3 (00:58→21:37)
[2021-02-05] MEDS: Acetaminophen 325 MG Tab PO PRN ×2 (01:52→10:40)
[2021-02-05 06:36] LABS: BLOOD UREA NITROGEN,BUN 11 mg/dL (7.0-18.0); CARBON DIOXIDE,CO2 27.4 mmol/L (21.0-32.0); CHLORIDE,CL 105 mmol/L (98-107); GLUCOSE RANDOM 109 mg/dL (74-106); POTASSIUM,K 3.4 mmol/L (3.5-5.1); SODIUM,NA 139 mmol/L (136-145)
[2021-02-05] MEDS: Insulin Aspart 100 Units/ML 3 ML Pen SUBCUT SCH ×3 (07:43→17:33)
[2021-02-05] MEDS: Levofloxacin/Dextrose 5%-Water 750 MG in Premix Bag 1 BAG IV SCH (08:13)
[2021-02-05] MEDS: Insulin Glargine,Human Rec. Analog 100 Units/ML 3 ML Pen SUBCUT SCH ×2 (08:33→20:43)
[2021-02-05] MEDS: HYDROmorphone 1 MG/ML Syringe IVPUSH PRN (09:05)
[2021-02-05] MEDS: amLODIPine 5 MG Tab PO SCH (10:45)
[2021-02-05] MEDS ORDERED: Potassium Chloride Riders 20 MEQ in Premix Bag 1 BAG IV ONE (11:08)
[2021-02-05] MEDS ORDERED: Ketorolac 30 MG/ML SDV IVPUSH ONE (11:30)
[2021-02-05] MEDS ORDERED: NS + KCl 20mEq/L 1,000 ML IV ONE (11:30)
[2021-02-05] MEDS ORDERED: Labetalol 100 MG/20 ML MDV IVPUSH ONE (11:30)
[2021-02-05] MEDS: Ondansetron 4 MG/2 ML SDV IVPUSH PRN (11:32)
--- NOTE | 2021-02-05 12:19 | PCM.PN ---
<Prabhu Guadalupe - Last Filed: 02/05/21 20:42> - General Info Date of Service: 02/05/21 Subjective Update: Patient states headache this morning. Patient denies fever, chills, nausea, vomiting, abdominal pain. Patient states flank pain is much better today. - Review of Systems General: Denies: Fever, Chills Pulmonary: Denies: Shortness of Breath, Cough Cardiovascular: Denies: Chest Pain Gastrointestinal: Denies: Abdominal Pain, Nausea, Vomiting Neurological: Reports: Headache. Denies: Confusion, Dizziness - Patient Data Vitals - Most Recent: Last Vital Signs Temp 98.3 F 02/05/21 11:35 Pulse 75 02/05/21 11:35 Resp 16 02/05/21 11:35 BP 191/105 H 02/05/21 11:35 Pulse Ox 97 02/05/21 11:35 Weight - Most Recent: 78.517 kg I&O - Last 24 Hours: Intake & Output 02/04/21 02/05/21 02/05/21 22:59 06:59 14:59 Intake Total 240 430 Output Total 910 800 Balance -670 -370 Lab Results Last 24 Hours: Laboratory Results - last 24 hr 02/04/21 02/04/21 02/05/21 Range/Units 17:01 21:23 05:38 WBC (4.0-11.0) K/uL RBC (4.30-5.90) M/uL Hgb (12.0-16.0) g/dL Hct (36.0-46.0) % MCV (80.0-98.0) fL MCH (27.0-32.0) pg MCHC (31.0-37.0) g/dL RDW Std Deviation (28.0-62.0) fl RDW Coeff of Abdirizak (11.0-15.0) % Plt Count (150-400) K/uL MPV (7.40-12.00) fL Neut % (Auto) (48.0-80.0) % Lymph % (Auto) (16.0-40.0) % Liberty % (Auto) (0.0-15.0) % Eos % (Auto) (0.0-7.0) % Baso % (Auto) (0.0-1.5) % Neut # (Auto) (1.4-5.7) K/uL Lymph # (Auto) (0.6-2.4) K/uL Liberty # (Auto) (0.0-0.8) K/uL Eos # (Auto) (0.0-0.7) K/uL Baso # (Auto) (0.0-0.1) K/uL Nucleated RBC % /100WBC Nucleated RBCs # K/uL Sodium (136-145) mmol/L Potassium (3.5-5.1) mmol/L Chloride (98-107) mmol/L Carbon Dioxide (21.0-32.0) mmol/L BUN (7.0-18.0) mg/dL Creatinine (0.6-1.0) mg/dL Est Cr Clr Drug Dosing mL/min Estimated GFR (MDRD) ml/min Glucose (74-106) mg/dL POC Glucose 107 169 H 119 H (60-110) mg/dL Calcium (8.5-10.1) mg/dL 02/05/21 02/05/21 02/05/21 Range/Units 06:03 06:03 11:22 WBC 8.59 (4.0-11.0) K/uL RBC 3.77 L (4.30-5.90) M/uL Hgb 12.0 (12.0-16.0) g/dL Hct 35.1 L (36.0-46.0) % MCV 93.1 (80.0-98.0) fL MCH 31.8 (27.0-32.0) pg MCHC 34.2 (31.0-37.0) g/dL RDW Std Deviation 44.9 (28.0-62.0) fl RDW Coeff of Abdirizak 13 (11.0-15.0) % Plt Count 159 (150-400) K/uL MPV 9.80 (7.40-12.00) fL Neut % (Auto) 73.2 (48.0-80.0) % Lymph % (Auto) 16.8 (16.0-40.0) % Liberty % (Auto) 9.1 (0.0-15.0) % Eos % (Auto) 0.7 (0.0-7.0) % Baso % (Auto) 0.2 (0.0-1.5) % Neut # (Auto) 6.3 H (1.4-5.7) K/uL Lymph # (Auto) 1.4 (0.6-2.4) K/uL Liberty # (Auto) 0.8 (0.0-0.8) K/uL Eos # (Auto) 0.1 (0.0-0.7) K/uL Baso # (Auto) 0.0 (0.0-0.1) K/uL Nucleated RBC % 0.0 /100WBC Nucleated RBCs # 0 K/uL Sodium 139 (136-145) mmol/L Potassium 3.4 L (3.5-5.1) mmol/L Chloride 105 (98-107) mmol/L Carbon Dioxide 27.4 (21.0-32.0) mmol/L BUN 11 (7.0-18.0) mg/dL Creatinine 0.9 (0.6-1.0) mg/dL Est Cr Clr Drug Dosing 60.82 mL/min Estimated GFR (MDRD) > 60.0 ml/min Glucose 109 H (74-106) mg/dL POC Glucose 98 (60-110) mg/dL Calcium 8.3 L (8.5-10.1) mg/dL Manuel Results Last 24 Hours: Microbiology 02/03/21 18:31 Urine Culture - Final Urine, Clean Catch Escherichia Coli Med Orders - Current: Current Medications Acetaminophen (Acetaminophen 325 Mg Tab) 650 mg PO Q4H PRN PRN Reason: Pain (Mild 1-3)/fever Last Admin: 02/05/21 10:40 Dose: 650 mg Documented by: Albuterol/Ipratropium (Albuterol/Ipratropium 3.0-0.5 Mg/3 Ml Neb Soln) 3 ml NEB Q4HRRT PRN PRN Reason: Shortness Of Breath/wheezing Amlodipine Besylate (Amlodipine 5 Mg Tab) 10 mg PO DAILY [facility] Last Admin: 02/05/21 10:45 Dose: 10 mg Documented by: Aspirin (Aspirin 81 Mg Tab.Chew) 81 mg PO BEDTIME [facility] Last Admin: 02/04/21 21:18 Dose: 81 mg Documented by: Atorvastatin Calcium (Atorvastatin 20 Mg Tab) 20 mg PO BEDTIME [facility] Last Admin: 02/04/21 21:19 Dose: 20 mg Documented by: Dextrose/Water (50% Dextrose In Water 50 Ml Syringe) 50 ml IV ASDIRECTED PRN PRN Reason: Hypoglycemia Dextrose/Water (50% Dextrose In Water 50 Ml Syringe) 50 ml IV ASDIRECTED PRN PRN Reason: Hypoglycemia Enoxaparin Sodium (Enoxaparin 40 Mg/0.4 Ml Syringe) 40 mg SUBCUT Q24H [facility] Last Admin: 02/04/21 21:19 Dose: 40 mg Documented by: Glucagon (Glucagon,Human Recombinant 1 Mg Vial) 1 mg IM ASDIRECTED PRN PRN Reason: Hypoglycemia Glucagon (Glucagon,Human Recombinant 1 Mg Vial) 1 mg IM ASDIRECTED PRN PRN Reason: Hypoglycemia Lactated Ringer's (Ringers, Lactated) 1,000 mls @ 125 mls/hr IV ASDIRECTED [facility] Last Admin: 02/05/21 10:48 Dose: 125 mls/hr Documented by: Levofloxacin/Dextrose 750 mg/ (Premix) 150 mls @ 100 mls/hr IV Q24H [facility] Last Admin: 02/05/21 08:13 Dose: 100 mls/hr Documented by: Potassium Chloride/Sodium Chloride (Normal Saline With 20 Meq Kcl) 1,000 mls @ 500 mls/hr IV ONETIME ONE Stop: 02/05/21 13:29 Last Admin: 02/05/21 11:46 Dose: 500 mls/hr Documented by: Insulin Aspart (Insulin Aspart 100 Units/Ml 3 Ml Pen) 0 unit SUBCUT TIDAC [facility]; Protocol Last Admin: 02/05/21 11:26 Dose: Not Given Documented by: Insulin Glargine (Insulin Glargine,Human Rec. Analog 100 Units/Ml 3 Ml Pen) 64 units SUBCUT BID [facility] Last Admin: 02/05/21 08:33 Dose: 64 units Documented by: Losartan Potassium (Losartan 50 Mg Tab) 100 mg PO BEDTIME [facility] Last Admin: 02/04/21 21:19 Dose: 100 mg Documented by: Morphine Sulfate (Morphine 2 Mg/Ml Syringe) 2 mg IVPUSH Q4H PRN PRN Reason: Pain Ondansetron HCl (Ondansetron 4 Mg/2 Ml Sdv) 4 mg IVPUSH Q4H PRN PRN Reason: Nausea/Vomiting Last Admin: 02/05/21 11:32 Dose: 4 mg Documented by: Discontinued Medications Chlorthalidone (Chlorthalidone 25 Mg Tab) 25 mg PO DAILY [facility] Diphenhydramine HCl (Diphenhydramine 50 Mg/Ml Sdv) 25 mg IVPUSH ONETIME ONE Stop: 02/04/21 09:57 Last Admin: 02/04/21 10:29 Dose: 25 mg Documented by: Haloperidol Lactate (Haloperidol Lactate 5 Mg/Ml Sdv) 1 mg IM ONETIME ONE Stop: 02/04/21 09:56 Last Admin: 02/04/21 10:30 Dose: 1 mg Documented by: Hydromorphone HCl (Hydromorphone 1 Mg/Ml Syringe) 1 mg IVPUSH ONETIME ONE Stop: 02/03/21 18:41 Last Admin: 02/03/21 19:10 Dose: 1 mg Documented by: Hydromorphone HCl (Hydromorphone 2 Mg/Ml Syringe) 0.5 mg IVPUSH ONETIME ONE Stop: 02/03/21 19:43 Last Admin: 02/03/21 19:50 Dose: 0.5 mg Documented by: Hydromorphone HCl (Hydromorphone 2 Mg/Ml Syringe) 0.5 mg IVPUSH Q3H PRN PRN Reason: Pain (severe 7-10) Last Admin: 02/04/21 02:00 Dose: 0.5 mg Documented by: Hydromorphone HCl (Hydromorphone 1 Mg/Ml Syringe) 0.5 mg IVPUSH Q3H PRN PRN Reason: Pain (severe 7-10) Last Admin: 02/05/21 09:05 Dose: 0.5 mg Documented by: Sodium Chloride (Normal Saline) 1,000 mls @ 999 mls/hr IV BOLUS ONE Stop: 02/03/21 19:40 Last Admin: 02/03/21 19:10 Dose: 999 mls/hr Documented by: Levofloxacin/Dextrose 750 mg/ (Premix) 150 mls @ 100 mls/hr IV ONETIME ONE Stop: 02/03/21 20:42 Last Admin: 02/03/21 19:38 Dose: 100 mls/hr Documented by: Magnesium Sulfate (Magnesium Sulfate In Water 2 Gm/50 Ml) 2 gm in 50 mls @ 50 mls/hr IV ONETIME ONE Stop: 02/04/21 09:04 Last Admin: 02/04/21 08:39 Dose: 50 mls/hr Documented by: Insulin Detemir (Insulin Detemir 100 Units/Ml 10 Ml Vial) 20 unit SUBCUT ONETIME ONE Stop: 02/03/21 23:30 Last Admin: 02/03/21 23:47 Dose: Not Given Documented by: Ketorolac Tromethamine (Ketorolac 30 Mg/Ml Sdv) 30 mg IVPUSH ONETIME ONE Stop: 02/03/21 18:41 Last Admin: 02/03/21 19:09 Dose: 30 mg Documented by: Ketorolac Tromethamine (Ketorolac 30 Mg/Ml Sdv) 15 mg IVPUSH ONETIME ONE Stop: 02/05/21 11:31 Last Admin: 02/05/21 11:31 Dose: 15 mg Documented by: Labetalol HCl (Labetalol 100 Mg/20 Ml Mdv) 20 mg IVPUSH ONETIME ONE; Protocol Stop: 02/05/21 11:31 Last Admin: 02/05/21 11:39 Dose: 20 mg Documented by: Lorazepam (Lorazepam 2 Mg/Ml Sdv) 0.5 mg IVPUSH ONETIME ONE Stop: 02/04/21 09:58 Last Admin: 02/04/21 10:41 Dose: Not Given Documented by: Lorazepam (Lorazepam 2 Mg/Ml Sdv) 0.5 mg IVPUSH ONETIME ONE Stop: 02/04/21 10:01 Last Admin: 02/04/21 10:30 Dose: 0.5 mg Documented by: Ondansetron HCl (Ondansetron 4 Mg/2 Ml Sdv) 4 mg IVPUSH ONETIME ONE Stop: 02/03/21 18:41 Last Admin: 02/03/21 19:09 Dose: 4 mg Documented by: Ondansetron HCl (Ondansetron 4 Mg/2 Ml Sdv) 4 mg IVPUSH ONETIME ONE Stop: 02/03/21 19:42 Last Admin: 02/03/21 19:50 Dose: 4 mg Documented by: Promethazine HCl (Promethazine 25 Mg/Ml Sdv) 25 mg IM ONETIME ONE Stop: 02/03/21 22:04 Last Admin: 02/03/21 22:10 Dose: 25 mg Documented by: - Exam General: Alert, Oriented Cardiovascular: Regular Rate, Regular Rhythm GI/Abdominal Exam: Soft, Non-Tender Extremities: No Pedal Edema Psy/Mental Status: Alert - Patient Data Lab Results Last 24 hrs: Laboratory Results - last 24 hr 02/04/21 02/04/21 02/05/21 Range/Units 17:01 21:23 05:38 WBC (4.0-11.0) K/uL RBC (4.30-5.90) M/uL Hgb (12.0-16.0) g/dL Hct (36.0-46.0) % MCV (80.0-98.0) fL MCH (27.0-32.0) pg MCHC (31.0-37.0) g/dL RDW Std Deviation (28.0-62.0) fl RDW Coeff of Abdirizak (11.0-15.0) % Plt Count (150-400) K/uL MPV (7.40-12.00) fL Neut % (Auto) (48.0-80.0) % Lymph % (Auto) (16.0-40.0) % Liberty % (Auto) (0.0-15.0) % Eos % (Auto) (0.0-7.0) % Baso % (Auto) (0.0-1.5) % Neut # (Auto) (1.4-5.7) K/uL Lymph # (Auto) (0.6-2.4) K/uL Liberty # (Auto) (0.0-0.8) K/uL Eos # (Auto) (0.0-0.7) K/uL Baso # (Auto) (0.0-0.1) K/uL Nucleated RBC % /100WBC Nucleated RBCs # K/uL Sodium (136-145) mmol/L Potassium (3.5-5.1) mmol/L Chloride (98-107) mmol/L Carbon Dioxide (21.0-32.0) mmol/L BUN (7.0-18.0) mg/dL Creatinine (0.6-1.0) mg/dL Est Cr Clr Drug Dosing mL/min Estimated GFR (MDRD) ml/min Glucose (74-106) mg/dL POC Glucose 107 169 H 119 H (60-110) mg/dL Calcium (8.5-10.1) mg/dL 02/05/21 02/05/21 02/05/21 Range/Units 06:03 06:03 11:22 WBC 8.59 (4.0-11.0) K/uL RBC 3.77 L (4.30-5.90) M/uL Hgb 12.0 (12.0-16.0) g/dL Hct 35.1 L (36.0-46.0) % MCV 93.1 (80.0-98.0) fL MCH 31.8 (27.0-32.0) pg MCHC 34.2 (31.0-37.0) g/dL RDW Std Deviation 44.9 (28.0-62.0) fl RDW Coeff of Abdirizak 13 (11.0-15.0) % Plt Count 159 (150-400) K/uL MPV 9.80 (7.40-12.00) fL Neut % (Auto) 73.2 (48.0-80.0) % Lymph % (Auto) 16.8 (16.0-40.0) % Liberty % (Auto) 9.1 (0.0-15.0) % Eos % (Auto) 0.7 (0.0-7.0) % Baso % (Auto) 0.2 (0.0-1.5) % Neut # (Auto) 6.3 H (1.4-5.7) K/uL Lymph # (Auto) 1.4 (0.6-2.4) K/uL Liberty # (Auto) 0.8 (0.0-0.8) K/uL Eos # (Auto) 0.1 (0.0-0.7) K/uL Baso # (Auto) 0.0 (0.0-0.1) K/uL Nucleated RBC % 0.0 /100WBC Nucleated RBCs # 0 K/uL Sodium 139 (136-145) mmol/L Potassium 3.4 L (3.5-5.1) mmol/L Chloride 105 (98-107) mmol/L Carbon Dioxide 27.4 (21.0-32.0) mmol/L BUN 11 (7.0-18.0) mg/dL Creatinine 0.9 (0.6-1.0) mg/dL Est Cr Clr Drug Dosing 60.82 mL/min Estimated GFR (MDRD) > 60.0 ml/min Glucose 109 H (74-106) mg/dL POC Glucose 98 (60-110) mg/dL Calcium 8.3 L (8.5-10.1) mg/dL Result Diagrams: 02/05/21 06:03 02/05/21 06:03 Manuel Results Last 24 hrs: Microbiology 02/03/21 18:31 Urine Culture - Final Urine, Clean Catch Escherichia Coli Sepsis Event Note - Evaluation Sepsis Screening Result: No Definite Risk - Focused Exam Vital Signs: Vital Signs Temp Pulse Resp BP BP Pulse Ox 02/05/21 11:35 98.3 F 75 16 191/105 H 97 02/05/21 10:45 196/98 H 02/05/21 07:36 97.4 F 72 14 173/94 H 98 02/05/21 06:54 97.4 F 74 17 161/86 H 97 - Problem List & Annotations (1) Acute pyelonephritis SNOMED Code(s): 63742052 Code(s): N10 - ACUTE PYELONEPHRITIS Status: Acute Current Visit: Yes (2) Diabetes mellitus SNOMED Code(s): 99540374 Code(s): E11.9 - TYPE 2 DIABETES MELLITUS WITHOUT COMPLICATIONS Status: Acute Current Visit: No (3) Flank pain SNOMED Code(s): 486186323 Code(s): R10.9 - UNSPECIFIED ABDOMINAL PAIN Status: Acute Current Visit: No - Problem List Review Problem List Initiated/Reviewed/Updated: Yes - My Orders Last 24 Hours: My Active Orders 02/05/21 11:30 Morphine 2 mg IVPUSH Q4H PRN NS + KCl 20mEq/L [Normal Saline with 20 mEq KCl] 1,000 ml IV ONETIME - Plan Plan:: Acute pyelonephritis IV Levaquin, IV fluids, urine culture pending, Dilaudid for pain control, Zofran for nausea, Protonix Diabetes mellitussliding scale insulin Hypertensionpatient currently on losartan 100 mg p.o. daily, amlodipine 10 mg p.o. daily added. Labetalol 20 mg every 4 as needed ordered for systolic blood pressure greater than 180. lovenox <Rai Hernández - Last Filed: 02/05/21 22:41> - General Info Subjective Update: I have seen and evaluated the patient and agree with the residents note unless specified in my note - Patient Data Vitals - Most Recent: Last Vital Signs Temp 37.2 C 02/05/21 19:25 Pulse 98 02/05/21 19:25 Resp 16 02/05/21 19:25 BP 170/99 H 02/05/21 21:40 Pulse Ox 98 02/05/21 21:00 I&O - Last 24 Hours: Intake & Output 02/05/21 02/05/21 02/05/21 06:59 14:59 22:59 Intake Total 430 1000 930 Output Total 800 2000 Balance -370 1000 -1070 Lab Results Last 24 Hours: Laboratory Results - last 24 hr 02/05/21 02/05/21 02/05/21 Range/Units 05:38 06:03 06:03 WBC 8.59 (4.0-11.0) K/uL RBC 3.77 L (4.30-5.90) M/uL Hgb 12.0 (12.0-16.0) g/dL Hct 35.1 L (36.0-46.0) % MCV 93.1 (80.0-98.0) fL MCH 31.8 (27.0-32.0) pg MCHC 34.2 (31.0-37.0) g/dL RDW Std Deviation 44.9 (28.0-62.0) fl RDW Coeff of Abdirizak 13 (11.0-15.0) % Plt Count 159 (150-400) K/uL MPV 9.80 (7.40-12.00) fL Neut % (Auto) 73.2 (48.0-80.0) % Lymph % (Auto) 16.8 (16.0-40.0) % Liberty % (Auto) 9.1 (0.0-15.0) % Eos % (Auto) 0.7 (0.0-7.0) % Baso % (Auto) 0.2 (0.0-1.5) % Neut # (Auto) 6.3 H (1.4-5.7) K/uL Lymph # (Auto) 1.4 (0.6-2.4) K/uL Liberty # (Auto) 0.8 (0.0-0.8) K/uL Eos # (Auto) 0.1 (0.0-0.7) K/uL Baso # (Auto) 0.0 (0.0-0.1) K/uL Nucleated RBC % 0.0 /100WBC Nucleated RBCs # 0 K/uL Sodium 139 (136-145) mmol/L Potassium 3.4 L (3.5-5.1) mmol/L Chloride 105 (98-107) mmol/L Carbon Dioxide 27.4 (21.0-32.0) mmol/L BUN 11 (7.0-18.0) mg/dL Creatinine 0.9 (0.6-1.0) mg/dL Est Cr Clr Drug Dosing 60.82 mL/min Estimated GFR (MDRD) > 60.0 ml/min Glucose 109 H (74-106) mg/dL POC Glucose 119 H (60-110) mg/dL Calcium 8.3 L (8.5-10.1) mg/dL 02/05/21 02/05/21 02/05/21 Range/Units 11:22 17:30 20:35 WBC (4.0-11.0) K/uL RBC (4.30-5.90) M/uL Hgb (12.0-16.0) g/dL Hct (36.0-46.0) % MCV (80.0-98.0) fL MCH (27.0-32.0) pg MCHC (31.0-37.0) g/dL RDW Std Deviation (28.0-62.0) fl RDW Coeff of Abdirizak (11.0-15.0) % Plt Count (150-400) K/uL MPV (7.40-12.00) fL Neut % (Auto) (48.0-80.0) % Lymph % (Auto) (16.0-40.0) % Liberty % (Auto) (0.0-15.0) % Eos % (Auto) (0.0-7.0) % Baso % (Auto) (0.0-1.5) % Neut # (Auto) (1.4-5.7) K/uL Lymph # (Auto) (0.6-2.4) K/uL Liberty # (Auto) (0.0-0.8) K/uL Eos # (Auto) (0.0-0.7) K/uL Baso # (Auto) (0.0-0.1) K/uL Nucleated RBC % /100WBC Nucleated RBCs # K/uL Sodium (136-145) mmol/L Potassium (3.5-5.1) mmol/L Chloride (98-107) mmol/L Carbon Dioxide (21.0-32.0) mmol/L BUN (7.0-18.0) mg/dL Creatinine (0.6-1.0) mg/dL Est Cr Clr Drug Dosing mL/min Estimated GFR (MDRD) ml/min Glucose (74-106) mg/dL POC Glucose 98 98 135 H (60-110) mg/dL Calcium (8.5-10.1) mg/dL Manuel Results Last 24 Hours: Microbiology 02/03/21 18:31 Urine Culture - Final Urine, Clean Catch Escherichia Coli Med Orders - Current: Current Medications Acetaminophen (Acetaminophen 325 Mg Tab) 650 mg PO Q4H PRN PRN Reason: Pain (Mild 1-3)/fever Last Admin: 02/05/21 10:40 Dose: 650 mg Documented by: Albuterol/Ipratropium (Albuterol/Ipratropium 3.0-0.5 Mg/3 Ml Neb Soln) 3 ml NEB Q4HRRT PRN PRN Reason: Shortness Of Breath/wheezing Amlodipine Besylate (Amlodipine 5 Mg Tab) 10 mg PO DAILY [facility] Last Admin: 02/05/21 10:45 Dose: 10 mg Documented by: Aspirin (Aspirin 81 Mg Tab.Chew) 81 mg PO BEDTIME [facility] Last Admin: 02/05/21 20:41 Dose: 81 mg Documented by: Atorvastatin Calcium (Atorvastatin 20 Mg Tab) 20 mg PO BEDTIME [facility] Last Admin: 02/05/21 20:42 Dose: 20 mg Documented by: Dextrose/Water (50% Dextrose In Water 50 Ml Syringe) 50 ml IV ASDIRECTED PRN PRN Reason: Hypoglycemia Dextrose/Water (50% Dextrose In Water 50 Ml Syringe) 50 ml IV ASDIRECTED PRN PRN Reason: Hypoglycemia Enoxaparin Sodium (Enoxaparin 40 Mg/0.4 Ml Syringe) 40 mg SUBCUT Q24H [facility] Last Admin: 02/05/21 20:46 Dose: 40 mg Documented by: Glucagon (Glucagon,Human Recombinant 1 Mg Vial) 1 mg IM ASDIRECTED PRN PRN Reason: Hypoglycemia Glucagon (Glucagon,Human Recombinant 1 Mg Vial) 1 mg IM ASDIRECTED PRN PRN Reason: Hypoglycemia Lactated Ringer's (Ringers, Lactated) 1,000 mls @ 125 mls/hr IV ASDIRECTED [facility] Last Admin: 02/05/21 21:37 Dose: 125 mls/hr Documented by: Levofloxacin/Dextrose 750 mg/ (Premix) 150 mls @ 100 mls/hr IV Q24H [facility] Last Admin: 02/05/21 08:13 Dose: 100 mls/hr Documented by: Insulin Aspart (Insulin Aspart 100 Units/Ml 3 Ml Pen) 0 unit SUBCUT TIDAC [facility]; Protocol Last Admin: 02/05/21 17:33 Dose: Not Given Documented by: Insulin Glargine (Insulin Glargine,Human Rec. Analog 100 Units/Ml 3 Ml Pen) 64 units SUBCUT BID [facility] Last Admin: 02/05/21 20:43 Dose: 64 units Documented by: Labetalol HCl (Labetalol 100 Mg/20 Ml Mdv) 20 mg IVPUSH Q4H PRN; Protocol PRN Reason: Hypertension Last Admin: 02/05/21 19:34 Dose: 20 mg Documented by: Losartan Potassium (Losartan 50 Mg Tab) 100 mg PO BEDTIME [facility] Last Admin: 02/05/21 20:41 Dose: 100 mg Documented by: Morphine Sulfate (Morphine 2 Mg/Ml Syringe) 2 mg IVPUSH Q4H PRN PRN Reason: Pain Last Admin: 02/05/21 20:36 Dose: 2 mg Documented by: Ondansetron HCl (Ondansetron 4 Mg/2 Ml Sdv) 4 mg IVPUSH Q4H PRN PRN Reason: Nausea/Vomiting Last Admin: 02/05/21 11:32 Dose: 4 mg Documented by: Discontinued Medications Chlorthalidone (Chlorthalidone 25 Mg Tab) 25 mg PO DAILY [facility] Diphenhydramine HCl (Diphenhydramine 50 Mg/Ml Sdv) 25 mg IVPUSH ONETIME ONE Stop: 02/04/21 09:57 Last Admin: 02/04/21 10:29 Dose: 25 mg Documented by: Haloperidol Lactate (Haloperidol Lactate 5 Mg/Ml Sdv) 1 mg IM ONETIME ONE Stop: 02/04/21 09:56 Last Admin: 02/04/21 10:30 Dose: 1 mg Documented by: Hydromorphone HCl (Hydromorphone 1 Mg/Ml Syringe) 1 mg IVPUSH ONETIME ONE Stop: 02/03/21 18:41 Last Admin: 02/03/21 19:10 Dose: 1 mg Documented by: Hydromorphone HCl (Hydromorphone 2 Mg/Ml Syringe) 0.5 mg IVPUSH ONETIME ONE Stop: 02/03/21 19:43 Last Admin: 02/03/21 19:50 Dose: 0.5 mg Documented by: Hydromorphone HCl (Hydromorphone 2 Mg/Ml Syringe) 0.5 mg IVPUSH Q3H PRN PRN Reason: Pain (severe 7-10) Last Admin: 02/04/21 02:00 Dose: 0.5 mg Documented by: Hydromorphone HCl (Hydromorphone 1 Mg/Ml Syringe) 0.5 mg IVPUSH Q3H PRN PRN Reason: Pain (severe 7-10) Last Admin: 02/05/21 09:05 Dose: 0.5 mg Documented by: Sodium Chloride (Normal Saline) 1,000 mls @ 999 mls/hr IV BOLUS ONE Stop: 02/03/21 19:40 Last Admin: 02/03/21 19:10 Dose: 999 mls/hr Documented by: Levofloxacin/Dextrose 750 mg/ (Premix) 150 mls @ 100 mls/hr IV ONETIME ONE Stop: 02/03/21 20:42 Last Admin: 02/03/21 19:38 Dose: 100 mls/hr Documented by: Magnesium Sulfate (Magnesium Sulfate In Water 2 Gm/50 Ml) 2 gm in 50 mls @ 50 mls/hr IV ONETIME ONE Stop: 02/04/21 09:04 Last Admin: 02/04/21 08:39 Dose: 50 mls/hr Documented by: Potassium Chloride/Sodium Chloride (Normal Saline With 20 Meq Kcl) 1,000 mls @ 500 mls/hr IV ONETIME ONE Stop: 02/05/21 13:29 Last Admin: 02/05/21 11:46 Dose: 500 mls/hr Documented by: Insulin Detemir (Insulin Detemir 100 Units/Ml 10 Ml Vial) 20 unit SUBCUT ONETIME ONE Stop: 02/03/21 23:30 Last Admin: 02/03/21 23:47 Dose: Not Given Documented by: Ketorolac Tromethamine (Ketorolac 30 Mg/Ml Sdv) 30 mg IVPUSH ONETIME ONE Stop: 02/03/21 18:41 Last Admin: 02/03/21 19:09 Dose: 30 mg Documented by: Ketorolac Tromethamine (Ketorolac 30 Mg/Ml Sdv) 15 mg IVPUSH ONETIME ONE Stop: 02/05/21 11:31 Last Admin: 02/05/21 11:31 Dose: 15 mg Documented by: Labetalol HCl (Labetalol 100 Mg/20 Ml Mdv) 20 mg IVPUSH ONETIME ONE; Protocol Stop: 02/05/21 11:31 Last Admin: 02/05/21 11:39 Dose: 20 mg Documented by: Lorazepam (Lorazepam 2 Mg/Ml Sdv) 0.5 mg IVPUSH ONETIME ONE Stop: 02/04/21 09:58 Last Admin: 02/04/21 10:41 Dose: Not Given Documented by: Lorazepam (Lorazepam 2 Mg/Ml Sdv) 0.5 mg IVPUSH ONETIME ONE Stop: 02/04/21 10:01 Last Admin: 02/04/21 10:30 Dose: 0.5 mg Documented by: Ondansetron HCl (Ondansetron 4 Mg/2 Ml Sdv) 4 mg IVPUSH ONETIME ONE Stop: 02/03/21 18:41 Last Admin: 02/03/21 19:09 Dose: 4 mg Documented by: Ondansetron HCl (Ondansetron 4 Mg/2 Ml Sdv) 4 mg IVPUSH ONETIME ONE Stop: 02/03/21 19:42 Last Admin: 02/03/21 19:50 Dose: 4 mg Documented by: Promethazine HCl (Promethazine 25 Mg/Ml Sdv) 25 mg IM ONETIME ONE Stop: 02/03/21 22:04 Last Admin: 02/03/21 22:10 Dose: 25 mg Documented by: - Patient Data Lab Results Last 24 hrs: Laboratory Results - last 24 hr 02/05/21 02/05/21 02/05/21 Range/Units 05:38 06:03 06:03 WBC 8.59 (4.0-11.0) K/uL RBC 3.77 L (4.30-5.90) M/uL Hgb 12.0 (12.0-16.0) g/dL Hct 35.1 L (36.0-46.0) % MCV 93.1 (80.0-98.0) fL MCH 31.8 (27.0-32.0) pg MCHC 34.2 (31.0-37.0) g/dL RDW Std Deviation 44.9 (28.0-62.0) fl RDW Coeff of Abdirizak 13 (11.0-15.0) % Plt Count 159 (150-400) K/uL MPV 9.80 (7.40-12.00) fL Neut % (Auto) 73.2 (48.0-80.0) % Lymph % (Auto) 16.8 (16.0-40.0) % Liberty % (Auto) 9.1 (0.0-15.0) % Eos % (Auto) 0.7 (0.0-7.0) % Baso % (Auto) 0.2 (0.0-1.5) % Neut # (Auto) 6.3 H (1.4-5.7) K/uL Lymph # (Auto) 1.4 (0.6-2.4) K/uL Liberty # (Auto) 0.8 (0.0-0.8) K/uL Eos # (Auto) 0.1 (0.0-0.7) K/uL Baso # (Auto) 0.0 (0.0-0.1) K/uL Nucleated RBC % 0.0 /100WBC Nucleated RBCs # 0 K/uL Sodium 139 (136-145) mmol/L Potassium 3.4 L (3.5-5.1) mmol/L Chloride 105 (98-107) mmol/L Carbon Dioxide 27.4 (21.0-32.0) mmol/L BUN 11 (7.0-18.0) mg/dL Creatinine 0.9 (0.6-1.0) mg/dL Est Cr Clr Drug Dosing 60.82 mL/min Estimated GFR (MDRD) > 60.0 ml/min Glucose 109 H (74-106) mg/dL POC Glucose 119 H (60-110) mg/dL Calcium 8.3 L (8.5-10.1) mg/dL 02/05/21 02/05/21 02/05/21 Range/Units 11:22 17:30 20:35 WBC (4.0-11.0) K/uL RBC (4.30-5.90) M/uL Hgb (12.0-16.0) g/dL Hct (36.0-46.0) % MCV (80.0-98.0) fL MCH (27.0-32.0) pg MCHC (31.0-37.0) g/dL RDW Std Deviation (28.0-62.0) fl RDW Coeff of Abdirizak (11.0-15.0) % Plt Count (150-400) K/uL MPV (7.40-12.00) fL Neut % (Auto) (48.0-80.0) % Lymph % (Auto) (16.0-40.0) % Liberty % (Auto) (0.0-15.0) % Eos % (Auto) (0.0-7.0) % Baso % (Auto) (0.0-1.5) % Neut # (Auto) (1.4-5.7) K/uL Lymph # (Auto) (0.6-2.4) K/uL Liberty # (Auto) (0.0-0.8) K/uL Eos # (Auto) (0.0-0.7) K/uL Baso # (Auto) (0.0-0.1) K/uL Nucleated RBC % /100WBC Nucleated RBCs # K/uL Sodium (136-145) mmol/L Potassium (3.5-5.1) mmol/L Chloride (98-107) mmol/L Carbon Dioxide (21.0-32.0) mmol/L BUN (7.0-18.0) mg/dL Creatinine (0.6-1.0) mg/dL Est Cr Clr Drug Dosing mL/min Estimated GFR (MDRD) ml/min Glucose (74-106) mg/dL POC Glucose 98 98 135 H (60-110) mg/dL Calcium (8.5-10.1) mg/dL Result Diagrams: 02/05/21 06:03 02/05/21 06:03 Manuel Results Last 24 hrs: Microbiology 02/03/21 18:31 Urine Culture - Final Urine, Clean Catch Escherichia Coli Sepsis Event Note - Focused Exam Vital Signs: Vital Signs Temp Pulse Resp BP BP BP Pulse Ox 02/05/21 21:40 170/99 H 02/05/21 21:00 02/05/21 20:41 179/105 H 02/05/21 20:40 179/105 H 02/05/21 19:28 190/108 H 02/05/21 19:25 37.2 C 98 16 200/119 H 98 02/05/21 16:25 37.1 C 100 16 158/92 H 97 02/05/21 14:06 92 155/84 H 02/05/21 13:00 86 16 180/104 H 02/05/21 11:35 36.8 C 75 16 191/105 H 97 02/05/21 10:45 196/98 H Pulse Ox 02/05/21 21:40 02/05/21 21:00 98 02/05/21 20:41 02/05/21 20:40 02/05/21 19:28 02/05/21 19:25 02/05/21 16:25 02/05/21 14:06 02/05/21 13:00 02/05/21 11:35 02/05/21 10:45 - Problem List & Annotations (1) Acute pyelonephritis SNOMED Code(s): 45480625 Code(s): N10 - ACUTE PYELONEPHRITIS Status: Acute Current Visit: Yes (2) Diabetes mellitus SNOMED Code(s): 53234716 Code(s): E11.9 - TYPE 2 DIABETES MELLITUS WITHOUT COMPLICATIONS Status: Acute Current Visit: No - My Orders Last 24 Hours: My Active Orders 02/05/21 09:15 amLODIPine [Norvasc] 10 mg PO DAILY 02/05/21 Lunch Soft Diet [DIET] 02/05/21 12:54 Labetalol [Normodyne] 20 mg IVPUSH Q4H PRN 02/05/21 12:55 Admission Status [Patient Status] [ADT] Routine
[2021-02-05] MEDS: Labetalol 100 MG/20 ML MDV IVPUSH PRN ×2 (13:04→19:34)
[2021-02-05] MEDS: Morphine 2 MG/ML SYRINGE IVPUSH PRN ×2 (16:34→20:36)
[2021-02-05] MEDS: Aspirin 81 MG Tab.Chew PO SCH (20:41)
[2021-02-05] MEDS: Losartan 50 MG Tab PO SCH (20:41)
[2021-02-05] MEDS: atorvaSTATin 20 MG Tab PO SCH (20:42)
[2021-02-05] MEDS: Enoxaparin 40 MG/0.4 ML Syringe SUBCUT SCH (20:46)
[2021-02-06] MEDS: Morphine 2 MG/ML SYRINGE IVPUSH PRN ×2 (00:44→07:55)
[2021-02-06] MEDS: Lactated Ringers 1,000 ML IV SCH (05:42)
[2021-02-06 06:59] LABS: BLOOD UREA NITROGEN,BUN 6 mg/dL (7.0-18.0); CARBON DIOXIDE,CO2 26.3 mmol/L (21.0-32.0); CHLORIDE,CL 103 mmol/L (98-107); GLUCOSE RANDOM 193 mg/dL (74-106); POTASSIUM,K 3.8 mmol/L (3.5-5.1); SODIUM,NA 137 mmol/L (136-145)
[2021-02-06] MEDS: amLODIPine 5 MG Tab PO SCH ×2 (07:48→08:42)
[2021-02-06] MEDS: Levofloxacin/Dextrose 5%-Water 750 MG in Premix Bag 1 BAG IV SCH (08:03)
[2021-02-06] MEDS: Insulin Aspart 100 Units/ML 3 ML Pen SUBCUT SCH ×2 (08:18→12:57)
[2021-02-06] MEDS: Insulin Glargine,Human Rec. Analog 100 Units/ML 3 ML Pen SUBCUT SCH (08:21)
[2021-02-06] MEDS: Labetalol 100 MG/20 ML MDV IVPUSH PRN ×2 (08:51→10:09)
[2021-02-06] MEDS ORDERED: hydrALAZINE 25 MG Tab PO SCH (10:30)
[2021-02-06] MEDS ORDERED: LORazepam 2 MG/ML SDV IVPUSH ONE (10:30)
[2021-02-06] MEDS ORDERED: Chlorthalidone 25 MG Tab PO ONE (11:00)
[2021-02-06 13:00] VITALS: BP 176/101; PULSE 87
--- NOTE | 2021-02-06 13:11 | PCM.DCSUM1 ---
Discharge Summary - Hospital Course Free Text/Narrative:: 45-year-old female with PMH of DM, kidney stones admitted to the medical unit for pyelonephritis. Patient presented to the ED with right flank pain, dysuria, urinary frequency, for the past 2 to 3 days. Patient stated that she has a history of frequent kidney infections and kidney stones requiring 3 stent placements. Patient has been followed by Dr. Roman for kidney issues. In the ER lab work showed mild kidney injury, creatinine 1.1, CT abdomen pelvis kidneys are unremarkable no kidneys or ureteral stones and no hydronephrosis. Urinalysis showed mild UTI. Patient started IV Levaquin every 24 hour. Of note patient's blood pressure remained severely elevated at times reaching [id number] systolic. Patient was taking losartan 100 mg for blood pressure control on admission. IV labetalol was used to control blood pressure acutely and other blood pressure medications were started including hydralazine, amlodipine and chlorthalidone. Patient was discharged home on the blood pressure medications and advised to review her medication regimen and dosages with her physician at next primary care visit. Patient also advised to monitor blood pressures at home. If patient develops dizziness, low blood pressure, headaches patient advised to consult her physician to adjust, reduce medications and/or dosages as needed to maintain normotensive blood pressure. Patient understands. Patient also discharged home on Levaquin antibiotic. - Discharge Data Discharge Date: 02/06/21 Discharge Disposition: Home, Self-Care 01 Condition: Stable - Referral to Home Health Primary Care Physician: Levy Singh MD - Discharge Diagnosis/Problem(s) (1) Acute pyelonephritis SNOMED Code(s): 84767774 ICD Code: N10 - ACUTE PYELONEPHRITIS Status: Acute (2) Diabetes mellitus SNOMED Code(s): 54272039 ICD Code: E11.9 - TYPE 2 DIABETES MELLITUS WITHOUT COMPLICATIONS Status: Acute (3) Flank pain SNOMED Code(s): 568210664 ICD Code: R10.9 - UNSPECIFIED ABDOMINAL PAIN Status: Acute (4) Uncontrolled hypertension SNOMED Code(s): 61017898, 13681506 ICD Code: I10 - ESSENTIAL (PRIMARY) HYPERTENSION Status: Acute - Discharge Plan Prescriptions/Med Rec: hydrALAZINE [Apresoline] 25 mg PO Q8H 14 Days #42 tablet Chlorthalidone 25 mg PO DAILY #14 tab levoFLOXacin [Levaquin] 750 mg PO DAILY 4 Days #4 tab amLODIPine [Norvasc] 10 mg PO DAILY 14 Days #28 tab Home Medications: Home Meds Insulin Glarg,Human.Rec.Analog [Lantus] 64 unit SQ .AMBEDTIME 12/22/19 [History] Losartan [Cozaar] 100 mg PO BEDTIME 12/22/19 [History] atorvaSTATin [Lipitor] 20 mg PO BEDTIME 12/22/19 [History] Aspirin 81 mg PO BEDTIME 02/03/21 [History] Insulin Aspart [NovoLOG] 2 - 10 unit SUBCUT TIDAC 02/03/21 [History] Chlorthalidone 25 mg PO DAILY #14 tab 02/06/21 [Rx] amLODIPine [Norvasc] 10 mg PO DAILY 14 Days #28 tab 02/06/21 [Rx] hydrALAZINE [Apresoline] 25 mg PO Q8H 14 Days #42 tablet 02/06/21 [Rx] levoFLOXacin [Levaquin] 750 mg PO DAILY 4 Days #4 tab 02/06/21 [Rx] Patient Handouts: Hydralazine Oral Tablets, Chlorthalidone; Clonidine oral tablets, Pyelonephritis, Adult, [id number], Amlodipine Oral Tablets, Levofloxacin tablets Forms: ED Department Discharge Referrals: Levy Singh MD [Primary Care Provider] - 02/13/21 11:00 am - Discharge Summary/Plan Comment DC Time >30 min.: Yes - General Info Date of Service: 02/06/21 - Review of Systems General: Denies: Fever, Chills Pulmonary: Denies: Shortness of Breath, Pleuritic Chest Pain, Cough Cardiovascular: Denies: Chest Pain, Palpitations, Dyspnea on Exertion Gastrointestinal: Denies: Abdominal Pain Musculoskeletal: Denies: Neck Pain Neurological: Denies: Confusion, Dizziness, Headache, Trouble Speaking, Difficulty Walking Psychiatric: Denies: Confusion - Patient Data Vitals - Most Recent: Last Vital Signs Temp 98.9 F 02/06/21 12:01 Pulse 87 02/06/21 12:59 Resp 16 02/06/21 12:01 BP 176/101 H 02/06/21 12:59 Pulse Ox 98 02/06/21 12:01 Weight - Most Recent: 173 lb 1.6 oz I&O - Last 24 hours: Intake & Output 02/05/21 02/06/21 02/06/21 22:59 06:59 14:59 Intake Total 930 2972 Output Total 1999 5434 Balance -1070 -1474 Lab Results - Last 24 hrs: Laboratory Results - last 24 hr 02/05/21 02/05/21 02/06/21 Range/Units 17:30 20:35 03:52 WBC (4.0-11.0) K/uL RBC (4.30-5.90) M/uL Hgb (12.0-16.0) g/dL Hct (36.0-46.0) % MCV (80.0-98.0) fL MCH (27.0-32.0) pg MCHC (31.0-37.0) g/dL RDW Std Deviation (28.0-62.0) fl RDW Coeff of Abdirizak (11.0-15.0) % Plt Count (150-400) K/uL MPV (7.40-12.00) fL Neut % (Auto) (48.0-80.0) % Lymph % (Auto) (16.0-40.0) % Woods % (Auto) (0.0-15.0) % Eos % (Auto) (0.0-7.0) % Baso % (Auto) (0.0-1.5) % Neut # (Auto) (1.4-5.7) K/uL Lymph # (Auto) (0.6-2.4) K/uL Woods # (Auto) (0.0-0.8) K/uL Eos # (Auto) (0.0-0.7) K/uL Baso # (Auto) (0.0-0.1) K/uL Nucleated RBC % /100WBC Nucleated RBCs # K/uL Sodium (136-145) mmol/L Potassium (3.5-5.1) mmol/L Chloride (98-107) mmol/L Carbon Dioxide (21.0-32.0) mmol/L BUN (7.0-18.0) mg/dL Creatinine (0.6-1.0) mg/dL Est Cr Clr Drug Dosing mL/min Estimated GFR (MDRD) ml/min Glucose (74-106) mg/dL POC Glucose 98 135 H 77 (60-110) mg/dL Calcium (8.5-10.1) mg/dL 02/06/21 02/06/21 02/06/21 Range/Units 05:58 06:24 06:24 WBC 8.39 (4.0-11.0) K/uL RBC 3.78 L (4.30-5.90) M/uL Hgb 12.1 (12.0-16.0) g/dL Hct 35.0 L (36.0-46.0) % MCV 92.6 (80.0-98.0) fL MCH 32.0 (27.0-32.0) pg MCHC 34.6 (31.0-37.0) g/dL RDW Std Deviation 44.7 (28.0-62.0) fl RDW Coeff of Abdirizak 13 (11.0-15.0) % Plt Count 172 (150-400) K/uL MPV 9.80 (7.40-12.00) fL Neut % (Auto) 68.2 (48.0-80.0) % Lymph % (Auto) 23.4 (16.0-40.0) % Woods % (Auto) 7.3 (0.0-15.0) % Eos % (Auto) 0.7 (0.0-7.0) % Baso % (Auto) 0.4 (0.0-1.5) % Neut # (Auto) 5.7 (1.4-5.7) K/uL Lymph # (Auto) 2.0 (0.6-2.4) K/uL Woods # (Auto) 0.6 (0.0-0.8) K/uL Eos # (Auto) 0.1 (0.0-0.7) K/uL Baso # (Auto) 0.0 (0.0-0.1) K/uL Nucleated RBC % 0.0 /100WBC Nucleated RBCs # 0 K/uL Sodium 137 (136-145) mmol/L Potassium 3.8 (3.5-5.1) mmol/L Chloride 103 (98-107) mmol/L Carbon Dioxide 26.3 (21.0-32.0) mmol/L BUN 6 L (7.0-18.0) mg/dL Creatinine 0.9 (0.6-1.0) mg/dL Est Cr Clr Drug Dosing 60.82 mL/min Estimated GFR (MDRD) > 60.0 ml/min Glucose 193 H (74-106) mg/dL POC Glucose 168 H (60-110) mg/dL Calcium 8.4 L (8.5-10.1) mg/dL 02/06/21 Range/Units 11:32 WBC (4.0-11.0) K/uL RBC (4.30-5.90) M/uL Hgb (12.0-16.0) g/dL Hct (36.0-46.0) % MCV (80.0-98.0) fL MCH (27.0-32.0) pg MCHC (31.0-37.0) g/dL RDW Std Deviation (28.0-62.0) fl RDW Coeff of Abdirizak (11.0-15.0) % Plt Count (150-400) K/uL MPV (7.40-12.00) fL Neut % (Auto) (48.0-80.0) % Lymph % (Auto) (16.0-40.0) % Woods % (Auto) (0.0-15.0) % Eos % (Auto) (0.0-7.0) % Baso % (Auto) (0.0-1.5) % Neut # (Auto) (1.4-5.7) K/uL Lymph # (Auto) (0.6-2.4) K/uL Woods # (Auto) (0.0-0.8) K/uL Eos # (Auto) (0.0-0.7) K/uL Baso # (Auto) (0.0-0.1) K/uL Nucleated RBC % /100WBC Nucleated RBCs # K/uL Sodium (136-145) mmol/L Potassium (3.5-5.1) mmol/L Chloride (98-107) mmol/L Carbon Dioxide (21.0-32.0) mmol/L BUN (7.0-18.0) mg/dL Creatinine (0.6-1.0) mg/dL Est Cr Clr Drug Dosing mL/min Estimated GFR (MDRD) ml/min Glucose (74-106) mg/dL POC Glucose 165 H (60-110) mg/dL Calcium (8.5-10.1) mg/dL Med Orders - Current: Current Medications Acetaminophen (Acetaminophen 325 Mg Tab) 650 mg PO Q4H PRN PRN Reason: Pain (Mild 1-3)/fever Last Admin: 02/05/21 10:40 Dose: 650 mg Documented by: Albuterol/Ipratropium (Albuterol/Ipratropium 3.0-0.5 Mg/3 Ml Neb Soln) 3 ml NEB Q4HRRT PRN PRN Reason: Shortness Of Breath/wheezing Amlodipine Besylate (Amlodipine 5 Mg Tab) 10 mg PO DAILY [facility] Last Admin: 02/06/21 08:42 Dose: Not Given Documented by: Aspirin (Aspirin 81 Mg Tab.Chew) 81 mg PO BEDTIME [facility] Last Admin: 02/05/21 20:41 Dose: 81 mg Documented by: Atorvastatin Calcium (Atorvastatin 20 Mg Tab) 20 mg PO BEDTIME [facility] Last Admin: 02/05/21 20:42 Dose: 20 mg Documented by: Dextrose/Water (50% Dextrose In Water 50 Ml Syringe) 50 ml IV ASDIRECTED PRN PRN Reason: Hypoglycemia Dextrose/Water (50% Dextrose In Water 50 Ml Syringe) 50 ml IV ASDIRECTED PRN PRN Reason: Hypoglycemia Enoxaparin Sodium (Enoxaparin 40 Mg/0.4 Ml Syringe) 40 mg SUBCUT Q24H [facility] Last Admin: 02/05/21 20:46 Dose: 40 mg Documented by: Glucagon (Glucagon,Human Recombinant 1 Mg Vial) 1 mg IM ASDIRECTED PRN PRN Reason: Hypoglycemia Glucagon (Glucagon,Human Recombinant 1 Mg Vial) 1 mg IM ASDIRECTED PRN PRN Reason: Hypoglycemia Hydralazine HCl (Hydralazine 25 Mg Tab) 25 mg PO Q8H [facility] Last Admin: 02/06/21 11:19 Dose: 25 mg Documented by: Insulin Aspart (Insulin Aspart 100 Units/Ml 3 Ml Pen) 0 unit SUBCUT TIDAC [facility]; Protocol Last Admin: 02/06/21 12:57 Dose: 3 units Documented by: Insulin Glargine (Insulin Glargine,Human Rec. Analog 100 Units/Ml 3 Ml Pen) 64 units SUBCUT BID [facility] Last Admin: 02/06/21 08:21 Dose: 64 units Documented by: Labetalol HCl (Labetalol 100 Mg/20 Ml Mdv) 20 mg IVPUSH Q4H PRN; Protocol PRN Reason: Hypertension Last Admin: 02/06/21 10:09 Dose: 20 mg Documented by: Levofloxacin (Levofloxacin 500 Mg Tab) 750 mg PO Q24H [facility] Losartan Potassium (Losartan 50 Mg Tab) 100 mg PO BEDTIME [facility] Last Admin: 02/05/21 20:41 Dose: 100 mg Documented by: Morphine Sulfate (Morphine 2 Mg/Ml Syringe) 2 mg IVPUSH Q4H PRN PRN Reason: Pain Last Admin: 02/06/21 07:55 Dose: 2 mg Documented by: Ondansetron HCl (Ondansetron 4 Mg/2 Ml Sdv) 4 mg IVPUSH Q4H PRN PRN Reason: Nausea/Vomiting Last Admin: 02/05/21 11:32 Dose: 4 mg Documented by: Discontinued Medications Chlorthalidone (Chlorthalidone 25 Mg Tab) 25 mg PO DAILY [facility] Chlorthalidone (Chlorthalidone 25 Mg Tab) 25 mg PO ONETIME ONE Stop: 02/06/21 11:01 Last Admin: 02/06/21 11:19 Dose: 25 mg Documented by: Diphenhydramine HCl (Diphenhydramine 50 Mg/Ml Sdv) 25 mg IVPUSH ONETIME ONE Stop: 02/04/21 09:57 Last Admin: 02/04/21 10:29 Dose: 25 mg Documented by: Haloperidol Lactate (Haloperidol Lactate 5 Mg/Ml Sdv) 1 mg IM ONETIME ONE Stop: 02/04/21 09:56 Last Admin: 02/04/21 10:30 Dose: 1 mg Documented by: Hydromorphone HCl (Hydromorphone 1 Mg/Ml Syringe) 1 mg IVPUSH ONETIME ONE Stop: 02/03/21 18:41 Last Admin: 02/03/21 19:10 Dose: 1 mg Documented by: Hydromorphone HCl (Hydromorphone 2 Mg/Ml Syringe) 0.5 mg IVPUSH ONETIME ONE Stop: 02/03/21 19:43 Last Admin: 02/03/21 19:50 Dose: 0.5 mg Documented by: Hydromorphone HCl (Hydromorphone 2 Mg/Ml Syringe) 0.5 mg IVPUSH Q3H PRN PRN Reason: Pain (severe 7-10) Last Admin: 02/04/21 02:00 Dose: 0.5 mg Documented by: Hydromorphone HCl (Hydromorphone 1 Mg/Ml Syringe) 0.5 mg IVPUSH Q3H PRN PRN Reason: Pain (severe 7-10) Last Admin: 02/05/21 09:05 Dose: 0.5 mg Documented by: Sodium Chloride (Normal Saline) 1,000 mls @ 999 mls/hr IV BOLUS ONE Stop: 02/03/21 19:40 Last Admin: 02/03/21 19:10 Dose: 999 mls/hr Documented by: Levofloxacin/Dextrose 750 mg/ (Premix) 150 mls @ 100 mls/hr IV ONETIME ONE Stop: 02/03/21 20:42 Last Admin: 02/03/21 19:38 Dose: 100 mls/hr Documented by: Lactated Ringer's (Ringers, Lactated) 1,000 mls @ 125 mls/hr IV ASDIRECTED [facility] Last Admin: 02/06/21 05:42 Dose: 125 mls/hr Documented by: Levofloxacin/Dextrose 750 mg/ (Premix) 150 mls @ 100 mls/hr IV Q24H [facility] Last Admin: 02/06/21 08:03 Dose: 100 mls/hr Documented by: Magnesium Sulfate (Magnesium Sulfate In Water 2 Gm/50 Ml) 2 gm in 50 mls @ 50 mls/hr IV ONETIME ONE Stop: 02/04/21 09:04 Last Admin: 02/04/21 08:39 Dose: 50 mls/hr Documented by: Potassium Chloride/Sodium Chloride (Normal Saline With 20 Meq Kcl) 1,000 mls @ 500 mls/hr IV ONETIME ONE Stop: 02/05/21 13:29 Last Admin: 02/05/21 11:46 Dose: 500 mls/hr Documented by: Insulin Detemir (Insulin Detemir 100 Units/Ml 10 Ml Vial) 20 unit SUBCUT ONETIME ONE Stop: 02/03/21 23:30 Last Admin: 02/03/21 23:47 Dose: Not Given Documented by: Ketorolac Tromethamine (Ketorolac 30 Mg/Ml Sdv) 30 mg IVPUSH ONETIME ONE Stop: 02/03/21 18:41 Last Admin: 02/03/21 19:09 Dose: 30 mg Documented by: Ketorolac Tromethamine (Ketorolac 30 Mg/Ml Sdv) 15 mg IVPUSH ONETIME ONE Stop: 02/05/21 11:31 Last Admin: 02/05/21 11:31 Dose: 15 mg Documented by: Labetalol HCl (Labetalol 100 Mg/20 Ml Mdv) 20 mg IVPUSH ONETIME ONE; Protocol Stop: 02/05/21 11:31 Last Admin: 02/05/21 11:39 Dose: 20 mg Documented by: Lorazepam (Lorazepam 2 Mg/Ml Sdv) 0.5 mg IVPUSH ONETIME ONE Stop: 02/04/21 09:58 Last Admin: 02/04/21 10:41 Dose: Not Given Documented by: Lorazepam (Lorazepam 2 Mg/Ml Sdv) 0.5 mg IVPUSH ONETIME ONE Stop: 02/04/21 10:01 Last Admin: 02/04/21 10:30 Dose: 0.5 mg Documented by: Lorazepam (Lorazepam 2 Mg/Ml Sdv) 1 mg IVPUSH ONETIME ONE Stop: 02/06/21 10:31 Last Admin: 02/06/21 11:10 Dose: 1 mg Documented by: Ondansetron HCl (Ondansetron 4 Mg/2 Ml Sdv) 4 mg IVPUSH ONETIME ONE Stop: 02/03/21 18:41 Last Admin: 02/03/21 19:09 Dose: 4 mg Documented by: Ondansetron HCl (Ondansetron 4 Mg/2 Ml Sdv) 4 mg IVPUSH ONETIME ONE Stop: 02/03/21 19:42 Last Admin: 02/03/21 19:50 Dose: 4 mg Documented by: Promethazine HCl (Promethazine 25 Mg/Ml Sdv) 25 mg IM ONETIME ONE Stop: 02/03/21 22:04 Last Admin: 02/03/21 22:10 Dose: 25 mg Documented by: - Exam General: Reports: Alert, Oriented Lungs: Reports: Clear to Auscultation, Normal Respiratory Effort Cardiovascular: Reports: Regular Rate, Regular Rhythm GI/Abdominal Exam: Soft, Non-Tender Back Exam: Denies: CVA Tenderness (L), CVA Tenderness (R) Psy/Mental Status: Reports: Alert
[2021-02-07] MEDS ORDERED: Levofloxacin 500 MG Tab PO SCH (10:15)
== END 2021-02-06 15:30 | disposition home or self-care (01) | DRG 463 ==
LOC: MW.ED 18:15 → MW.MS 20:52 → OBSVTOIN 02-05 12:55 → MW.MS 02-05 15:58
PROVIDERS: ADMIT Student in an Organized Health Care Education/Training Program; ATTEND Student in an Organized Health Care Education/Training Program
DX: N10 Acute pyelonephritis (principal); E11.9 Type 2 diabetes mellitus without complications; N39.0 Urinary tract infection, site not specified; I10 Essential (primary) hypertension; H54.7 Unspecified visual loss; E78.00 Pure hypercholesterolemia, unspecified; J30.9 Allergic rhinitis, unspecified; G43.909 Migraine, unspecified, not intractable, without status migrainosus; Z20.822 Contact with and (suspected) exposure to COVID-19; F32.9 Major depressive disorder, single episode, unspecified; E66.9 Obesity, unspecified; Z90.49 Acquired absence of other specified parts of digestive tract; Z87.442 Personal history of urinary calculi; Z79.82 Long term (current) use of aspirin; Z79.899 Other long term (current) drug therapy; Z79.4 Long term (current) use of insulin; Z88.0 Allergy status to penicillin; Z88.8 Allergy status to other drugs, medicaments and biological substances; Z91.030 Bee allergy status; Z90.710 Acquired absence of both cervix and uterus; Z90.89 Acquired absence of other organs; Z68.32 Body mass index [BMI] 32.0-32.9, adult
CPT/HCPCS: 0240U; 36415; 74176; 74176-26; 80048; 80053; 81001; 81025; 82962; 83690; 83735; 84100; 85025; 87086; 87088; 87186; 96365; 96366; 96367; 96372; 96375; 96376; 99283; 99285-25; A9270-GY; G0378; J1170; J1200; J1630; J1650; J1815-GY; J1885; J1956; J2060; J2270; J2405; J2550; J3475; J3480; J3490; J7030; J7120

== ENCOUNTER 2021-06-07 19:00 | Emergency (ER) | payer BC, MEDICAID ==
[2021-06-07] MEDS ORDERED: EPINEPHrine 1 MG/1 ML Amp IM ONE (19:17)
[2021-06-07] MEDS ORDERED: methylPREDNISolone Sodium Succinate 125 MG/2 ML SDV IVPUSH ONE (19:17)
[2021-06-07] MEDS ORDERED: diphenhydrAMINE 50 MG/ML SDV IVPUSH ONE (19:17)
[2021-06-07] MEDS ORDERED: diphenhydrAMINE 50 MG/ML SDV ONE (19:17)
[2021-06-07] MEDS ORDERED: Famotidine 20 MG/2 ML SDV ONE (19:18)
[2021-06-07] MEDS ORDERED: methylPREDNISolone Sodium Succinate 125 MG/2 ML SDV ONE (19:18)
[2021-06-07] MEDS ORDERED: EPINEPHrine 1 MG/ML SDV ONE (19:18)
[2021-06-07] MEDS ORDERED: Famotidine 20 MG/2 ML SDV IVPUSH ONE (19:18)
--- NOTE | 2021-06-07 19:37 | EDM.PDOC ---
ED HPI GENERAL MEDICAL PROBLEM - General Chief Complaint: Allergic Reaction Stated Complaint: ALLERGIC REACTION Time Seen by Provider: 06/07/21 19:10 Source of Information: Reports: Patient - History of Present Illness INITIAL COMMENTS - FREE TEXT/NARRATIVE: History of present illness: 46-year-old female presenting with feeling of concern for allergic reaction. Difficulty breathing. Throat itching. Feeling hot. Apparently around 5 PM she took an antibiotic, Keflex and also fluconazole that she was prescribed from a clinic. She has a prior history of penicillin allergy. A short time after that she started to feel unwell and thought her glucose was abnormal, so she checked it, it was 201. Then she started to feel the itching and trouble breathing about 30 minutes prior to arrival here and realized she might be having allergic reaction. She is extremely anxious and tearful. Review of systems: As per history of present illness and below otherwise all systems reviewed and negative. Past medical history: As per history of present illness and as reviewed below otherwise noncontributory. Diabetes, anaphylaxis Surgical history: As per history of present illness and as reviewed below otherwise noncontributory. Social history: No reported history of drug or alcohol abuse. Family history: As per history of present illness and as reviewed below otherwise noncontributory. Physical exam: GEN: Tearful, emotional distress, well appearing HEENT: Atraumatic, normocephalic, mucous membranes moist, no oral swelling, no tongue swelling, no intraoral rash, airway patent Neck: supple, nontender, trachea midline. Lungs: No respiratory distress. Mildly tachypneic but speaking clearly, no stridor or hoarseness, lungs clear on my examination although nurses reported some mild wheezing when they auscultated the chest on patient's arrival here Heart: Tachycardic, 112 Abdomen: Soft, nondistended, nontender. Back: Full range of motion Extremities: Atraumatic. Neurovascularly intact. Neuro: Awake, alert, oriented. Neuro Exam nonfocal. Skin: warm, dry, no lesions, no rash Diagnostics: EKG: Performed today, June 07, 2021 at 7:07 PM, sinus tachycardia, rate 111, no acute ischemia, no STEMI. Interpreted by me. Therapeutics: Epinephrine, Benadryl, Pepcid, Medrol MDM: Patient with no symptoms reported concerning for anaphylaxis. 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 Given anaphylaxis medications here with significant improvement and resolution of her symptoms. Her blood pressure and heart rate were elevated here, however the patient was extremely anxious and had also missed her home blood pressure medications. We did give her her home blood pressure medications and an anxiolytic and she felt much better and her blood pressure and heart rate were both improved. She was observed here for several hours and had no recurrence of symptoms. Discussed plan of care. Prescription for steroids was given as well as EpiPen. I did also give her a prescription of Macrobid as she was recently diagnosed with UTI which is the reason for the Keflex in the first place. She has no known history of allergy to Macrobid. Impression: Anaphylaxis Plan: [] Definitive disposition and diagnosis as appropriate pending reevaluation and review of above. Bilateral Parietal Chest Pain Score (Numeric/FACES): 8 - Related Data Allergies Allergy/AdvReac Type Severity Reaction Status Date / Time Penicillins Allergy Severe Anaphylactic Verified 06/07/21 19:38 Shock sumatriptan [From Imitrex] Allergy Severe Anaphylactic Verified 06/07/21 19:38 Shock venom-honey bee Allergy Severe Anaphylactic Verified 06/07/21 19:38 [bee venom (honey bee)] Shock metoclopramide [From Reglan] Allergy Mild Irritabilit Verified 06/07/21 19:38 y gnat - bug Allergy Severe Anaphylactic Uncoded 06/07/21 19:38 Shock Home Meds: Home Meds Insulin Glarg,Human.Rec.Analog [Lantus] 64 unit SQ .AMBEDTIME 12/22/19 [History] Losartan [Cozaar] 100 mg PO BEDTIME 12/22/19 [History] atorvaSTATin [Lipitor] 20 mg PO BEDTIME 12/22/19 [History] Aspirin 81 mg PO BEDTIME 02/03/21 [History] Insulin Aspart [NovoLOG] 2 - 10 unit SUBCUT TIDAC 02/03/21 [History] Chlorthalidone 25 mg PO DAILY #14 tab 02/06/21 [Rx] amLODIPine [Norvasc] 10 mg PO DAILY 14 Days #28 tab 02/06/21 [Rx] hydrALAZINE [Apresoline] 25 mg PO Q8H 14 Days #42 tablet 02/06/21 [Rx] levoFLOXacin [Levaquin] 750 mg PO DAILY 4 Days #4 tab 02/06/21 [Rx] EPINEPHrine [Epinephrine] 0.3 mg IM ONETIME PRN #2 applic 06/07/21 [Rx] Nitrofurantoin Monohyd/M-Cryst [Macrobid 100 mg Capsule] 100 mg PO BID 7 Days #14 capsule 06/07/21 [Rx] predniSONE [Prednisone] 60 mg PO DAILY 3 Days #9 tablet 06/07/21 [Rx] Past Medical History HEENT History: Reports: Allergic Rhinitis Other HEENT History: wears glasses Cardiovascular History: Reports: High Cholesterol, Hypertension Respiratory History: Reports: None Gastrointestinal History: Reports: Gastritis, Pancreatitis Genitourinary History: Reports: Renal Calculus, UTI, Recurrent Other Genitourinary History: has interstitial cystitis [employer] History: Reports: , Other (See Below) Musculoskeletal History: Reports: None Other Musculoskeletal History: knee pain Neurological History: Reports: Migraines, Seizure Other Neuro History: 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 2 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, unknown cause Psychiatric History: Reports: Depression Endocrine/Metabolic History: Reports: Diabetes, Type II, Obesity/BMI 30+ Hematologic History: Reports: None Immunologic History: Reports: None Oncologic (Cancer) History: Reports: None Dermatologic History: Reports: None - Infectious Disease History Infectious Disease History: Reports: Chicken Pox, Measles - Past Surgical History Head Surgeries/Procedures: Reports: None HEENT Surgical History: Reports: Tonsillectomy Cardiovascular Surgical History: Reports: None Respiratory Surgical History: Reports: None GI Surgical History: Reports: Appendectomy, Cholecystectomy Female Surgical History: Reports: Section, Hysterectomy, Lithotripsy/ESWL, Tubal Ligation Neurological Surgical History: Reports: None Musculoskeletal Surgical History: Reports: Other (See Below) Other Musculoskeletal Surgeries/Procedures:: cyst removed and cartilage fixed in left knee Oncologic Surgical History: Reports: None - History Comment History Comment: ETOH " 1X A MONTH" Social & Family History - Family History Family Medical History: No Pertinent Family History HEENT: Reports: None Cardiac: Reports: CAD, Hypertension Respiratory: Reports: None GI: Reports: None : Reports: Renal Calculus Psychiatric: Reports: None Endocrine/Metabolic: Reports: None Hematologic: Reports: None Immunologic: Reports: None Dermatologic: Reports: None Oncologic: Reports: Lung - Tobacco Use Tobacco Use Status *Q: Never Tobacco User - Caffeine Use Caffeine Use: Reports: None Caffeine Use Comment: daily coffee - Recreational Drug Use Recreational Drug Use: Yes Recreational Drug Type: Reports: Marijuana/Hashish ED ROS ALLERGIC REACTION - Review of Systems Review Of Systems: See Below (See dictation) ED EXAM GENERAL NO PERIP PULSE - Physical Exam Exam: See Below (See dictation) Course - Vital Signs Last Recorded V/S: Last Vital Signs Temp 96.3 F L 06/07/21 19:08 Pulse 95 06/07/21 22:36 Resp 15 06/07/21 22:36 BP 182/107 H 06/07/21 22:36 Pulse Ox 98 06/07/21 22:36 - Orders/Labs/Meds Meds: Medications Discontinued Medications Generic Name Dose Route Start Last Admin Trade Name Freq PRN Reason Stop Dose Admin Amlodipine Besylate 5 mg 06/07/21 21:26 06/07/21 21:36 Amlodipine 5 Mg Tab PO 06/07/21 21:27 5 mg ONETIME ONE Administration Amlodipine Besylate 5 mg 06/07/21 21:33 06/07/21 21:36 Amlodipine 5 Mg Tab PO 06/07/21 21:34 5 mg ONETIME ONE Administration Diphenhydramine HCl 25 mg 06/07/21 19:17 06/07/21 19:20 Diphenhydramine 50 Mg/Ml Sdv IVPUSH 06/07/21 19:18 25 mg ONETIME ONE Administration Diphenhydramine HCl Confirm 06/07/21 19:17 06/07/21 19:37 Diphenhydramine 50 Mg/Ml Sdv Administered 06/07/21 19:18 Not Given Dose 50 mg .ROUTE .STK-MED ONE Epinephrine HCl 0.3 mg 06/07/21 19:17 06/07/21 19:20 Epinephrine 1 Mg/1 Ml Amp IM 06/07/21 19:18 0.3 mg ONETIME ONE Administration Epinephrine HCl Confirm 06/07/21 19:18 06/07/21 19:37 Epinephrine 1 Mg/Ml Sdv Administered 06/07/21 19:19 Not Given Dose 1 mg .ROUTE .STK-MED ONE Famotidine 20 mg 06/07/21 19:18 06/07/21 19:20 Famotidine 20 Mg/2 Ml Sdv IVPUSH 06/07/21 19:19 20 mg ONETIME ONE Administration Famotidine Confirm 06/07/21 19:18 06/07/21 19:37 Famotidine 20 Mg/2 Ml Sdv Administered 06/07/21 19:19 Not Given Dose 20 mg .ROUTE .STK-MED ONE Hydralazine HCl 25 mg 06/07/21 21:27 06/07/21 21:41 Hydralazine 25 Mg Tab PO 06/07/21 21:28 25 mg ONETIME ONE Administration Sodium Chloride 1,000 mls @ 999 mls/hr 06/07/21 20:21 06/07/21 20:30 Normal Saline IV 06/07/21 21:21 999 mls/hr .Bolus ONE Administration Lorazepam 1 mg 06/07/21 19:49 06/07/21 19:57 Lorazepam 2 Mg/Ml Sdv IVPUSH 06/07/21 19:50 1 mg ONETIME ONE Administration Methylprednisolone Sodium Succinate 125 mg 06/07/21 19:17 06/07/21 19:20 Methylprednisolone Sodium Succinate 125 Mg/2 Ml Sdv IVPUSH 06/07/21 19:18 125 mg ONETIME ONE Administration Methylprednisolone Sodium Succinate Confirm 06/07/21 19:18 06/07/21 19:36 Methylprednisolone Sodium Succinate 125 Mg/2 Ml Sdv Administered 06/07/21 19:19 Not Given Dose 125 mg .ROUTE .STK-MED ONE - Re-Assessments/Exams Free Text/Narrative Re-Assessment/Exam: 06/07/21 19:50 The patient is feeling much better. She does still feel anxious. She does report that she was able to verify and she is not allergic to Ativan and the refore is requesting dose of that here. 06/07/21 21:28 Patient is feeling well. She is still mildly tachycardic and her blood pressure is still elevated, however she reports she did not take any of her home medications and she cannot recall the names. Her medication list was obtained from the pharmacy and she takes hydralazine and amlodipine and these will be ordered. 06/07/21 22:55 The patient is feeling much better. Her heart rate and blood pressure now improved. Her symptoms have been resolved. She has been observed here for several hours with no recurrence or worsening of her allergic reaction. Stable for discharge. Departure - Departure Time of Disposition: 22:56 Disposition: Home, Self-Care 01 Clinical Impression: Anaphylaxis - Discharge Information Prescriptions: EPINEPHrine [Epinephrine] 0.3 mg IM ONETIME PRN #2 applic PRN Reason: Other Nitrofurantoin Monohyd/M-Cryst [Macrobid 100 mg Capsule] 100 mg PO BID 7 Days #14 capsule predniSONE [Prednisone] 60 mg PO DAILY 3 Days #9 tablet Instructions: Anaphylactic Reaction, Adult, [id number], Allergies, Adult Referrals: Winston Ferrer MD [Primary Care Provider] - 2 Days Forms: ED Department Discharge Additional Instructions: Your symptoms today are likely due to anaphylaxis, severe allergic reaction. Do not take the medications that you took just prior to the onset of your symptoms again. We will prescribe you a short course of steroids to prevent recurrence of anaphylaxis over the next few days. If you do develop any symptoms of anaphylaxis, return to the ER immediately. Please follow-up with your primary care physician and they may want to refer you to an rewards consultant for further testing of your allergies as well. The following information is given to patients seen in the emergency department who are being discharged to home. This information is to outline your options for follow-up care. We provide all patients seen in our emergency department with a follow-up referral. The need for follow-up, as well as the timing and circumstances, are variable depending upon the specifics of your emergency department visit. If you don't have a primary care physician on staff, we will provide you with a referral. We always advise you to contact your personal physician following an emergency department visit to inform them of the circumstance of the visit and for follow-up with them and/or the need for any referrals to a consulting specialist. The emergency department will also refer you to a specialist when appropriate. This referral assures that you have the opportunity for follow-up care with a specialist. All of these measure are taken in an effort to provide you with optimal care, which includes your follow-up. Under all circumstances we always encourage you to contact your private physician who remains a resource for coordinating your care. When calling for follow-up care, please make the office aware that this follow-up is from your recent emergency room visit. If for any reason you are refused follow-up, please contact the [facility] Emergency Department at and asked to speak to the emergency department charge nurse. Sepsis Event Note (ED) - Evaluation Sepsis Screening Result: Possible Sepsis Risk - Focused Exam Vital Signs: Vital Signs Temp Pulse Resp BP BP Pulse Ox 06/07/21 22:36 95 15 182/107 H 98 06/07/21 21:41 214/115 H 06/07/21 21:36 214/115 H 06/07/21 20:05 92 198/113 H 06/07/21 19:39 100 20 230/144 H 98 06/07/21 19:33 100 24 H 237/122 H 100 06/07/21 19:25 100 30 H 260/131 H 100 06/07/21 19:15 107 H 30 H 245/140 H 100 06/07/21 19:08 96.3 F L 100 44 H 100
[2021-06-07] MEDS ORDERED: LORazepam 2 MG/ML SDV IVPUSH ONE (19:49)
[2021-06-07] MEDS ORDERED: Sodium Chloride 0.9% 1,000 ML IV ONE (20:21)
[2021-06-07] MEDS ORDERED: amLODIPine 5 MG Tab PO ONE ×2 (21:26→21:33)
[2021-06-07] MEDS ORDERED: hydrALAZINE 25 MG Tab PO ONE (21:27)
[2021-06-07 22:37] VITALS: BP 182/107; PULSE 95
== END 2021-06-07 23:12 | disposition home or self-care (01) ==
LOC: MW.ED 19:00
DX: T78.2XXA Anaphylactic shock, unspecified, initial encounter (principal); E78.00 Pure hypercholesterolemia, unspecified; I10 Essential (primary) hypertension; E11.9 Type 2 diabetes mellitus without complications; E66.9 Obesity, unspecified; Z68.32 Body mass index [BMI] 32.0-32.9, adult; Z79.899 Other long term (current) drug therapy
CPT/HCPCS: 93005; 96372; 96374; 96375; 99284; A9270; J0171; J1200; J2060; J2930; J3490; J7030

== ENCOUNTER 2021-11-05 10:46 | Emergency (ER) | payer BC ==
--- NOTE | 2021-11-05 11:07 | EDM.PDOC ---
ED HPI GENERAL MEDICAL PROBLEM - General Chief Complaint: Lower Extremity Injury/Pain Stated Complaint: R FOOT INJURY Time Seen by Provider: 11/05/21 10:49 Source of Information: Reports: Patient History Limitations: Reports: No Limitations - History of Present Illness INITIAL COMMENTS - FREE TEXT/NARRATIVE: HISTORY AND PHYSICAL: History of present illness: Patient is a 46-year-old female who presents to the emergency room with complaints of right anterior foot pain. She states her floor is uneven and she fell due to her left knee giving out. She denies hitting her head or having any loss of consciousness. She denies any other extremity involvement. Denies any numbness, tingling, saddle paresthesia or weakness. States she has previously fractured the affected foot, approximately 8 years ago. Patient denies any fever, chills, headache, change in vision, syncope or near syncope. Denies any chest pain, back pain, shortness of breath or cough. Denies any GI or symptoms. No recent travel or sick contacts. Review of systems: As per history of present illness and below otherwise all systems reviewed and negative. Past medical history: As per history of present illness and as reviewed below otherwise noncontributory. Surgical history: As per history of present illness and as reviewed below otherwise noncontributory. Social history: See social history for further information Family history: As per history of present illness and as reviewed below otherwise noncontributory. Physical exam: General: Well developed and well nourished 46-year-old female. Alert and orientated x 3. Nontoxic in appearance and in no acute distress. Vital signs are stable and have been reviewed by me. Nursing notes were reviewed. HEENT: Atraumatic, normocephalic, pupils equal and reactive bilaterally, negative for conjunctival pallor or scleral icterus, mucous membranes moist, trachea midline. No drooling or trismus noted. No meningeal signs. No hot potato voice noted. Lungs: Clear to auscultation bilaterally. No wheezes, rales, or rhonchi. Chest nontender. Normal work of breathing, no accessory muscles used. Heart: S1S2, regular rate and rhythm without overt murmur, gallops, or rubs. No JVD. No peripheral edema Abdomen: Soft, nondistended, nontender. Normoactive bowel sounds. Negative for masses or costovertebral tenderness. Skin: Intact, warm, dry. No lesions or rashes noted. Hematologic: No petechiae or purpra. Mucosa appropriate color and normal nail bed color and refill. Extremities: Pain to palpation anterior portion base of toes to mid right foot.strong pedal and pretibial pulses. moves all extremities per self without difficulty or deficits, negative for cords or calf pain. Neurovascular unremarkable. Neuro: Awake, alert, oriented. Cranial nerves II through XII unremarkable. Cerebellum unremarkable. Motor and sensory unremarkable throughout. Exam nonfocal. Psychiatric: Mood and affect are appropriate. Normal thought process. Answering questions appropriately. Please note that the patient was seen and evaluated during the 2019 SARS-CoV-2 novel coronavirus pandemic period. Community viral transmission is ongoing at time of this encounter and the emergency department is operating under pandemic response procedures. Medical Decision Making: Patient is a 46-year-old female who presents to the emergency room with complaints of right foot pain post fall. She does have tenderness at the base of the toes going into the midfoot. There is no obvious injury, swelling or break in the skin. Due to tenderness and previous fracture I will do an x-ray. Patient's x-ray is unremarkable. Did offer DME, she declined stating she has crutches at home. I do note that she had 40 tablets of Percocet filled less than a month ago. We will give her diclofenac for pain management. I have talked with the patient about today's findings, in addition to providing specific details for plan of care. Reassessment at the time of disposition demonstrates that the patient is in no acute distress. The patient is stable for discharge, counseling was provided and we discussed in great detail signs and symptoms that would prompt them to return to the Emergency Department. Medication, follow up and supportive care measures were reviewed and discussed. Voices understanding and is agreeable to plan of care. Denies any further questions or concerns at this time. Diagnostics: X-ray foot Therapeutics: Declines Prescription: Diclofenac Impression: Foot injury Plan: 1. You were evaluated today on an emergent basis. Your x-ray shows no fractures. Rest, ice, elevate the extremity as able. 2. You can alternate Tylenol and ibuprofen as needed for pain and fever management. 3. We encourage you to follow up with your primary care provider and/or orthopedic provider re-evaluation and further care/management. 4. If your symptoms should worsen, new symptoms develop or any of the signs and symptoms we discussed should arise please return to the emergency room or call 911 (if needed). Definitive disposition and diagnosis as appropriate pending reevaluation and review of above. right foot Pain Score (Numeric/FACES): 10 - Related Data Allergies Allergy/AdvReac Type Severity Reaction Status Date / Time Penicillins Allergy Severe Anaphylactic Verified 11/05/21 10:58 Shock sumatriptan [From Imitrex] Allergy Severe Anaphylactic Verified 11/05/21 10:58 Shock venom-honey bee Allergy Severe Anaphylactic Verified 11/05/21 10:58 [bee venom (honey bee)] Shock metoclopramide [From Reglan] Allergy Mild Irritabilit Verified 11/05/21 10:58 y gnat - bug Allergy Severe Anaphylactic Uncoded 11/05/21 10:58 Shock Home Meds: Home Meds Insulin Glarg,Human.Rec.Analog [Lantus] 64 unit SQ .AMBEDTIME 12/22/19 [History] Losartan [Cozaar] 100 mg PO BEDTIME 12/22/19 [History] atorvaSTATin [Lipitor] 20 mg PO BEDTIME 12/22/19 [History] Aspirin 81 mg PO BEDTIME 02/03/21 [History] Insulin Aspart [NovoLOG] 2 - 10 unit SUBCUT TIDAC 02/03/21 [History] Chlorthalidone 25 mg PO DAILY #14 tab 02/06/21 [Rx] amLODIPine [Norvasc] 10 mg PO DAILY 14 Days #28 tab 02/06/21 [Rx] hydrALAZINE [Apresoline] 25 mg PO Q8H 14 Days #42 tablet 02/06/21 [Rx] levoFLOXacin [Levaquin] 750 mg PO DAILY 4 Days #4 tab 02/06/21 [Rx] EPINEPHrine [Epinephrine] 0.3 mg IM ONETIME PRN #2 applic 06/07/21 [Rx] Nitrofurantoin Monohyd/M-Cryst [Macrobid 100 mg Capsule] 100 mg PO BID 7 Days #14 capsule 06/07/21 [Rx] predniSONE [Prednisone] 60 mg PO DAILY 3 Days #9 tablet 06/07/21 [Rx] Diclofenac Sodium [Voltaren] 75 mg PO BIDMEALS PRN #30 tab.cr 12/28/21 [Rx] Past Medical History HEENT History: Reports: Allergic Rhinitis Other HEENT History: wears glasses Cardiovascular History: Reports: High Cholesterol, Hypertension Respiratory History: Reports: None Gastrointestinal History: Reports: Gastritis, Pancreatitis Genitourinary History: Reports: Renal Calculus, UTI, Recurrent Other Genitourinary History: has interstitial cystitis [employer] History: Reports: , Other (See Below) Musculoskeletal History: Reports: None Other Musculoskeletal History: knee pain Neurological History: Reports: Migraines, Seizure Other Neuro History: 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 2 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, unknown cause Psychiatric History: Reports: Depression Endocrine/Metabolic History: Reports: Diabetes, Type II, Obesity/BMI 30+ Hematologic History: Reports: None Immunologic History: Reports: None Oncologic (Cancer) History: Reports: None Dermatologic History: Reports: None - Infectious Disease History Infectious Disease History: Reports: Chicken Pox, Measles - Past Surgical History Head Surgeries/Procedures: Reports: None HEENT Surgical History: Reports: Tonsillectomy Cardiovascular Surgical History: Reports: None Respiratory Surgical History: Reports: None GI Surgical History: Reports: Appendectomy, Cholecystectomy Female Surgical History: Reports: Section, Hysterectomy, Lithotripsy/ESWL, Tubal Ligation Neurological Surgical History: Reports: None Musculoskeletal Surgical History: Reports: Other (See Below) Other Musculoskeletal Surgeries/Procedures:: cyst removed and cartilage fixed in left knee Oncologic Surgical History: Reports: None - History Comment History Comment: ETOH " 1X A MONTH" Social & Family History - Family History Family Medical History: No Pertinent Family History HEENT: Reports: None Cardiac: Reports: CAD, Hypertension Respiratory: Reports: None GI: Reports: None : Reports: Renal Calculus Psychiatric: Reports: None Endocrine/Metabolic: Reports: None Hematologic: Reports: None Immunologic: Reports: None Dermatologic: Reports: None Oncologic: Reports: Lung - Caffeine Use Caffeine Use: Reports: None Caffeine Use Comment: daily coffee Review of Systems - Review of Systems Review Of Systems: Comprehensive ROS is negative, except as noted in HPI. ED EXAM, GENERAL - Physical Exam Exam: See Below (See dictation) Course - Vital Signs Last Recorded V/S: Last Vital Signs Temp 96.0 F L 11/05/21 10:58 Pulse 92 11/05/21 10:58 Resp 18 11/05/21 10:58 BP 191/131 H 11/05/21 10:58 Pulse Ox 98 11/05/21 10:58 Departure - Departure Time of Disposition: 12:28 Disposition: Home, Self-Care 01 Clinical Impression: Foot injury Qualifiers: Encounter type: initial encounter Laterality: right Qualified Code(s): S99.921A - Unspecified injury of right foot, initial encounter - Discharge Information Prescriptions: Diclofenac Sodium [Voltaren] 75 mg PO BIDMEALS PRN #30 tab.cr PRN Reason: Pain Instructions: Foot Sprain Forms: ED Department Discharge Additional Instructions: The following information is given to patients seen in the emergency department who are being discharged to home. This information is to outline your options for follow-up care. We provide all patients seen in our emergency department with a follow-up referral. The need for follow-up, as well as the timing and circumstances, are variable depending upon the specifics of your emergency department visit. If you don't have a primary care physician on staff, we will provide you with a referral. We always advise you to contact your personal physician following an emergency department visit to inform them of the circumstance of the visit and for follow-up with them and/or the need for any referrals to a consulting specialist. The emergency department will also refer you to a specialist when appropriate. This referral assures that you have the opportunity for follow-up care with a specialist. All of these measure are taken in an effort to provide you with optimal care, which includes your follow-up. Under all circumstances we always encourage you to contact your private physician who remains a resource for coordinating your care. When calling for follow-up care, please make the office aware that this follow-up is from your recent emergency room visit. If for any reason you are refused follow-up, please contact the [facility] Emergency Department at and asked to speak to the emergency department charge nurse. [facility] [address] [place] [id number] [facility] [address] [place] [address] Thank you for choosing the [facility] emergency department in [place] for your medical needs today. It was a pleasure caring for you. Today you were seen in the emergency department for Your prescription was electronically sent to: [facility] Medication/Directions: Diclofenac, 1 tab up to twice daily for pain. Do not take any additional NSAIDs such as ibuprofen or Aleve while taking this medication as it is in the same family. Please take with food. 1. You were evaluated today on an emergent basis. Your x-ray shows no fractures. Rest, ice, elevate the extremity as able. 2. You can alternate Tylenol and ibuprofen as needed for pain and fever management. 3. We encourage you to follow up with your primary care provider and/or orthopedic provider re-evaluation and further care/management. 4. If your symptoms should worsen, new symptoms develop or any of the signs and symptoms we discussed should arise please return to the emergency room or call 911 (if needed). Sepsis Event Note (ED) - Focused Exam Vital Signs: Vital Signs Temp Pulse Resp BP Pulse Ox 11/05/21 10:58 96.0 F L 92 18 191/131 H 98
--- NOTE | 2021-11-05 12:22 | CR ---
INDICATION: Right foot injury. Fell. TECHNIQUE: Three views of the right foot. COMPARISON: None. FINDINGS: No obvious soft tissue swelling, fracture or subluxation. Large calcaneal spurs. IMPRESSION: Negative for acute traumatic abnormality. Dictated by Devin Em MD @ 11/05/2021 12:21:12 PM (Electronically Signed)
[2021-11-05 12:41] VITALS: BP 154/117; PULSE 88
== END 2021-11-05 12:42 | disposition home or self-care (01) ==
LOC: MW.ED 10:46
DX: S99.921A Unspecified injury of right foot, initial encounter (principal); E78.00 Pure hypercholesterolemia, unspecified; I10 Essential (primary) hypertension; E11.9 Type 2 diabetes mellitus without complications; E66.9 Obesity, unspecified; Z68.28 Body mass index [BMI] 28.0-28.9, adult; Z88.0 Allergy status to penicillin; Z88.8 Allergy status to other drugs, medicaments and biological substances; Z91.030 Bee allergy status; Z91.038 Other insect allergy status; Z79.4 Long term (current) use of insulin; Z79.82 Long term (current) use of aspirin; Z79.899 Other long term (current) drug therapy; W18.30XA Fall on same level, unspecified, initial encounter
CPT/HCPCS: 73630-26-RT; 73630-RT; 99283-25

== ENCOUNTER 2022-07-04 10:37 | Inpatient (IN) | payer BC, OTHER ==
[2022-07-04] MEDS ORDERED: Sodium Chloride 0.9% 2.5 ML Syringe FLUSH PRN (12:25)
[2022-07-04] MEDS ORDERED: Sodium Chloride 0.9% 1,000 ML IV ONE (12:25)
[2022-07-04] MEDS ORDERED: Sodium Chloride 0.9% 10 ML Syringe FLUSH PRN (12:25)
[2022-07-04] MEDS ORDERED: fentaNYL 50 MCG/ML SDV IVPUSH ONE ×2 (12:25→13:59)
[2022-07-04] MEDS ORDERED: Ondansetron 4 MG/2 ML SDV IVPUSH ONE (12:25)
[2022-07-04 12:52] LABS: CARBON DIOXIDE,CO2 20.7 mmol/L (21.0-32.0); POTASSIUM,K 3.8 mmol/L (3.5-5.1)
[2022-07-04] MEDS ORDERED: fentaNYL 50 MCG/ML SDV ONE (13:22)
[2022-07-04] MEDS ORDERED: Ondansetron 4 MG/2 ML SDV ONE (13:22)
[2022-07-04] MEDS ORDERED: cefTRIAXone 1 GM in Sodium Chloride 0.9% 50 ML IV ONE (13:23)
[2022-07-04] MEDS ORDERED: cefTRIAXone 1 GM AdvVial IV ONE (13:34)
[2022-07-04] MEDS ORDERED: Sodium Chloride 0.9% 50 ML ONE (13:36)
[2022-07-04] MEDS ORDERED: Ketorolac 30 MG/ML SDV IVPUSH ONE (13:59)
[2022-07-04] MEDS ORDERED: Acetaminophen 325 MG Tab PO ONE (14:00)
[2022-07-04] MEDS ORDERED: Polyethylene Glycol 3350 Powder 17 GM Packet PO PRN (16:15)
[2022-07-04] MEDS ORDERED: 50% Dextrose in Water 50 ML Syringe IVPUSH PRN (16:27)
[2022-07-04] MEDS ORDERED: Glucagon,Human Recombinant 1 MG Vial IM PRN (16:27)
[2022-07-04] MEDS ORDERED: Diclofenac Sodium 75 MG Tab.EC PO PRN (16:30)
[2022-07-04] MEDS ORDERED: EPINEPHRINE 0.3 MG/0.3 ML IM PRN (16:30)
[2022-07-04] MEDS ORDERED: hydrALAZINE 25 MG Tab PO SCH (16:30)
[2022-07-04] MEDS ORDERED: AUTO INJCT IM PRN (16:30)
[2022-07-04] MEDS ORDERED: Magnesium Sulfate/Water 2 GM in Premix Bag 1 BAG IV ONE (16:45)
[2022-07-04] MEDS: Sodium Chloride 0.9% 1,000 ML IV SCH (16:50)
[2022-07-04] MEDS ORDERED: Promethazine 25 MG Tab PO PRN (17:35)
[2022-07-04] MEDS ORDERED: Albuterol/Ipratropium 3.0-0.5 MG/3 ML Neb Soln NEB PRN (18:00)
[2022-07-04] MEDS: Pantoprazole 40 MG in Sodium Chloride 0.9% 10 ML IVPUSH SCH (18:18)
[2022-07-04] MEDS: HYDROmorphone 1 MG/ML Syringe IVPUSH PRN ×2 (18:18→21:41)
[2022-07-04] MEDS: Insulin Aspart 100 Units/ML 3 ML Pen SUBCUT SCH (18:19)
[2022-07-04] MEDS: hydrALAZINE 25 MG Tab PO SCH (18:21)
[2022-07-04] MEDS: amLODIPine 5 MG Tab PO SCH (18:22)
[2022-07-04] MEDS ORDERED: Ondansetron 4 MG/2 ML SDV IVPUSH PRN (20:00)
[2022-07-04] MEDS: Losartan 50 MG Tab PO SCH (20:49)
[2022-07-04] MEDS: atorvaSTATin 20 MG Tab PO SCH (20:50)
[2022-07-04] MEDS: Aspirin 81 MG Tab.Chew PO SCH (20:50)
[2022-07-04] MEDS: Insulin Glargine,Hum.Rec.Anlog 100 UNIT/ML 3 ML Pen SUBCUT SCH (21:39)
[2022-07-05] MEDS: hydrALAZINE 25 MG Tab PO SCH ×3 (02:09→17:09)
[2022-07-05] MEDS: HYDROmorphone 1 MG/ML Syringe IVPUSH PRN ×3 (02:10→09:31)
[2022-07-05] MEDS: Sodium Chloride 0.9% 1,000 ML IV SCH ×3 (02:15→18:11)
[2022-07-05 06:36] LABS: POTASSIUM,K 3.6 mmol/L (3.5-5.1)
[2022-07-05] MEDS: Insulin Aspart 100 Units/ML 3 ML Pen SUBCUT SCH ×3 (07:51→17:01)
[2022-07-05] MEDS: Acetaminophen 325 MG Tab PO PRN ×2 (07:54→20:22)
[2022-07-05] MEDS: amLODIPine 5 MG Tab PO SCH (07:59)
[2022-07-05] MEDS: Enoxaparin 40 MG/0.4 ML Syringe SUBCUT SCH (07:59)
[2022-07-05] MEDS: Chlorthalidone 25 MG Tab PO SCH (08:00)
[2022-07-05] MEDS: Insulin Glargine,Hum.Rec.Anlog 100 UNIT/ML 3 ML Pen SUBCUT SCH ×2 (08:10→21:50)
[2022-07-05] MEDS ORDERED: amLODIPine 5 MG Tab PO SCH (09:00)
[2022-07-05] MEDS: Acetaminophen/oxyCODONE 325-5 MG Tab PO PRN ×2 (11:34→18:50)
[2022-07-05] MEDS ORDERED: cefTRIAXone 1 GM in Sodium Chloride 0.9% 50 ML IV SCH (12:00)
[2022-07-05] MEDS ORDERED: diphenhydrAMINE 25 MG Cap PO PRN (13:30)
[2022-07-05] MEDS ORDERED: Morphine 2 MG/ML SYRINGE IVPUSH ONE (14:06)
[2022-07-05] MEDS: Pantoprazole 40 MG in Sodium Chloride 0.9% 10 ML IVPUSH SCH (17:09)
[2022-07-05] MEDS: Losartan 50 MG Tab PO SCH (20:20)
[2022-07-05] MEDS: Aspirin 81 MG Tab.Chew PO SCH (20:20)
[2022-07-05] MEDS: atorvaSTATin 20 MG Tab PO SCH (20:23)
[2022-07-06] MEDS: hydrALAZINE 25 MG Tab PO SCH ×2 (01:25→10:37)
[2022-07-06] MEDS: Sodium Chloride 0.9% 1,000 ML IV SCH (02:10)
[2022-07-06 06:59] LABS: CARBON DIOXIDE,CO2 23.6 mmol/L (21.0-32.0); POTASSIUM,K 3.5 mmol/L (3.5-5.1)
[2022-07-06] MEDS: Acetaminophen/oxyCODONE 325-5 MG Tab PO PRN (08:06)
[2022-07-06] MEDS: Insulin Aspart 100 Units/ML 3 ML Pen SUBCUT SCH (08:06)
[2022-07-06] MEDS: Insulin Glargine,Hum.Rec.Anlog 100 UNIT/ML 3 ML Pen SUBCUT SCH (09:00)
[2022-07-06 09:54] VITALS: PULSE 86
[2022-07-06] MEDS: Chlorthalidone 25 MG Tab PO SCH (10:37)
[2022-07-06 10:38] VITALS: BP 162/89
[2022-07-06] MEDS: amLODIPine 5 MG Tab PO SCH (10:38)
[2022-07-06] MEDS: Enoxaparin 40 MG/0.4 ML Syringe SUBCUT SCH (10:39)
[2022-07-06] MEDS: Acetaminophen 325 MG Tab PO PRN (10:41)
== END 2022-07-06 11:30 | disposition home or self-care (01) | DRG 690 ==
LOC: MW.ED 10:37 → MW.MS 16:01
PROVIDERS: ADMIT Internal Medicine; ATTEND Internal Medicine
DX: N10 Acute pyelonephritis (principal); E11.9 Type 2 diabetes mellitus without complications; I10 Essential (primary) hypertension; E78.00 Pure hypercholesterolemia, unspecified; F32.A Depression, unspecified; Z20.822 Contact with and (suspected) exposure to COVID-19; R31.9 Hematuria, unspecified; E86.0 Dehydration; Z88.0 Allergy status to penicillin; Z91.030 Bee allergy status; Z79.4 Long term (current) use of insulin; Z79.52 Long term (current) use of systemic steroids; Z79.899 Other long term (current) drug therapy; Z90.49 Acquired absence of other specified parts of digestive tract; Z90.710 Acquired absence of both cervix and uterus
CPT/HCPCS: 36415; 74176; 74176-26; 80053; 81001; 82947; 83605; 83690; 83735; 84703; 85025; 87040; 87086; 87088; 87186; 96361; 96365; 96375; 96376; 99284; 99285-25; A9270-GY; C9113; J0696; J1170; J1650; J1815-GY; J1885; J2270; J2405; J3010; J3475; J3490; J7030; U0002

== ENCOUNTER 2023-01-14 10:08 | Emergency (ER) | payer OTHER ==
[2023-01-14] MEDS ORDERED: Sodium Chloride 0.9% 2.5 ML Syringe FLUSH PRN (10:28)
[2023-01-14] MEDS ORDERED: Sodium Chloride 0.9% 10 ML Syringe FLUSH PRN (10:28)
[2023-01-14] MEDS ORDERED: Aspirin 81 MG Tab.Chew PO ONE (10:39)
[2023-01-14] MEDS ORDERED: Sodium Chloride 0.9% 1,000 ML IV ONE (10:39)
[2023-01-14] MEDS ORDERED: Ondansetron 4 MG/2 ML SDV IVPUSH ONE (10:40)
[2023-01-14] MEDS ORDERED: Morphine 4 MG/ML Syringe IVPUSH ONE (10:40)
[2023-01-14 11:46] LABS: CORONAVIRUS COVID-19 NAA NEGATIVE (NEGATIVE); INFLUENZA A NAA NEGATIVE (NEGATIVE); INFLUENZA B NAA NEGATIVE (NEGATIVE)
[2023-01-14 12:01] LABS: CARBON DIOXIDE,CO2 21.1 mmol/L (21.0-32.0); POTASSIUM,K 4.9 mmol/L (3.5-5.1)
[2023-01-14] MEDS ORDERED: Morphine 2 MG/ML SYRINGE IVPUSH ONE (12:59)
[2023-01-14] MEDS ORDERED: Iopamidol 755 MG/ML 500 ML Multipack Bottle IVPUSH ONE (13:00)
[2023-01-14 14:28] VITALS: BP 131/80; PULSE 79
== END 2023-01-14 14:34 | disposition home or self-care (01) ==
LOC: MW.ED 10:08
DX: K52.9 Noninfective gastroenteritis and colitis, unspecified (principal); N28.9 Disorder of kidney and ureter, unspecified; E11.9 Type 2 diabetes mellitus without complications; I10 Essential (primary) hypertension; E66.9 Obesity, unspecified; Z68.30 Body mass index [BMI] 30.0-30.9, adult; Z88.0 Allergy status to penicillin; Z91.030 Bee allergy status; Z88.8 Allergy status to other drugs, medicaments and biological substances; Z79.4 Long term (current) use of insulin; Z79.82 Long term (current) use of aspirin; Z79.899 Other long term (current) drug therapy; Z20.822 Contact with and (suspected) exposure to COVID-19
CPT/HCPCS: 0240U; 36415; 71045; 74177; 80053; 81003; 82009; 83605; 83735; 84484; 85025; 86308; 93005; 96361; 96374; 96375; 96376; 99285; A9270; J2270; J2405; J3490; J7030; Q9967

== ENCOUNTER 2023-02-04 20:26 | Emergency (ER) | payer OTHER ==
[2023-02-04] MEDS ORDERED: Ondansetron 4 MG Tab.DIS PO ONE (20:53)
[2023-02-04] MEDS ORDERED: Acetaminophen/HYDROcodone 325-5 MG Tab PO ONE (20:53)
[2023-02-04 21:31] LABS: CARBON DIOXIDE,CO2 23.3 mmol/L (21.0-32.0); POTASSIUM,K 4.5 mmol/L (3.5-5.1)
[2023-02-04] MEDS ORDERED: Insulin Regular, Human 100 Units/ML 10 ML Vial SUBCUT ONE (22:32)
[2023-02-04 22:55] VITALS: BP 146/88; PULSE 92
== END 2023-02-04 22:53 | disposition home or self-care (01) ==
LOC: MW.ED 20:26
DX: N30.91 Cystitis, unspecified with hematuria (principal); E11.65 Type 2 diabetes mellitus with hyperglycemia; I10 Essential (primary) hypertension; E66.9 Obesity, unspecified; Z68.33 Body mass index [BMI] 33.0-33.9, adult; Z88.0 Allergy status to penicillin; Z88.8 Allergy status to other drugs, medicaments and biological substances; Z91.030 Bee allergy status; Z91.038 Other insect allergy status; Z79.4 Long term (current) use of insulin; Z79.899 Other long term (current) drug therapy
CPT/HCPCS: 36415; 74176; 80048; 81001; 85025; 99284; A9270; J1815-GY

== ENCOUNTER 2023-02-19 11:58 | Emergency (ER) | payer OTHER ==
[2023-02-19] MEDS ORDERED: Sodium Chloride 0.9% 1,000 ML IV ONE (12:13)
[2023-02-19] MEDS ORDERED: Ketorolac 30 MG/ML SDV IVPUSH ONE (13:00)
[2023-02-19 14:08] LABS: CORONAVIRUS COVID-19 NAA NEGATIVE (NEGATIVE); INFLUENZA A NAA NEGATIVE (NEGATIVE); INFLUENZA B NAA NEGATIVE (NEGATIVE); RESPIRATORY SYNCYTIAL VIR NAA NEGATIVE (NEGATIVE)
[2023-02-19] MEDS ORDERED: HYDROmorphone 1 MG/ML Syringe IVPUSH ONE (14:45)
[2023-02-19] MEDS ORDERED: Ondansetron 4 MG/2 ML SDV IVPUSH ONE (14:45)
[2023-02-19 14:56] LABS: CARBON DIOXIDE,CO2 21.6 mmol/L (21.0-32.0); POTASSIUM,K 4.1 mmol/L (3.5-5.1)
[2023-02-19 15:24] VITALS: BP 155/96; PULSE 98
== END 2023-02-19 15:40 | disposition home or self-care (01) ==
LOC: MW.ED 11:58
DX: I63.9 Cerebral infarction, unspecified (principal); R56.9 Unspecified convulsions; K52.9 Noninfective gastroenteritis and colitis, unspecified; I25.10 Atherosclerotic heart disease of native coronary artery without angina pectoris; I10 Essential (primary) hypertension; E11.9 Type 2 diabetes mellitus without complications; E66.9 Obesity, unspecified; Z79.4 Long term (current) use of insulin; Z79.82 Long term (current) use of aspirin; Z88.0 Allergy status to penicillin; Z91.030 Bee allergy status; Z88.8 Allergy status to other drugs, medicaments and biological substances; Z20.822 Contact with and (suspected) exposure to COVID-19; Z68.28 Body mass index [BMI] 28.0-28.9, adult
CPT/HCPCS: 0241U; 36415; 70450; 71045; 80053; 81001; 82803; 83605; 83690; 83735; 84484; 85025; 86308; 93005; 96361; 96374; 96375; 99285; J1170; J1885; J2405; J7030; 93010; 99284

== ENCOUNTER 2023-04-06 18:00 | Emergency (ER) | payer OTHER ==
[2023-04-06] MEDS ORDERED: Ondansetron 4 MG Tab.DIS PO ONE (19:03)
[2023-04-06] MEDS ORDERED: Benzocaine 20% Topical Spray UD MUCMEM ONE (19:03)
[2023-04-06] MEDS ORDERED: Ketorolac 60 MG/2 ML SDV IM ONE (19:04)
[2023-04-06] MEDS ORDERED: Acetaminophen/HYDROcodone 325-5 MG Tab PO ONE (19:53)
[2023-04-06] MEDS ORDERED: Acetaminophen/Codeine 120-12 MG/5 ML Soln 5 ML UD Cup PO ONE (20:09)
[2023-04-06 20:28] VITALS: BP 182/113; PULSE 90
== END 2023-04-06 20:28 | disposition home or self-care (01) ==
LOC: MW.ED 18:00
DX: G89.18 Other acute postprocedural pain (principal); K08.89 Other specified disorders of teeth and supporting structures; I10 Essential (primary) hypertension; E11.9 Type 2 diabetes mellitus without complications; E66.9 Obesity, unspecified; Z68.30 Body mass index [BMI] 30.0-30.9, adult; Z88.0 Allergy status to penicillin; Z88.8 Allergy status to other drugs, medicaments and biological substances; Z91.030 Bee allergy status; Z91.048 Other nonmedicinal substance allergy status; Z79.4 Long term (current) use of insulin; Z79.899 Other long term (current) drug therapy; Z79.82 Long term (current) use of aspirin
CPT/HCPCS: 96372; 99283; A9270; J1885; 99282

== ENCOUNTER 2023-04-27 10:25 | Emergency (ER) | payer OTHER ==
[2023-04-27] MEDS ORDERED: Sodium Chloride 0.9% 2.5 ML Syringe FLUSH PRN (10:46)
[2023-04-27] MEDS ORDERED: Sodium Chloride 0.9% 10 ML Syringe FLUSH PRN (10:46)
[2023-04-27] MEDS ORDERED: Sodium Chloride 0.9% 1,000 ML IV STA ×2 (10:47→12:32)
[2023-04-27 10:59] LABS: APPEARANCE,URINE SLT CLOUDY; BILIRUBIN,URINE NEGATIVE (NEGATIVE); COLOR,URINE YELLOW; GLUCOSE,URINE >=1000 mg/dL (NEGATIVE); KETONES,URINE NEGATIVE (NEGATIVE); LEUKOCYTE ESTERASE,URINE NEGATIVE (NEGATIVE); NITRITE,URINE NEGATIVE (NEGATIVE); OCCULT BLOOD,URINE LARGE (NEGATIVE); PH,URINE 6.5 (5.0-8.0); PROTEIN,URINE NEGATIVE (NEGATIVE); UROBILINOGEN,URINE 0.2 EU/dL (<2.0)
[2023-04-27] MEDS ORDERED: Morphine 4 MG/ML Syringe IVPUSH STA ×2 (11:06→12:32)
[2023-04-27] MEDS ORDERED: Ondansetron 4 MG/2 ML SDV IVPUSH STA (11:06)
[2023-04-27 11:07] LABS: BACTERIA,URINE OCCASIONAL (NEGATIVE); EPITHELIAL CELLS,URINE MODERATE (NONE-FEW); RBC,URINE 40-50 (0-2/HPF); WBC,URINE 0-5 (0-5/HPF)
[2023-04-27 11:10] LABS: BASOPHILS ABSOLUTE AUTO 0.1 K/uL (0.0-0.1); BASOPHILS PERCENT AUTO 0.7 % (0.0-1.5); EOSINOPHILS ABSOLUTE AUTO 0.5 K/uL (0.0-0.7); HEMATOCRIT 39.2 % (36.0-46.0); HEMOGLOBIN 13.8 g/dL (12.0-16.0); LYMPHOCYTES ABSOLUTE AUTO 2.9 K/uL (0.6-2.4); LYMPHOCYTES PERCENT AUTO 27.4 % (16.0-40.0); MEAN CORPUSCULAR HEMOGLOBIN 32.4 pg (27.0-32.0); MEAN CORPUSCULAR HGB CONC 35.2 g/dL (31.0-37.0); MONOCYTES ABSOLUTE AUTO 0.7 K/uL (0.0-0.8); MONOCYTES PERCENT AUTO 6.5 % (0.0-15.0); NEUTROPHILS ABSOLUTE AUTO 6.4 K/uL (1.4-5.7); NEUTROPHILS PERCENT AUTO 60.4 % (48.0-80.0); NRBC ABSOLUTE 0 K/uL; PLATELET COUNT,PLT 231 K/uL (150-400); RED BLOOD CELL COUNT 4.26 M/uL (4.30-5.90); WHITE BLOOD CELL COUNT,WBC 10.55 K/uL (4.0-11.0)
[2023-04-27 11:36] LABS: A/G RATIO 0.9 (0.9-1.6); ALBUMIN 3.4 g/dL (3.4-5.0); BILIRUBIN TOTAL 0.9 mg/dL (0.2-1.0); CALCIUM 9.1 mg/dL (8.5-10.1); CARBON DIOXIDE,CO2 25.8 mmol/L (21.0-32.0); CREATININE 1.2 mg/dL (0.6-1.0); EST CRCL DRUG DOSING (CG) 44.67 mL/min; POTASSIUM,K 4.5 mmol/L (3.5-5.1); PROTEIN TOTAL,TP 7.3 g/dL (6.4-8.2)
[2023-04-27] MEDS ORDERED: Promethazine 25 MG/ML SDV IM STA (12:32)
[2023-04-27 15:38] VITALS: BP 172/108; PULSE 94
== END 2023-04-27 15:38 | disposition home or self-care (01) ==
LOC: MW.ED 10:25
DX: N83.8 Other noninflammatory disorders of ovary, fallopian tube and broad ligament (principal); R30.0 Dysuria; I10 Essential (primary) hypertension; E11.9 Type 2 diabetes mellitus without complications; E66.9 Obesity, unspecified; Z79.899 Other long term (current) drug therapy; Z79.82 Long term (current) use of aspirin; Z79.4 Long term (current) use of insulin; Z88.0 Allergy status to penicillin; Z88.8 Allergy status to other drugs, medicaments and biological substances; Z91.030 Bee allergy status; Z68.30 Body mass index [BMI] 30.0-30.9, adult
CPT/HCPCS: 74176; 76856; 80053; 81001; 81025; 85025; 96361; 96372; 96374; 96375; 96376; 99284; J2270; J2405; J2550; J3490; J7030

== ENCOUNTER 2023-06-10 13:33 | Observation (INO) | payer OTHER ==
[2023-06-10] MEDS ORDERED: Sodium Chloride 0.9% 2.5 ML Syringe FLUSH PRN (13:41)
[2023-06-10] MEDS ORDERED: Sodium Chloride 0.9% 10 ML Syringe FLUSH PRN (13:41)
[2023-06-10] MEDS ORDERED: Sodium Chloride 0.9% 1,000 ML IV STA ×3 (13:42→15:21)
[2023-06-10] MEDS ORDERED: Promethazine 25 MG/ML SDV IM STA (13:46)
[2023-06-10] MEDS ORDERED: Morphine 2 MG/ML SYRINGE IVPUSH STA (13:47)
[2023-06-10 14:08] LABS: BASE EXCESS VENOUS -1.8 (-2.0-3.0); BASOPHILS ABSOLUTE AUTO 0.1 K/uL (0.0-0.1); BASOPHILS PERCENT AUTO 0.8 % (0.0-1.5); EOSINOPHILS ABSOLUTE AUTO 0.2 K/uL (0.0-0.7); EOSINOPHILS PERCENT AUTO 2.3 % (0.0-7.0); HEMATOCRIT 38.6 % (36.0-46.0); HEMOGLOBIN 13.7 g/dL (12.0-16.0); LYMPHOCYTES ABSOLUTE AUTO 1.8 K/uL (0.6-2.4); LYMPHOCYTES PERCENT AUTO 18.5 % (16.0-40.0); MEAN CORPUSCULAR HEMOGLOBIN 32.5 pg (27.0-32.0); MEAN CORPUSCULAR HGB CONC 35.5 g/dL (31.0-37.0); MEAN CORPUSCULAR VOLUME 91.5 fL (80.0-98.0); MONOCYTES ABSOLUTE AUTO 0.8 K/uL (0.0-0.8); MONOCYTES PERCENT AUTO 8.5 % (0.0-15.0); NEUTROPHILS ABSOLUTE AUTO 6.6 K/uL (1.4-5.7); NEUTROPHILS PERCENT AUTO 69.9 % (48.0-80.0); NRBC ABSOLUTE 0 K/uL; PH,VENOUS 7.36 (7.31-7.41); PLATELET COUNT,PLT 232 K/uL (150-400); RED BLOOD CELL COUNT 4.22 M/uL (4.30-5.90); WHITE BLOOD CELL COUNT,WBC 9.44 K/uL (4.0-11.0)
[2023-06-10] MEDS ORDERED: Magnesium Sulfate/Water 2 GM in Premix Bag 1 BAG IV STA (14:39)
[2023-06-10 14:40] LABS: A/G RATIO 0.9 (0.9-1.6); ALBUMIN 3.5 g/dL (3.4-5.0); CALCIUM 9.3 mg/dL (8.5-10.1); CARBON DIOXIDE,CO2 22.9 mmol/L (21.0-32.0); CREATININE 1.6 mg/dL (0.6-1.0); EST CRCL DRUG DOSING (CG) 33.15 mL/min; POTASSIUM,K 4.5 mmol/L (3.5-5.1); PROTEIN TOTAL,TP 7.4 g/dL (6.4-8.2)
[2023-06-10] MEDS ORDERED: Insulin Regular, Human 100 Units/ML 10 ML Vial IVPUSH STA (14:47)
[2023-06-10] MEDS ORDERED: Glucagon,Human Recombinant 1 MG Vial IM PRN ×2 (14:47→21:43)
[2023-06-10] MEDS ORDERED: 50% Dextrose in Water 50 ML Syringe IVPUSH PRN ×2 (14:47→21:43)
[2023-06-10 15:00] LABS: APPEARANCE,URINE CLEAR; BILIRUBIN,URINE NEGATIVE (NEGATIVE); COLOR,URINE YELLOW; GLUCOSE,URINE >=1000 mg/dL (NEGATIVE); KETONES,URINE NEGATIVE (NEGATIVE); LEUKOCYTE ESTERASE,URINE NEGATIVE (NEGATIVE); NITRITE,URINE NEGATIVE (NEGATIVE); OCCULT BLOOD,URINE NEGATIVE (NEGATIVE); PH,URINE 5.5 (5.0-8.0); PROTEIN,URINE NEGATIVE (NEGATIVE); UROBILINOGEN,URINE 0.2 EU/dL (<2.0)
[2023-06-10] MEDS ORDERED: Morphine 4 MG/ML Syringe IVPUSH STA (15:46)
[2023-06-10] MEDS ORDERED: Labetalol 100 MG/20 ML MDV IVPUSH STA (15:46)
[2023-06-10] MEDS ORDERED: Iopamidol 755 Mg/ML 100 ML Bottle IVPUSH ONE (16:39)
[2023-06-10 17:03] LABS: CARBON DIOXIDE,CO2 24.8 mmol/L (21.0-32.0); CREATININE 1.2 mg/dL (0.6-1.0); EST CRCL DRUG DOSING (CG) 44.2 mL/min; POTASSIUM,K 4.1 mmol/L (3.5-5.1)
[2023-06-10 17:56] LABS: AMPHETAMINES SCREEN, URINE NEGATIVE (CUTOFF=500); BARBITURATE SCREEN,URINE NEGATIVE (CUTOFF=200); BENZODIAZEPINES SCREEN,URINE NEGATIVE (CUTOFF=150); BUPRENORPHINE SCREEN,URINE NEGATIVE (CUTOFF=10); METHADONE SCREEN, URINE NEGATIVE (CUTOFF=200); METHAMPHETAMINES SCREEN, URINE NEGATIVE (CUTOFF=500); OXYCODONE SCREEN,URINE NEGATIVE (CUT0FF=100); PCP SCREEN,URINE NEGATIVE (CUTOFF=25); PROPOXYPHENE SCREEN,URINE NEGATIVE (CUTOFF=300); THC SCREEN,URINE 20 NG/ML NEGATIVE (CUTOFF=50)
[2023-06-10] MEDS ORDERED: Metoclopramide 10 MG/2 ML SDV ONE (17:57)
[2023-06-10] MEDS: Metoclopramide 10 MG/2 ML SDV IVPUSH STA ×2 (17:58→18:01)
[2023-06-10] MEDS ORDERED: droPERidol 5 MG/2 ML SDV IVPUSH STA (18:30)
[2023-06-10] MEDS ORDERED: Ondansetron 4 MG/2 ML SDV IVPUSH PRN (21:41)
[2023-06-10] MEDS: Insulin Glargine,Hum.Rec.Anlog 100 UNIT/ML 3 ML Pen SUBCUT SCH (22:13)
[2023-06-10] MEDS: Sodium Chloride 0.9% 1,000 ML IV SCH (22:15)
[2023-06-10 23:04] LABS: HEMOGLOBIN A1C 12.6 %
[2023-06-11] MEDS: Acetaminophen 325 MG Tab PO PRN ×2 (00:16→08:32)
[2023-06-11] MEDS ORDERED: Ondansetron 4 MG/2 ML SDV IVPUSH PRN (01:15)
[2023-06-11 02:17] LABS: BILIRUBIN,URINE NEGATIVE (NEGATIVE); COLOR,URINE YELLOW; GLUCOSE,URINE >=1000 mg/dL (NEGATIVE); KETONES,URINE 15 mg/dL (NEGATIVE); LEUKOCYTE ESTERASE,URINE NEGATIVE (NEGATIVE); NITRITE,URINE NEGATIVE (NEGATIVE); OCCULT BLOOD,URINE NEGATIVE (NEGATIVE); PROTEIN,URINE NEGATIVE (NEGATIVE); UROBILINOGEN,URINE 0.2 EU/dL (<2.0)
[2023-06-11 02:36] LABS: APPEARANCE,URINE SLT CLOUDY; EPITHELIAL CELLS,URINE OCCASIONAL (NONE-FEW); RBC,URINE 0-2 (0-2/HPF); WBC,URINE 20-30 (0-5/HPF)
[2023-06-11 02:37] LABS: BACTERIA,URINE 3+ (NEGATIVE)
[2023-06-11] MEDS: Sodium Chloride 0.9% 1,000 ML IV SCH ×3 (05:56→21:50)
[2023-06-11 07:06] LABS: BASOPHILS ABSOLUTE AUTO 0.1 K/uL (0.0-0.1); BASOPHILS PERCENT AUTO 0.8 % (0.0-1.5); EOSINOPHILS ABSOLUTE AUTO 0.1 K/uL (0.0-0.7); EOSINOPHILS PERCENT AUTO 1.2 % (0.0-7.0); HEMATOCRIT 32.8 % (36.0-46.0); HEMOGLOBIN 11.2 g/dL (12.0-16.0); LYMPHOCYTES PERCENT AUTO 33.2 % (16.0-40.0); MEAN CORPUSCULAR HEMOGLOBIN 31.5 pg (27.0-32.0); MEAN CORPUSCULAR HGB CONC 34.1 g/dL (31.0-37.0); MEAN CORPUSCULAR VOLUME 92.4 fL (80.0-98.0); MONOCYTES ABSOLUTE AUTO 0.8 K/uL (0.0-0.8); MONOCYTES PERCENT AUTO 13.5 % (0.0-15.0); NEUTROPHILS ABSOLUTE AUTO 3.1 K/uL (1.4-5.7); NEUTROPHILS PERCENT AUTO 51.3 % (48.0-80.0); NRBC ABSOLUTE 0 K/uL; PLATELET COUNT,PLT 190 K/uL (150-400); RED BLOOD CELL COUNT 3.55 M/uL (4.30-5.90); WHITE BLOOD CELL COUNT,WBC 5.94 K/uL (4.0-11.0)
[2023-06-11 07:34] LABS: A/G RATIO 0.7 (0.9-1.6); ALBUMIN 2.6 g/dL (3.4-5.0); BILIRUBIN TOTAL 0.7 mg/dL (0.2-1.0); CARBON DIOXIDE,CO2 24.3 mmol/L (21.0-32.0); CREATININE 1.1 mg/dL (0.6-1.0); EST CRCL DRUG DOSING (CG) 48.22 mL/min; PROTEIN TOTAL,TP 6.1 g/dL (6.4-8.2)
[2023-06-11] MEDS: Insulin Aspart 100 Units/ML 3 ML Pen SUBCUT SCH ×3 (08:16→17:18)
[2023-06-11] MEDS: Insulin Glargine,Hum.Rec.Anlog 100 UNIT/ML 3 ML Pen SUBCUT SCH ×2 (08:18→20:51)
[2023-06-11] MEDS: Lisinopril 5 MG Tab PO SCH (08:18)
[2023-06-11] MEDS ORDERED: Ibuprofen 400 MG Tab PO PRN (10:49)
[2023-06-11] MEDS ORDERED: oxyCODONE 5 MG Tab PO PRN (10:51)
[2023-06-11] MEDS: Morphine 2 MG/ML SYRINGE IVPUSH PRN ×3 (11:17→21:47)
[2023-06-11] MEDS: cefTRIAXone 1 GM in Sodium Chloride 0.9% 50 ML IV SCH (11:18)
[2023-06-12] MEDS: Morphine 2 MG/ML SYRINGE IVPUSH PRN ×3 (02:00→08:41)
[2023-06-12] MEDS: Sodium Chloride 0.9% 1,000 ML IV SCH (05:40)
[2023-06-12 06:01] LABS: BASOPHILS PERCENT AUTO 0.5 % (0.0-1.5); EOSINOPHILS ABSOLUTE AUTO 0.2 K/uL (0.0-0.7); EOSINOPHILS PERCENT AUTO 3.1 % (0.0-7.0); HEMATOCRIT 32.6 % (36.0-46.0); HEMOGLOBIN 11.1 g/dL (12.0-16.0); LYMPHOCYTES ABSOLUTE AUTO 2.2 K/uL (0.6-2.4); LYMPHOCYTES PERCENT AUTO 28.5 % (16.0-40.0); MEAN CORPUSCULAR HEMOGLOBIN 31.6 pg (27.0-32.0); MEAN CORPUSCULAR VOLUME 92.9 fL (80.0-98.0); MONOCYTES ABSOLUTE AUTO 0.9 K/uL (0.0-0.8); MONOCYTES PERCENT AUTO 11.5 % (0.0-15.0); NEUTROPHILS ABSOLUTE AUTO 4.3 K/uL (1.4-5.7); NEUTROPHILS PERCENT AUTO 56.4 % (48.0-80.0); NRBC ABSOLUTE 0 K/uL; PLATELET COUNT,PLT 171 K/uL (150-400); RED BLOOD CELL COUNT 3.51 M/uL (4.30-5.90); WHITE BLOOD CELL COUNT,WBC 7.66 K/uL (4.0-11.0)
[2023-06-12 06:26] LABS: CALCIUM 7.8 mg/dL (8.5-10.1); CARBON DIOXIDE,CO2 24.2 mmol/L (21.0-32.0); EST CRCL DRUG DOSING (CG) 53.04 mL/min; POTASSIUM,K 3.7 mmol/L (3.5-5.1)
[2023-06-12] MEDS: Lisinopril 5 MG Tab PO SCH (08:31)
[2023-06-12] MEDS: Insulin Aspart 100 Units/ML 3 ML Pen SUBCUT SCH ×2 (08:32→12:14)
[2023-06-12] MEDS: Insulin Glargine,Hum.Rec.Anlog 100 UNIT/ML 3 ML Pen SUBCUT SCH (08:33)
[2023-06-12] MEDS: Acetaminophen 325 MG Tab PO PRN (11:10)
[2023-06-12] MEDS: cefTRIAXone 1 GM in Sodium Chloride 0.9% 50 ML IV SCH (11:11)
[2023-06-12 13:39] VITALS: BP 188/94; PULSE 83
== END 2023-06-12 13:45 | disposition home or self-care (01) ==
LOC: MW.ED 13:33 → MW.MS 18:10
PROVIDERS: ADMIT Internal Medicine; ATTEND Internal Medicine
DX: E11.65 Type 2 diabetes mellitus with hyperglycemia (principal); N17.9 Acute kidney failure, unspecified; R10.31 Right lower quadrant pain; E86.0 Dehydration; E83.42 Hypomagnesemia; N12 Tubulo-interstitial nephritis, not specified as acute or chronic; I10 Essential (primary) hypertension; G43.909 Migraine, unspecified, not intractable, without status migrainosus; F32.A Depression, unspecified; E66.9 Obesity, unspecified; Z90.49 Acquired absence of other specified parts of digestive tract; Z90.710 Acquired absence of both cervix and uterus; Z98.890 Other specified postprocedural states; Z88.0 Allergy status to penicillin; Z88.8 Allergy status to other drugs, medicaments and biological substances; Z79.4 Long term (current) use of insulin; Z79.82 Long term (current) use of aspirin; Z79.899 Other long term (current) drug therapy; Z20.822 Contact with and (suspected) exposure to COVID-19; Z68.33 Body mass index [BMI] 33.0-33.9, adult
CPT/HCPCS: 36415; 70450; 74177; 80048; 80053; 80305; 80307; 81001; 81003; 82009; 82803; 82947; 83036; 83605; 83690; 83735; 85025; 87635; 96361; 96365; 96372; 96375; 96376; 99285; A9270; J0696; J1790; J1815; J2270; J2550; J3475; J3490; J7030; Q9967; 96366; 96367; 99284; G0378; J2765; U0002

== ENCOUNTER 2023-08-30 07:24 | Emergency (ER) | payer OTHER ==
[2023-08-30] MEDS ORDERED: Sodium Chloride 0.9% 10 ML Syringe FLUSH PRN (07:41)
[2023-08-30] MEDS ORDERED: Sodium Chloride 0.9% 2.5 ML Syringe FLUSH PRN (07:41)
[2023-08-30] MEDS ORDERED: Sodium Chloride 0.9% 1,000 ML IV ONE (07:41)
[2023-08-30] MEDS ORDERED: Ondansetron 4 MG/2 ML SDV IVPUSH ONE (07:41)
[2023-08-30] MEDS ORDERED: Ketorolac 30 MG/ML SDV IVPUSH ONE (07:45)
[2023-08-30] MEDS ORDERED: fentaNYL 50 MCG/ML SDV IVPUSH ONE ×2 (07:45→09:29)
[2023-08-30 08:20] LABS: HEMATOCRIT 33.6 % (37.0-47.0); HEMOGLOBIN 11.8 g/dL (12.0-16.0); MEAN CORPUSCULAR HGB CONC 35.1 g/dL (32.0-36.0); MEAN CORPUSCULAR VOLUME 88.2 fL (83.0-99.0); MEAN PLATELET VOLUME 10.1 fL (9.4-12.3); PLATELET COUNT,PLT 212 K/uL (150-400); RED BLOOD CELL COUNT 3.81 M/uL (4.10-5.30); WHITE BLOOD CELL COUNT,WBC 13.03 K/uL (3.9-11.3)
[2023-08-30 08:36] LABS: BASOPHILS ABSOLUTE MAN 0.1 (0.0-0.1); BASOPHILS PERCENT MAN 1 % (0.0-1.5); EOSINOPHILS ABSOLUTE MAN 0.3 (0.0-0.7); EOSINOPHILS PERCENT MAN 2 % (0.0-7.0); LYMPHOCYTES ABSOLUTE MAN 3.1 (0.6-2.4); LYMPHOCYTES PERCENT MAN 24 % (16.0-40.0); MONOCYTES ABSOLUTE MAN 2.1 (0.0-0.8); MONOCYTES PERCENT MAN 16 % (0.0-15.0); SEG NEUTROPHILS ABSOLUTE MAN 7.4 (1.4-5.7); SEG NEUTROPHILS PERCENT MAN 57 % (48.0-80.0)
[2023-08-30 08:39] LABS: A/G RATIO 0.9 (0.9-1.6); ALBUMIN 3.5 g/dL (3.4-5.0); BILIRUBIN TOTAL 1.1 mg/dL (0.2-1.0); CALCIUM 9.1 mg/dL (8.5-10.1); CARBON DIOXIDE,CO2 21.1 mmol/L (21.0-32.0); CREATININE 1.4 mg/dL (0.6-1.0); EST CRCL DRUG DOSING (CG) 37.89 mL/min; POTASSIUM,K 3.3 mmol/L (3.5-5.1); PROTEIN TOTAL,TP 7.6 g/dL (6.4-8.2)
[2023-08-30 08:53] LABS: APPEARANCE,URINE SLT CLOUDY; BILIRUBIN,URINE NEGATIVE (NEGATIVE); COLOR,URINE YELLOW; GLUCOSE,URINE NEGATIVE (NEGATIVE); KETONES,URINE NEGATIVE (NEGATIVE); LEUKOCYTE ESTERASE,URINE SMALL (NEGATIVE); NITRITE,URINE POSITIVE (NEGATIVE); OCCULT BLOOD,URINE MODERATE (NEGATIVE); PROTEIN,URINE TRACE mg/dL (NEGATIVE); UROBILINOGEN,URINE 0.2 EU/dL (<2.0)
[2023-08-30 09:00] LABS: BACTERIA,URINE 3+ (NEGATIVE); SQUAMOUS EPITHELIAL CELLS,UR FEW; WBC,URINE 15-20 (0-5/HPF)
[2023-08-30 09:01] LABS: MUCUS,URINE LIGHT (NONE-MOD)
[2023-08-30] MEDS ORDERED: cefTRIAXone 2 GM in Sodium Chloride 0.9% 50 ML IV ONE (09:07)
[2023-08-30 11:12] VITALS: BP 132/69; PULSE 75
== END 2023-08-30 11:10 | disposition home or self-care (01) ==
LOC: MW.ED 07:24
DX: N12 Tubulo-interstitial nephritis, not specified as acute or chronic (principal); N39.0 Urinary tract infection, site not specified; I10 Essential (primary) hypertension; E11.9 Type 2 diabetes mellitus without complications; E66.9 Obesity, unspecified; Z88.0 Allergy status to penicillin; Z88.8 Allergy status to other drugs, medicaments and biological substances; Z91.030 Bee allergy status; Z68.29 Body mass index [BMI] 29.0-29.9, adult
CPT/HCPCS: 36415; 74176; 74176-26; 80053; 81001; 85025; 87086; 87088; 87186; 96361; 96365; 96375; 96376; 99284; 99284-25; J0696; J1885; J2405; J3010; J3490; J7030

== ENCOUNTER 2023-09-04 15:46 | Emergency (ER) | payer OTHER ==
[2023-09-04] MEDS ORDERED: Ondansetron 4 MG Tab.DIS PO ONE (16:06)
[2023-09-04] MEDS ORDERED: Acetaminophen/HYDROcodone 325-5 MG Tab PO ONE (16:06)
[2023-09-04] MEDS ORDERED: Lidocaine 4% 1 each Patch TOP STA (16:55)
[2023-09-04 17:37] VITALS: BP 154/100; PULSE 84
== END 2023-09-04 17:35 | disposition home or self-care (01) ==
LOC: MW.ED 15:46
DX: S46.912A Strain of unspecified muscle, fascia and tendon at shoulder and upper arm level, left arm, initial encounter (principal); E78.00 Pure hypercholesterolemia, unspecified; I10 Essential (primary) hypertension; E11.9 Type 2 diabetes mellitus without complications; E66.9 Obesity, unspecified; Z68.29 Body mass index [BMI] 29.0-29.9, adult; Z91.030 Bee allergy status; Z88.0 Allergy status to penicillin; Z88.8 Allergy status to other drugs, medicaments and biological substances; Z91.048 Other nonmedicinal substance allergy status; Z79.4 Long term (current) use of insulin; Z79.899 Other long term (current) drug therapy; W19.XXXA Unspecified fall, initial encounter; Y92.481 Parking lot as the place of occurrence of the external cause
CPT/HCPCS: 73000; 73030; 99283; A9270

== ENCOUNTER 2023-10-29 18:52 | Emergency (ER) | payer OTHER ==
[2023-10-29] MEDS ORDERED: Sodium Chloride 0.9% 1,000 ML IV ONE (19:25)
[2023-10-29] MEDS ORDERED: Ondansetron 4 MG/2 ML SDV IVPUSH ONE (19:27)
[2023-10-29 19:29] LABS: BASE EXCESS VENOUS 0.3 (-2.0-3.0); BASOPHILS PERCENT AUTO 1.1 % (0.0-1.0); EOSINOPHILS ABSOLUTE AUTO 0.09 K/uL (0.00-0.45); IMMATURE GRAN ABSOLUTE AUTO 0.04 K/uL (0.00-0.05); IMMATURE GRAN PERCENT AUTO 0.5 % (0.0-0.4); LYMPHOCYTES ABSOLUTE AUTO 2.06 K/uL (1.00-4.80); LYMPHOCYTES PERCENT AUTO 23.4 % (24.0-44.0); MEAN CORPUSCULAR HEMOGLOBIN 32.1 pg (28.0-32.0); MEAN CORPUSCULAR HGB CONC 37.5 g/dL (32.0-36.0); MEAN CORPUSCULAR VOLUME 85.5 fL (83.0-99.0); MONOCYTES ABSOLUTE AUTO 0.56 K/uL (0.00-0.80); MONOCYTES PERCENT AUTO 6.3 % (0.0-8.0); NEUTROPHILS ABSOLUTE AUTO 5.97 K/uL (1.80-7.70); NEUTROPHILS PERCENT AUTO 67.7 % (41.0-71.0); PH,VENOUS 7.39 (7.31-7.41); PLATELET COUNT,PLT 226 K/uL (150-400); RED BLOOD CELL COUNT 4.68 M/uL (4.10-5.30); WHITE BLOOD CELL COUNT,WBC 8.82 K/uL (3.9-11.3)
[2023-10-29 19:45] LABS: APPEARANCE,URINE CLEAR; BILIRUBIN,URINE NEGATIVE (NEGATIVE); COLOR,URINE YELLOW; GLUCOSE,URINE >=1000 mg/dL (NEGATIVE); KETONES,URINE 15 mg/dL (NEGATIVE); LEUKOCYTE ESTERASE,URINE NEGATIVE (NEGATIVE); NITRITE,URINE NEGATIVE (NEGATIVE); OCCULT BLOOD,URINE TRACE-INTACT (NEGATIVE); PROTEIN,URINE 100 mg/dL (NEGATIVE); UROBILINOGEN,URINE 0.2 EU/dL (<2.0)
[2023-10-29 19:59] LABS: BACTERIA,URINE FEW (NEGATIVE); EPITHELIAL CELLS,URINE MODERATE (NONE-FEW)
[2023-10-29 20:00] LABS: A/G RATIO 0.9 (0.9-1.6); ALBUMIN 3.8 g/dL (3.4-5.0); BILIRUBIN TOTAL 1.2 mg/dL (0.2-1.0); CALCIUM 9.2 mg/dL (8.5-10.1); CARBON DIOXIDE,CO2 24.8 mmol/L (21.0-32.0); CREATININE 1.1 mg/dL (0.6-1.0); EST CRCL DRUG DOSING (CG) 48.22 mL/min; POTASSIUM,K 4.4 mmol/L (3.5-5.1); PROTEIN TOTAL,TP 7.8 g/dL (6.4-8.2)
[2023-10-29 21:18] VITALS: PULSE 86
[2023-10-29 21:41] VITALS: BP 170/100
== END 2023-10-29 21:39 | disposition home or self-care (01) ==
LOC: MW.ED 18:52
DX: R11.2 Nausea with vomiting, unspecified (principal); I10 Essential (primary) hypertension; E78.00 Pure hypercholesterolemia, unspecified; E11.9 Type 2 diabetes mellitus without complications; E66.9 Obesity, unspecified; Z90.49 Acquired absence of other specified parts of digestive tract; Z90.710 Acquired absence of both cervix and uterus; Z79.4 Long term (current) use of insulin; Z79.899 Other long term (current) drug therapy; Z88.0 Allergy status to penicillin; Z91.030 Bee allergy status; Z88.8 Allergy status to other drugs, medicaments and biological substances; Z88.1 Allergy status to other antibiotic agents; Z68.36 Body mass index [BMI] 36.0-36.9, adult
CPT/HCPCS: 36415; 80053; 81001; 81025; 82803; 82947; 85025; 93005; 96361; 96374; 99284; J2405; J7030

== ENCOUNTER 2025-03-24 15:38 | Emergency (ER) | payer BC, OTHER ==
[2025-03-24] MEDS ORDERED: Sodium Chloride 0.9% 2.5 ML Syringe FLUSH PRN (15:43)
[2025-03-24] MEDS ORDERED: Sodium Chloride 0.9% 10 ML Syringe FLUSH PRN (15:43)
[2025-03-24] MEDS ORDERED: Sodium Chloride 0.9% 20 ML SDV IV PRN (15:43)
[2025-03-24 15:49] LABS: BASOPHILS ABSOLUTE AUTO 0.08 K/uL (0.00-0.20); BASOPHILS PERCENT AUTO 0.7 % (0.0-1.0); EOSINOPHILS ABSOLUTE AUTO 0.09 K/uL (0.00-0.45); EOSINOPHILS PERCENT AUTO 0.7 % (0.0-6.0); HEMATOCRIT 44.7 % (37.0-47.0); HEMOGLOBIN 16.1 g/dL (12.0-16.0); IMMATURE GRAN ABSOLUTE AUTO 0.06 K/uL (0.00-0.05); IMMATURE GRAN PERCENT AUTO 0.5 % (0.0-0.4); LYMPHOCYTES ABSOLUTE AUTO 3.35 K/uL (1.00-4.80); LYMPHOCYTES PERCENT AUTO 27.3 % (24.0-44.0); MEAN CORPUSCULAR HEMOGLOBIN 31.8 pg (28.0-32.0); MEAN CORPUSCULAR VOLUME 88.2 fL (83.0-99.0); MEAN PLATELET VOLUME 9.8 fL (9.4-12.3); MONOCYTES ABSOLUTE AUTO 0.91 K/uL (0.00-0.80); MONOCYTES PERCENT AUTO 7.4 % (0.0-8.0); NEUTROPHILS PERCENT AUTO 63.4 % (41.0-71.0); PLATELET COUNT,PLT 299 K/uL (150-400); RED BLOOD CELL COUNT 5.07 M/uL (4.10-5.30); WHITE BLOOD CELL COUNT,WBC 12.29 K/uL (3.9-11.3)
[2025-03-24] MEDS: Iopamidol 755 MG/ML 500 ML Multipack Bottle IVPUSH STA (16:04)
[2025-03-24 16:08] LABS: INR 0.99 (0.86-1.11); PTT,PARTIAL THROMBOPLSTIN TIME 23.7 SEC (23.9-30.7)
[2025-03-24] MEDS: Labetalol 100 MG/20 ML MDV IVPUSH ONE ×2 (16:16→16:35)
[2025-03-24 16:19] LABS: ALANINE AMINOTRANSFERASE,ALT 20 IU/L (14-63); ALBUMIN 3.8 g/dL (3.4-5.0); ALKALINE PHOSPHATASE 105 U/L (46-116); ASPARTATE AMNIOTRANSFERASE,AST 32 IU/L (15-37); BILIRUBIN TOTAL 1.3 mg/dL (0.2-1.0); BLOOD UREA NITROGEN,BUN 19 mg/dL (7.0-18.0); CALCIUM 9.6 mg/dL (8.5-10.1); CARBON DIOXIDE,CO2 24.6 mmol/L (21.0-32.0); CHLORIDE,CL 100 mmol/L (98-107); CREATININE 1.3 mg/dL (0.6-1.0); GLUCOSE RANDOM 205 mg/dL (74-106); POTASSIUM,K 4.1 mmol/L (3.5-5.1); PROTEIN TOTAL,TP 7.6 g/dL (6.4-8.2); SODIUM,NA 134 mmol/L (136-145)
[2025-03-24 16:28] LABS: ESTIMATED GFR 51 mL/min (>60)
[2025-03-24] MEDS: Clopidogrel 75 MG Tab PO ONE (18:12)
[2025-03-24] MEDS: Aspirin 81 MG Tab.Chew PO ONE (18:12)
[2025-03-24] MEDS: Prochlorperazine 10 MG/2 ML SDV IVPUSH ONE (18:47)
[2025-03-24] MEDS: diphenhydrAMINE 50 MG/ML SDV IVPUSH ONE (18:47)
[2025-03-24 19:29] VITALS: BP 214/120; PULSE 98
== END 2025-03-24 20:45 ==
LOC: MW.ED 15:38
DX: R29.810 Facial weakness (principal); R47.1 Dysarthria and anarthria; R20.0 Anesthesia of skin; I16.1 Hypertensive emergency; E11.65 Type 2 diabetes mellitus with hyperglycemia; I12.9 Hypertensive chronic kidney disease with stage 1 through stage 4 chronic kidney disease, or unspecified chronic kidney disease; N18.9 Chronic kidney disease, unspecified; E78.00 Pure hypercholesterolemia, unspecified; Z86.73 Personal history of transient ischemic attack (TIA), and cerebral infarction without residual deficits; Z90.49 Acquired absence of other specified parts of digestive tract; Z90.710 Acquired absence of both cervix and uterus; Z88.0 Allergy status to penicillin; Z88.8 Allergy status to other drugs, medicaments and biological substances; Z91.030 Bee allergy status; Z79.4 Long term (current) use of insulin; Z79.899 Other long term (current) drug therapy
CPT/HCPCS: 36415; 70450; 70496; 70498; 80053; 85025; 85610; 85730; 93005; 96374; 96375; 99285; A9270; J0780; J1200; J1920; Q9967; 93010